=== PATIENT | female | born 1940 | race Caucasian/White ===

== ENCOUNTER 2018-02-14 09:38 | Inpatient (IN) | payer MEDICAID ==
[~2018-02-14] VITALS: Ht 160 cm; Wt 70.3 kg
[2018-02-14] VITALS (14 sets, daily range): BP systolic 71–128
[2018-02-14] MEDS ORDERED: NACL 0.9% 1,000 ML IV ONE (09:49)
[2018-02-14] MEDS ORDERED: ONDANSETRON HCL 4 MG/2 ML VIAL IVP ONE (10:00)
[2018-02-14] MEDS ORDERED: CLINDAMYCIN 900 mg/50mL D5W 50 ML IV ONE (10:00)
[2018-02-14] MEDS ORDERED: NOREPINEPHRINE BITARTRATE 4 MG in NS 246 ML IV ONE (10:00)
[2018-02-14] MEDS ORDERED: NS 1000 ML BAG IV ONE (10:00)
[2018-02-14] MEDS ORDERED: MORPHINE 4 MG/ML INJ. SYRINGE IVP ONE (10:00)
[2018-02-14] MEDS ORDERED: MORPHINE 4 MG/ML INJ. SYRINGE ONE (10:24)
[2018-02-14 10:34] LABS: BASOPHILS # (AUTO) 0.2 K/uL (0.0-0.2); BASOPHILS % (AUTO) 1.1 % (0.0-2.0); EOSINOPHILS # (AUTO) 0.2 K/uL (0.0-0.4); EOSINOPHILS % (AUTO) 1.5 % (0.0-4.0); HEMATOCRIT 32.9 % (36-48); HEMOGLOBIN 11.2 g/dL (12.0-16.0); LYMPHOCYTES # (AUTO) 0.4 K/uL (1.0-5.5); LYMPHOCYTES % (AUTO) 3.1 % (20.5-51.5); MEAN CORPUSCULAR HEMOGLOBIN 32 pg (27-31); MEAN CORPUSCULAR HGB CONC 34 % (32-36); MEAN CORPUSCULAR VOLUME 94 fL (79.0-98.0); MONOCYTES % (AUTO) 0.3 % (1.7-9.3); NEUTROPHILS # (AUTO) 12.9 K/uL (1.8-7.7); PLATELET COUNT (AUTO) 180 K/uL (130-430); RED CELL DISTRIBUTION WIDTH 16.8 % (9.0-15.0); WHITE BLOOD COUNT (AUTO) 13.8 K/uL (4.8-10.8)
[2018-02-14 10:38] LABS: INR 1.1 (0.8-1.2); PROTHROMBIN TIME 10.8 SECS (9.5-12.5)
[2018-02-14 10:40] LABS: ALANINE AMINOTRANSFERASE 47 U/L (12-78); ALBUMIN 1.6 g/dL (3.4-4.8); AMYLASE 77 U/L (0-100); ANION GAP 13 (5-15); ASPARTATE AMINOTRANSFERASE 48 U/L (10-37); CALCIUM 7.4 mg/dL (8.4-11.0); CREATININE 2.82 mg/dL (0.55-1.30); GLUCOSE 144 mg/dL (70-99); LIPASE 49 U/L (73-393); POTASSIUM 5.1 mmol/L (3.5-5.1); TOTAL BILIRUBIN 0.5 mg/dL (0.0-1.0)
[2018-02-14 10:43] LABS: CHLORIDE 81 mmol/L (98-107); SODIUM SERUM 112 mmol/L (136-145)
[2018-02-14 10:45] LABS: UREA NITROGEN, BLOOD 129 mg/dL (8-21)
[2018-02-14] MEDS ORDERED: ASPIRIN 81 MG TAB.CHEW PO ONE (11:00)
[2018-02-14] MEDS ORDERED: CLOPIDOGREL BISULFATE 75 MG TABLET PO ONE (11:00)
[2018-02-14] MEDS ORDERED: SODIUM CHLORIDE 3% *HI-ALERT* 500 ML IV ONE (12:15)
[2018-02-14 12:40] LABS: BILIRUBIN,URINE NEGATIVE (NEGATIVE); BLOOD, URINE NEGATIVE (NEGATIVE); CLARITY/URINE CLEAR (CLEAR); COLOR,URINE YELLOW (YELLOW); GLUCOSE,URINE NEGATIVE (NEGATIVE); KETONES,URINE NEGATIVE (NEGATIVE); LEUKOCYTE ESTERASE ,URINE 1+ (NEGATIVE); NITRITE, URINE NEGATIVE (NEGATIVE); PROTEIN URINE NEGATIVE (NEGATIVE); UROBILINOGEN,URINE 0.2 (0.2-1.0)
[2018-02-14 13:25] LABS: BACTERIA,URINE MODERATE /HPF (None Seen); RBC,URINE 0-3 /HPF (0-3); YEAST,URINE Many /HPF (None Seen)
[2018-02-14 13:26] LABS: MUCUS,URINE None Seen /LPF (None Seen)
[2018-02-14] MEDS ORDERED: VIS25 GT (13:33)
[2018-02-14] MEDS ORDERED: TRAM50TA2 GT (13:33)
[2018-02-14] MEDS ORDERED: FURO-149 GT (13:33)
[2018-02-14] MEDS ORDERED: POTA20TA83 GT (13:33)
[2018-02-14] MEDS ORDERED: MYL80 GT (13:33)
[2018-02-14] MEDS ORDERED: AMIO400T3 GT (13:33)
[2018-02-14] MEDS ORDERED: PARO-41 GT (13:33)
[2018-02-14] MEDS ORDERED: TYLL650 GT (13:33)
[2018-02-14] MEDS ORDERED: LEVE100S GT (13:33)
[2018-02-14] MEDS ORDERED: LORA-258 GT (13:33)
[2018-02-14] MEDS ORDERED: ATOR10TA68 GT (13:33)
[2018-02-14] MEDS ORDERED: SENN-153 GT (13:33)
[2018-02-14] MEDS ORDERED: PENT400T2 GT (13:33)
[2018-02-14] MEDS ORDERED: LOSA25TA3 GT (13:33)
[2018-02-14] MEDS ORDERED: LACT1CAP14 GT (13:33)
[2018-02-14] MEDS ORDERED: METH4TAB3 GT (13:33)
[2018-02-14] MEDS ORDERED: GUAI100S14 GT (13:33)
[2018-02-14] MEDS ORDERED: ROB1 GT (13:33)
[2018-02-14] MEDS ORDERED: ARTT OP (13:33)
[2018-02-14] MEDS ORDERED: CHLO473M5 MM (13:33)
[2018-02-14] MEDS ORDERED: METO-442 GT (13:33)
[2018-02-14] MEDS ORDERED: METO-290 GT (13:33)
[2018-02-14] MEDS ORDERED: HYDR-1189 GT (13:33)
[2018-02-14] MEDS ORDERED: HYDROCORTISONE SOD SUCC 100 MG/2 ML VIAL IVP ONE (14:15)
[2018-02-14] MEDS ORDERED: LevALBUTEROL HCL 1.25 MG/0.5 ML *CONC.* VIAL.NEB (XOPENEX CONC.) INH PRN (14:15)
[2018-02-14] MEDS ORDERED: IPRATROPIUM BROM 0.5 MG/2.5 ML VIAL.NEB (ATROVENT) INH PRN (14:15)
[2018-02-14] MEDS ORDERED: PANTOPRAZOLE SODIUM 40 MG/VIAL (PROTONIX) IVP ONE (14:45)
[2018-02-14] MEDS ORDERED: NOREPINEPHRINE 4 MG/4 ML VIAL IV ONE (15:06)
[2018-02-14] MEDS ORDERED: SODIUM CHLORIDE 3% *HI-ALERT* 500 ML IV SCH (15:15)
[2018-02-14] MEDS ORDERED: ACETAMINOPHEN 650 MG/20.3 ML UDC PO PRN (15:15)
[2018-02-14] MEDS ORDERED: FLUCONAZOLE 100 mg/ NS 50 ML IV ONE (16:00)
[2018-02-14 16:01] LABS: ANION GAP 15 (5-15); CREATININE 2.35 mg/dL (0.55-1.30); GLUCOSE 123 mg/dL (70-99); POTASSIUM 4.5 mmol/L (3.5-5.1)
[2018-02-14 16:13] LABS: INR 1.1 (0.8-1.2)
[2018-02-14 16:16] LABS: CHLORIDE 85 mmol/L (98-107); SODIUM SERUM 117 mmol/L (136-145)
[2018-02-14 16:19] LABS: UREA NITROGEN, BLOOD 116 mg/dL (8-21)
[2018-02-14] MEDS: NOREPINEPHRINE BITARTRATE 8 MG in D5W 242 ML IV PRN ×2 (18:00→23:28)
[2018-02-14] MEDS: LevALBUTEROL HCL 1.25 MG/0.5 ML *CONC.* VIAL.NEB (XOPENEX CONC.) INH SCH (19:52)
[2018-02-14] MEDS: CEFEPIME 1 GM in D5W 50 ML IV SCH (21:28)
[2018-02-14] MEDS: HYDROCORTISONE SOD SUCC 100 MG/2 ML VIAL IVP SCH (21:30)
[2018-02-14] MEDS: metroNIDAZOLE 250 mg/NS 50 ML IV SCH (22:17)
[2018-02-14 23:31] LABS: ANION GAP 15 (5-15); CALCIUM 7.1 mg/dL (8.4-11.0); CHLORIDE 89 mmol/L (98-107); CREATININE 2.18 mg/dL (0.55-1.30); GLUCOSE 186 mg/dL (70-99); POTASSIUM 4.6 mmol/L (3.5-5.1); SODIUM SERUM 120 mmol/L (136-145)
[2018-02-14 23:33] LABS: UREA NITROGEN, BLOOD 109 mg/dL (8-21)
[2018-02-15] VITALS (28 sets, daily range): BP systolic 99–163
[2018-02-15] MEDS: NACL 0.9% 1,000 ML IV SCH ×3 (00:38→21:22)
[2018-02-15] MEDS: LevALBUTEROL HCL 1.25 MG/0.5 ML *CONC.* VIAL.NEB (XOPENEX CONC.) INH SCH ×4 (01:04→20:01)
[2018-02-15] MEDS: HYDROCORTISONE SOD SUCC 100 MG/2 ML VIAL IVP SCH ×3 (05:42→21:20)
[2018-02-15] MEDS: metroNIDAZOLE 250 mg/NS 50 ML IV SCH ×3 (05:43→21:31)
[2018-02-15 06:44] LABS: ALANINE AMINOTRANSFERASE 51 U/L (12-78); ALBUMIN 1.7 g/dL (3.4-4.8); ANION GAP 15 (5-15); ASPARTATE AMINOTRANSFERASE 49 U/L (10-37); CALCIUM 7.4 mg/dL (8.4-11.0); CHLORIDE 90 mmol/L (98-107); CREATININE 1.97 mg/dL (0.55-1.30); GLUCOSE 178 mg/dL (70-99); POTASSIUM 4.1 mmol/L (3.5-5.1); SODIUM SERUM 121 mmol/L (136-145); TOTAL BILIRUBIN 0.6 mg/dL (0.0-1.0)
[2018-02-15 07:10] LABS: UREA NITROGEN, BLOOD 102 mg/dL (8-21)
[2018-02-15 07:44] LABS: BASOPHILS % (AUTO) 0.2 % (0.0-2.0); EOSINOPHILS % (AUTO) 0.2 % (0.0-4.0); HEMATOCRIT 35.2 % (36-48); HEMOGLOBIN 11.8 g/dL (12.0-16.0); LYMPHOCYTES # (AUTO) 0.8 K/uL (1.0-5.5); LYMPHOCYTES % (AUTO) 6.4 % (20.5-51.5); MEAN CORPUSCULAR HEMOGLOBIN 32 pg (27-31); MEAN CORPUSCULAR HGB CONC 34 % (32-36); MEAN CORPUSCULAR VOLUME 95 fL (79.0-98.0); MONOCYTES # (AUTO) 0.2 K/uL (0.0-1.0); MONOCYTES % (AUTO) 1.9 % (1.7-9.3); NEUTROPHILS # (AUTO) 11.5 K/uL (1.8-7.7); NEUTROPHILS % (AUTO) 91.3 % (40.0-70.0); PLATELET COUNT (AUTO) 237 K/uL (130-430); RED BLOOD CELL COUNT(AUTO) 3.71 MIL/uL (4.2-6.2); RED CELL DISTRIBUTION WIDTH 16.7 % (9.0-15.0); WHITE BLOOD COUNT (AUTO) 12.5 K/uL (4.8-10.8)
[2018-02-15] MEDS ORDERED: NACL 0.9% 1,000 ML IV ONE (07:45)
[2018-02-15] MEDS: METOPROLOL TARTRATE 25 MG TABLET GT SCH ×2 (09:00→21:21)
[2018-02-15] MEDS: PANTOPRAZOLE SODIUM 40 MG/VIAL (PROTONIX) IVP SCH (09:15)
[2018-02-15] MEDS: CEFEPIME 1 GM in D5W 50 ML IV SCH ×2 (09:18→21:21)
[2018-02-15] MEDS: NOREPINEPHRINE BITARTRATE 8 MG in D5W 242 ML IV PRN (09:35)
[2018-02-15] MEDS: FLUCONAZOLE 100 mg/ NS 50 ML IV SCH (10:59)
[2018-02-15] MEDS: LORazepam 2 MG/ML VIAL IVP PRN (16:52)
[2018-02-15] MEDS ORDERED: MENTHOL/ZINC OXIDE 113 GM OINT. TP PRN (19:00)
[2018-02-15] MEDS: MENTHOL/ZINC OXIDE 113 GM OINT. TP SCH (21:23)
[2018-02-16] VITALS (29 sets, daily range): BP systolic 100–149
[2018-02-16] MEDS: NOREPINEPHRINE BITARTRATE 8 MG in D5W 242 ML IV PRN (00:07)
[2018-02-16] MEDS: LevALBUTEROL HCL 1.25 MG/0.5 ML *CONC.* VIAL.NEB (XOPENEX CONC.) INH SCH ×4 (00:52→19:56)
[2018-02-16] MEDS: metroNIDAZOLE 250 mg/NS 50 ML IV SCH ×2 (05:29→14:01)
[2018-02-16] MEDS: NACL 0.9% 1,000 ML IV SCH ×2 (05:29→17:10)
[2018-02-16] MEDS: HYDROCORTISONE SOD SUCC 100 MG/2 ML VIAL IVP SCH ×2 (05:30→21:41)
[2018-02-16 06:20] LABS: HEMATOCRIT 29.5 % (36-48); HEMOGLOBIN 10.1 g/dL (12.0-16.0); MEAN CORPUSCULAR HEMOGLOBIN 32 pg (27-31); MEAN CORPUSCULAR HGB CONC 34 % (32-36); MEAN CORPUSCULAR VOLUME 94 fL (79.0-98.0); PLATELET COUNT (AUTO) 206 K/uL (130-430); RED BLOOD CELL COUNT(AUTO) 3.14 MIL/uL (4.2-6.2); RED CELL DISTRIBUTION WIDTH 16.8 % (9.0-15.0); WHITE BLOOD COUNT (AUTO) 9.7 K/uL (4.8-10.8)
[2018-02-16 06:35] LABS: ALANINE AMINOTRANSFERASE 45 U/L (12-78); ALBUMIN 1.5 g/dL (3.4-4.8); ANION GAP 11 (5-15); ASPARTATE AMINOTRANSFERASE 43 U/L (10-37); CALCIUM 7.2 mg/dL (8.4-11.0); CHLORIDE 99 mmol/L (98-107); CHOLESTEROL 88 mg/dL (<200); CREATININE 1.34 mg/dL (0.55-1.30); GLUCOSE 187 mg/dL (70-99); HDL CHOLESTEROL 63 mg/dL (>55); LDL CHOLESTEROL 18 mg/dL (<100); POTASSIUM 3.2 mmol/L (3.5-5.1); SODIUM SERUM 126 mmol/L (136-145); THYROID STIMULATING HORMONE 0.18 uIu/mL (0.34-4.82); TOTAL BILIRUBIN 0.5 mg/dL (0.0-1.0); TRIGLYCERIDES 28 mg/dL (30-150); UREA NITROGEN, BLOOD 80 mg/dL (8-21)
[2018-02-16] MEDS: CEFEPIME 1 GM in D5W 50 ML IV SCH (08:30)
[2018-02-16] MEDS: PANTOPRAZOLE SODIUM 40 MG/VIAL (PROTONIX) IVP SCH (08:31)
[2018-02-16] MEDS: MENTHOL/ZINC OXIDE 113 GM OINT. TP SCH ×4 (08:31→21:42)
[2018-02-16] MEDS: METOPROLOL TARTRATE 25 MG TABLET GT SCH ×2 (08:33→21:00)
[2018-02-16] MEDS: FLUCONAZOLE 100 mg/ NS 50 ML IV SCH (09:49)
[2018-02-16] MEDS ORDERED: KCL 20 mEq in 100 mL (PREMIX) 100 ML IV ONE (10:30)
[2018-02-16 11:38] LABS: BAND % (MANUAL) 9 % (0-6); BASOPHILS % (MANUAL) 0 % (0-2); EOSINOPHILS % (MANUAL) 0 % (0-7); LYMPHOCYTES % (MANUAL) 3 % (20-46); MONOCYTES % (MANUAL) 4 % (0-11)
[2018-02-16] MEDS: LORazepam 2 MG/ML VIAL IVP PRN ×2 (17:10→22:30)
[2018-02-16] MEDS ORDERED: BENZOCAINE 20% 0.5mL UD SPRAY MM PRN (21:00)
[2018-02-16] MEDS: AMPICILLIN SODIUM/SULBACTAM NA 1.5 GM in NS 50 ML IV SCH (21:42)
[2018-02-17] VITALS (18 sets, daily range): BP systolic 100–135
[2018-02-17] MEDS: LevALBUTEROL HCL 1.25 MG/0.5 ML *CONC.* VIAL.NEB (XOPENEX CONC.) INH SCH ×4 (00:57→19:37)
[2018-02-17] MEDS: AMPICILLIN SODIUM/SULBACTAM NA 1.5 GM in NS 50 ML IV SCH ×3 (05:09→21:22)
[2018-02-17] MEDS: LORazepam 2 MG/ML VIAL IVP PRN (05:13)
[2018-02-17 06:51] LABS: ALANINE AMINOTRANSFERASE 48 U/L (12-78); ALBUMIN 1.7 g/dL (3.4-4.8); ANION GAP 15 (5-15); ASPARTATE AMINOTRANSFERASE 47 U/L (10-37); CALCIUM 7.8 mg/dL (8.4-11.0); CHLORIDE 102 mmol/L (98-107); CREATININE 1.11 mg/dL (0.55-1.30); GLUCOSE 156 mg/dL (70-99); POTASSIUM 3.3 mmol/L (3.5-5.1); SODIUM SERUM 132 mmol/L (136-145); TOTAL BILIRUBIN 0.5 mg/dL (0.0-1.0); UREA NITROGEN, BLOOD 69 mg/dL (8-21)
[2018-02-17 06:58] LABS: HEMATOCRIT 31.4 % (36-48); HEMOGLOBIN 10.6 g/dL (12.0-16.0); MEAN CORPUSCULAR HEMOGLOBIN 31 pg (27-31); MEAN CORPUSCULAR HGB CONC 34 % (32-36); MEAN CORPUSCULAR VOLUME 93 fL (79.0-98.0); PLATELET COUNT (AUTO) 219 K/uL (130-430); RED BLOOD CELL COUNT(AUTO) 3.37 MIL/uL (4.2-6.2); RED CELL DISTRIBUTION WIDTH 16.6 % (9.0-15.0); WHITE BLOOD COUNT (AUTO) 11.3 K/uL (4.8-10.8)
[2018-02-17] MEDS ORDERED: POTASSIUM CHLORIDE 40 MEQ, LIDOCAINE JECT 2% PF 100 MG 75 MG in NS 250 ML IV ONE (07:30)
[2018-02-17] MEDS: PANTOPRAZOLE SODIUM 40 MG/VIAL (PROTONIX) IVP SCH (08:30)
[2018-02-17] MEDS: HYDROCORTISONE SOD SUCC 100 MG/2 ML VIAL IVP SCH ×2 (08:31→21:20)
[2018-02-17] MEDS: METOPROLOL TARTRATE 25 MG TABLET GT SCH ×2 (08:32→21:20)
[2018-02-17] MEDS: MENTHOL/ZINC OXIDE 113 GM OINT. TP SCH ×4 (08:33→21:22)
[2018-02-17] MEDS: FLUCONAZOLE 100 mg/ NS 50 ML IV SCH (08:33)
[2018-02-17 09:39] LABS: BAND % (MANUAL) 5 % (0-6); BASOPHILS % (MANUAL) 0 % (0-2); EOSINOPHILS % (MANUAL) 0 % (0-7); LYMPHOCYTES % (MANUAL) 5 % (20-46); MONOCYTES % (MANUAL) 7 % (0-11)
[2018-02-17] MEDS: NACL 0.9% 1,000 ML IV SCH ×3 (17:12→17:17)
[2018-02-18 00:52] VITALS: BP_SYST 130
[2018-02-18] MEDS: LevALBUTEROL HCL 1.25 MG/0.5 ML *CONC.* VIAL.NEB (XOPENEX CONC.) INH SCH ×3 (01:17→13:21)
[2018-02-18] MEDS: NACL 0.9% 1,000 ML IV SCH ×2 (02:41→05:36)
[2018-02-18] MEDS: AMPICILLIN SODIUM/SULBACTAM NA 1.5 GM in NS 50 ML IV SCH ×2 (05:00→14:31)
[2018-02-18 07:35] LABS: ANION GAP 11 (5-15); CALCIUM 7.7 mg/dL (8.4-11.0); CHLORIDE 107 mmol/L (98-107); CREATININE 0.88 mg/dL (0.55-1.30); GLUCOSE 150 mg/dL (70-99); POTASSIUM 3.5 mmol/L (3.5-5.1); SODIUM SERUM 134 mmol/L (136-145); UREA NITROGEN, BLOOD 55 mg/dL (8-21)
[2018-02-18 08:30] VITALS: BP_SYST 133
[2018-02-18] MEDS: HYDROCORTISONE SOD SUCC 100 MG/2 ML VIAL IVP SCH (09:09)
[2018-02-18] MEDS: PANTOPRAZOLE SODIUM 40 MG/VIAL (PROTONIX) IVP SCH (09:09)
[2018-02-18] MEDS: METOPROLOL TARTRATE 25 MG TABLET GT SCH (09:10)
[2018-02-18] MEDS: FLUCONAZOLE 100 mg/ NS 50 ML IV SCH (09:10)
[2018-02-18] MEDS: MENTHOL/ZINC OXIDE 113 GM OINT. TP SCH ×3 (09:11→17:45)
[2018-02-18 11:49] VITALS: BP_SYST 165
[2018-02-18 16:19] VITALS: BP_SYST 149
[2018-02-18 16:54] VITALS: BP_SYST 144
[2018-02-18 17:00] VITALS: BP_SYST 149
[2018-02-19] MEDS ORDERED: PREDNISONE 20 MG TABLET PO SCH (09:00)
== END 2018-02-18 18:33 | DRG 720 ==
LOC: SED 09:38 → SIC 12:26 → STU 02-17 16:27
PROVIDERS: ADMIT Internal Medicine Hospice and Palliative Medicine; ATTEND Internal Medicine Hospice and Palliative Medicine
PROC: 5A1955Z Respiratory Ventilation, Greater than 96 Consecutive Hours (ICD-10-PCS; principal; 2018-02-14)
PROC: 02HV33Z Insertion of Infusion Device into Superior Vena Cava, Percutaneous Approach (ICD-10-PCS; 2018-02-15)
PROC: B548ZZA Ultrasonography of Superior Vena Cava, Guidance (ICD-10-PCS; 2018-02-15)
DX: A41.9 Sepsis, unspecified organism (principal); N17.0 Acute kidney failure with tubular necrosis; J96.20 Acute and chronic respiratory failure, unspecified whether with hypoxia or hypercapnia; J69.0 Pneumonitis due to inhalation of food and vomit; R65.21 Severe sepsis with septic shock; G93.41 Metabolic encephalopathy; Z99.11 Dependence on respirator [ventilator] status; E43 Unspecified severe protein-calorie malnutrition; Z93.0 Tracheostomy status; E87.2 Acidosis; I11.0 Hypertensive heart disease with heart failure; I95.9 Hypotension, unspecified; I50.9 Heart failure, unspecified; I24.9 Acute ischemic heart disease, unspecified; N39.0 Urinary tract infection, site not specified; E87.1 Hypo-osmolality and hyponatremia; E11.9 Type 2 diabetes mellitus without complications; Y95 Nosocomial condition; B96.89 Other specified bacterial agents as the cause of diseases classified elsewhere; E11.51 Type 2 diabetes mellitus with diabetic peripheral angiopathy without gangrene; F32.9 Major depressive disorder, single episode, unspecified; D64.9 Anemia, unspecified; I25.10 Atherosclerotic heart disease of native coronary artery without angina pectoris; E88.09 Other disorders of plasma-protein metabolism, not elsewhere classified; G40.909 Epilepsy, unspecified, not intractable, without status epilepticus; I48.2 Chronic atrial fibrillation; B96.20 Unspecified Escherichia coli [E. coli] as the cause of diseases classified elsewhere; Z16.12 Extended spectrum beta lactamase (ESBL) resistance; I27.20 Pulmonary hypertension, unspecified; Z93.1 Gastrostomy status; Z87.01 Personal history of pneumonia (recurrent); Z79.899 Other long term (current) drug therapy; Z88.8 Allergy status to other drugs, medicaments and biological substances; Z22.322 Carrier or suspected carrier of Methicillin resistant Staphylococcus aureus; Z74.01 Bed confinement status; I69.354 Hemiplegia and hemiparesis following cerebral infarction affecting left non-dominant side; Z68.27 Body mass index [BMI] 27.0-27.9, adult
CPT/HCPCS: 36415; 36600; 71045; 80048; 80053; 80061; 81000-TC; 82150-TC; 82550-TC; 82803-TC; 83605; 83690-TC; 83880; 84443-TC; 84484; 85007; 85025; 85027; 85610-TC; 85730-TC; 87040-TC; 87070-TC; 87081; 87086; 87186-TC; 87205-TC; 93005; 93306; 94002; 94003; 94640; 96361; 96365; 96368; 96375; 99291; 99292; C1751; C9113; J0295; J0692; J0696; J1450; J1720; J2060; J2270; J3480; J3490; J7030; J7050; J7060; J7612

== ENCOUNTER 2018-06-19 10:34 | Inpatient (IN) | payer MEDICAID ==
[~2018-06-19] VITALS: Ht 160 cm; Wt 70.8 kg
[~2018-06-19 10:34] MED LIST: AMIO400T3 GT; ARTT OP; ATOR10TA68 GT; CHLO473M5 MM; FURO-149 GT; GUAI100S14 GT; HYDR-1189 GT; LACT1CAP14 GT; LEVE100S GT; LORA-258 GT; LOSA25TA3 GT; METH4TAB3 GT; METO-290 GT; METO-442 GT; MYL80 GT; PARO-41 GT; PENT400T12 GT; POTA20TA83 GT; ROB1 GT; SENN-153 GT; TRAM50TA2 GT; TYLL650 GT; VIS25 GT
--- NOTE | 2018-06-19 10:34 | NUR ---
Pt placed in bed 1 by KASHMIR Mittal
--- NOTE | 2018-06-19 10:35 | NUR ---
ER at bedside examining patient.
--- NOTE | 2018-06-19 12:00 | NUR ---
CHEST XRAY DONE AT BEDSIDE.
--- NOTE | 2018-06-19 12:10 | NUR ---
BLOOD DRAWN BY ASSEMBLER ERECTOR.
[2018-06-19 12:28] LABS: BASOPHILS # (AUTO) 0.1 K/uL (0.0-0.2); BASOPHILS % (AUTO) 1.7 % (0.0-2.0); EOSINOPHILS # (AUTO) 0.1 K/uL (0.0-0.4); EOSINOPHILS % (AUTO) 1.1 % (0.0-4.0); HEMATOCRIT 31.9 % (36-48); HEMOGLOBIN 10.2 g/dL (12.0-16.0); LYMPHOCYTES % (AUTO) 19.9 % (20.5-51.5); MEAN CORPUSCULAR HEMOGLOBIN 31 pg (27-31); MEAN CORPUSCULAR HGB CONC 32 % (32-36); MEAN CORPUSCULAR VOLUME 97 fL (79.0-98.0); MONOCYTES # (AUTO) 0.7 K/uL (0.0-1.0); MONOCYTES % (AUTO) 13.5 % (1.7-9.3); NEUTROPHILS # (AUTO) 3.2 K/uL (1.8-7.7); NEUTROPHILS % (AUTO) 63.8 % (40.0-70.0); PLATELET COUNT (AUTO) 185 K/uL (130-430); RED BLOOD CELL COUNT(AUTO) 3.29 MIL/uL (4.2-6.2); RED CELL DISTRIBUTION WIDTH 17.5 % (9.0-15.0); WHITE BLOOD COUNT (AUTO) 5.1 K/uL (4.8-10.8)
[2018-06-19 12:45] LABS: ANION GAP 11 (5-15); CALCIUM 8.5 mg/dL (8.4-11.0); CHLORIDE 100 mmol/L (98-107); CREATININE 0.69 mg/dL (0.55-1.30); GLUCOSE 104 mg/dL (70-99); POTASSIUM 3.6 mmol/L (3.5-5.1); SODIUM SERUM 135 mmol/L (136-145); UREA NITROGEN, BLOOD 34 mg/dL (8-21)
[2018-06-19 12:49] LABS: ALANINE AMINOTRANSFERASE 47 U/L (12-78); ALBUMIN 2.4 g/dL (3.4-4.8); ASPARTATE AMINOTRANSFERASE 55 U/L (10-37); TOTAL BILIRUBIN 0.6 mg/dL (0.0-1.0)
[2018-06-19] MEDS ORDERED: MIDAZOLAM HCL 5 MG/5 ML VIAL IVP ONE (14:42)
[2018-06-19] MEDS ORDERED: D5/0.45 NS 1,000 ML IV.SOLN IV ONE (14:42)
[2018-06-19] MEDS ORDERED: PROPOFOL 200MG/ 20ML VIAL (DIPRIVAN) IV ONE (14:42)
[2018-06-19] MEDS ORDERED: ONDANSETRON HCL 4 MG/2 ML VIAL IM PRN (15:00)
[2018-06-19] MEDS ORDERED: ACETAMINOPHEN 650 MG SUPP.RECT RC PRN (15:00)
--- NOTE | 2018-06-19 15:08 | NUR ---
Medication reconciliation completed with information provided by facility. Any prior medication reconciliation on file was reviewed and corrected.
--- NOTE | 2018-06-19 15:16 | NUR ---
ADMISSION NOTE Received patient from ER via gurney. Patient admitted with diagnosis of . Patient is awake, alert, oriented X 0. Patient oriented to hospital room, call light, toileting, pain management and safety-teach back done. Patient informed that I will be her nurse and that their room number is 103A. Personal belongings checked and Belongings List documented. Call light within reach.
--- NOTE | 2018-06-19 15:20 | NUR ---
TRANSFERRED CARE TO [facility]. TRANSPORTED PT TO TELEMETRY DEPT ROOM 103-A, VIA PORTABLE CARDIAC MONITORING, R.T BAGGING PT VIA TRACH, ACCOMPANIED BY FAMILY.
--- NOTE | 2018-06-19 15:40 | NUR ---
CONSULTATION PAGED/CALLED Reason for Consultation: [] VENT MGMT Person Who was Notified: [] VALERIE Consulting Physician: [] DR Elva GONSALEZ Costume Maker Specialty: [] PULMO Ordering Physician: [] DR Holden TOMPKINS
--- NOTE | 2018-06-19 15:43 | NUR ---
CONSULTATION PAGED/CALLED Reason for Consultation: [] GT DISPLACEMENT Person Who was Notified: [] VALERIE Consulting Physician: [] DR Kane MORENO Visitor Services Information Assistant Specialty: [] GI Ordering Physician: [] DR Holden TOMPKINS
[2018-06-19 15:57] VITALS: BP_SYST 125
[2018-06-19 15:59] VITALS: BP_SYST 125
[2018-06-19 16:30] VITALS: BP_SYST 125
--- NOTE | 2018-06-19 17:21 | NUR ---
Spoke with Dr. Nava asked about vent orders, stated to continue settings patient is currently on, also asked for IV fluids for patient because she is NPO, will implement orders
--- NOTE | 2018-06-19 17:30 | NUR ---
Spoke with Dr. Bourgeois over the phone, informed him that patient still has apparent g-tube in place but site has not been flushed, MD stated he will make rounds tomorrow. Family remains at bedside. patient resting in bed, no signs of distress, will continue to monitor
[2018-06-19] MEDS: NACL 0.9% 1,000 ML IV SCH (18:35)
--- NOTE | 2018-06-19 18:49 | NUR ---
Closing Note patient was repositioned in bed, oral and trach suctioning performed, HOB remains elevated, IV fluids infusing, site patent, pillow support provided, safety precautions remain in place, will endorse to shift leader nurse
--- NOTE | 2018-06-19 19:30 | NUR ---
INITIAL NOTES Received handoff report from offgoing nurse at the bedside. Patient is resting comfortably in bed with eyes closed. Family is at the bedside. Tolerating trach to vent settings as ordered. No SOB, no acute distress, no signs of pain or discomfort at this time. Bed is locked, in the lowest position, 2x side rails up, bed alarm is on. Call light is within reach. Explained plan of care to the family. Family verbalized understanding. Will continue with plan of care.
[2018-06-19 20:00] VITALS: BP_SYST 108
--- NOTE | 2018-06-19 21:30 | NUR ---
Provided patient full bed bath. Patient is incontinent of urine. Also provided skin care. Patient is now clean and dry, resting comfortably in bed.
[2018-06-20 00:10] VITALS: BP_SYST 102
--- NOTE | 2018-06-20 00:10 | NUR ---
Patient is resting comfortably in bed with eyes closed. No SOB, no acute distress, no signs of pain or facial grimacing. Tolerating trach to vent settings, breathing is even and unlabored. Bed is locked, in the lowest position, 2x side rails up, bed alarm is on. Call light is within reach.
--- NOTE | 2018-06-20 02:00 | NUR ---
Provided patient with bed bath, patient is incontinent of urine. Patient is now clean and dry, resting comfortably in bed.
--- NOTE | 2018-06-20 03:56 | NUR ---
Patient turned and repositioned as needed. Provided patient with oral care. No SOB, no acute distress, no signs of pain or discomfort at this time. IV site is intact, dressing clean and dry, currently infused IVF at ordered rate, see eMAR. Bed is locked, in the lowest position, 2x side rails up, bed alarm is on. Call light is within reach, encouraged patient to call.
[2018-06-20] MEDS: NACL 0.9% 1,000 ML IV SCH (05:29)
--- NOTE | 2018-06-20 05:32 | NUR ---
Changed IVF as needed per MD order, see eMAR for details.
[2018-06-20 06:25] LABS: HEMOGLOBIN 9.5 g/dL (12.0-16.0); MEAN CORPUSCULAR HEMOGLOBIN 33 pg (27-31); MEAN CORPUSCULAR HGB CONC 34 % (32-36); MEAN CORPUSCULAR VOLUME 97 fL (79.0-98.0); PLATELET COUNT (AUTO) 188 K/uL (130-430); RED BLOOD CELL COUNT(AUTO) 2.91 MIL/uL (4.2-6.2); RED CELL DISTRIBUTION WIDTH 17.5 % (9.0-15.0)
--- NOTE | 2018-06-20 06:54 | NUR ---
Patient is restless and agitated right now, throwing linen on the floor and moving her arm around. Patient noted to be incontinent of urine. Provided perineal care and applied zgaurd. Patient is now clean and dry. Repositioned patient into a more comfortable position. No SOB, no acute distress. Bed is locked, in the lowest position, 2x side rails up, bed alarm is on. Call light within reach.
[2018-06-20 06:57] LABS: ALANINE AMINOTRANSFERASE 45 U/L (12-78); ALBUMIN 2.1 g/dL (3.4-4.8); ANION GAP 10 (5-15); ASPARTATE AMINOTRANSFERASE 55 U/L (10-37); CALCIUM 8.3 mg/dL (8.4-11.0); CHLORIDE 101 mmol/L (98-107); CREATININE 0.71 mg/dL (0.55-1.30); GLUCOSE 80 mg/dL (70-99); POTASSIUM 3.5 mmol/L (3.5-5.1); SODIUM SERUM 135 mmol/L (136-145); TOTAL BILIRUBIN 0.7 mg/dL (0.0-1.0); UREA NITROGEN, BLOOD 27 mg/dL (8-21)
[2018-06-20 06:58] LABS: INR 1.1 (0.8-1.2); PROTHROMBIN TIME 11.6 SECS (9.5-12.5)
--- NOTE | 2018-06-20 07:32 | NUR ---
CLOSING NOTES Handoff report given to oncoming dayshift nurse at the bedside. Patient is awake and alert, resting comfortably in bed. No SOB, no acute distress, no signs of pain or facial grimacing. Breathing is even and unlabored with visible chest rise and fall noted. Tolerating trach to vent settings. IV fluids is running at the ordered rate, see eMAR for details. Bed is locked, in the lowest position, 2x side rails up, bed alarm is on. Call light is within reach. Fall and safety precautions maintained. All needs have been met during this shift.
--- NOTE | 2018-06-20 07:35 | NUR ---
OPENING NOTE RECEIVED REPORT FORM POWER TOOL REPAIRER NURSE. PT IS IN BED. PT IS NONVERBAL. PT HAS VENT, SETTINGS AC 10, TV 40, FI02 30%, PEEP 5. IV FLUIDS ARE INFUSING, NO INFILTRATION NOTED. PT IS ON LOW AIR LOSS MATTRESS. NO DISTRESS NOTED AT THIS TIME. SAFETY MEASURES IN PLACE, BED TO LOWEST POSITION, SIDE RAILS UPX3 AND PADDED. WILL CONTINUE TO MONITOR.
[2018-06-20 07:50] VITALS: BP_SYST 121
--- NOTE | 2018-06-20 09:15 | NUR ---
PAGED DR. FRENCH
--- NOTE | 2018-06-20 09:27 | NUR ---
Nutrition Update Ceasar Scale 13 noted. Pt admitted for displaced GT. Diet: NPO BMI: 27.6 kg/m2 RD to follow per nutrition care standards.
[2018-06-20] MEDS: PANTOPRAZOLE SODIUM 40 MG/VIAL (PROTONIX) IVP SCH (09:34)
[2018-06-20 09:37] LABS: BAND % (MANUAL) 7 % (0-6); EOSINOPHILS % (MANUAL) 1 % (0-7); LYMPHOCYTES % (MANUAL) 21 % (20-46); MONOCYTES % (MANUAL) 13 % (0-11)
[2018-06-20 09:38] LABS: BASOPHILS % (MANUAL) 0 % (0-2)
[2018-06-20] MEDS ORDERED: HYDROcodone/ACETAMIN 5-325 MG TAB (NORCO/ VICODIN) GT PRN (09:45)
[2018-06-20] MEDS ORDERED: ACETAMINOPHEN 650 MG/20.3 ML UDC GT PRN (09:45)
--- NOTE | 2018-06-20 09:50 | NUR ---
ROUNDS MORNING MEDICATION GIVEN. PT IS SCRATCHING TO UPPER INNER LEGS. WILL NOTIFY MD. VENT SETTINGS REMAIN THE SAME. IV IS INFUSING. SAFETY MEASURES IN PLACE, WILL CONTINUE TO MONITOR.
--- NOTE | 2018-06-20 09:55 | NUR ---
MD ROUNDS NOTIFIED DR. TOMPKINS OF REDNESS TO GROIN AREA, NEW ORDERS RECEIVED. RECEIVED NEW ORDERS FOR N-G TUBE AND WILL CARRY OUT.
[2018-06-20] MEDS: LORazepam 2 MG/ML VIAL IVP PRN ×2 (10:36→18:28)
[2018-06-20] MEDS: D5NS 1,000 ML IV SCH ×2 (10:44→21:58)
--- NOTE | 2018-06-20 11:45 | NUR ---
ATTENDING MD SLIP COVER SEWER DR Holden TOMPKINS WAS PAGED, RE: ORDER FOR RESTRAINTS. SPOKE TO GARY
--- NOTE | 2018-06-20 11:55 | NUR ---
NG TUBE PLACEMENT NG TUBE INSERTED TO LEFT NOSTRIL. PT IS RESTLESS. PT ATTEMPTING TO PULL AT NG TUBE. WILL NOTIFY MD. PT HAS MEDICAL CENTER DIRECTOR AT BEDSIDE FOR REASSURANCE AND SAFETY. SAFETY MEASURES IN PLACE, WILL CONTINUE TO MONITOR.
[2018-06-20 12:08] VITALS: BP_SYST 131
--- NOTE | 2018-06-20 12:10 | NUR ---
DR TOMPKINS CALLED RECEIVED ORDERS FOR SOFT RESTRAINTS AND ON TIME DOES OF ATIVAN IVP. PT PULLING ON LINES. REDIRECTION ATTEMPTED, CALM ENVIRONMENT, NOT EFFECTIVE. WILL CARRY OUT ORDERS.
[2018-06-20] MEDS ORDERED: LORazepam 2 MG/ML VIAL IVP ONE ×2 (12:15)
--- NOTE | 2018-06-20 12:29 | NUR ---
DR. FRENCH CALLED SECOND CALL PLACED TO DR. FRENCH REGARDING PT'S G-TUBE AND CLARIFICATION OF ORDERS. Addendum: 06/20/18 at 1235 by Marisol Osorio RN CALLED BACK. NEW ORDERS GIVEN, WILL CARRY OUT.
[2018-06-20] MEDS: NYSTATIN 15 GM TOPICAL POWDER TP SCH ×2 (12:49→22:04)
[2018-06-20] MEDS ORDERED: LORazepam 2 MG/ML VIAL ONE (12:52)
[2018-06-20] MEDS: PEG 400/HYPROMELLOSE/GLYCERIN 15 ML DROPS OP SCH ×2 (12:53→18:00)
--- NOTE | 2018-06-20 12:55 | NUR ---
ROUNDS SOFT RESTRAINT PUT TO RIGHT WRIST. PT WAS PULLING AT NG-TUBE. ATIVAN GIVEN 0.5MG IVP X1 ORDER. NYSTANTIN SCANNED LATE D/T WAITING FOR PHARMACY TO DELIVER. VENT SETTINGS REMAIN SAME. SAFETY MEASURES IN PLACE, WILL CONTINUE TO MONITOR.
--- NOTE | 2018-06-20 13:45 | NUR ---
ROUNDS PT APPEARS TO BE MORE CALM. SOFT RESTRAINT TO RIGHT WRIST. FAMILY IS AT BEDSIDE. SAFETY MEASURES IN PLACE, BED TO LOWEST POSITION, BED ALARM IS ON, SIDE RAILS UPX3 AND PADDED. WILL CONTINUE TO MONITOR.
[2018-06-20] MEDS: METOPROLOL TARTRATE 25 MG TABLET GT SCH ×2 (14:23→21:59)
[2018-06-20 16:02] VITALS: BP_SYST 154
--- NOTE | 2018-06-20 16:11 | NUR ---
ROUNDS PT WAS TURNED AND CLEANED OF URINE. WOUND CARE DONE TO LEFT THIGH SKIN TEAR. PT IS ON VENT, SETTINGS REMAIN SAME. PT IS ON LOW AIR LOSS MATTRESS. IV FLUIDS INFUSING. NG TUBE INTACT. SOFT RESTRAINT TO RIGHT WRIST. RESTRAINT WAS TAKEN OFF TO GIVE PT RANGE OF MOTION, PT ATTEMPTED TO GET NG-TUBE. SAFETY MEASURES IN PLACE, BED TO LOWEST POSITION, SIDE RAILS UPX3 AND PADDED, BED ALARM IS ON. WILL CONTINUE TO MONITOR.
--- NOTE | 2018-06-20 19:15 | NUR ---
INITIAL NOTES Received handoff report from offgoing dayshift nurse at the bedside. Patient is resting comfortably in bed with eyes closed. No SOB, no acute distress, no signs of pain or facial grimacing at this time. Family is at the bedside. Tolerating trach to vent settings. IVF running at ordered rate, see eMAR for details. Bed is locked, in the lowest position, 2x side rails up, bed alarm is on. Call light is within reach. Encouraged family to call for assistance.
--- NOTE | 2018-06-20 19:15 | NUR ---
CLOSING NOTE GAVE REPORT TO CUSTOMER SERVICE SECURITY OFFICER NURSE. PT RECEIVED ATIVAN PRN IVP GIVEN APPROXIMATELY AT 1835 FOR AGITATION. SUCTIONED PT ORALLY. PT IS ON A VENT, SETTINGS ARE AC 10, TV 40, FI02 30%, PEEP 5. IV FLUIDS ARE INFUSING, NO INFILTRATION NOTED. PT IS ON LOW AIR LOSS MATTRESS AND SCD'S ARE PLACED TO BLE. NO DISTRESS NOTED AT THIS TIME. SAFETY MEASURES IN PLACE, BED TO LOWEST POSITION, SIDE RAILS UPX3 AND PADDED. ENDORSED CARE TO CUSTOMER SERVICE SECURITY OFFICER NURSE.
--- NOTE | 2018-06-20 19:45 | NUR ---
Inquired with dayshift nurse on the whereabouts of the abdominal xray preliminary results. Dayshift nurse stated that she did not receive any results. Called the radiology department to see if we can obtain the preliminary results. Radiologist stated that the radiologist is off for tonight, and will not be able to read any results until tomorrow morning. Charge nurse made aware.
[2018-06-20 20:00] VITALS: BP_SYST 133
--- NOTE | 2018-06-20 20:09 | NUR ---
PAGED I PAGED DR. FRENCH @ 2008 I SPOKE WITH VALERIE JETER I CALLED SECOND TIME @ 2026 I SPOKE WITH JACQUES CORONA FRENCH CALLED BACK @ 2027
--- NOTE | 2018-06-20 20:28 | NUR ---
Notified Dr Bustamante that the Abdominal Xray has no results yet, and that the radiology department stated that the radiologist is off for today, and will not be able to provide preliminary results until tomorrow morning. Dr Bourgeois ordered for STAT Abdominal XRAY for verification of NGTUBE placement.
--- NOTE | 2018-06-20 20:32 | NUR ---
PAGED PAGED DOCTOR LEDA CARR RN.
--- NOTE | 2018-06-20 20:36 | NUR ---
Dr Nava notified of Critical lab results, positive for MRSA Nares. Family at the bedside also made aware, and educated on isolation precautions. Dr Nava ordered for Bactroban and for contact isolation.
[2018-06-20] MEDS ORDERED: MUPIROCIN NASAL 2% OINT. NS SCH (21:00)
--- NOTE | 2018-06-20 21:20 | NUR ---
NG Tube has been advanced 10cm based on previous abdominal xray results. Xray measurement technician at the bedside to take abdominal XRAY.
[2018-06-20] MEDS: ATORVASTATIN 10 MG TABLET GT SCH (21:58)
[2018-06-20] MEDS: FUROSEMIDE 40 MG TABLET GT SCH (21:58)
[2018-06-20] MEDS: traMADol HCL HCL 50 MG TABLET (ULTRAM) GT PRN (21:59)
--- NOTE | 2018-06-20 21:59 | NUR ---
Patient appears to be agitated with facial grimacing. Provided patient with Ultram for pain PRN per MD order, see eMAR for details.
[2018-06-20] MEDS: AMIODARONE HCL 200 MG TABLET GT SCH (22:00)
[2018-06-20] MEDS: LevETIRAcetam 500 MG/5 ML UDC ORAL LIQUID GT SCH (22:02)
[2018-06-20] MEDS: CHLORHEXIDINE GLUCONATE 15 ML/DOSE, 480 ML MM SCH (22:03)
[2018-06-21 00:30] VITALS: BP_SYST 99
--- NOTE | 2018-06-21 00:32 | NUR ---
Patient is resting comfortably in bed with eyes closed. No SOB, no acute distress, no signs of pain or facial grimacing at this time. Tolerating trach to vent settings as ordered. IV site is intact, currently infusing IVF per MD order, see EMAR for details. Bed is locked, in the lowest position, 2x side rails up, bed alarm is on. Call light is within reach.
[2018-06-21] MEDS: PEG 400/HYPROMELLOSE/GLYCERIN 15 ML DROPS OP SCH ×4 (01:07→18:09)
--- NOTE | 2018-06-21 02:10 | NUR ---
Patient is resting comfortably in bed with eyes closed. Breathing even and unlabored, tolerating trach to vent settings as ordered. No SOB, no acute distress, no signs of pain or facial grimacing. Breathing is even and unlabored with visible chest rise and fall noted. IVF running at ordered rate, see eMAR. Call light within reach.
--- NOTE | 2018-06-21 03:23 | NUR ---
Patient is sleeping, resting comfortably in bed. Tolerating trach to vent settings. No SOB, no acute distress, no signs of pain or facial grimacing. Breathing even and unlabored with visible chest rise and fall noted. IVF running at the ordered rate, see eMAR. Bed is locked, in the lowest position, 2x side rails up, bed alarm is on. Call light is within reach.
[2018-06-21] MEDS: LORazepam 2 MG/ML VIAL IVP PRN ×2 (05:07→15:33)
[2018-06-21] MEDS: D5NS 1,000 ML IV SCH (05:08)
[2018-06-21] MEDS: METOPROLOL TARTRATE 25 MG TABLET GT SCH ×3 (05:10→22:00)
--- NOTE | 2018-06-21 05:20 | NUR ---
Patient is biting down on her lips and gums, causing her to bleed. Patient has a lot of anxiety at this time. Provided Ativan PRN per MD order, see eMAR for details. Patient fell asleep afterwards and relaxed.
--- NOTE | 2018-06-21 05:43 | NUR ---
Provided incontinence care for the patient. Patient was sleeping, but easily aroused by touch. Patient is still hitting and pulling on IV lines while nursing staff was providing incontinence care for the patient. Patient is now clean and dry. Also provided tracheal suction care. Patient is resting comfortably in bed. No SOB, no acute distress, no signs of pain or facial grimacing at this time. Bed is locked, in the lowest position, 2x side rails up, bed alarm is on. Call light is within reach. Encouraged patient to call.
--- NOTE | 2018-06-21 06:47 | NUR ---
Patient is sleeping, resting comfortably in bed. No SOB, no acute distress, no signs of pain or facial grimacing. Breathing is even and unlabored with visible chest rise and fall noted. Tolerating trach to vent settings. IV site is intact, dressing clean and dry, running IVF at the ordered rate, see eMAR. Bed is locked, in the lowest position, 2x side rails up, bed alarm is on. Call light is within reach. Fall and safety precautions maintained. All needs have been met during this shift. Will endorse care to oncoming dayshift nurse.
[2018-06-21 08:00] VITALS: BP_SYST 123
[2018-06-21 08:09] LABS: BASOPHILS % (AUTO) 0.6 % (0.0-2.0); EOSINOPHILS % (AUTO) 0.9 % (0.0-4.0); HEMATOCRIT 30.3 % (36-48); HEMOGLOBIN 9.5 g/dL (12.0-16.0); LYMPHOCYTES # (AUTO) 0.8 K/uL (1.0-5.5); LYMPHOCYTES % (AUTO) 14.6 % (20.5-51.5); MEAN CORPUSCULAR HEMOGLOBIN 31 pg (27-31); MEAN CORPUSCULAR HGB CONC 31 % (32-36); MEAN CORPUSCULAR VOLUME 99 fL (79.0-98.0); MONOCYTES # (AUTO) 0.5 K/uL (0.0-1.0); MONOCYTES % (AUTO) 10.1 % (1.7-9.3); NEUTROPHILS % (AUTO) 73.8 % (40.0-70.0); PLATELET COUNT (AUTO) 169 K/uL (130-430); RED BLOOD CELL COUNT(AUTO) 3.06 MIL/uL (4.2-6.2); RED CELL DISTRIBUTION WIDTH 17.7 % (9.0-15.0); WHITE BLOOD COUNT (AUTO) 5.3 K/uL (4.8-10.8)
[2018-06-21 08:19] LABS: ALANINE AMINOTRANSFERASE 42 U/L (12-78); ALBUMIN 2.3 g/dL (3.4-4.8); ANION GAP 11 (5-15); ASPARTATE AMINOTRANSFERASE 55 U/L (10-37); CALCIUM 8.2 mg/dL (8.4-11.0); CHLORIDE 107 mmol/L (98-107); CREATININE 0.81 mg/dL (0.55-1.30); GLUCOSE 114 mg/dL (70-99); POTASSIUM 3.6 mmol/L (3.5-5.1); SODIUM SERUM 141 mmol/L (136-145); TOTAL BILIRUBIN 0.8 mg/dL (0.0-1.0); UREA NITROGEN, BLOOD 20 mg/dL (8-21)
--- NOTE | 2018-06-21 08:32 | NUR ---
AM NOTES Patient laying in bed resting. No s/s of distress, pain or SOB. Left NGT intact, Trach portex #7 intact and cuffed, vent settings running as ordered, NPO status maintained, Contact precautions maintained for MRSA of the nares. Bed in lowest position, call light within reach.
[2018-06-21] MEDS: LACTOBACILLUS RHAMNOSUS GG 1 CAP CAPSULE PO SCH (09:00)
[2018-06-21] MEDS: AMIODARONE HCL 200 MG TABLET GT SCH ×2 (09:00→21:14)
[2018-06-21] MEDS: FUROSEMIDE 40 MG TABLET GT SCH ×2 (09:00→21:15)
[2018-06-21] MEDS: POTASSIUM CHLORIDE 20 MEQ/PKT PACKET GT SCH (09:00)
[2018-06-21] MEDS: LevETIRAcetam 500 MG/5 ML UDC ORAL LIQUID GT SCH ×2 (09:00→21:17)
[2018-06-21] MEDS: PANTOPRAZOLE SODIUM 40 MG/VIAL (PROTONIX) IVP SCH (09:36)
[2018-06-21] MEDS: CHLORHEXIDINE GLUCONATE 15 ML/DOSE, 480 ML MM SCH ×2 (09:43→21:19)
[2018-06-21] MEDS ORDERED: CEFAZOLIN 1 GM IVPB PREMIX 50 ML IV ONE (09:45)
[2018-06-21] MEDS: MUPIROCIN 2% TOPICAL OINTMENT 22 GM NS SCH ×2 (09:46→21:20)
--- NOTE | 2018-06-21 09:54 | NUR ---
MORNING MEDS Morning meds administered via Gtube not given due to Gtube being pulled out last night. Family at bedside.
--- NOTE | 2018-06-21 10:00 | NUR ---
Skin care: Severe redness noted on the buttocks/sacral/cocyx and paul area. Z-guard applied on the buttocks and sacrococcygeal area, nystatin powder on the paul area after washed with soap and water. On low air loss mattress. Off loaded bilateral heels with a pillow.
--- NOTE | 2018-06-21 10:35 | NUR ---
AM MEDS: Family at bedside inquiring about AM meds. Informed family that meds were not given because of possible PEG placement today.
[2018-06-21] MEDS: D5/0.45 NS 1,000 ML IV SCH ×2 (10:45→15:47)
[2018-06-21] MEDS: NYSTATIN 15 GM TOPICAL POWDER TP SCH ×2 (11:18→21:21)
[2018-06-21 11:25] VITALS: BP_SYST 124
--- NOTE | 2018-06-21 12:01 | NUR ---
Wound Evaluation: Wound Consult ordered for Low Ceasar Score. Patient evaluated for a low Ceasar score of 12. Patient was awake, alert, oriented and received in a Remy Bed with a mattress. Patient needs to be turned in bed. Skin is poor. Recommend reposition patient side to side only every 2 hours with pillow support. Elevate, off-load and float bilateral heels with pillows. Offload pressure areas with pillows for pressure re-distribution. Perform skin care and monitor skin integrity Q shift. Use Calmoseptine cream on moisture susceptible areas QID and PRN for soiling. Place patient on a low air-loss mattress. Skin assessment: 1. Perineal area: Severe IAD, present on admission. Recommend: Cleanse involved areas with mild soap and water. Pat dry. Apply Nystatin cream to involved area. Perform site care bid, and as needed for soiling. 2. Sacral-Coccygeal/Buttockls areas: Severe IAD, present on admission. Recommend: Cleanse involved areas with mild soap and water. Pat dry. Apply Calmoseptine cream to involved areas. Perform site care qid, and as needed for soiling. Will continue to follow as a Ceasar.
--- NOTE | 2018-06-21 14:29 | NUR ---
AFTERNOON ROUNDS Patient laying in bed resting, no s/s of SOB or distress. No pain reported. Bed in lowest position, call light within reach. IV site patent, intact and dressing is dry. Family at bedside.
[2018-06-21 15:29] VITALS: BP_SYST 140
--- NOTE | 2018-06-21 16:13 | NUR ---
NGT: Spoke with Dr. Gerber, letyayed to use NGT for meds or feeding.
--- NOTE | 2018-06-21 16:47 | NUR ---
Sputum Culture: MD is aware of culture's result. Awaiting for order.
--- NOTE | 2018-06-21 17:59 | NUR ---
CONSULT ID MDRO SPUTUM CULTURE DR RENAE [phone] S/W KEISHA JETER
--- NOTE | 2018-06-21 18:46 | NUR ---
CLOSING NOTES Patient is lying in bed resting, family at bedside. All needs met throughout shift. No s/s of distress or SOB. Plastic portex #7 trach intact and cuffed, vent settings running as ordered, IV site patent, intact and dressing is dry. Restraint to right wrist attached to bed frame with quick-tie knot. Safety and fall precautions maintained throughout shift. Contact precautions maintained for MRSA of the sputum and MDRO of the sputum. Bed in lowest position, call light within reach.
--- NOTE | 2018-06-21 19:45 | NUR ---
OPENING NOTE Received patient lying supine, HOB elevated 35 degrees. AOx1, non-verbal. Pt is on trach to vent. Vent settings are A/C cuffed, TV 400, FIO2 30%, Peep 5, Trach size Portex 7. Patient has an NGT to Lt nares. Pt has 24G to LFA, which is patent intact and has D51/2 Ns infusing at 70 ml/hr. Restraint to Rt wrist has quick tie release. Family is at bedside. Updated board and reviewed plan of care w/ family.
[2018-06-21] MEDS: ATORVASTATIN 10 MG TABLET GT SCH (21:15)
--- NOTE | 2018-06-21 21:30 | NUR ---
ROUNDS Patient is resting in bed, eyes closed, no sign of agitation. Will administer due medications via NGT. Verified placement prior to administration. Patient tolerated medication administration. Oral care was provided.
--- NOTE | 2018-06-21 22:30 | NUR ---
ROUNDS Patient is awake, nurse assistants at bedside providing bed bath and linen change.
[2018-06-22 00:03] VITALS: BP_SYST 124
--- NOTE | 2018-06-22 03:05 | NUR ---
Rounds/Oral care Pt awake, agitated, medicated with Ativan IVP 0.5mg as needed. Oral care/Trache suctioned per protocol. HOB maintained elevated. Pt tolerated well and back to sleep. [facility]. To monitor.
[2018-06-22] MEDS: LORazepam 2 MG/ML VIAL IVP PRN (03:13)
[2018-06-22] MEDS: D5/0.45 NS 1,000 ML IV SCH (05:38)
[2018-06-22] MEDS: PEG 400/HYPROMELLOSE/GLYCERIN 15 ML DROPS OP SCH ×3 (05:43→11:41)
[2018-06-22] MEDS: METOPROLOL TARTRATE 25 MG TABLET GT SCH ×2 (05:43→14:16)
[2018-06-22] MEDS ORDERED: CEFAZOLIN 1 GM IVPB PREMIX 50 ML IV ONE (06:00)
--- NOTE | 2018-06-22 06:40 | NUR ---
CLOSING NOTE Patient is resting with eyes closed, vent settings in place, HOB remains elevated,no sign of agitation. Will endorse care to morning nurse.
[2018-06-22] MEDS ORDERED: MIDAZOLAM HCL 5 MG/5 ML VIAL ONE (07:13)
[2018-06-22] MEDS ORDERED: MEPERIDINE HCL/PF 100 MG/ML AMP ONE (07:14)
--- NOTE | 2018-06-22 07:30 | NUR ---
Opening note patient is awake and alert, nonverbal, has trach connected to vent, tolerating well, has right wrist restraint, circulation intact and pulse palpable, NG tube is clamped, assessment completed, no signs of distress or pain at this time, maintained contact isolation, incontinent of bowel and bladder, will continue to monitor, bed in lowest position, three side rails up, call light within reach, fall and aspiration precautions in place.
[2018-06-22 08:27] VITALS: BP_SYST 120
[2018-06-22] MEDS ORDERED: SIMETHICONE 40 MG/0.6 ML ML ONE (08:50)
[2018-06-22 09:00] VITALS: BP_SYST 120
--- NOTE | 2018-06-22 09:30 | NUR ---
Unable to perform procedures at this time, per MD will perform in OR.
[2018-06-22] MEDS: LACTOBACILLUS RHAMNOSUS GG 1 CAP CAPSULE PO SCH (09:47)
[2018-06-22] MEDS: FUROSEMIDE 40 MG TABLET GT SCH ×2 (09:48→22:24)
[2018-06-22] MEDS: PANTOPRAZOLE SODIUM 40 MG/VIAL (PROTONIX) IVP SCH (09:48)
[2018-06-22] MEDS: AMIODARONE HCL 200 MG TABLET GT SCH ×2 (09:49→22:23)
[2018-06-22] MEDS: POTASSIUM CHLORIDE 20 MEQ/PKT PACKET GT SCH (09:49)
[2018-06-22] MEDS: LevETIRAcetam 500 MG/5 ML UDC ORAL LIQUID GT SCH ×2 (09:50→22:24)
[2018-06-22] MEDS: MUPIROCIN 2% TOPICAL OINTMENT 22 GM NS SCH ×2 (09:50→22:27)
[2018-06-22] MEDS: CHLORHEXIDINE GLUCONATE 15 ML/DOSE, 480 ML MM SCH ×2 (09:52→22:27)
[2018-06-22] MEDS: NYSTATIN 15 GM TOPICAL POWDER TP SCH ×2 (09:52→21:00)
--- NOTE | 2018-06-22 10:35 | NUR ---
Notes patient cleaned and repositioned, had incontinence of urine, excoriation noted on anterior and posterior perineal antelmo, no signs of distress or pain, tolerating vent settings, will continue to monitor, right wrist restraint in place circulation intact, bed in lowest position, call light within reach, three side rails up, fall and aspiration precautions in place.
--- NOTE | 2018-06-22 11:29 | NUR ---
DC Planning: Per GI note:1. EGD today UNSUCCESSFUL DUE TO UNABLE TO OPEN UP JAW WIDE ENOUGH TO ALLOW FOR BITE BLOCK AND SCOPE INSERTION. 2. WILL PLAN FOR EGD WITH GENERAL ANESTHESIA TO ALLOW FOR JAW TO OPEN WIDE ENOUGH FOR SCOPE INSERTION - EITHER 06/23 OR 06/24. 3. NGT FEEDS FOR NOW.
[2018-06-22 11:30] VITALS: BP_SYST 112
[2018-06-22] MEDS ORDERED: AMIKACIN SULFATE 450 MG in D5W 100 ML IV SCH (12:00)
--- NOTE | 2018-06-22 12:30 | NUR ---
Notes- feeding of jevity 0f 1.2 at 40cc started. IVF decreased at 40cc/hr. Pt is drowsy, no distress noted. Family at bedside.
--- NOTE | 2018-06-22 14:29 | NUR ---
NOTES Patient in bed awake, family at bedside, no signs of pain or distress at the moment, repositioned for comfort, tolerating feeding, will continue to monitor, bed alarm on, three side rails up, bed in lowest position, call light within reach, fall and aspiration precautions in place.
--- NOTE | 2018-06-22 14:40 | NUR ---
MD Rounds Dr. Post seen patient at bedside, MD ordered to discontinue amikacin and start ceftazidime.
[2018-06-22 15:23] VITALS: BP_SYST 98
--- NOTE | 2018-06-22 15:35 | NUR ---
Dietitian Recommendations * Recommend Jevity 1.2 at 50 ml/hr, Free Water Flush: 150 ml Q6h via GT Provides: 1440 kcal/day, 67 gm protein/day, and 1768 ml free water/day Meets: 111% of lower end of estimated caloric needs and 108% of estimated protein needs LP, RD Please refer to Nutrition Assessment for details.
--- NOTE | 2018-06-22 16:39 | NUR ---
Notes patient resting in bed, family at bedside, oral hygiene and perineal care performed, repositioned for comfort, patient tolerating feeding well, no signs of pain or distress noted at this time, will continue to monitor, bed in lowest position, three side rails up, bed alarm on, call light within reach, fall and aspiration precautions in place.
--- NOTE | 2018-06-22 18:41 | NUR ---
Closing note patient resting in bed, no signs of pain or distress noted, tolerating feeding at 40ml/hr well, right wrist restraint circulation intact pulse palpable, granddaughter at bedside per granddaughter consent needs to be signed by , will come in AM, all needs met, will endorse report to oncoming nurse, bed in lowest position, three side rails up, call light within reach, bed close to nursing station, fall and aspiration precautions in place.
--- NOTE | 2018-06-22 19:45 | NUR ---
Opening note Pt awake. Vent-dependent. VSS. No s/s distress noted. NG tube feeding Jevity running at 40ml/hr, 5ml residual noted. HOB maintained elevated. Safety measure in place. Will continue to monitor.
[2018-06-22 20:10] VITALS: BP_SYST 124
[2018-06-22] MEDS: CEFTAZIDIME 1 GM in D5W 50 ML IV SCH (22:28)
--- NOTE | 2018-06-22 22:30 | NUR ---
ROUNDS Patient is resting w/ HOB elevated. Family at bedside and reported concern regarding a bruise noted to left side of chin, which was not there on last visit. I took picture of noted bruising to left jaw which measured 2cm x 2.2 cm. I also took a picture of a scratch olegario under the chin / anterior throat. Auscultation for NGT placement was done and proceded to administer medications via NGT. All needs met. Safety measures in place. Call light w/in reach. Will continue to monitor.
[2018-06-23] MEDS: METOPROLOL TARTRATE 25 MG TABLET GT SCH ×4 (00:07→22:03)
[2018-06-23 00:09] VITALS: BP_SYST 131
[2018-06-23] MEDS: ATORVASTATIN 10 MG TABLET GT SCH ×2 (00:10→22:04)
--- NOTE | 2018-06-23 02:00 | NUR ---
ROUNDS Patient is resting, no sign of distress or agitation noted. Oral care provided and repositioned for comfort. Ventilator settings remain in place. Will continue to monitor.
--- NOTE | 2018-06-23 05:40 | NUR ---
IV Restart L. hand IV occluded. DC'd IV, catheter tip intact. Restarted new IV on left forearm 22G x 1 attempt. Good blood return and flushes well with NS. To monitor.
[2018-06-23] MEDS: PEG 400/HYPROMELLOSE/GLYCERIN 15 ML DROPS OP SCH ×5 (06:06→23:25)
[2018-06-23] MEDS: D5/0.45 NS 1,000 ML IV SCH ×2 (06:07→19:30)
[2018-06-23] MEDS: CEFTAZIDIME 1 GM in D5W 50 ML IV SCH ×3 (06:08→22:24)
--- NOTE | 2018-06-23 06:30 | NUR ---
CLOSING NOTE Patient resting, no sign of distress noted. Replaced IVF fluid and administered morning medications. Auscultated for placement of NGT. Patient tolerated feeding, there was 5 ml of residual. Vent settings remain in place as ordered, seizure and safety precautions remain in place. Will endorse care to morning nurse.
[2018-06-23 06:55] LABS: BASOPHILS # (AUTO) 0.1 K/uL (0.0-0.2); EOSINOPHILS # (AUTO) 0.1 K/uL (0.0-0.4); LYMPHOCYTES # (AUTO) 0.9 K/uL (1.0-5.5); MEAN CORPUSCULAR VOLUME 97 fL (79.0-98.0); MONOCYTES # (AUTO) 0.7 K/uL (0.0-1.0)
[2018-06-23 07:14] LABS: ANION GAP 10 (5-15); CALCIUM 7.8 mg/dL (8.4-11.0); CHLORIDE 105 mmol/L (98-107); CREATININE 0.87 mg/dL (0.55-1.30); GLUCOSE 108 mg/dL (70-99); POTASSIUM 3.3 mmol/L (3.5-5.1); SODIUM SERUM 141 mmol/L (136-145); UREA NITROGEN, BLOOD 17 mg/dL (8-21)
[2018-06-23 07:15] LABS: INR 1.3 (0.8-1.2); PROTHROMBIN TIME 12.7 SECS (9.5-12.5)
[2018-06-23 07:29] LABS: BASOPHILS % (AUTO) 1.2 % (0.0-2.0); EOSINOPHILS % (AUTO) 1.7 % (0.0-4.0); HEMATOCRIT 29.1 % (36-48); HEMOGLOBIN 9.3 g/dL (12.0-16.0); LYMPHOCYTES % (AUTO) 15.8 % (20.5-51.5); MEAN CORPUSCULAR HEMOGLOBIN 31 pg (27-31); MEAN CORPUSCULAR HGB CONC 32 % (32-36); MONOCYTES % (AUTO) 11.9 % (1.7-9.3); NEUTROPHILS % (AUTO) 69.4 % (40.0-70.0); PLATELET COUNT (AUTO) 225 K/uL (130-430); RED BLOOD CELL COUNT(AUTO) 2.99 MIL/uL (4.2-6.2); RED CELL DISTRIBUTION WIDTH 18.2 % (9.0-15.0); WHITE BLOOD COUNT (AUTO) 5.8 K/uL (4.8-10.8)
--- NOTE | 2018-06-23 07:30 | NUR ---
Am Rounds: On contact isolation precaution.Bedside report given by night nurse Kanchan/Sarika.Patient on a ventilator,fio2=30%,ac=10,pg=545,peep=5.Not in any distress. With ngt at left nares,jevity at 40cc/h .Right wrist with soft restraint on as ordered. With ivf on going at left forearm intact. On air loss mattress bed.Scd,s off for now lower extremity with discoloration,if improved will put back scd,s, aware.Continue to monitor.
[2018-06-23 09:07] VITALS: BP_SYST 139
[2018-06-23] MEDS: POTASSIUM CHLORIDE 20 MEQ/PKT PACKET GT SCH (09:09)
[2018-06-23] MEDS: MUPIROCIN 2% TOPICAL OINTMENT 22 GM NS SCH ×2 (09:10→22:05)
[2018-06-23] MEDS: LevETIRAcetam 500 MG/5 ML UDC ORAL LIQUID GT SCH ×2 (09:11→22:05)
[2018-06-23] MEDS: LACTOBACILLUS RHAMNOSUS GG 1 CAP CAPSULE PO SCH (09:11)
[2018-06-23] MEDS: FUROSEMIDE 40 MG TABLET GT SCH ×2 (09:11→22:05)
[2018-06-23] MEDS: AMIODARONE HCL 200 MG TABLET GT SCH ×2 (09:11→22:04)
--- NOTE | 2018-06-23 09:11 | NUR ---
Ng tube: Ng tube placement checked by auscultation,with positive bowel sound.No residuals noted prior to giving crushed medications,well tolerated. Flushed with water after giving medications.
[2018-06-23] MEDS: NYSTATIN 15 GM TOPICAL POWDER TP SCH ×2 (09:12→22:06)
[2018-06-23] MEDS: CHLORHEXIDINE GLUCONATE 15 ML/DOSE, 480 ML MM SCH ×2 (09:13→22:04)
[2018-06-23] MEDS: PANTOPRAZOLE SODIUM 40 MG/VIAL (PROTONIX) IVP SCH (09:23)
--- NOTE | 2018-06-23 10:00 | NUR ---
Suction: Suctioned secretions via trach and orally,obtained large amount of vigil color secretions.
--- NOTE | 2018-06-23 12:01 | NUR ---
rn rounds: at the bedside holding patient's right hand. tolerated the vent settings. no distress.
[2018-06-23 12:13] VITALS: BP_SYST 146
--- NOTE | 2018-06-23 14:23 | NUR ---
gi rounds: patient seen by dr chaudhari and spoke with patient's and explained procedure needs to be done in operating room tomorrow,patient will be put to sleep and hold tube feeds after midnight tonight. Addendum: 06/23/18 at 2005 by Aster Keene RN PATIENT'S UNDERSTANDS THE INSTRUCTIONS.
[2018-06-23 15:34] VITALS: BP_SYST 130
--- NOTE | 2018-06-23 16:10 | NUR ---
TURNING: PATIENT VOIDED.CARE RENDERED.APPLIED Z-GUARD TO DENUDED AREAS.NYSTATIN POWDER TO GROIN AREA.TURNED TO SIDES WITH LOTS OF ASSISTANCE.
--- NOTE | 2018-06-23 19:00 | NUR ---
END OF SHIFT: PATIENT RESTING.FAMILY AT THE BEDSIDE. WITH SAME VENT SETTINGS,TOLERATED BY THE PATIENT.GOOD SATURATION. REPORT GIVEN TO NIGHT NURSE RADHA IN STABLE CONDITION.
--- NOTE | 2018-06-23 19:50 | NUR ---
INITIAL NOTES: Patient is awake and alert, nonverbal, has trach connected to vent,AC 10 , TV 400 , FIO2 30% , PEEP 5 ,pt tolerating well; has right wrist restraint, circulation intact and pulse palpable; NG tube in the left nostril , checked for positioning ,proper positioning noted , residual 5 ml ; assessment completed, no signs and symptoms of distress or pain at this time, maintained contact isolation, incontinent of bowel and bladder, will continue to monitor, bed in lowest position, three side rails up, call light within reach, fall and aspiration precautions in place.
[2018-06-23 20:00] VITALS: BP_SYST 124
--- NOTE | 2018-06-23 20:10 | NUR ---
SPONGE BATH / ORAL CARE : PT IS INCONTINENT WITH URINE , SPONGE BATH GIVEN ;LINEN AND GOWN CHANGED , Z GUARD APPLIED TO THE SACRAL AD BUTTOCKS ; ORAL CARE GIVEN , PT SUCTIONED WELL . WILL CONTINUE TO MONITOR .
--- NOTE | 2018-06-23 22:10 | NUR ---
MEDICATION: DUE MEDS GIVEN THROUGH NG TUBE , NGT FLUSHED WELL . JEVITY IS INFUSING AT 40 CC/HR .
--- NOTE | 2018-06-24 | NUR ---
NPO: PER ORDER PTS NGT FEEDING STOPPED AND FLUSHED LINE WELL .
--- NOTE | 2018-06-24 00:10 | NUR ---
INDIA NOTES: PT IS SLEEPING , NOT IN ANY ACUTE DISTRESS; RESPIRATION IS EVEN AND NON LABORED ; WILL CONTINUE TO MONITOR . Addendum: 06/24/18 at 0528 by Rinku Porras RN ORAL CARE GIVEN , ORAL AND TRACHEAL SUCTION PROVIDED
[2018-06-24 00:28] VITALS: BP_SYST 122
--- NOTE | 2018-06-24 02:10 | NUR ---
RN NOTES: PT IS SLEEPING , RESPIRATION IS EVEN AND NON LABORED ; TOLERATING WENT SETTING WELL ; WILL CONTINUE TO MONITOR .
--- NOTE | 2018-06-24 04:15 | NUR ---
RN NOTES: PT IS SLEEPING , NOT IN ANY ACUTE DISTRESS , VENT SETTING IS TOLERATING WELL ; WILL CONTINUE TO MONITOR .
--- NOTE | 2018-06-24 05:00 | NUR ---
ORAL CARE GIVEN : ORAL CARE PROVIDED , ORAL AND TRACHEAL SUCTION PROVIDED .PT IS COMFORTABLE .
--- NOTE | 2018-06-24 05:45 | NUR ---
SPONGE BATH AND JAMIL CARE : SPONGE BATH AND JAMIL CARE GIVEN ;PT CLEANED WITH CHG WIPES TOO ; APPLIED Z GUARD TO THE JAMIL AREA , AND BUTTOCKS AND SACRAL AREA ; PT IS NPO ; PT TOLERATING VENT
[2018-06-24 06:00] VITALS: BP_SYST 120
[2018-06-24] MEDS: D5/0.45 NS 1,000 ML IV SCH ×2 (06:05→18:22)
[2018-06-24] MEDS: METOPROLOL TARTRATE 25 MG TABLET GT SCH ×3 (06:07→20:59)
[2018-06-24] MEDS: CEFTAZIDIME 1 GM in D5W 50 ML IV SCH ×3 (06:07→21:02)
[2018-06-24] MEDS: PEG 400/HYPROMELLOSE/GLYCERIN 15 ML DROPS OP SCH ×4 (06:09→23:18)
--- NOTE | 2018-06-24 06:15 | NUR ---
RN NOTES: PT IS COMFORTABLE ; PER C.N THE PROCEDURE WILL BE AT 2 PM ONLY , PT IS NPO NOW , MEDICATED WITH LOPRESSOR WITH SMALL AMOUNT OF WATER AND NGT FLUSHED WELL ; ALL OTHER DUE MEDS GIVEN ; PT IS COMFORTABLE ; WILL CONTINUE TO MONITOR PT
[2018-06-24 06:46] LABS: BASOPHILS # (AUTO) 0.1 K/uL (0.0-0.2); BASOPHILS % (AUTO) 0.8 % (0.0-2.0); EOSINOPHILS # (AUTO) 0.1 K/uL (0.0-0.4); EOSINOPHILS % (AUTO) 0.9 % (0.0-4.0); HEMATOCRIT 29.7 % (36-48); HEMOGLOBIN 9.5 g/dL (12.0-16.0); LYMPHOCYTES # (AUTO) 1.3 K/uL (1.0-5.5); LYMPHOCYTES % (AUTO) 18.9 % (20.5-51.5); MEAN CORPUSCULAR HEMOGLOBIN 31 pg (27-31); MEAN CORPUSCULAR HGB CONC 32 % (32-36); MEAN CORPUSCULAR VOLUME 98 fL (79.0-98.0); MONOCYTES # (AUTO) 0.7 K/uL (0.0-1.0); NEUTROPHILS # (AUTO) 4.7 K/uL (1.8-7.7); NEUTROPHILS % (AUTO) 69.4 % (40.0-70.0); PLATELET COUNT (AUTO) 169 K/uL (130-430); RED BLOOD CELL COUNT(AUTO) 3.04 MIL/uL (4.2-6.2); WHITE BLOOD COUNT (AUTO) 6.9 K/uL (4.8-10.8)
[2018-06-24 07:00] LABS: INR 1.3 (0.8-1.2); PROTHROMBIN TIME 13.3 SECS (9.5-12.5)
[2018-06-24 07:10] LABS: ANION GAP 11 (5-15); CALCIUM 7.8 mg/dL (8.4-11.0); CHLORIDE 103 mmol/L (98-107); CREATININE 0.93 mg/dL (0.55-1.30); GLUCOSE 112 mg/dL (70-99); SODIUM SERUM 139 mmol/L (136-145); UREA NITROGEN, BLOOD 19 mg/dL (8-21)
[2018-06-24 07:26] LABS: POTASSIUM 2.9 mmol/L (3.5-5.1)
--- NOTE | 2018-06-24 07:30 | NUR ---
CLOSING NOTES: PT IS SLEEPING , NOT IN ANY ACUTE DISTRESS; REPORT GIVEN TO RN AT BEDSIDE . ALL NEEDS MET , PT IS NPO ; TOLERATING VENT SETTING .
--- NOTE | 2018-06-24 07:33 | NUR ---
ATTENDING MD DR BULLOCK WAS PAGED, RE: CRITICAL K LEVEL (2.2). SPOKE TO FREDRICK.
[2018-06-24] MEDS ORDERED: POTASSIUM CHLORIDE 20 MEQ in NS 250 ML IV ONE (07:45)
[2018-06-24 08:30] VITALS: BP_SYST 121
--- NOTE | 2018-06-24 08:30 | NUR ---
OPENING NOTE LATE ENTRY DUE TO PT CARE: REPORT IS RECEIVED FROM BIOTECH PRODUCTION SPECIALIST NURSE AND CARE IS ENDORSED TO MYSELF. PT IS RECEIVED SLEEPING AND ON VENTILATOR WITH THE FOLLOWING SETTINGS; AC 10, TV 400, PEEP 5, FIO2 30%. PT HAS GENERALIZED PITTING EDEMA PLUS 3 ON ARMS AND LEGS BILATERALLY. PT HAS NG TUBE IN LEFT NARE AND IS NPO DUE TO PEG PLACEMENT THIS AFTERNOON. ORAL CARE PERFORMED. GAVE KEPPRA VIA NG WITH 5 ML OF WATER FLUSH AFTER. PT REPOSITIONED TO LEFT SIDE. WHITE BOARD IS UPDATED AND PLAN OF CARE IS DISCUSSED WITH FAMILY. CURRENT NEEDS ARE MET. BED IS AT LOWEST POSITION, CALL LIGHT WITHIN REACH, THREE SIDE RAILS UP, BED ALARM IS ON. WILL CONTINUE TO MONITOR.
[2018-06-24] MEDS: POTASSIUM CHLORIDE 20 MEQ/PKT PACKET GT SCH (09:00)
[2018-06-24] MEDS: AMIODARONE HCL 200 MG TABLET GT SCH ×2 (09:00→21:00)
[2018-06-24] MEDS: LACTOBACILLUS RHAMNOSUS GG 1 CAP CAPSULE PO SCH (09:00)
[2018-06-24] MEDS: FUROSEMIDE 40 MG TABLET GT SCH ×2 (09:00→20:57)
[2018-06-24] MEDS: MUPIROCIN 2% TOPICAL OINTMENT 22 GM NS SCH ×2 (10:05→21:01)
[2018-06-24] MEDS: CHLORHEXIDINE GLUCONATE 15 ML/DOSE, 480 ML MM SCH ×2 (10:05→20:51)
[2018-06-24] MEDS: LevETIRAcetam 500 MG/5 ML UDC ORAL LIQUID GT SCH ×2 (10:06→21:00)
[2018-06-24] MEDS: PANTOPRAZOLE SODIUM 40 MG/VIAL (PROTONIX) IVP SCH (10:06)
[2018-06-24] MEDS: NYSTATIN 15 GM TOPICAL POWDER TP SCH ×2 (10:07→21:02)
--- NOTE | 2018-06-24 10:30 | NUR ---
ROUNDS LATE ENTRY DUE TO PT CARE: PT IS AWAKE AND ALERT. FAMILY IS AT BEDSIDE. NO SIGNS OR SYMPTOMS OF DISTRESS OR SOB NOTED. PT WAS REPOSITIONED TO RIGHT SIDE. CURRENT NEEDS ARE MET. BED IS AT LOWEST POSITION, CALL LIGHT WITHIN REACH, THREE SIDE RAILS UP, BED ALARM IS ON. WILL CONTINUE TO MONITOR.
--- NOTE | 2018-06-24 12:18 | NUR ---
Discharge Planning: DCP faxed pt referral to [facility] (f [phone] p [phone]); [facility] is accepting pt back when discharged, no room given.
--- NOTE | 2018-06-24 12:30 | NUR ---
ROUNDS LATE ENTRY DUE TO PT CARE: PT IS SLEEPING. FAMILY IS AT BEDSIDE. NO SIGNS OR SYMPTOMS OF DISTRESS OR SOB NOTED. PT WAS REPOSITIONED TO LEFT SIDE. ORAL CARE WAS PERFORMED. PT CONTINUES TO BE NPO TO PEG PLACEMENT AT 1400. CURRENT NEEDS ARE MET. BED IS AT LOWEST POSITION, CALL LIGHT WITHIN REACH, THREE SIDE RAILS UP, BED ALARM IS ON. WILL CONTINUE TO MONITOR.
[2018-06-24 12:50] VITALS: BP_SYST 126
--- NOTE | 2018-06-24 14:02 | NUR ---
ROUNDS PT IS SLEEPING. FAMILY IS AT BEDSIDE. NO SIGNS OR SYMPTOMS OF DISTRESS OR SOB NOTED. PT WAS REPOSITIONED TO LEFT SIDE. AWAITING FOR RT TO TRANSPORT PT TO OPERATING ROOM. CURRENT NEEDS ARE MET. BED IS AT LOWEST POSITION, CALL LIGHT WITHIN REACH, THREE SIDE RAILS UP, BED ALARM IS ON. WILL CONTINUE TO MONITOR.
--- NOTE | 2018-06-24 14:07 | NUR ---
DC Planning:Returned call and LVM updated pt. 's status to Esther/Eugenia IPA # [phone]: PEG placement in OR is pending. The pt has scheduled this PM per nurse Barbosa.
--- NOTE | 2018-06-24 14:30 | NUR ---
PT TAKEN TO OR WILL MONITOR UPON RETURN.
[2018-06-24] MEDS ORDERED: fentaNYL CITRATE/PF 100 MCG/2 ML AMP IVP PRN ×2 (15:15)
[2018-06-24] MEDS ORDERED: ONDANSETRON HCL 4 MG/2 ML VIAL IVP PRN (15:15)
--- NOTE | 2018-06-24 15:51 | NUR ---
RETURN FROM OR REPORT IS RECEIVED FROM OR NURSE. PT PLACED BACK ON VENTILATOR BY RT. FAMILY IS AT BEDSIDE. PT HAS BLOOD TINGED SPUTUM DROOLING FROM MOUTH, ORAL SUCTION WAS PERFORMED. CURRENT NEED ARE MET. BED IS AT LOWEST POSITION, CALL LIGHT WITHIN REACH, THREE SIDE RAILS UP, BED ALARM ON. WILL CONTINUE TO MONITOR.
--- NOTE | 2018-06-24 16:12 | NUR ---
ROUNDS PT IS SLEEPING BUT EASILY AROUSEABLE. NO SIGNS OR SYMPTOMS OF DISTRESS OR SOB NOTED. PT WAS REPOSITIONED OT LEFT SIDE. PT HAS ORAL SECRETIONS THAT WERE SUCTIONED. IV ANTIBIOTIC WAS GIVEN LATE DUE TO PT BEING IN THE OR. CURRENT NEED ARE MET. BED IS AT LOWEST POSITION, CALL LIGHT WITHIN REACH, THREE SIDE RAILS UP, BED ALARM ON. WILL CONTINUE TO MONITOR.
--- NOTE | 2018-06-24 18:45 | NUR ---
CLOSING NOTE PT IS SLEEPING. GRAND DAUGHTER IS AT BEDSIDE. PT WAS REPOSITIONED TO RIGHT SIDE. CURRENT NEEDS ARE MET. BED IS AT LOWEST POSITION, CALL LIGHT WITHIN REACH, THREE SIDE RAILS UP, BED ALARM IS ON. WILL CONTINUE TO MONITOR UNTIL CARE AND REPORT IS GIVEN TO RAW FINISH MILL OPERATOR NURSE.
[2018-06-24 20:00] VITALS: BP_SYST 107
--- NOTE | 2018-06-24 20:00 | NUR ---
Initial Note Received patient eyes closed but moves her mouth, right arm and right leg. Aphasic. Family at the bedside. No SOB or grimacing noted. GT feeding and IVF infusing. Trach connected to vent. Vent settings checked, Right wrist restraints off for few minutes. A-fib with BBB on monitor. SCDs. LALM. Generalized edema. Elevated BUE and BLE on pillows. Isolation, aspiration and seizure precautions observed. Care and monitoring will be provided per protocol. Needs attended. Call light within reach. Bed alarm on and at lowest position at all times. Repositioned. Kept warm and comfortable.
[2018-06-24] MEDS: ATORVASTATIN 10 MG TABLET GT SCH (20:52)
--- NOTE | 2018-06-24 21:00 | NUR ---
RN Note Due meds crushed and given via GT. No residual noted. Increased GT feeding to 40 ml/hr. Flushed free water. Repositioned. No BM but heavily soiled pads with urine. Incontinence and skin care done. Z guard applied and pillowcase on bilateral groin area. Elevated arms and legs on pillows. Suctioned mouth. Family refused to have the abdominal binder placed. Kept clean, dry and comfortable.
--- NOTE | 2018-06-24 22:00 | NUR ---
RN Note Family left. Repositioned patient. Suctioned trach. Vent settings checked. Released right wrist restraints for few minutes. Skin integrity, circulation and movement are all WNL. Elevated arms and legs. IVF and GT feeding infusing. Kept warm and comfortable.
[2018-06-25] VITALS (8 sets, daily range): BP systolic 97–148
--- NOTE | 2018-06-25 00:30 | NUR ---
RN Note Eyes closed but moves her right feet and right arm. Patient bites her lips. No SOB or grimacing noted. Repositioned. GT feeding tolerated well without any residual. Increased GT feeding rate to 50 ml/hr. Will continue to monitor. Right wrist restraints with skin integrity, movement and circulation are all WNL. Kept warm and comfortable.
--- NOTE | 2018-06-25 02:30 | NUR ---
RN Note Asleep but arousable. Repositioned. Suctioned trach. Incontinence and skin care done. Elevated arms and legs. Trach vent settings checked. Skin integrity, circulation and movement WNL. Kept clean, dry and comfortable.
--- NOTE | 2018-06-25 04:10 | NUR ---
RN Note Patient awake, eyes open. Moving her right arm from its restraint. Released restraints for few minutes. Skin integrity, circulation and movement WNL. Suctioned patient via trach. Oral care done. Repositioned. No residual noted. Flushed free water. Kept warm and comfortable.
[2018-06-25] MEDS: D5/0.45 NS 1,000 ML IV SCH ×2 (04:25→18:36)
[2018-06-25] MEDS: PEG 400/HYPROMELLOSE/GLYCERIN 15 ML DROPS OP SCH ×4 (05:13→23:36)
[2018-06-25] MEDS: CEFTAZIDIME 1 GM in D5W 50 ML IV SCH ×3 (05:14→21:05)
[2018-06-25] MEDS: METOPROLOL TARTRATE 25 MG TABLET GT SCH ×3 (05:18→21:15)
--- NOTE | 2018-06-25 06:21 | NUR ---
End Note Afebrile. VS stable. No SOB or grimacing noted throughout the night. A-fib with BBB on monitor. Repositioned Q2. Elevated BUE and BLE on pillows. Heels off bed. IVF infusing. GT feeding tolerated well with minimal residual. GT feeding rate is 50 ml/hr at this time. Goal is 60 ml/hr. Incontinence and skin care provided. Vent settings checked. Suctioned orally and via trach. Oral care done. GT dressing changed. No BM. SCDs. AM labs today. Needs attended. Care and monitoring provided per protocol. Call light within reach. Bed alarm on and at lowest position at all times. Kept clean, dry and comfortable. Fall, Aspiration, seizure precaution observed. Right wrist restraints. Skin integrity, circulation and movement WNL. Restraint order to be renewed at 1600 today-will endorse.
[2018-06-25 07:20] LABS: ANION GAP 9 (5-15); CALCIUM 7.5 mg/dL (8.4-11.0); CHLORIDE 103 mmol/L (98-107); CREATININE 0.93 mg/dL (0.55-1.30); GLUCOSE 133 mg/dL (70-99); SODIUM SERUM 136 mmol/L (136-145); UREA NITROGEN, BLOOD 21 mg/dL (8-21)
[2018-06-25 07:43] LABS: BASOPHILS % (AUTO) 0.4 % (0.0-2.0); EOSINOPHILS # (AUTO) 0.1 K/uL (0.0-0.4); EOSINOPHILS % (AUTO) 1.7 % (0.0-4.0); HEMATOCRIT 28.5 % (36-48); HEMOGLOBIN 9.2 g/dL (12.0-16.0); LYMPHOCYTES # (AUTO) 0.9 K/uL (1.0-5.5); LYMPHOCYTES % (AUTO) 17.9 % (20.5-51.5); MEAN CORPUSCULAR HEMOGLOBIN 31 pg (27-31); MEAN CORPUSCULAR HGB CONC 32 % (32-36); MEAN CORPUSCULAR VOLUME 96 fL (79.0-98.0); MONOCYTES # (AUTO) 0.5 K/uL (0.0-1.0); MONOCYTES % (AUTO) 10.4 % (1.7-9.3); NEUTROPHILS # (AUTO) 3.3 K/uL (1.8-7.7); NEUTROPHILS % (AUTO) 69.6 % (40.0-70.0); PLATELET COUNT (AUTO) 160 K/uL (130-430); RED BLOOD CELL COUNT(AUTO) 2.98 MIL/uL (4.2-6.2); RED CELL DISTRIBUTION WIDTH 17.5 % (9.0-15.0); WHITE BLOOD COUNT (AUTO) 4.8 K/uL (4.8-10.8)
--- NOTE | 2018-06-25 08:00 | NUR ---
initial notes rec patient awake opens eyes but non verbally responsive. pt with a trache connected to a mechanical ventilator.hob elevated and no sob noted.gt feeding in place and no residual noted. padded rails for seizure prevention.pt on contact isolation for mrsa nares. pt incontinent of both stool and urine, and kept patient dry and clean will continue to monitor patient
[2018-06-25] MEDS: POTASSIUM CHLORIDE 20 MEQ/PKT PACKET GT SCH (09:34)
[2018-06-25] MEDS: LevETIRAcetam 500 MG/5 ML UDC ORAL LIQUID GT SCH ×2 (09:34→21:05)
[2018-06-25] MEDS: AMIODARONE HCL 200 MG TABLET GT SCH ×2 (09:34→21:15)
[2018-06-25] MEDS: PANTOPRAZOLE SODIUM 40 MG/VIAL (PROTONIX) IVP SCH (09:35)
[2018-06-25] MEDS: CHLORHEXIDINE GLUCONATE 15 ML/DOSE, 480 ML MM SCH ×2 (09:35→21:05)
[2018-06-25] MEDS: FUROSEMIDE 40 MG TABLET GT SCH ×2 (09:35→21:15)
[2018-06-25] MEDS: MUPIROCIN 2% TOPICAL OINTMENT 22 GM NS SCH ×2 (09:36→21:08)
[2018-06-25] MEDS: LACTOBACILLUS RHAMNOSUS GG 1 CAP CAPSULE PO SCH (09:36)
[2018-06-25] MEDS: NYSTATIN 15 GM TOPICAL POWDER TP SCH ×2 (09:37→21:14)
--- NOTE | 2018-06-25 10:00 | NUR ---
rounds sleeping soundly and no acute distress noted. at bedside with the patient. no sob noted. turned and repositioned for comfort
[2018-06-25] MEDS ORDERED: POTASSIUM CHLORIDE 20 MEQ/PKT PACKET GT ONE (13:45)
--- NOTE | 2018-06-25 14:00 | NUR ---
rounds see fermín diaz and with orders. pt was cleaned, incontinent of both bowel and urine. turned repositioned for comfort. no sob noted.
--- NOTE | 2018-06-25 16:30 | NUR ---
Discharge Planning: DCP spoke to Jomar at [facility] ) no room yet available for pt. Pt has roommate when pt is in house.
--- NOTE | 2018-06-25 16:54 | NUR ---
Nutrition F/U Admitting Diagnosis Displaced GT Reviewed Pertinent Medical/Surgical Hx Medical Record Patient Medical History Comment: CVA x2, CAD, chronic atr fibr, vent-dependency, trach placement per MD notes Subjective Information Pt seen resting in bed, TF infusing as per MD orders. Pt seems to be tolerating TF well as per nursing trends for residuals and no documentation of s/s of intolerance. Current TF regimen remains appropriate. Current Diet Order/Nutrition Support Jevity 1.2 at 60 ml/hr, Free Water Flush: 100 ml Q6h via GT x1 day Patient/Significant Other Able To Verbalize Education Provided Not Indicated Pertinent Medications D5%/NaCl IV, culturelle, lasix, protonix Pertinent Labs BG 133 H, ALB 2.3 L, AST 55 H, ALP 134 H, H/H 9.2 L/28.5 L Height (Feet) 5 feet Height (Inches) 3.00 inches Weight (Pounds) 156 pounds (06/22/18) Weight (Calculated Kilograms) 70.957751 kilograms Patient Weight 70.76 kg Body Mass Index 27.63 kg/m2 %IBW 137 [place]/Adjusted Body Weight IBW: 115 lb, 52 kg. Adj IBW (obesity): 125 lb, 57 kg Recent Weight Change unable to verify Weight Status Appropriate Gastrointestinal Symptoms None Last BM 06/23/18 Difficulty With: Chewing Swallowing Food Allergies unable to verify Skin Integrity Comment: Ceasar scale: 10; per Clinical Case Manager note 06/21/18: 1. Perineal area: Severe IAD, present on admission. 2. Sacral-Coccygeal/Buttockls areas: Severe IAD, present on admission. Estimated Energy Expenditure (kcals/day) 8385-2238 kcal/day (25-30 kcal/kg CBW for maintenance) Estimated Protein Required (g/day) 62 gm/day (1.2 gm/kg CBW for geriatric maintenance) Estimated Fluid Required (l/day) 1.8 L/day (25 ml/kg CBW for geriatric maintenance) Problem/Etiology/Signs/Symptoms Inadequate EN support related to maintenance as evidenced by current TF regimen meets 89% of lower end of estimated caloric needs and 85% of lower end of estimated protein needs. *no longer applicable, current TF regimen is adequate/appropriate Expected Outcomes/Goals - Monitor tolerance to EN support w/ goal of pt meeting at least 90% of estimated nutritional needs, labs trending WNL, normal GI function, and skin integrity/wt maintenance Dietitian Recommendations * Recommend Jevity 1.2 at 60 ml/hr, Free Water Flush: 100 ml Q6h via GT Provides: 1728 kcal/day, 80 gm protein/day, and 1562 ml free water/day Meets: 111% of upper end of estimated caloric needs and 129% of estimated protein needs Follow Up High Risk: F/U in 2-3 days
--- NOTE | 2018-06-25 17:01 | NUR ---
Dietitian Recommendations * Recommend Jevity 1.2 at 60 ml/hr, Free Water Flush: 100 ml Q6h via GT Provides: 1728 kcal/day, 80 gm protein/day, and 1562 ml free water/day Meets: 111% of upper end of estimated caloric needs and 129% of estimated protein needs LP, RD Please refer to Nutrition Assessment for details.
--- NOTE | 2018-06-25 18:30 | NUR ---
closing notes pt with hob elevated. pt continue to be on mechanical ventilator. no acute distress noted. gt feeding janeen well. no residual noted. was turned and repositioned for comfort. restraint on the r wrist intact and was checked for circulation. needs attended and pt stable. seen by dr booth.
--- NOTE | 2018-06-25 18:55 | NUR ---
PAGED PAGED DOCTOR NAGA
--- NOTE | 2018-06-25 19:39 | NUR ---
PAGED 2ND TIME PAGED DOCTOR NAGA
--- NOTE | 2018-06-25 19:55 | NUR ---
Initial Note Received patient eyes open but nonverbal. Family at the bedside. No SOB noted. Grimacing noted. Will medicate for pain. GT feeding and IVF infusing. Trach connected to vent. Vent settings checked, Right wrist restraints off for few minutes. A-fib with BBB on monitor. SCDs. LALM. Generalized edema. Elevated BUE and BLE on pillows. Isolation, aspiration and seizure precautions observed. Care and monitoring will be provided per protocol. Needs attended. Call light within reach. Bed alarm on and at lowest position at all times. Repositioned. Kept warm and comfortable. Family asked re Dc order. We are about to page Dr. Siu and will wait if there's available bed at [facility].
--- NOTE | 2018-06-25 20:15 | NUR ---
Dr. Salbador Siu called back and got an order for discharge at [facility]. Notified charge nurse and family. Will await if there's bed availability.
[2018-06-25] MEDS: ATORVASTATIN 10 MG TABLET GT SCH (21:04)
--- NOTE | 2018-06-25 21:15 | NUR ---
RN Note Due meds given via GT. No residual noted. Flushed free water. Incontinence and skin care done by REPLACER. Repositioned. Elevated BUE and BLE on pillows. Kept clean, dry and comfortable. Addendum: 06/26/18 at 0213 by Raymond Blandon RN No bed available at [facility], charge nurse aware.
[2018-06-25] MEDS: traMADol HCL HCL 50 MG TABLET (ULTRAM) GT PRN (21:29)
--- NOTE | 2018-06-25 23:00 | NUR ---
RN Note Arousable. Suctioned trach and mouth. Thin white sputum noted in small amount. Repositioned. Elevated arms and legs on pillows. Kept warm and comfortable.
--- NOTE | 2018-06-26 02:00 | NUR ---
RN Note Asleep but arousable. No SOB or grimacing noted. On vent. Right wrist restraints. Skin integrity, circulation and movement WNL. Repositioned. Kept comfortable.
--- NOTE | 2018-06-26 02:40 | NUR ---
Trop 0.750 Kaci from the lab called for Trop level of 0.750. Charge nurse aware. Dr. Garcia aware of previous trop level of 0.811,0.840,0.821. Addendum: 06/26/18 at 0327 by Raymond Blandon RN Wrong patient
[2018-06-26] MEDS: D5/0.45 NS 1,000 ML IV SCH ×2 (02:58→17:31)
--- NOTE | 2018-06-26 04:00 | NUR ---
RN Note Sleeping but arousable. Incontinence and skin care done. Repositioned. Suctioned trach. Oral care done. Interdry paper placed on groin area. No residual noted. Flushed GT with free water. Right wrist restraint. Skin integrity, circulation and movement WNL. Passive and active ROM performed. Kept clean, dry and comfortable.
[2018-06-26 05:00] VITALS: BP_SYST 132
[2018-06-26] MEDS: CEFTAZIDIME 1 GM in D5W 50 ML IV SCH ×2 (05:04→13:47)
[2018-06-26] MEDS: PEG 400/HYPROMELLOSE/GLYCERIN 15 ML DROPS OP SCH ×3 (05:05→17:32)
[2018-06-26] MEDS: METOPROLOL TARTRATE 25 MG TABLET GT SCH ×2 (05:15→13:52)
--- NOTE | 2018-06-26 06:15 | NUR ---
End Note Afebrile. VS stable. No SOB or grimacing noted throughout the night. Medicated for pain one time last night. A-fib with BBB on monitor. Repositioned Q2. Elevated BUE and BLE on pillows. Heels off bed. IVF infusing. GT feeding tolerated well with minimal residual. Incontinence and skin care provided. Vent settings checked. Suctioned orally and via trach. Oral care done. Had BM. SCDs. Needs attended. Care and monitoring provided per protocol. Call light within reach. Bed alarm on and at lowest position at all times. Kept clean, dry and comfortable. Fall, Aspiration, seizure precaution observed. No seizure noted all night. Right wrist restraints. Skin integrity, circulation and movement WNL. Restraint order to be renewed at 1600 today-will endorse. DC order and was cleared by Dr. Siu. Awaiting bed availability at [facility].
[2018-06-26] MEDS ORDERED: LACTOBACILLUS RHAMNOSUS GG 1 CAP CAPSULE GT SCH (07:36)
[2018-06-26] MEDS ORDERED: COMMUNICATION ORDER XX ONE (07:45)
[2018-06-26 08:00] VITALS: BP_SYST 141
--- NOTE | 2018-06-26 08:00 | NUR ---
Opening note received report from shift production supervisor RN, pt resting in bed, A&Ox1, respirations even and unlabored on mechanical ventilator, pt tolerating ventilator settings well, no pain noted using FLACC scale, no acute distress noted, soft wrist restraint to right wrist, circulation intact, tube feeding infusing, pt tolerating well, g-tube in place, SCDs in place, side rails padded, pt educated on use of call light and asked to call for assistance, call light in reach, bed in low position, bed alarm on, room close to nurses station, fall, aspiration, isolation, and seizure precautions in place.
--- NOTE | 2018-06-26 08:20 | NUR ---
Oral care/Pt cleaned pt incontinent of bowel and bladder, pt cleaned and repositioned, oral care provided, pt tolerated well, no acute distress noted, fall, aspiration, isolation, and seizure precautions in place.
[2018-06-26] MEDS: POTASSIUM CHLORIDE 20 MEQ/PKT PACKET GT SCH (09:19)
[2018-06-26] MEDS: AMIODARONE HCL 200 MG TABLET GT SCH (09:20)
[2018-06-26] MEDS: FUROSEMIDE 40 MG TABLET GT SCH (09:20)
[2018-06-26] MEDS: CHLORHEXIDINE GLUCONATE 15 ML/DOSE, 480 ML MM SCH (09:21)
[2018-06-26] MEDS: LevETIRAcetam 500 MG/5 ML UDC ORAL LIQUID GT SCH (09:21)
[2018-06-26] MEDS: NYSTATIN 15 GM TOPICAL POWDER TP SCH (09:22)
--- NOTE | 2018-06-26 09:30 | NUR ---
IV catheter IV catheter found removed, catheter intact, no bleeding, new IV catheter placed to left hand 22G, pt tolerated well, no acute distress noted, fall, aspiration, isolation, and seizure precautions in place.
[2018-06-26] MEDS: PANTOPRAZOLE SODIUM 40 MG/VIAL (PROTONIX) IVP SCH (09:31)
--- NOTE | 2018-06-26 09:33 | NUR ---
Medication pt and pts family educated on medication use and side effects, pts family verbalized understanding, tube feeding residual 5ml, pt tolerated medication administration well, no acute distress noted, fall, aspiration, seizure, and isolation precautions in place.
--- NOTE | 2018-06-26 10:52 | NUR ---
CM DC PLANNING: SPOKE WITH KAITLYN; NO ISOLATION BED FOR PATIENT TO RETURN TO. KAITLYN RECOMMENDED F/UP WITH EBONY/NICOLETTE AT SNF ON 06/28/18, TO ASCERTAIN IF AN ISO BED CAN BE RELEASED FOR PATIENT TO RETURN BACK TO SNF.
--- NOTE | 2018-06-26 11:00 | NUR ---
Tube Feeding new tube feeding and tubing hung at this time, pt tolerating tube feeding well, zero residual, no acute distress noted, fall, aspiration, isolation, and seizure precautions in place.
[2018-06-26 12:16] VITALS: BP_SYST 126
--- NOTE | 2018-06-26 12:26 | NUR ---
Medication pt and pts family educated on use and side effects of medication, pts family verbalized understanding, pt tolerated medication administration well, no acute distress noted, fall, aspiration, isolation, and seizure precautions in place.
--- NOTE | 2018-06-26 13:15 | NUR ---
EBONY DC PLANNING: REC'd CALL BACK FROM KAITLYN AT [facility] WHO STATED THEY WILL ACCEPT Pt BACK TODAY TO ISOLATION ROOM 47 AFTER MAKING SOME BED CHANGES. REQ'D ADM AFTER 5 PM SO THEY CAN TERMINALLY CLEAN THE ROOM. 1600: SPOKE WITH [facility] WHO PROVIDED AUTH #: [id number] FOR AMB TRANSPORT [facility]IA [facility]. 1640: CALL BACK FROM [facility] WHO STATED RT FOR [facility] TRANSPORT WILL BE AVAILABLE TO PICK-UP Pt AT 9 P.M. INDIA DIANE, AND KEIKO BALLARD UPDATED. TRANSPORT PACKET TO [facility] WITH [facility].
--- NOTE | 2018-06-26 13:53 | NUR ---
Medication pt and pts family educated on medication use and side effects, pts family verbalized understanding, pt tolerating medication administration well, no redness or swelling noted at IV site, no acute distress noted, fall, aspiration, isolation, and seizure precautions in place.
--- NOTE | 2018-06-26 14:46 | NUR ---
pt cleaned/repositioned pt incontinent of urine, pt cleaned and repositioned, pt tolerated well, no acute distress noted, fall, aspiration, isolation, and seizure precautions in place.
--- NOTE | 2018-06-26 15:00 | NUR ---
Spoke with Family Spoke with family and updated them on plan of care, pts spouse aware of pts discharge to [facility] this evening.
[2018-06-26 15:42] VITALS: BP_SYST 112
[2018-06-26 16:52] VITALS: BP_SYST 112
--- NOTE | 2018-06-26 17:35 | NUR ---
Medication pt and pts family educated on medication use and side effects, pt and pts family verbalized understanding, pt tolerated medication administration well, no acute distress noted, fall, aspiration, isolation, and seizure precautions in place.
--- NOTE | 2018-06-26 17:57 | NUR ---
Called Report called report to Osmin at [facility] , informed him that pickup is scheduled with [facility] for 2100.
--- NOTE | 2018-06-26 18:50 | NUR ---
Closing Note pt resting in bed, A&Ox1, respirations even and unlabored on mechanical ventilator, pt tolerating ventilator settings well, no pain noted using FLACC scale, no acute distress noted, IV site clean, dry, intact, and infusing well, tube feeding infusing well, G-tube in place, side rails padded, SCDs in place, soft wrist restraint to right wrist in place, circulation intact, pt and pts family educated on use of call light and asked to call for assistance, pts family verbalized understanding, call light in reach, bed in low position, bed alarm on, room close to nurses station, fall, aspiration, isolation, and seizure precautions in place, will endorse care to night shift manager RN.
--- NOTE | 2018-06-26 19:05 | NUR ---
Initial Notes Received patient in bed awake, oriented to name only, non verbal. No s/s of any distress noted on vent with settings as ordered. Iv noted to L f/a g22 no infiltrate and with good blood return. All extremities are weak with L sided paralysis d/t CVA. Moisture related excoriation to paul area noted and ST 1 to sacral area. Gtube is patent with 5cc residual. Patient is prep for transfer to [facility]. Will cont to monitor. Family around.
--- NOTE | 2018-06-26 20:40 | NUR ---
Discharge to [facility] Patient was sweet pickled fruit maker by 3 transport personnel. Patient is in no distress during transfer. Transfer paper was handed to [facility] personnel checked and sealed. All belongings was with family.
== END 2018-06-26 20:40 | DRG 222 ==
LOC: SED 10:34 → STU 14:56 → UNDOADMIN 14:56 → STU 15:20 → UNDODISIN 06-26 20:40
PROVIDERS: ADMIT Internal Medicine; ATTEND Internal Medicine
PROC: 5A1955Z Respiratory Ventilation, Greater than 96 Consecutive Hours (ICD-10-PCS; principal; 2018-06-19)
PROC: 0DH60UZ Insertion of Feeding Device into Stomach, Open Approach (ICD-10-PCS; 2018-06-24)
DX: K94.23 Gastrostomy malfunction (principal); E43 Unspecified severe protein-calorie malnutrition; Z99.11 Dependence on respirator [ventilator] status; J96.10 Chronic respiratory failure, unspecified whether with hypoxia or hypercapnia; J44.0 Chronic obstructive pulmonary disease with (acute) lower respiratory infection; K31.6 Fistula of stomach and duodenum; I11.0 Hypertensive heart disease with heart failure; I50.9 Heart failure, unspecified; I07.1 Rheumatic tricuspid insufficiency; I48.2 Chronic atrial fibrillation; G40.909 Epilepsy, unspecified, not intractable, without status epilepticus; R13.10 Dysphagia, unspecified; F32.9 Major depressive disorder, single episode, unspecified; Z53.8 Procedure and treatment not carried out for other reasons; B96.4 Proteus (mirabilis) (morganii) as the cause of diseases classified elsewhere; D64.9 Anemia, unspecified; B96.5 Pseudomonas (aeruginosa) (mallei) (pseudomallei) as the cause of diseases classified elsewhere; E78.00 Pure hypercholesterolemia, unspecified; I25.10 Atherosclerotic heart disease of native coronary artery without angina pectoris; Z86.73 Personal history of transient ischemic attack (TIA), and cerebral infarction without residual deficits; Z79.899 Other long term (current) drug therapy; Z88.8 Allergy status to other drugs, medicaments and biological substances; J40 Bronchitis, not specified as acute or chronic
CPT/HCPCS: 36415; 71045; 74018; 80048; 80053; 85007; 85025; 85027; 85610-TC; 85730-TC; 87070-TC; 87081; 87186-TC; 87205-TC; 93005; 94002; 94003; 94640; 94760; 99285; C9113; G0378; J0278; J0690; J0713; J2060; J2175; J2250; J2704; J3480; J7030; J7042; J7050; J7060

== ENCOUNTER 2018-07-01 12:28 | Inpatient (IN) | payer MEDICAID ==
[2018-07-01] VITALS (16 sets, daily range): BP systolic 98–153
[~2018-07-01] VITALS: Ht 152.4 cm; Wt 83.9 kg
[~2018-07-01 12:28] MED LIST changes: -GUAI100S14 GT; -LORA-258 GT; -LOSA25TA3 GT; -METH4TAB3 GT; -METO-290 GT; -MYL80 GT; -PARO-41 GT; -PENT400T12 GT; -ROB1 GT; -SENN-153 GT; -VIS25 GT
[2018-07-01] MEDS ORDERED: ASPIRIN 81 MG TAB.CHEW PO ONE (12:45)
[2018-07-01] MEDS ORDERED: ETOMIDATE 20 MG/ 10 ML VIAL (AMIDATE) IVP ONE (12:45)
[2018-07-01 12:56] LABS: BASOPHILS # (AUTO) 0.1 K/uL (0.0-0.2); EOSINOPHILS # (AUTO) 0.1 K/uL (0.0-0.4); MONOCYTES # (AUTO) 0.8 K/uL (0.0-1.0); NEUTROPHILS # (AUTO) 5.1 K/uL (1.8-7.7)
[2018-07-01 13:06] LABS: HEMOGLOBIN 10.3 g/dL (12.0-16.0); MEAN CORPUSCULAR HEMOGLOBIN 31 pg (27-31); MEAN CORPUSCULAR HGB CONC 32 % (32-36); MEAN CORPUSCULAR VOLUME 96 fL (79.0-98.0); PLATELET COUNT (AUTO) 178 K/uL (130-430); RED BLOOD CELL COUNT(AUTO) 3.33 MIL/uL (4.2-6.2); RED CELL DISTRIBUTION WIDTH 17.4 % (9.0-15.0); WHITE BLOOD COUNT (AUTO) 7.2 K/uL (4.8-10.8)
[2018-07-01 13:07] LABS: BASOPHILS % (AUTO) 0.9 % (0.0-2.0); EOSINOPHILS % (AUTO) 0.9 % (0.0-4.0); LYMPHOCYTES # (AUTO) 1.1 K/uL (1.0-5.5); MONOCYTES % (AUTO) 11.6 % (1.7-9.3)
[2018-07-01 13:08] LABS: ANION GAP 3 (5-15); CALCIUM 8.4 mg/dL (8.4-11.0); CHLORIDE 99 mmol/L (98-107); CREATININE 0.87 mg/dL (0.55-1.30); GLUCOSE 115 mg/dL (70-99); SODIUM SERUM 133 mmol/L (136-145); UREA NITROGEN, BLOOD 29 mg/dL (8-21)
[2018-07-01 13:12] LABS: POTASSIUM 4.9 mmol/L (3.5-5.1)
[2018-07-01 13:13] LABS: ALANINE AMINOTRANSFERASE 49 U/L (12-78); ALBUMIN 2.1 g/dL (3.4-4.8); ASPARTATE AMINOTRANSFERASE 99 U/L (10-37); INR 1.2 (0.8-1.2); PROTHROMBIN TIME 12.6 SECS (9.5-12.5); TOTAL BILIRUBIN 0.7 mg/dL (0.0-1.0)
[2018-07-01 14:19] LABS: NEUTROPHILS % (AUTO) 71.6 % (40.0-70.0)
[2018-07-01] MEDS ORDERED: LEVOFLOXACIN 500 MG/D5W 100 ML IV ONE (15:15)
[2018-07-01] MEDS ORDERED: traMADol HCL HCL 50 MG TABLET (ULTRAM) GT PRN (16:30)
[2018-07-01] MEDS ORDERED: ACETAMINOPHEN 650 MG/20.3 ML UDC GT PRN (16:30)
[2018-07-01] MEDS ORDERED: IPRATROPIUM BROM 0.5 MG/2.5 ML VIAL.NEB (ATROVENT) INH PRN (17:15)
[2018-07-01] MEDS ORDERED: LORazepam 2 MG/ML VIAL IVP PRN (17:15)
[2018-07-01] MEDS ORDERED: ALBUTEROL SULFATE 0.083% 2.5 MG/3 ML VIAL.NEB INH PRN ×2 (17:15)
[2018-07-01] MEDS: PEG 400/HYPROMELLOSE/GLYCERIN 15 ML DROPS OP SCH (18:46)
[2018-07-01] MEDS ORDERED: IPRATROPIUM BROM 0.5 MG/2.5 ML VIAL.NEB (ATROVENT) INH SCH (19:00)
[2018-07-01] MEDS ORDERED: ALBUTEROL SULFATE 0.083% 2.5 MG/3 ML VIAL.NEB INH SCH (19:00)
[2018-07-01] MEDS ORDERED: FUROSEMIDE 40 MG TABLET GT SCH (21:00)
[2018-07-01] MEDS: ATORVASTATIN 10 MG TABLET GT SCH (21:13)
[2018-07-01] MEDS: FUROSEMIDE 20 MG/2 ML VIAL IVP SCH (21:14)
[2018-07-01] MEDS: AMIODARONE HCL 200 MG TABLET GT SCH (21:15)
[2018-07-01] MEDS: LevETIRAcetam 100 MG/ML UDC ORAL LIQUID GT SCH (21:16)
[2018-07-01] MEDS: CHLORHEXIDINE GLUCONATE 15 ML/DOSE, 480 ML MM SCH (21:19)
[2018-07-01] MEDS: ALBUTEROL SULFATE 0.083% 2.5 MG/3 ML VIAL.NEB INH SCH (21:36)
[2018-07-01] MEDS: IPRATROPIUM BROM 0.5 MG/2.5 ML VIAL.NEB (ATROVENT) INH SCH (21:37)
[2018-07-01] MEDS: METOPROLOL TARTRATE 25 MG TABLET GT SCH (22:00)
[2018-07-02] VITALS (21 sets, daily range): BP systolic 101–154
[2018-07-02] MEDS: PEG 400/HYPROMELLOSE/GLYCERIN 15 ML DROPS OP SCH ×5 (00:03→23:39)
[2018-07-02] MEDS: METOPROLOL TARTRATE 25 MG TABLET GT SCH ×3 (05:34→21:51)
[2018-07-02 06:35] LABS: ANION GAP 6 (5-15); CALCIUM 8.4 mg/dL (8.4-11.0); CHLORIDE 99 mmol/L (98-107); CREATININE 0.97 mg/dL (0.55-1.30); GLUCOSE 98 mg/dL (70-99); POTASSIUM 4.4 mmol/L (3.5-5.1); SODIUM SERUM 136 mmol/L (136-145); UREA NITROGEN, BLOOD 28 mg/dL (8-21)
[2018-07-02 06:44] LABS: ALANINE AMINOTRANSFERASE 44 U/L (12-78); ASPARTATE AMINOTRANSFERASE 97 U/L (10-37); TOTAL BILIRUBIN 0.9 mg/dL (0.0-1.0)
[2018-07-02 06:45] LABS: BASOPHILS % (AUTO) 0.3 % (0.0-2.0); EOSINOPHILS # (AUTO) 0.1 K/uL (0.0-0.4); EOSINOPHILS % (AUTO) 1.2 % (0.0-4.0); HEMATOCRIT 30.7 % (36-48); HEMOGLOBIN 9.9 g/dL (12.0-16.0); LYMPHOCYTES # (AUTO) 1.2 K/uL (1.0-5.5); LYMPHOCYTES % (AUTO) 18.6 % (20.5-51.5); MEAN CORPUSCULAR HEMOGLOBIN 32 pg (27-31); MEAN CORPUSCULAR HGB CONC 32 % (32-36); MEAN CORPUSCULAR VOLUME 98 fL (79.0-98.0); MONOCYTES # (AUTO) 0.8 K/uL (0.0-1.0); MONOCYTES % (AUTO) 12.8 % (1.7-9.3); NEUTROPHILS # (AUTO) 4.4 K/uL (1.8-7.7); NEUTROPHILS % (AUTO) 67.1 % (40.0-70.0); PLATELET COUNT (AUTO) 164 K/uL (130-430); RED BLOOD CELL COUNT(AUTO) 3.14 MIL/uL (4.2-6.2); RED CELL DISTRIBUTION WIDTH 16.9 % (9.0-15.0); WHITE BLOOD COUNT (AUTO) 6.5 K/uL (4.8-10.8)
[2018-07-02] MEDS: ALBUTEROL SULFATE 0.083% 2.5 MG/3 ML VIAL.NEB INH SCH ×3 (07:54→21:50)
[2018-07-02] MEDS: IPRATROPIUM BROM 0.5 MG/2.5 ML VIAL.NEB (ATROVENT) INH SCH ×3 (07:54→21:50)
[2018-07-02] MEDS: FUROSEMIDE 20 MG/2 ML VIAL IVP SCH ×2 (08:51→21:52)
[2018-07-02] MEDS: POTASSIUM CHLORIDE 20 MEQ/PKT PACKET GT SCH (08:51)
[2018-07-02] MEDS: CHLORHEXIDINE GLUCONATE 15 ML/DOSE, 480 ML MM SCH ×2 (08:52→21:54)
[2018-07-02] MEDS: LevETIRAcetam 100 MG/ML UDC ORAL LIQUID GT SCH ×2 (08:53→21:49)
[2018-07-02] MEDS: AMIODARONE HCL 200 MG TABLET GT SCH ×2 (08:53→21:53)
[2018-07-02] MEDS ORDERED: VANCOMYCIN HCL 1 GM/NS PREMIX 250 ML IV SCH (17:00)
[2018-07-02] MEDS ORDERED: LINEZOLID 300 ML IV ONE ×2 (20:00→22:13)
[2018-07-02] MEDS: CEFTAZIDIME 1 GM in D5W 50 ML IV SCH (21:50)
[2018-07-02] MEDS: ATORVASTATIN 10 MG TABLET GT SCH (21:52)
[2018-07-03 00:08] VITALS: BP_SYST 117
[2018-07-03] MEDS: HYDROcodone/ACETAMIN 5-325 MG TAB (NORCO/ VICODIN) GT PRN ×2 (02:40→21:44)
[2018-07-03] MEDS: PEG 400/HYPROMELLOSE/GLYCERIN 15 ML DROPS OP SCH ×4 (05:23→23:12)
[2018-07-03] MEDS: METOPROLOL TARTRATE 25 MG TABLET GT SCH ×3 (05:23→21:38)
[2018-07-03 06:37] LABS: BASOPHILS % (AUTO) 0.3 % (0.0-2.0); EOSINOPHILS % (AUTO) 0.5 % (0.0-4.0); HEMATOCRIT 29.1 % (36-48); HEMOGLOBIN 9.3 g/dL (12.0-16.0); LYMPHOCYTES # (AUTO) 0.7 K/uL (1.0-5.5); LYMPHOCYTES % (AUTO) 12.2 % (20.5-51.5); MEAN CORPUSCULAR HEMOGLOBIN 32 pg (27-31); MEAN CORPUSCULAR HGB CONC 32 % (32-36); MEAN CORPUSCULAR VOLUME 98 fL (79.0-98.0); MONOCYTES # (AUTO) 0.5 K/uL (0.0-1.0); MONOCYTES % (AUTO) 8.8 % (1.7-9.3); NEUTROPHILS # (AUTO) 4.8 K/uL (1.8-7.7); NEUTROPHILS % (AUTO) 78.2 % (40.0-70.0); PLATELET COUNT (AUTO) 167 K/uL (130-430); RED BLOOD CELL COUNT(AUTO) 2.97 MIL/uL (4.2-6.2)
[2018-07-03 06:47] LABS: ALANINE AMINOTRANSFERASE 45 U/L (12-78); ALBUMIN 1.7 g/dL (3.4-4.8); ANION GAP 4 (5-15); ASPARTATE AMINOTRANSFERASE 91 U/L (10-37); CALCIUM 8.1 mg/dL (8.4-11.0); CHLORIDE 98 mmol/L (98-107); CREATININE 1.04 mg/dL (0.55-1.30); GLUCOSE 128 mg/dL (70-99); POTASSIUM 3.8 mmol/L (3.5-5.1); SODIUM SERUM 133 mmol/L (136-145); UREA NITROGEN, BLOOD 29 mg/dL (8-21)
[2018-07-03] MEDS: IPRATROPIUM BROM 0.5 MG/2.5 ML VIAL.NEB (ATROVENT) INH SCH ×3 (07:37→20:02)
[2018-07-03] MEDS: ALBUTEROL SULFATE 0.083% 2.5 MG/3 ML VIAL.NEB INH SCH ×3 (07:37→20:02)
[2018-07-03] MEDS: POTASSIUM CHLORIDE 20 MEQ/PKT PACKET GT SCH (09:26)
[2018-07-03] MEDS: AMIODARONE HCL 200 MG TABLET GT SCH ×2 (09:26→20:41)
[2018-07-03] MEDS: CEFTAZIDIME 1 GM in D5W 50 ML IV SCH ×2 (09:26→20:44)
[2018-07-03] MEDS: LevETIRAcetam 100 MG/ML UDC ORAL LIQUID GT SCH ×2 (09:27→20:43)
[2018-07-03] MEDS: FUROSEMIDE 20 MG/2 ML VIAL IVP SCH ×2 (09:27→20:44)
[2018-07-03] MEDS: CHLORHEXIDINE GLUCONATE 15 ML/DOSE, 480 ML MM SCH ×2 (09:28→20:45)
[2018-07-03 09:55] VITALS: BP_SYST 102
[2018-07-03] MEDS: LINEZOLID 300 ML IV SCH ×2 (10:59→21:38)
[2018-07-03 11:26] VITALS: BP_SYST 127
[2018-07-03 15:22] VITALS: BP_SYST 124
[2018-07-03 20:00] VITALS: BP_SYST 99
[2018-07-03] MEDS: ATORVASTATIN 10 MG TABLET GT SCH (20:41)
[2018-07-04] VITALS (8 sets, daily range): BP systolic 92–124
[2018-07-04] MEDS: HYDROcodone/ACETAMIN 5-325 MG TAB (NORCO/ VICODIN) GT PRN (02:23)
[2018-07-04] MEDS: METOPROLOL TARTRATE 25 MG TABLET GT SCH ×3 (05:03→21:00)
[2018-07-04] MEDS: PEG 400/HYPROMELLOSE/GLYCERIN 15 ML DROPS OP SCH ×4 (05:03→23:44)
[2018-07-04 07:09] LABS: BASOPHILS % (AUTO) 0.7 % (0.0-2.0); EOSINOPHILS # (AUTO) 0.1 K/uL (0.0-0.4); EOSINOPHILS % (AUTO) 2.3 % (0.0-4.0); HEMATOCRIT 29.5 % (36-48); HEMOGLOBIN 9.5 g/dL (12.0-16.0); LYMPHOCYTES # (AUTO) 1.3 K/uL (1.0-5.5); LYMPHOCYTES % (AUTO) 20.7 % (20.5-51.5); MEAN CORPUSCULAR HEMOGLOBIN 31 pg (27-31); MEAN CORPUSCULAR HGB CONC 32 % (32-36); MEAN CORPUSCULAR VOLUME 97 fL (79.0-98.0); MONOCYTES # (AUTO) 0.8 K/uL (0.0-1.0); MONOCYTES % (AUTO) 12.9 % (1.7-9.3); NEUTROPHILS % (AUTO) 63.4 % (40.0-70.0); PLATELET COUNT (AUTO) 174 K/uL (130-430); RED BLOOD CELL COUNT(AUTO) 3.04 MIL/uL (4.2-6.2); WHITE BLOOD COUNT (AUTO) 6.2 K/uL (4.8-10.8)
[2018-07-04] MEDS: ALBUTEROL SULFATE 0.083% 2.5 MG/3 ML VIAL.NEB INH SCH ×3 (07:18→21:47)
[2018-07-04] MEDS: IPRATROPIUM BROM 0.5 MG/2.5 ML VIAL.NEB (ATROVENT) INH SCH ×3 (07:18→21:48)
[2018-07-04 07:53] LABS: ALANINE AMINOTRANSFERASE 45 U/L (12-78); ALBUMIN 1.7 g/dL (3.4-4.8); ANION GAP 4 (5-15); ASPARTATE AMINOTRANSFERASE 85 U/L (10-37); CALCIUM 7.7 mg/dL (8.4-11.0); CHLORIDE 98 mmol/L (98-107); CREATININE 1.03 mg/dL (0.55-1.30); GLUCOSE 121 mg/dL (70-99); POTASSIUM 3.7 mmol/L (3.5-5.1); SODIUM SERUM 132 mmol/L (136-145); TOTAL BILIRUBIN 0.9 mg/dL (0.0-1.0); UREA NITROGEN, BLOOD 33 mg/dL (8-21)
[2018-07-04] MEDS: POTASSIUM CHLORIDE 20 MEQ/PKT PACKET GT SCH (08:43)
[2018-07-04] MEDS: LevETIRAcetam 100 MG/ML UDC ORAL LIQUID GT SCH ×2 (08:44→23:35)
[2018-07-04] MEDS: AMIODARONE HCL 200 MG TABLET GT SCH ×2 (08:45→23:35)
[2018-07-04] MEDS: CEFTAZIDIME 1 GM in D5W 50 ML IV SCH ×2 (08:45→23:36)
[2018-07-04] MEDS: FUROSEMIDE 20 MG/2 ML VIAL IVP SCH ×2 (08:46→21:00)
[2018-07-04] MEDS: CHLORHEXIDINE GLUCONATE 15 ML/DOSE, 480 ML MM SCH ×2 (08:47→23:43)
[2018-07-04] MEDS: LINEZOLID 300 ML IV SCH ×2 (10:02→23:41)
[2018-07-04] MEDS: ATORVASTATIN 10 MG TABLET GT SCH (23:35)
[2018-07-05 00:52] VITALS: BP_SYST 98
[2018-07-05] MEDS: METOPROLOL TARTRATE 25 MG TABLET GT SCH ×3 (05:33→21:53)
[2018-07-05] MEDS: PEG 400/HYPROMELLOSE/GLYCERIN 15 ML DROPS OP SCH ×3 (05:34→18:58)
[2018-07-05 07:01] LABS: ANION GAP 4 (5-15); CALCIUM 7.7 mg/dL (8.4-11.0); CHLORIDE 98 mmol/L (98-107); CREATININE 0.92 mg/dL (0.55-1.30); GLUCOSE 142 mg/dL (70-99); POTASSIUM 3.7 mmol/L (3.5-5.1); SODIUM SERUM 133 mmol/L (136-145); UREA NITROGEN, BLOOD 31 mg/dL (8-21)
[2018-07-05 07:11] LABS: ALANINE AMINOTRANSFERASE 43 U/L (12-78); ALBUMIN 1.7 g/dL (3.4-4.8); ASPARTATE AMINOTRANSFERASE 84 U/L (10-37); TOTAL BILIRUBIN 0.8 mg/dL (0.0-1.0)
[2018-07-05] MEDS: IPRATROPIUM BROM 0.5 MG/2.5 ML VIAL.NEB (ATROVENT) INH SCH ×3 (07:48→20:15)
[2018-07-05] MEDS: ALBUTEROL SULFATE 0.083% 2.5 MG/3 ML VIAL.NEB INH SCH ×3 (07:48→20:15)
[2018-07-05 08:05] VITALS: BP_SYST 141
[2018-07-05] MEDS: POTASSIUM CHLORIDE 20 MEQ/PKT PACKET GT SCH (09:20)
[2018-07-05] MEDS: CEFTAZIDIME 1 GM in D5W 50 ML IV SCH (09:22)
[2018-07-05] MEDS: LINEZOLID 300 ML IV SCH (09:22)
[2018-07-05] MEDS: AMIODARONE HCL 200 MG TABLET GT SCH ×2 (09:22→20:48)
[2018-07-05] MEDS: CHLORHEXIDINE GLUCONATE 15 ML/DOSE, 480 ML MM SCH ×2 (09:23→20:48)
[2018-07-05] MEDS: LevETIRAcetam 100 MG/ML UDC ORAL LIQUID GT SCH ×2 (09:41→20:48)
[2018-07-05 11:50] VITALS: BP_SYST 99
[2018-07-05] MEDS: HYDROcodone/ACETAMIN 5-325 MG TAB (NORCO/ VICODIN) GT PRN (14:09)
[2018-07-05 15:44] VITALS: BP_SYST 114
[2018-07-05 20:00] VITALS: BP_SYST 106
[2018-07-05] MEDS: ATORVASTATIN 10 MG TABLET GT SCH (20:47)
[2018-07-05] MEDS ORDERED: ceFAZolin SODIUM 1 GM in D5W 50 ML IV SCH (21:00)
[2018-07-05] MEDS ORDERED: CEFAZOLIN 1 GM IVPB PREMIX 50 ML IV ONE (21:18)
== END 2018-07-05 23:40 | DRG 720 ==
LOC: SED 12:28 → SIC 15:16 → STU 07-02 15:13
PROVIDERS: ADMIT Internal Medicine Hospice and Palliative Medicine; ATTEND Internal Medicine Hospice and Palliative Medicine
PROC: 5A1955Z Respiratory Ventilation, Greater than 96 Consecutive Hours (ICD-10-PCS; principal; 2018-07-01)
PROC: 0BW1XFZ Revision of Tracheostomy Device in Trachea, External Approach (ICD-10-PCS; 2018-07-01)
DX: A41.01 Sepsis due to Methicillin susceptible Staphylococcus aureus (principal); J96.20 Acute and chronic respiratory failure, unspecified whether with hypoxia or hypercapnia; J69.0 Pneumonitis due to inhalation of food and vomit; J15.6 Pneumonia due to other Gram-negative bacteria; Z99.11 Dependence on respirator [ventilator] status; I13.0 Hypertensive heart and chronic kidney disease with heart failure and stage 1 through stage 4 chronic kidney disease, or unspecified chronic kidney disease; I48.0 Paroxysmal atrial fibrillation; I07.1 Rheumatic tricuspid insufficiency; I48.2 Chronic atrial fibrillation; I50.9 Heart failure, unspecified; R13.10 Dysphagia, unspecified; J95.01 Hemorrhage from tracheostomy stoma; J45.909 Unspecified asthma, uncomplicated; I25.10 Atherosclerotic heart disease of native coronary artery without angina pectoris; F32.9 Major depressive disorder, single episode, unspecified; Y83.8 Other surgical procedures as the cause of abnormal reaction of the patient, or of later complication, without mention of misadventure at the time of the procedure; Y82.8 Other medical devices associated with adverse incidents; F03.90 Unspecified dementia, unspecified severity, without behavioral disturbance, psychotic disturbance, mood disturbance, and anxiety; D63.8 Anemia in other chronic diseases classified elsewhere; N18.9 Chronic kidney disease, unspecified; Z79.899 Other long term (current) drug therapy; I69.354 Hemiplegia and hemiparesis following cerebral infarction affecting left non-dominant side; Z74.01 Bed confinement status; Y92.89 Other specified places as the place of occurrence of the external cause; Z88.1 Allergy status to other antibiotic agents
CPT/HCPCS: 36415; 36600; 71045; 80053; 82550-TC; 82803-TC; 83605; 83880; 84484; 85025; 85610-TC; 85730-TC; 87040-TC; 87070-TC; 87081; 87186-TC; 87205-TC; 93005; 94002; 94003; 94640; 94760; 96365; 96375; 99291; J0690; J0713; J1940; J1956; J2020; J2060; J3490; J7060; J7613

== ENCOUNTER 2018-07-27 02:15 | Inpatient (IN) | payer MEDICAID ==
[2018-07-27] VITALS (23 sets, daily range): BP systolic 85–158
[~2018-07-27] VITALS: Ht 152.4 cm; Wt 94.7 kg
--- NOTE | 2018-07-27 02:15 | NUR ---
Patient to ER bed 6 to gown for evaluation. Side rails up. Report given to INDIA Brantley.
--- NOTE | 2018-07-27 02:20 | NUR ---
Pt was brought in by ALS from [facility] complaining of active bleeding from trach stoma x 1 week. Per elementary vocal music teacher, bleeding worsened today. Pt is vent-dependent and came in with G-tube in place. No other injuries/complaints noted.
--- NOTE | 2018-07-27 02:30 | NUR ---
NASIR Dalton at bedside examining patient.
--- NOTE | 2018-07-27 02:45 | NUR ---
# 22 gauge angiocath placed to left hand. Use of asceptic technique. Opsite placed over site. Blood return noted. Blood for lab drawn from site. Flushed with 10 cc of normal saline. No evidence of infiltration noted. Patient tolerated well.
--- NOTE | 2018-07-27 03:00 | NUR ---
Verbal order received from Dr. Dalton to place # 16 FR Dumont catheter with use of sterile technique. Immediate return of 100 cc cloudy yellow urine noted. Bedside drainage bag placed below level of bladder. Urine sample collected and sent to lab. Pt tolerated procedure well.
[2018-07-27] MEDS ORDERED: NS 1000 ML IV.SOLN IV ONE (03:15)
[2018-07-27 03:33] LABS: BILIRUBIN,URINE NEGATIVE (NEGATIVE); BLOOD, URINE 1+ (NEGATIVE); CLARITY/URINE SL HAZY (CLEAR); COLOR,URINE YELLOW (YELLOW); GLUCOSE,URINE NEGATIVE (NEGATIVE); KETONES,URINE NEGATIVE (NEGATIVE); LEUKOCYTE ESTERASE ,URINE 3+ (NEGATIVE); NITRITE, URINE POSITIVE (NEGATIVE); PH,URINE 6.5 (5.0-8.0); PROTEIN URINE 1+ (NEGATIVE); UROBILINOGEN,URINE 0.2 (0.2-1.0)
[2018-07-27 03:41] LABS: BACTERIA,URINE MANY /HPF (None Seen); MUCUS,URINE 1+ /LPF (None Seen); WBC,URINE >100 /HPF (0-3)
[2018-07-27 03:43] LABS: BASOPHILS # (AUTO) 0.1 K/uL (0.0-0.2); BASOPHILS % (AUTO) 1.1 % (0.0-2.0); EOSINOPHILS # (AUTO) 0.1 K/uL (0.0-0.4); EOSINOPHILS % (AUTO) 1.2 % (0.0-4.0); HEMATOCRIT 30.6 % (36-48); HEMOGLOBIN 9.9 g/dL (12.0-16.0); LYMPHOCYTES # (AUTO) 0.7 K/uL (1.0-5.5); LYMPHOCYTES % (AUTO) 9.9 % (20.5-51.5); MEAN CORPUSCULAR HEMOGLOBIN 32 pg (27-31); MEAN CORPUSCULAR HGB CONC 32 % (32-36); MEAN CORPUSCULAR VOLUME 100 fL (79.0-98.0); MONOCYTES # (AUTO) 0.5 K/uL (0.0-1.0); MONOCYTES % (AUTO) 6.5 % (1.7-9.3); NEUTROPHILS # (AUTO) 5.6 K/uL (1.8-7.7); NEUTROPHILS % (AUTO) 81.3 % (40.0-70.0); PLATELET COUNT (AUTO) 193 K/uL (130-430); RED BLOOD CELL COUNT(AUTO) 3.06 MIL/uL (4.2-6.2); RED CELL DISTRIBUTION WIDTH 19.2 % (9.0-15.0)
[2018-07-27 03:52] LABS: ANION GAP 6 (5-15); CALCIUM 7.8 mg/dL (8.4-11.0); CHLORIDE 103 mmol/L (98-107); CREATININE 0.96 mg/dL (0.55-1.30); GLUCOSE 132 mg/dL (70-99); POTASSIUM 3.9 mmol/L (3.5-5.1); SODIUM SERUM 139 mmol/L (136-145); UREA NITROGEN, BLOOD 36 mg/dL (8-21)
[2018-07-27 04:00] LABS: ALANINE AMINOTRANSFERASE 20 U/L (12-78); ALBUMIN 1.8 g/dL (3.4-4.8); ASPARTATE AMINOTRANSFERASE 63 U/L (10-37); INR 1.3 (0.8-1.2); TOTAL BILIRUBIN 0.9 mg/dL (0.0-1.0)
[2018-07-27 04:11] LABS: PROTHROMBIN TIME 12.7 SECS (9.5-12.5)
[2018-07-27] MEDS ORDERED: MOM GT (04:36)
[2018-07-27] MEDS ORDERED: COLL100 GT (04:36)
[2018-07-27] MEDS ORDERED: TYLL650 GT (04:36)
[2018-07-27] MEDS ORDERED: ATRMDI INH ×2 (04:36)
[2018-07-27] MEDS ORDERED: ALBU2.5V7 INH ×2 (04:36)
[2018-07-27] MEDS ORDERED: CRAN1POW3 GT (04:36)
--- NOTE | 2018-07-27 04:36 | NUR ---
Medication reconciliation completed with information provided by facility. Any prior medication reconciliation on file was reviewed and corrected.
[2018-07-27] MEDS ORDERED: LEVOFLOXACIN 500 MG/D5W 100 ML IV ONE (05:00)
--- NOTE | 2018-07-27 05:01 | NUR ---
Patient arrived with POLST for Full code.
--- NOTE | 2018-07-27 05:14 | NUR ---
Patient will be admitted to care of Dr. Tolbert. Admitted to ICU unit. Will go to room ICU 3. Belongings list completed. Summary report printed. Report will be given at bedside.
--- NOTE | 2018-07-27 05:42 | NUR ---
Transfer to ICU via ACLS protocol. Licensed nurse present. IV present no signs or symptoms of infiltration.
--- NOTE | 2018-07-27 06:00 | NUR ---
Admission Note: Received patient in ICU 3 from ER via gurney. Pt trach to vent. Vent settings: AC 18, TV 500, FIO2 35%, PEEP 5. Pt BBB on transitions rn care coordinator. G-tube clamped. Pt afebrile. IV site: #22G L hand, infusing Levaquin @ 100mls/hr, NS @ 100mls/hr. Pt on nagel, cloudy urine draining to gravity. HOB elevated, call light placed within reach. Bed locked, in lowest position. Safety precautions in place. No distress noted. Will continue monitor.
--- NOTE | 2018-07-27 06:11 | NUR ---
Lab at bedside for blood draw.
--- NOTE | 2018-07-27 06:23 | NUR ---
Pt had 1 x loose bowel movement, pt cleaned, perineal and nagel care done. Pt tolerated care well. Will continue to monitor.
--- NOTE | 2018-07-27 06:40 | NUR ---
Dr. Tolbert at bedside to see patient.
[2018-07-27] MEDS ORDERED: IPRATROPIUM BROM 0.5 MG/2.5 ML VIAL.NEB (ATROVENT) INH PRN (06:45)
[2018-07-27] MEDS ORDERED: MILK OF MAGNESIA 30 ML UDC GT SCH (06:45)
[2018-07-27] MEDS ORDERED: ALBUTEROL SULFATE 0.083% 2.5 MG/3 ML VIAL.NEB INH PRN (06:45)
[2018-07-27] MEDS ORDERED: IPRATROPIUM BROMIDE 17 mCg/ACTUATION, 12.9 GM AER.W.ADAP INH PRN (06:45)
--- NOTE | 2018-07-27 07:10 | NUR ---
Closing Note: Pt VSS, no distress noted. Report and POC endorsed to Rani OSBORNE.
--- NOTE | 2018-07-27 07:15 | NUR ---
AM Assessment Received plan of care from RN at bedside. Pt trach with mechanical vent. Vent set to AC 18, TV 400, FIO2 35%, PEEP 5. Blood seen with tracheal suction and site, blood also noted from mouth. Assessment is limited due to patient clenching teeth. G-tube is clamped. IV site to LT hand, 22GA, patent with NS running at 100ml/hr. Dumont cath in place and secured, flowing to gravity, cloudy pinkish urine . HOB elevated, call light placed within reach. Bed locked, in lowest position. No distress noted. Will continue monitor.
--- NOTE | 2018-07-27 07:46 | NUR ---
consults called: [id number] Garcia( aquacultural worker supervisor) s/w Kanchan. [id number] Patiño ( stable hand) s/w Joanna. [id number] Cummings ( ID) s/w Macrina.
[2018-07-27 08:15] LABS: ANION GAP 7 (5-15); CALCIUM 7.6 mg/dL (8.4-11.0); CHLORIDE 105 mmol/L (98-107); GLUCOSE 135 mg/dL (70-99); SODIUM SERUM 139 mmol/L (136-145); UREA NITROGEN, BLOOD 32 mg/dL (8-21)
[2018-07-27] MEDS ORDERED: AMIODARONE HCL 200 MG TABLET GT SCH (09:00)
[2018-07-27] MEDS: CHLORHEXIDINE GLUCONATE 15 ML/DOSE, 480 ML MM SCH ×2 (09:00→20:46)
--- NOTE | 2018-07-27 09:00 | NUR ---
Called x3 for consent from pt's family members for PICC line. Geraldine Sheehan and Kb Sheehan not available for consent. Left voicemail x2. Waiting for call back.
[2018-07-27 09:07] LABS: INR 1.2 (0.8-1.2); PROTHROMBIN TIME 12.3 SECS (9.5-12.5)
--- NOTE | 2018-07-27 09:38 | NUR ---
Nutrition Update Ceasar Scale 11 noted. Pt admitted for tracheostomy bleed, UTI. Diet: N/A BMI: 35.2 kg/m2 RD to follow per nutrition care standards.
[2018-07-27] MEDS: POTASSIUM CHLORIDE 20 MEQ TAB.PRT.SR GT SCH (09:51)
[2018-07-27] MEDS: DOCUSATE SODIUM 100 MG/10 ML UDC GT SCH (09:51)
[2018-07-27] MEDS: FUROSEMIDE 20 MG TABLET GT SCH ×2 (09:51→20:45)
[2018-07-27] MEDS: AMIODARONE HCL 200 MG TABLET GT SCH ×2 (09:52→20:45)
[2018-07-27] MEDS: LevETIRAcetam 500 MG/5 ML UDC ORAL LIQUID GT SCH ×2 (09:52→20:45)
--- NOTE | 2018-07-27 10:03 | NUR ---
Flu Vaccine Status Called Jefferson Flores at and spoke with RN fiberglass pipe covering supervisor regarding flu vaccine status. RN states she will return call to unit once she can find out.
--- NOTE | 2018-07-27 11:00 | NUR ---
Jefferson Flores returned call regarding vaccine status, patient received Flu vaccine 06/2018, PNA vaccine 02/2018.
[2018-07-27] MEDS ORDERED: IPRATROPIUM BROMIDE 17 mCg/ACTUATION, 12.9 GM AER.W.ADAP INH SCH (12:00)
--- NOTE | 2018-07-27 12:00 | NUR ---
Family at bedside, consents signed by Kb Sheehan, Spouse.
[2018-07-27] MEDS: IPRATROPIUM BROM 0.5 MG/2.5 ML VIAL.NEB (ATROVENT) INH SCH ×5 (12:19→23:00)
[2018-07-27] MEDS: ALBUTEROL SULFATE 0.083% 2.5 MG/3 ML VIAL.NEB INH SCH ×5 (12:19→23:00)
--- NOTE | 2018-07-27 13:45 | NUR ---
CM DCP ASSESSMENT Pt RECOGNIZES FAMILY; UNABLE TO COMMUNICATE EXCEPT W/YES OR NO QUESTIONS. DC PLAN BACK TO [facility] WHEN MEDICALLY STABLE. PER FAMILY, Pt HAS LOOSE TOOTH ON BOTTOM RIGHT SIDE OF MOUTH; EDUCATED TO HAVE FACILITY F/UP WITH DENTIST TO TREAT AT FACILITY. PER FAMILY, Pt HAS BEEN AT [facility] SINCE 01/29/18 S/P STROKE; MAKES MEDICAL DECISIONS FOR Pt. CM TO REMAIN AVAILABLE NEEDED.
[2018-07-27] MEDS: METOPROLOL TARTRATE 25 MG TABLET GT SCH ×2 (13:49→21:13)
--- NOTE | 2018-07-27 14:15 | NUR ---
Paged Dr. Tolbert to report firm and distended abdomen, orders for stat CT scan received, order noted and carried out.
--- NOTE | 2018-07-27 14:15 | NUR ---
Paged Dr. Garcia to report low BP, order to continue NS at 100ml/hr received, order for PRN Levophed 2 mcg/kg to keep SBP>88 received, orders noted and carried out.
--- NOTE | 2018-07-27 14:30 | NUR ---
WOUND EVALUATION: Wound Consult received from Dr. Tolbert. Thank you, Dr. Tolbert, for the consult. Patient received in a Hill-Rom Bed with a Letts XPRT mattress, awake, nonverbal, nonresponsive to verbal commands. Patient is unable to turn in bed independently. Ceasar Score is an 11. Past Medical History: CVA, Tracheostomy, PEG placement. Recent Labs: WBC 13.0, RBC 2.76, hemoglobin 8.8, hematocrit 27.5, BUN 32, creatinine 0.90, glucose 135, calcium 7.6, albumin 1.8, alkaline phosphatase 243. Intrinsic factors that delay wound healing:CVA. Extrinsic factors that delay wound healing: Immobility. Microbiology: Blood culture results 2 in progress. Urine culture results in progress. MRSA screen results in progress. Tracheal aspirate culture results in progress. Bilateral upper extremities have multiple areas of ecchymosis. Wound Assessment: 1. Left sacral area: Reopened scar tissue from a wound of unknown etiology, present on admission. Wound bed has 90% pink tissue, 10% red tissue. No odor, scant sanguineous drainage. Periwound and surrounding tissue has scar tissue. Wound measures 7.2 cm x 4.0 cm. Large area of moisture associated skin damage with dull red erythema and dry, flaky skin surrounding wound and extending up into lower back area, measuring 25.0 cm x 23.0 cm. 2. Right sacral area: Reopened scar tissue from a wound of unknown etiology, present on admission. Wound bed has 90% pink tissue, 10% red tissue. No odor, scant sanguineous drainage. Periwound and surrounding tissue has scar tissue. Wound measures 5.0 cm x 5.0 cm. Large area of moisture associated skin damage with dull red erythema and dry, flaky skin surrounding wound and extending up into lower back area, measuring 25.0 cm x 23.0 cm. Recommend: Cleanse wounds with normal saline. Pat dry. Apply moisture barrier cream to wounds and periwounds. Apply hydrogel to any portions of wound beds not covered by moisture barrier cream. Cover wounds with nonadhesive foam dressings, and secure with transparent dressings. Perform site care daily, and as needed for dressing soiling or dislodgment. 3. Right lateral hip: Area of pink scar tissue, present on admission. No odor, no drainage. Site measures 1.5 cm x 1.5 cm. Recommend: Cleanse involved area with mild soap and water. Pat dry. Apply moisture barrier cream to involved area. Perform site care 4 times a day, and as needed for soiling. 4. Right medial thigh fold: Moisture associated wound, present on admission. Wound bed has 100% yellow tissue. Mild odor, scant purulent drainage. Periwound is macerated. Wound measures 0.8 cm x 2.5 cm. Area of dark discolored tissue present inferior to wound. Recommend: Cleanse wound with normal saline. Apply moisture barrier cream to wound and periwound. Apply hydrogel to any portions of wound bed not covered by moisture barrier cream. Cover wound with foam dressing. Perform site care daily, and as needed for dressing soiling or dislodgment. 5. Left posterior medial calf: [place] area of purple discoloration/ecchymosis, present on admission. Measures 6.0 cm x 4.0 cm. Recommend: No dressing needed. Continue to monitor site for worsening condition. Float involved areas with pillows and towel rolls at all times. 6. Right dorsal hand: Full thickness skin tear, present on admission. Wound has 95% pink tissue, 5% yellow tissue. No odor, scant sanguineous drainage. Periwound intact. Wound measures 3.5 cm x 4.0 cm. Recommend: Cleanse wound with normal saline. Apply moisture barrier cream to wound and periwound. Apply hydrogel to any portions of wound bed not covered by moisture barrier cream. Cover wound with foam dressing. Perform site care daily, and as needed for dressing soiling or dislodgment. 7. 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 Recommend: Cleanse involved areas with mild soap and water. Pat dry. Apply Remedy antifungal ointment to involved areas, let air dry. Apply Calmoseptine cream to involved areas. Perform site care 4 times a day, and as needed for soiling. 8. Right buttock near issue tuberosity: Linear excoriated areas with red tissue over scar tissue, present on admission. Brown discolored area present inferior to wound. Recommend: Cleanse involved area with mild soap and water. Pat dry. Apply Remedy antifungal ointment to involved area, let air dry. Apply Calmoseptine cream to involved area. Perform site care 4 times a day, and as needed for soiling. Also recommend: Recommend reposition patient side to side only every 2 hours with pillow support. Offload, elevate and float bilateral heels with one pillow lengthwise under each extremity at all times. Perform skin care and monitor skin integrity Q shift. Use Calmoseptine cream on moisture susceptible areas QID and PRN for soiling. Maintain patient on a low air-loss mattress.
--- NOTE | 2018-07-27 14:30 | NUR ---
Wound care done at bedside with INDIA Doyle
[2018-07-27] MEDS ORDERED: NOREPINEPHRINE BITARTRATE 4 MG in D5W 246 ML IV PRN (14:45)
[2018-07-27 15:03] LABS: BASOPHILS # (AUTO) 0.2 K/uL (0.0-0.2); BASOPHILS % (AUTO) 1.3 % (0.0-2.0); HEMATOCRIT 27.5 % (36-48); HEMOGLOBIN 8.8 g/dL (12.0-16.0); LYMPHOCYTES # (AUTO) 0.8 K/uL (1.0-5.5); MEAN CORPUSCULAR HEMOGLOBIN 32 pg (27-31); MEAN CORPUSCULAR HGB CONC 32 % (32-36); MEAN CORPUSCULAR VOLUME 100 fL (79.0-98.0); MONOCYTES % (AUTO) 7.4 % (1.7-9.3); PLATELET COUNT (AUTO) 164 K/uL (130-430); RED BLOOD CELL COUNT(AUTO) 2.76 MIL/uL (4.2-6.2); RED CELL DISTRIBUTION WIDTH 18.6 % (9.0-15.0)
--- NOTE | 2018-07-27 15:10 | NUR ---
Patient transported to CT via bed with continuous monitoring and O2, accompanied by RT, RN and Xray Techs.
--- NOTE | 2018-07-27 15:36 | NUR ---
Patient returned to unit, tolerated well, patient situated to room
[2018-07-27 15:42] LABS: NEUTROPHILS % (AUTO) 85.3 % (40.0-70.0)
[2018-07-27] MEDS: NACL 0.9% 1,000 ML IV SCH (15:46)
--- NOTE | 2018-07-27 16:03 | NUR ---
NOTES: MD UMANZOR INFORMED ABOUT THE RESULT OF BLOOD CULTURE, NEW ORDER RECEIVED CUBICIN PER PHARMACY TO DOSE.
[2018-07-27] MEDS ORDERED: COMMUNICATION ORDER XX ONE (16:15)
--- NOTE | 2018-07-27 17:00 | NUR ---
EBONY DC PLANNING: SPOKE WITH CARROLL BECK/NATIVIDAD REGARDING Pt HAVING LOOSE TOOTH THAT IS LIKELY CAUSING BLEEDING LEADING TO HOSPITAL ADMITS. Pt IS HAVING BRONCHOSCOPY ON 07/28/[address] JADE. PER CARROLL BECK/KEIKO HENSON SUBACUTE MAY HAVE TO LOOK INTO Pt's DENTAL COVERAGE FOR TREATMENT OF LOOSE TOOTH, BUT, SHE WILL ALSO LOOK INTO IT TOMORROW AND F/UP WITH [facility] EBONY.
--- NOTE | 2018-07-27 17:30 | NUR ---
Notes: Soto Tolbert related to CT scan result.s/w jackie awaited to callback.
--- NOTE | 2018-07-27 17:50 | NUR ---
PICC line RN at bedside for insertion of new PICC line
[2018-07-27] MEDS ORDERED: DAPTOmycin 500 MG in NS 50 ML IV SCH (18:00)
--- NOTE | 2018-07-27 18:18 | NUR ---
RT upper arm double lumen PICC line inserted to RT Brachial Vein, Stat Xray ordered, placement verified, OK to use per FIGUEROA Parada RN
[2018-07-27] MEDS ORDERED: BALSAM PERU/CASTOR OIL 60 GM OINT...G. TP PRN (18:30)
[2018-07-27] MEDS: DAPTOmycin 360 MG in NS 50 ML IV SCH (18:37)
--- NOTE | 2018-07-27 19:09 | NUR ---
Closing/Endorsement Patient sleeping in bed, arousable. No signs of pain or distress noted. PICC in RT upper arm intact, no active bleeding noted. No bleeding currently noted from mouth. IV LT hand intact, patent, no infiltration noted. Endorsed plan of care to INDIA Jalloh.
--- NOTE | 2018-07-27 19:30 | NUR ---
TRANSFER OF CARE Received report from AM shift RN. Pt in bed, opens her eyes with pain and able to grab son's hand. VSS with O2 saturation 100% tolerating vent settings on trach. Wound on the buttocks and right hand noted with dressing CDI. PICC line in placed on the right upper arm patent with good blood return and no infiltration noted. Gtube in placed and patent working well. Afib on the monitor. Dumont catheter in placed draining clear yellow urine to gravity. No signs on infection noted. Safety precaution observed, call light within reach. Padded side rails in placed. Will continue to monitor Pt.
[2018-07-27] MEDS: ATORVASTATIN 10 MG TABLET GT SCH (20:44)
[2018-07-27] MEDS: CEFEPIME 1 GM in D5W 50 ML IV SCH (20:46)
[2018-07-27] MEDS: BALSAM PERU/CASTOR OIL 60 GM OINT...G. TP SCH (20:46)
[2018-07-28] VITALS (32 sets, daily range): BP systolic 90–127
--- NOTE | 2018-07-28 | NUR ---
SHIFT ASSESSMENT Pt in bed, turned and repositioned Pt. Oral care done, no acute distress at this time. Will continue to monitor Pt.
[2018-07-28] MEDS: IPRATROPIUM BROM 0.5 MG/2.5 ML VIAL.NEB (ATROVENT) INH SCH ×6 (03:00→23:46)
[2018-07-28] MEDS: ALBUTEROL SULFATE 0.083% 2.5 MG/3 ML VIAL.NEB INH SCH ×6 (03:00→23:46)
[2018-07-28] MEDS: NACL 0.9% 1,000 ML IV SCH ×2 (03:25→11:40)
--- NOTE | 2018-07-28 04:00 | NUR ---
SHIFT ASSESSMENT Pt in bed, turned and repositioned Pt. Oral care done, no acute distress at this time. Will continue to monitor Pt.
[2018-07-28] MEDS: METOPROLOL TARTRATE 25 MG TABLET GT SCH ×4 (06:00→23:23)
[2018-07-28 06:17] LABS: HEMATOCRIT 27.6 % (36-48); HEMOGLOBIN 9.1 g/dL (12.0-16.0); MEAN CORPUSCULAR HEMOGLOBIN 33 pg (27-31); MEAN CORPUSCULAR HGB CONC 33 % (32-36); MEAN CORPUSCULAR VOLUME 100 fL (79.0-98.0); PLATELET COUNT (AUTO) 166 K/uL (130-430); RED BLOOD CELL COUNT(AUTO) 2.77 MIL/uL (4.2-6.2); RED CELL DISTRIBUTION WIDTH 19.4 % (9.0-15.0); WHITE BLOOD COUNT (AUTO) 7.9 K/uL (4.8-10.8)
[2018-07-28 06:18] LABS: ANION GAP 7 (5-15); CALCIUM 7.9 mg/dL (8.4-11.0); CHLORIDE 108 mmol/L (98-107); CREATININE 1.01 mg/dL (0.55-1.30); GLUCOSE 96 mg/dL (70-99); POTASSIUM 3.5 mmol/L (3.5-5.1); SODIUM SERUM 140 mmol/L (136-145); UREA NITROGEN, BLOOD 33 mg/dL (8-21)
--- NOTE | 2018-07-28 06:38 | NUR ---
CLOSING NOTES Pt in bed, no acute distress at this time. IV lines and skin checked, will give report to oncoming RN via SBAR.
--- NOTE | 2018-07-28 07:02 | NUR ---
Closing/Endorsement Patient sleeping in bed, arouseable, family is at bedside. PICC in RT upper arm intact and patent. No bleeding currently noted from mouth. IV LT hand intact, patent, no infiltration noted. New order for Pivot 1.5 running to Gtube @ 40 ml/hr, patient is tolerating well. Bed is locked and in lowest position, seizure precautions in place, call light is withing reach. No signs of pain or distress noted. Addendum: 07/28/18 at 1910 by Eric Polo RN Incorrect time should be 19:02
--- NOTE | 2018-07-28 07:15 | NUR ---
AM Assessment Received plan of care from RN at bedside. Pt trach with mechanical vent. Vent set to AC 18, TV 400, FIO2 35%, PEEP 5. G-tube is clamped. IV site to LT hand, 22GA, patent. RT Upper arm PICC line patent with NS running at 100ml/hr. Dumont cath in place and secured, flowing to gravity, pinkish urine. HOB elevated, call light placed within reach, Family is at bedside. Bed locked, in lowest position. No distress noted. Will continue monitor.
[2018-07-28] MEDS ORDERED: LIDOCAINE 2% JELLY UROJECT 10 ML MM ONE ×2 (07:52)
[2018-07-28] MEDS ORDERED: LIDOCAINE 1%, 20 ML MDV 80 ML ONE (07:53)
[2018-07-28] MEDS ORDERED: fentaNYL CITRATE/PF 100 MCG/2 ML AMP ONE (07:56)
[2018-07-28] MEDS ORDERED: MIDAZOLAM HCL 5 MG/5 ML VIAL ONE (07:56)
[2018-07-28 08:05] LABS: ATYPICAL LYMPHOCYTES % 1 % (0-0); BAND % (MANUAL) 18 % (0-6); BASOPHILS % (MANUAL) 0 % (0-2); EOSINOPHILS % (MANUAL) 0 % (0-7); LYMPHOCYTES % (MANUAL) 1 % (20-46); METAMYELOCYTES % 1 % (0-0); MONOCYTES % (MANUAL) 1 % (0-11); MYELOCYTES % 4 % (0-0)
--- NOTE | 2018-07-28 08:37 | NUR ---
RT NOTES After time out for bronchoscopy procedure, FIO2 to 100% per Dr Patiño. Pt. tolerated procedure well. FIO2 back to 35% after procedure. T.T remains secure and patent.
--- NOTE | 2018-07-28 08:39 | NUR ---
Dr. Patiño and GI team at bedside for bronchoscopy. Consents signed and placed in chart.
[2018-07-28] MEDS: CHLORHEXIDINE GLUCONATE 15 ML/DOSE, 480 ML MM SCH ×2 (09:00→20:58)
--- NOTE | 2018-07-28 09:05 | NUR ---
Bronchoscopy done. Pt tolerated well. Pt moderately sedated. Will continue to monitor.
[2018-07-28] MEDS: AMIODARONE HCL 200 MG TABLET GT SCH ×2 (09:21→20:57)
[2018-07-28] MEDS: POTASSIUM CHLORIDE 20 MEQ TAB.PRT.SR GT SCH (09:21)
[2018-07-28] MEDS: DOCUSATE SODIUM 100 MG/10 ML UDC GT SCH (09:21)
[2018-07-28] MEDS: LevETIRAcetam 500 MG/5 ML UDC ORAL LIQUID GT SCH ×2 (09:21→20:57)
[2018-07-28] MEDS: CEFEPIME 1 GM in D5W 50 ML IV SCH ×2 (09:22→20:57)
[2018-07-28] MEDS: FUROSEMIDE 20 MG TABLET GT SCH ×2 (09:22→20:57)
[2018-07-28] MEDS: BALSAM PERU/CASTOR OIL 60 GM OINT...G. TP SCH ×2 (09:23→21:01)
--- NOTE | 2018-07-28 12:00 | NUR ---
Rounds Pt drowsy, arousable, in no signs of pain or distress. Pt unable to follow commands. Will continue to monitor.
[2018-07-28] MEDS: HYDROcodone/ACETAMIN 5-325 MG TAB (NORCO/ VICODIN) GT PRN ×2 (13:24→14:57)
--- NOTE | 2018-07-28 14:06 | NUR ---
Dietitian Recommendations * Recommend Pivot 1.5 at 45 ml/hr, Free Water Flush: 50 Q6hr via GT Provides: 1620 kcal/day, 101 gm protein/day, and 1020 ml free water/day Meets: 98% of lower end of estimated caloric needs and 92% of upper end of estimated protein needs LP, RD Please refer to Nutrition Assessment for details.
--- NOTE | 2018-07-28 17:09 | NUR ---
CALLED PAGED DR GALVAN SPOKE TO HALI
--- NOTE | 2018-07-28 19:02 | NUR ---
Closing/Endorsement Patient sleeping in bed, arouseable, family is at bedside. PICC in RT upper arm intact and patent. No bleeding currently noted from mouth. IV LT hand intact, patent, no infiltration noted. New order for Pivot 1.5 running to Gtube @ 40 ml/hr, patient is tolerating well. Bed is locked and in lowest position, seizure precautions in place, call light is withing reach. No signs of pain or distress noted.
--- NOTE | 2018-07-28 19:11 | NUR ---
Endorsed plan of care to Shubham OSBORNE
[2018-07-28] MEDS: DAPTOmycin 360 MG in NS 50 ML IV SCH (19:25)
--- NOTE | 2018-07-28 19:30 | NUR ---
TRANSFER OF CARE Received report from AM shift RN. Pt in bed, opens her eyes with pain and able to grab son's hand. VSS with O2 saturation 100% tolerating vent settings on trach. Wound on the buttocks and right hand noted with dressing CDI. PICC line in placed on the right upper arm patent with good blood return and no infiltration noted. Gtube in placed and patent working well. Afib on the monitor. Dumont catheter in placed draining dark yellow urine to gravity. No signs on infection noted. Safety precaution observed, call light within reach. Padded side rails in placed. Will continue to monitor Pt.
--- NOTE | 2018-07-28 20:00 | NUR ---
FAMILY Family at bedside, opportunity to ask questions given and answered.
[2018-07-28] MEDS: ATORVASTATIN 10 MG TABLET GT SCH (20:57)
[2018-07-28] MEDS: MUPIROCIN 2% TOPICAL OINTMENT 22 GM NS SCH (20:58)
[2018-07-28] MEDS: traMADol HCL HCL 50 MG TABLET (ULTRAM) GT SCH (23:25)
[2018-07-29] VITALS (36 sets, daily range): BP systolic 82–116
--- NOTE | 2018-07-29 | NUR ---
REASSESSMENT Pt in bed, no acute distress at this time. Will continue to monitor Pt.
--- NOTE | 2018-07-29 04:00 | NUR ---
REASSESSMENT Pt in bed, no acute distress at this time. Will continue to monitor Pt.
[2018-07-29 05:26] LABS: BASOPHILS # (AUTO) 0.1 K/uL (0.0-0.2); BASOPHILS % (AUTO) 0.9 % (0.0-2.0); EOSINOPHILS # (AUTO) 0.1 K/uL (0.0-0.4); EOSINOPHILS % (AUTO) 0.9 % (0.0-4.0); HEMATOCRIT 27.2 % (36-48); LYMPHOCYTES # (AUTO) 0.7 K/uL (1.0-5.5); LYMPHOCYTES % (AUTO) 9.4 % (20.5-51.5); MEAN CORPUSCULAR HEMOGLOBIN 30 pg (27-31); MEAN CORPUSCULAR HGB CONC 30 % (32-36); MEAN CORPUSCULAR VOLUME 100 fL (79.0-98.0); MONOCYTES # (AUTO) 0.5 K/uL (0.0-1.0); NEUTROPHILS % (AUTO) 81.8 % (40.0-70.0); PLATELET COUNT (AUTO) 147 K/uL (130-430); RED BLOOD CELL COUNT(AUTO) 2.73 MIL/uL (4.2-6.2); WHITE BLOOD COUNT (AUTO) 7.4 K/uL (4.8-10.8)
[2018-07-29 05:38] LABS: HEMOGLOBIN 8.6 g/dL (12.0-16.0)
[2018-07-29] MEDS: METOPROLOL TARTRATE 25 MG TABLET GT SCH (05:38)
[2018-07-29] MEDS: NACL 0.9% 1,000 ML IV SCH (05:38)
[2018-07-29 05:39] LABS: ALANINE AMINOTRANSFERASE 34 U/L (12-78); ALBUMIN 1.4 g/dL (3.4-4.8); ANION GAP 9 (5-15); ASPARTATE AMINOTRANSFERASE 109 U/L (10-37); CALCIUM 7.2 mg/dL (8.4-11.0); CHLORIDE 111 mmol/L (98-107); CREATININE 1.06 mg/dL (0.55-1.30); GLUCOSE 125 mg/dL (70-99); POTASSIUM 3.4 mmol/L (3.5-5.1); SODIUM SERUM 144 mmol/L (136-145); TOTAL BILIRUBIN 1.1 mg/dL (0.0-1.0); UREA NITROGEN, BLOOD 38 mg/dL (8-21)
--- NOTE | 2018-07-29 06:45 | NUR ---
CLOSING NOTES Pt in bed, no acute distress at this time. IV lines and skin checked. Will give report to oncoming RN via SBAR.
--- NOTE | 2018-07-29 07:45 | NUR ---
AM ASSESSMENT. PT AWAKE, ON VENTILATOR THRU HER TRACH, SKIN AFEBRILE, IV INFUSING NS AT 70 ML PER HR, ON CONTACT ISOLATION PRECAUTION, MRSA NARES, GTUBE FEEDING AT 40 ML PER HR, PT TOLERATING HER FEEDING, ORAL HYGIENE RENDERED, TURNED AND REPOSITIONED IN BED, GENERALIZED EDEMA, FLEMING CATHETER DRAINING.
[2018-07-29] MEDS: IPRATROPIUM BROM 0.5 MG/2.5 ML VIAL.NEB (ATROVENT) INH SCH ×5 (07:54→23:13)
[2018-07-29] MEDS: ALBUTEROL SULFATE 0.083% 2.5 MG/3 ML VIAL.NEB INH SCH ×5 (07:54→23:12)
[2018-07-29] MEDS: MUPIROCIN 2% TOPICAL OINTMENT 22 GM NS SCH ×2 (09:12→21:14)
[2018-07-29] MEDS: LevETIRAcetam 500 MG/5 ML UDC ORAL LIQUID GT SCH ×2 (09:13→21:12)
[2018-07-29] MEDS: POTASSIUM CHLORIDE 20 MEQ TAB.PRT.SR GT SCH (09:13)
[2018-07-29] MEDS: FUROSEMIDE 20 MG TABLET GT SCH ×2 (09:13→21:13)
[2018-07-29] MEDS: DOCUSATE SODIUM 100 MG/10 ML UDC GT SCH (09:13)
[2018-07-29] MEDS: CEFEPIME 1 GM in D5W 50 ML IV SCH ×2 (09:13→21:15)
[2018-07-29] MEDS: BALSAM PERU/CASTOR OIL 60 GM OINT...G. TP SCH ×2 (09:16→21:16)
[2018-07-29] MEDS: AMIODARONE HCL 200 MG TABLET GT SCH ×2 (09:31→21:13)
[2018-07-29] MEDS: CHLORHEXIDINE GLUCONATE 15 ML/DOSE, 480 ML MM SCH ×2 (09:31→21:14)
[2018-07-29] MEDS: 0.45% NACL 1,000 ML IV SCH (11:09)
--- NOTE | 2018-07-29 11:09 | NUR ---
IVF. CHANGED IV TO 1/2 NS AT 40 ML PER HR ORDERED.
--- NOTE | 2018-07-29 11:30 | NUR ---
DR. ALYSON SHIELDS NOTIFIED OF BP 86/39. NEW ORDERS GIVEN TO GIVE NS 250ML BOLUS AND TO DC LOPRESSOR.
--- NOTE | 2018-07-29 11:50 | NUR ---
HYGIENE. PT INCONTINENT OF BOWEL, FOAM DRESSINGS REMOVED FROM BUTTOCKS, SKIN TREATMENT DONE, WASHED WOUND WITH SALINE, ZGUARD LOTION TO WOUND EDGES AND HYDROGEL ONTO WOUND BED, COVERED WOUNDS WITH FOAM DRESSINGS, BATHED PT, USED CHG WIPES TO BODY BUT FACE AND GENITAL AREAS.
[2018-07-29] MEDS: MENTHOL/ZINC OXIDE 113 GM OINT. TP PRN (12:04)
[2018-07-29] MEDS ORDERED: NS 250 ML IV ONE (12:15)
--- NOTE | 2018-07-29 13:50 | NUR ---
REPORT. TRANSFERRED CARE TO INDIA SON.
--- NOTE | 2018-07-29 13:51 | NUR ---
OPENING NOTE RECEIVED SBAR REPORT FROM INDIA AMOS AT BEDSIDE. CONTINUING CARE SHE WAS FLEXED HOME DUE TO CENSUS RATIO.
[2018-07-29] MEDS: MENTHOL/ZINC OXIDE 113 GM OINT. TP SCH ×3 (15:28→21:17)
--- NOTE | 2018-07-29 15:30 | NUR ---
EDUCATION PT'S SON UPDATED ON PLAN OF CARE AND CURRENT CONDITION AT BEDSIDE.
[2018-07-29] MEDS: DAPTOmycin 360 MG in NS 50 ML IV SCH (18:15)
--- NOTE | 2018-07-29 19:21 | NUR ---
ENDORSEMENT SBAR REPORT ENDORSED TO PM RN AT BEDSIDE
--- NOTE | 2018-07-29 19:30 | NUR ---
PM ASSESSMENT REPORT RECEIVED FROM HUY OSBORNE. 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 PT RECEIVED IN BED W/ EYES CLOSED, RESPONDING TO VERBAL AND TACTILE STIMULI. VSS W/ AFIB SEEN ON THE MONITOR. NO SIGNS OF ACUTE DISTRESS OR DISCOMFORT NOTED. PT IS TRACH TO VENT W/ SETTINGS AT AC 18, TV 400, FIO2 35%, PEEP OF 5 W/ O2 SATS 98%. PT HAS PARKER PICC INFUSING 1/2 NS @ 40 CC/HR. PICC DRESSING C/D/I. PT HAS LEFT HAND 22 GAUGE IV SALINE LOCKED. PT HAS A GTUBE W/ TUBEFEEDING PIVOT 1.5 AT 40 CC/HR. FLEMING CATH DRAINING URINE TO GRAVITY. BED IS LOCKED AND IN LOWEST POSITION, CALL LIGHT W/IN REACH, WILL CONTINUE TO MONITOR.
[2018-07-29] MEDS: ATORVASTATIN 10 MG TABLET GT SCH (21:13)
[2018-07-30] VITALS (37 sets, daily range): BP systolic 84–148
[2018-07-30] MEDS: traMADol HCL HCL 50 MG TABLET (ULTRAM) GT SCH ×3 (03:14→22:58)
--- NOTE | 2018-07-30 03:16 | NUR ---
RN ROUNDS PT IN BED W/ EYES CLOSED. PT IS RESTLESS AND GRIMACING. PAIN MEDICATION GIVEN AT THIS TIME, WILL REASSESS PT. PARKER PICC INFUSING 1/2 NS @ 40 CC/HR. FLEMING CATHETER DRAINING URINE TO GRAVITY. BED IS LOCKED AND IN LOWEST POSITION, CALL LIGHT W/IN REACH, WILL CONTINUE TO MONITOR.
[2018-07-30 06:29] LABS: BASOPHILS # (AUTO) 0.1 K/uL (0.0-0.2); BASOPHILS % (AUTO) 1.1 % (0.0-2.0); EOSINOPHILS % (AUTO) 0.2 % (0.0-4.0); HEMATOCRIT 27.4 % (36-48); HEMOGLOBIN 8.7 g/dL (12.0-16.0); MEAN CORPUSCULAR HEMOGLOBIN 31 pg (27-31); MEAN CORPUSCULAR HGB CONC 32 % (32-36); MEAN CORPUSCULAR VOLUME 98 fL (79.0-98.0); MONOCYTES # (AUTO) 0.7 K/uL (0.0-1.0); MONOCYTES % (AUTO) 10.5 % (1.7-9.3); NEUTROPHILS # (AUTO) 5.1 K/uL (1.8-7.7); PLATELET COUNT (AUTO) 133 K/uL (130-430); RED BLOOD CELL COUNT(AUTO) 2.79 MIL/uL (4.2-6.2); RED CELL DISTRIBUTION WIDTH 18.4 % (9.0-15.0); WHITE BLOOD COUNT (AUTO) 6.9 K/uL (4.8-10.8)
[2018-07-30 06:47] LABS: ALANINE AMINOTRANSFERASE 34 U/L (12-78); ALBUMIN 1.6 g/dL (3.4-4.8); ANION GAP 6 (5-15); ASPARTATE AMINOTRANSFERASE 102 U/L (10-37); CALCIUM 7.5 mg/dL (8.4-11.0); CHLORIDE 112 mmol/L (98-107); CREATININE 1.02 mg/dL (0.55-1.30); GLUCOSE 131 mg/dL (70-99); POTASSIUM 3.6 mmol/L (3.5-5.1); SODIUM SERUM 142 mmol/L (136-145); TOTAL BILIRUBIN 1.1 mg/dL (0.0-1.0); UREA NITROGEN, BLOOD 46 mg/dL (8-21)
[2018-07-30 07:15] LABS: NEUTROPHILS % (AUTO) 73.2 % (40.0-70.0)
--- NOTE | 2018-07-30 07:28 | NUR ---
ENDORSEMENT REPORT GIVEN TO EDITH OSBORNE USING SBAR FORMAT. PT IN BED W/ EYES CLOSED, VSS W/ AFIB ON THE MONITOR. NO SIGNS OF ACUTE DISTRESS OR DISCOMFORT NOTED. BED LOCKED AND IN LOWEST POSITION, CALL LIGHT W/IN REACH.
--- NOTE | 2018-07-30 07:32 | NUR ---
AM Assessment Received pt asleep, arousable, unable to follow commands. Respirations even and unlabored on trach to vent. No signs of pain or distress noted. Noted multiple skin issues and edema on BLE. SCDs in place. Dumont in place draining kristi urine. PICC line PARKER intact, patent, no infiltration noted. Bed locked in lowest position. Call light in reach. Will continue to monitor.
[2018-07-30] MEDS: CHLORHEXIDINE GLUCONATE 15 ML/DOSE, 480 ML MM SCH ×2 (09:00→21:07)
[2018-07-30] MEDS: DOCUSATE SODIUM 100 MG/10 ML UDC GT SCH (09:05)
[2018-07-30] MEDS: LevETIRAcetam 500 MG/5 ML UDC ORAL LIQUID GT SCH ×2 (09:06→21:08)
[2018-07-30] MEDS: AMIODARONE HCL 200 MG TABLET GT SCH ×2 (09:06→21:09)
[2018-07-30] MEDS: POTASSIUM CHLORIDE 20 MEQ TAB.PRT.SR GT SCH (09:06)
[2018-07-30] MEDS: FUROSEMIDE 20 MG TABLET GT SCH ×2 (09:06→21:09)
[2018-07-30] MEDS: CEFEPIME 1 GM in D5W 50 ML IV SCH ×2 (09:07→21:07)
[2018-07-30] MEDS: MUPIROCIN 2% TOPICAL OINTMENT 22 GM NS SCH ×2 (09:09→21:08)
[2018-07-30] MEDS: BALSAM PERU/CASTOR OIL 60 GM OINT...G. TP SCH ×2 (09:09→21:08)
[2018-07-30] MEDS: MENTHOL/ZINC OXIDE 113 GM OINT. TP SCH ×4 (09:10→21:08)
[2018-07-30] MEDS: 0.45% NACL 1,000 ML IV SCH (09:11)
--- NOTE | 2018-07-30 10:00 | NUR ---
Telemetry status Pt changed to telemetry status per Dr. Nava's orders.
--- NOTE | 2018-07-30 10:37 | NUR ---
Case mgt: Rec'd order for discharge back to snf-subacute--f/u for dental -loose tooth--orders faxed to Jefferson Flores at fax#[phone] per Jomar at [facility]. Pt is in isolation for MRSA and I noted that urine culture shows +MDRO proteus mirabilas but sensitive to many IV abx--pt on IV Cefipime and Cubacin--Jomar at [facility] aware pt has nagel and MDRO urine-He will have their nurse review information and call me back. I s/w Lesa (person to notify on facesheet) and she is saudi arabian speaking and put me on phone with her cousin Yanira who speaks fluent Croatian-I explained we have discharge orders back to SNF and pt will transfer once assigned her bed by Jefferson Flores. Yanira will explain to Geraldine. Yanira#[phone]
[2018-07-30] MEDS: IPRATROPIUM BROM 0.5 MG/2.5 ML VIAL.NEB (ATROVENT) INH SCH ×4 (11:14→23:24)
[2018-07-30] MEDS: ALBUTEROL SULFATE 0.083% 2.5 MG/3 ML VIAL.NEB INH SCH ×4 (11:14→23:24)
--- NOTE | 2018-07-30 12:32 | NUR ---
Case mgt: I rec'd updated from ICU nurse Tatyana Stanford that she got call from lab indicating sputum is positive for MDRO and CNSO?(no culture report in EMR yet) I called Jomar at [facility] and he said that isolation need is ok and he gave me room #45 and that pt can come after 4pm--Call report to [phone]--I called [facility] (no CCT available today) and [facility] (no RT available-call back after 5pm)for CCT transport--Per Jet at [place] [phone], she will find [facility] and I let her know to call ICU and arrange for 6:00pm or later as per ICU nurse Tatyana, pt needs 1 unit PRBCs prior to transfer. SNF packet being delivered to ICU nursing station-I will update family member Yanira [phone] that pt is returning to [facility] this evening. RADHA OSBORNE
[2018-07-30] MEDS: HYDROcodone/ACETAMIN 5-325 MG TAB (NORCO/ VICODIN) GT PRN (13:57)
--- NOTE | 2018-07-30 14:00 | NUR ---
Update: Blood transfusion on hold, back on ICU status Pt noted with temp 101.0. Returned blood to blood bank, administered prn meds and applied ice packs for cooling measures. Dr. Nava notified and states to keep pt in ICU for another day and still administer 1 unit of blood after temp has gone down.
[2018-07-30] MEDS: DAPTOmycin 360 MG in NS 50 ML IV SCH (18:03)
--- NOTE | 2018-07-30 18:36 | NUR ---
Update: Pt noted with temp WNL 98.4. Will follow up with transfusing [address] Nava's orders. Consent signed by pt's , Roly Montoya, and Dr. Nava, and placed in chart.
--- NOTE | 2018-07-30 18:45 | NUR ---
BT INITIATION: Consent signed per pt's , Roly Montoya, agreeing to administration of blood. Blood has been type and crossmatched. Blood sent from blood bank. Information on unit of blood checked against patient wristband at bedside by two nurses. All information matches. Patient or responsible alliance party informed of potential complications associated with blood transfusion. Informed of possible transfusion reaction symptoms. Aware of need to notify nurse at once of itching, shortness of breath, flushing, feeling of impending doom, or other symptoms not previously present. Vital signs taken within 5 minutes prior to initiation of transfusion: T 98, P 109, R 18, BP 92/51. RN will remain with patient for first 15 minutes of transfusion at which time vital signs will be re-assessed.
--- NOTE | 2018-07-30 19:00 | NUR ---
15 mins of Blood Transfusion No adverse reactions noted. VS stable, afebrile. Pt in no signs of distress or pain. Will continue to monitor.
--- NOTE | 2018-07-30 19:25 | NUR ---
Closing/Endorsement Pt asleep, arousable. Still receiving 1 unit PRBC, VS stable, afebrile. No adverse reactions noted. Bed locked in lowest position. Call light in reach. Endorsed plan of care to Chandrakant OSBORNE.
--- NOTE | 2018-07-30 19:30 | NUR ---
PM ASSESSMENT REPORT RECEIVED FROM EDITH OSBORNE. 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 PT RECEIVED IN BED W/ EYES CLOSED, RESPONDING TO VERBAL AND TACTILE STIMULI. VSS W/ AFIB SEEN ON THE MONITOR. NO SIGNS OF ACUTE DISTRESS OR DISCOMFORT NOTED. PT IS TRACH TO VENT W/ SETTINGS AT AC 18, TV 400, FIO2 35%, PEEP OF 5 W/ O2 SATS 98%. PT HAS PARKER PICC INFUSING 1/2 NS @ 40 CC/HR AND FIRST UNIT OF PACKED RBC'S. PT TOLERATING WELL. PICC DRESSING C/D/I. PT HAS LEFT HAND 22 GAUGE IV SALINE LOCKED. PT HAS A GTUBE W/ TUBEFEEDING PIVOT 1.5 AT 40 CC/HR. FLEMING CATH DRAINING URINE TO GRAVITY. BED IS LOCKED AND IN LOWEST POSITION, CALL LIGHT W/IN REACH, WILL CONTINUE TO MONITOR.
--- NOTE | 2018-07-30 21:05 | NUR ---
BLOOD TRANSFUSION PACKED RBC'S FINISHED TRANSFUSING. PT TOLERATED WELL W/ NO SIGNS OF TRANSFUSION REACTION. V/S TEMP: 98.9 F, HR: 97, RR: 14, BP: 92/57. WILL CONTINUE TO MONITOR.
[2018-07-30] MEDS: ATORVASTATIN 10 MG TABLET GT SCH (21:09)
--- NOTE | 2018-07-30 23:34 | NUR ---
VENT SETTINGS RT CHANGED FIO2% FROM 35% TO 40%. PT TOLERATING WELL W/ NO SIGNS OF ACUTE DISTRESS OR DISCOMFORT NOTED. WILL CONTINUE TO MONITOR.
[2018-07-31] VITALS (36 sets, daily range): BP systolic 80–137
--- NOTE | 2018-07-31 00:30 | NUR ---
CHG CHG PATH GIVEN TO PT. PT TOLERATED WELL. WILL CONTINUE TO MONITOR.
[2018-07-31] MEDS: HYDROcodone/ACETAMIN 5-325 MG TAB (NORCO/ VICODIN) GT PRN ×3 (02:20→22:11)
[2018-07-31] MEDS: IPRATROPIUM BROM 0.5 MG/2.5 ML VIAL.NEB (ATROVENT) INH SCH ×6 (04:14→23:06)
[2018-07-31] MEDS: ALBUTEROL SULFATE 0.083% 2.5 MG/3 ML VIAL.NEB INH SCH ×6 (04:14→23:06)
[2018-07-31 06:37] LABS: ALANINE AMINOTRANSFERASE 33 U/L (12-78); ALBUMIN 1.6 g/dL (3.4-4.8); ANION GAP 7 (5-15); ASPARTATE AMINOTRANSFERASE 87 U/L (10-37); CALCIUM 7.6 mg/dL (8.4-11.0); CHLORIDE 111 mmol/L (98-107); CREATININE 1.13 mg/dL (0.55-1.30); GLUCOSE 137 mg/dL (70-99); POTASSIUM 3.6 mmol/L (3.5-5.1); SODIUM SERUM 143 mmol/L (136-145); TOTAL BILIRUBIN 1.8 mg/dL (0.0-1.0); UREA NITROGEN, BLOOD 51 mg/dL (8-21)
--- NOTE | 2018-07-31 07:20 | NUR ---
ENDORSEMENT REPORT GIVEN TO DANDRE OSBORNE USING SBAR FORMAT. PT IN BED W/ EYES CLOSED, VSS W/ AFIB ON THE MONITOR. NO SIGNS OF ACUTE DISTRESS OR DISCOMFORT NOTED. BED LOCKED AND IN LOWEST POSITION, CALL LIGHT W/IN REACH.
--- NOTE | 2018-07-31 07:50 | NUR ---
AM ASSESSMENT. PT AWAKE, AFEBRILE, DRY BLOOD STAIN IN THE SIDE OF HER MOUTH NOTED, IVF INFUSING 1/2 NS AT 40 ML PER HR, GENERALIZED EDEMA, TRACH TO VENT, ON GTUBE FEEDING, GASTRIC RESIDUAL CHECKED, ABDOMEN SLIGHTLY DISTENDED, POSITIVE BOWEL SOUNDS, GTUBE SITE WITH MILD REDNESS, SMALL AMOUNT OF LEAK, CLEANSED AREA WITH SALINE AND PAT DRY, SLIT GAUZE APPLIED TO AREA, ORAL CARE RENDERED, PT CLOSES HER LIPS TIGHTLY, TURNED PT, LEFT PILLOW UNDER HER LEGS, HEELS OFF THE MATTRESS.
[2018-07-31] MEDS: CEFEPIME 1 GM in D5W 50 ML IV SCH ×2 (08:09→22:10)
[2018-07-31] MEDS: LevETIRAcetam 500 MG/5 ML UDC ORAL LIQUID GT SCH ×2 (08:10→22:19)
[2018-07-31] MEDS: DOCUSATE SODIUM 100 MG/10 ML UDC GT SCH (08:10)
[2018-07-31] MEDS: POTASSIUM CHLORIDE 20 MEQ TAB.PRT.SR GT SCH (08:10)
[2018-07-31] MEDS: CHLORHEXIDINE GLUCONATE 15 ML/DOSE, 480 ML MM SCH ×2 (08:10→22:11)
[2018-07-31] MEDS: AMIODARONE HCL 200 MG TABLET GT SCH ×2 (08:11→22:11)
[2018-07-31] MEDS: MUPIROCIN 2% TOPICAL OINTMENT 22 GM NS SCH ×2 (08:11→22:19)
[2018-07-31] MEDS: MENTHOL/ZINC OXIDE 113 GM OINT. TP PRN (08:12)
[2018-07-31] MEDS: MENTHOL/ZINC OXIDE 113 GM OINT. TP SCH ×4 (08:13→22:14)
[2018-07-31] MEDS: BALSAM PERU/CASTOR OIL 60 GM OINT...G. TP SCH ×2 (08:14→22:13)
[2018-07-31] MEDS: FUROSEMIDE 20 MG TABLET GT SCH ×2 (08:26→22:10)
[2018-07-31] MEDS: 0.45% NACL 1,000 ML IV SCH (10:01)
[2018-07-31 10:17] LABS: BASOPHILS # (AUTO) 0.1 K/uL (0.0-0.2); BASOPHILS % (AUTO) 1.4 % (0.0-2.0); EOSINOPHILS % (AUTO) 0.2 % (0.0-4.0); HEMATOCRIT 30.4 % (36-48); HEMOGLOBIN 9.6 g/dL (12.0-16.0); LYMPHOCYTES # (AUTO) 0.9 K/uL (1.0-5.5); LYMPHOCYTES % (AUTO) 8.5 % (20.5-51.5); MEAN CORPUSCULAR HEMOGLOBIN 31 pg (27-31); MEAN CORPUSCULAR HGB CONC 32 % (32-36); MEAN CORPUSCULAR VOLUME 98 fL (79.0-98.0); MONOCYTES # (AUTO) 0.5 K/uL (0.0-1.0); NEUTROPHILS # (AUTO) 8.7 K/uL (1.8-7.7); NEUTROPHILS % (AUTO) 84.9 % (40.0-70.0); PLATELET COUNT (AUTO) 121 K/uL (130-430); RED BLOOD CELL COUNT(AUTO) 3.11 MIL/uL (4.2-6.2); WHITE BLOOD COUNT (AUTO) 10.2 K/uL (4.8-10.8)
--- NOTE | 2018-07-31 11:10 | NUR ---
PT WAS FOUND ON 40%, WAS RETURNED TO 35% Addendum: 07/31/18 at 1208 by Aracely Zabala RT Amended: Links added.
--- NOTE | 2018-07-31 11:45 | NUR ---
EBONY DC planning - [facility] Pt remains in ICU, but was downgraded to Tele LOC on 07/30/18. Spoke with Eugenia BECK/Dina who stated Pt was accepted back to [facility] on 07/30/18, but transfer was held due to fever and Pt needing blood transfusion. EBONY spoke with Jomar who stated that there was no available isolation room today and, Pt not able to be with her roommate due to MDRO Pseudomonas in sputum and MDRO Proteus in urine; therefore, they cannot accept her back today. VASCULAR TECHNOLOGIST/Esme and [place] EBONY/Dina updated. 1250: EBONY spoke with ID/Dr. Alexis to request he document when Pt's isolation status can be colonized or released for Pt to admit back to room with roommate following recommended duration of treatment. Dr. Alexis in hurry today to leave; and, stated he was not able to address the isolation needs today.
--- NOTE | 2018-07-31 11:50 | NUR ---
SED SPECIAL EDUCATION TEACHER. [facility] [employer]ATER MACHINE OPERATOR CALLED, PT CAN BE TRANSFERRED TO [facility].
--- NOTE | 2018-07-31 12:00 | NUR ---
REPORT. CALLED [facility], REPORT GIVEN TO [place] DANGELO.
--- NOTE | 2018-07-31 12:15 | NUR ---
[facility]. NURSING STAFF OF [facility], ANTOLIN, [place], CALLED AND STATED THAT THEIR DOCUMENT EXAMINER AND HOSPITAL CHIEF DEPUTY SHERIFF SPOKE OVER THE PHONE, PT CAN NOT GO BACK TO [facility] DUE TO ISOLATION REASON. PT HAS A ROOMMATE IN THE FACILITY. THERE ARE NO BEDS FOR ISOLATION.
--- NOTE | 2018-07-31 12:45 | NUR ---
Notes: saturation 84-86% on 35% fio2. sustaining.keep hob elevated. after oral and trach suction saturation goes up to 93-94% then after 10 mins saturation drop again to 86%. respiratory therapies informed. Addendum: 07/31/18 at 1346 by Rickey Corcoran RN 1347 Fio2 increase to 40% via respiratory therapies.
--- NOTE | 2018-07-31 13:15 | NUR ---
PT SATING AT 87-88, BROUGHT O2 BACK UP TO 40%. PT SATING AT 93 Addendum: 07/31/18 at 1412 by Aracely Zabala RT Amended: Links added.
--- NOTE | 2018-07-31 13:30 | NUR ---
Pageodilon HERNANDEZ : pageodilon Levine( shoe salesperson)of Dr. Garcia informed heart rate goes up to 142-152 bpm sustaining. post suctioning. stated watch patient heart rate.
--- NOTE | 2018-07-31 14:10 | NUR ---
Notes: informed MD Nava about current condition of patient.saturation sustained 83-88%. fio2 increase of 40%. and heart rate 142-160's.new order received.
[2018-07-31] MEDS ORDERED: DIGOXIN 0.5 MG/2 ML AMP IVP ONE (14:15)
[2018-07-31] MEDS ORDERED: DILTIAZEM HCL 25 MG/5 ML VIAL IVP PRN (14:15)
[2018-07-31] MEDS ORDERED: LORazepam 2 MG/ML VIAL IM PRN (14:15)
--- NOTE | 2018-07-31 14:30 | NUR ---
XRAY. CHEST XRAY DONE IN THE PATIENT'S ROOM.
--- NOTE | 2018-07-31 14:33 | NUR ---
MEDS. DIGOXIN 0.25 MG IVP SLOWLY GIVEN, HEART RATE IN THE HIGH 140'S.
[2018-07-31] MEDS: LORazepam 2 MG/ML VIAL IV PRN ×2 (14:57→20:06)
--- NOTE | 2018-07-31 14:57 | NUR ---
MEDS. MEDICATED PT WITH ATIVAN 1 MG IVP FOR ANXIETY, FAMILY IN THE ROOM FOR SUPPORT.
--- NOTE | 2018-07-31 15:45 | NUR ---
LOC. PT CALM AT THIS HOUR, HEART RATE IN THE 120'S, IVF INFUSING 1/2 NS AT 40 ML PER HR, FEEDING THRU GTUBE AT 40 ML PER HR.
[2018-07-31] MEDS: DAPTOmycin 360 MG in NS 50 ML IV SCH (17:29)
--- NOTE | 2018-07-31 19:00 | NUR ---
NOTES: MD NOÉ IBARRA INFORMED ABOUT THE RESULT OF SPUTUM CX. STATED WILL PLACED NOTE TOMORROW FOR COLONIZATION.
--- NOTE | 2018-07-31 19:10 | NUR ---
REPORT. GIVEN TO DIRECTOR OF GRADUATE MEDICAL EDUCATION NURSEAIRAM.
--- NOTE | 2018-07-31 20:25 | NUR ---
GASTRIC TUBE SITE SKIN IRRITATION NEW DRAIN SPONGE APPLIED , SITE CLEANED WITH NNS , PATIENT TOLERATED / .
--- NOTE | 2018-07-31 20:26 | NUR ---
LORAZEPAM 1 MG IVP ADMINISTER FOR AGITATION , Reposition & Turning on schedule .
--- NOTE | 2018-07-31 20:27 | NUR ---
TRACH SUCTION UP RIGHT POSITION VENT ALARMING NOTED THICK SPUTUM , CHEST MOVEMENT SHALLOW ALSO SYMMETRICAL PROCEDURE TOLERATED / .
[2018-07-31] MEDS: ATORVASTATIN 10 MG TABLET GT SCH (22:10)
--- NOTE | 2018-07-31 23:22 | NUR ---
NORCO TABLET PER GASTRIC TUBE ADMINISTER FOR GENERAL PAIN 5/10 & HELPFUL OFF LOADING WITH PILLOWS & TOLERATED .
[2018-08-01] VITALS (32 sets, daily range): BP systolic 85–132
--- NOTE | 2018-08-01 02:31 | NUR ---
BIENVEN[facility]O ORAL CARE PROVIDED suction patient intubated kept upright position procedure tolerated .
[2018-08-01] MEDS: IPRATROPIUM BROM 0.5 MG/2.5 ML VIAL.NEB (ATROVENT) INH SCH ×3 (04:15→23:00)
[2018-08-01] MEDS: ALBUTEROL SULFATE 0.083% 2.5 MG/3 ML VIAL.NEB INH SCH ×3 (04:15→23:00)
--- NOTE | 2018-08-01 04:53 | NUR ---
CALMOSEPTINE OINTMENT applied to effected areas paul - buttocks , skin break down kept clean & dry as needed position change on schedule & turning tolerating / .
[2018-08-01] MEDS: LORazepam 2 MG/ML VIAL IV PRN ×2 (06:46→14:54)
[2018-08-01 07:14] LABS: BASOPHILS % (AUTO) 0.4 % (0.0-2.0); EOSINOPHILS # (AUTO) 0.1 K/uL (0.0-0.4); EOSINOPHILS % (AUTO) 1.2 % (0.0-4.0); HEMATOCRIT 28.8 % (36-48); HEMOGLOBIN 9.4 g/dL (12.0-16.0); LYMPHOCYTES % (AUTO) 8.5 % (20.5-51.5); MEAN CORPUSCULAR HEMOGLOBIN 32 pg (27-31); MEAN CORPUSCULAR HGB CONC 33 % (32-36); MEAN CORPUSCULAR VOLUME 98 fL (79.0-98.0); MONOCYTES # (AUTO) 0.5 K/uL (0.0-1.0); MONOCYTES % (AUTO) 4.4 % (1.7-9.3); NEUTROPHILS # (AUTO) 10.2 K/uL (1.8-7.7); NEUTROPHILS % (AUTO) 85.5 % (40.0-70.0); PLATELET COUNT (AUTO) 117 K/uL (130-430); RED BLOOD CELL COUNT(AUTO) 2.95 MIL/uL (4.2-6.2); RED CELL DISTRIBUTION WIDTH 17.6 % (9.0-15.0); WHITE BLOOD COUNT (AUTO) 11.8 K/uL (4.8-10.8)
--- NOTE | 2018-08-01 07:20 | NUR ---
OPENING NOTE RECEIVED SBAR REPORT FROM INDIA ALEGRIA AT BEDSIDE. BED IN LOWEST POSITION, BED ALARM SET, VENT SETTINGS CORRECT PER ORDERS. SEE VS FLOW CHART.
[2018-08-01 07:23] LABS: ALANINE AMINOTRANSFERASE 29 U/L (12-78); ALBUMIN 1.3 g/dL (3.4-4.8); ANION GAP 7 (5-15); ASPARTATE AMINOTRANSFERASE 77 U/L (10-37); CALCIUM 7.7 mg/dL (8.4-11.0); CHLORIDE 111 mmol/L (98-107); CREATININE 1.19 mg/dL (0.55-1.30); GLUCOSE 128 mg/dL (70-99); SODIUM SERUM 141 mmol/L (136-145); TOTAL BILIRUBIN 2.4 mg/dL (0.0-1.0); UREA NITROGEN, BLOOD 61 mg/dL (8-21)
[2018-08-01] MEDS ORDERED: DIGOXIN 0.5 MG/2 ML AMP IVP ONE (07:45)
[2018-08-01] MEDS ORDERED: DILTIAZEM HCL 25 MG/5 ML VIAL IVP PRN (07:45)
[2018-08-01] MEDS: CEFEPIME 1 GM in D5W 50 ML IV SCH (08:41)
[2018-08-01] MEDS: MUPIROCIN 2% TOPICAL OINTMENT 22 GM NS SCH ×2 (08:41→21:52)
[2018-08-01] MEDS: DOCUSATE SODIUM 100 MG/10 ML UDC GT SCH (08:41)
[2018-08-01] MEDS: AMIODARONE HCL 200 MG TABLET GT SCH ×2 (08:42→21:53)
[2018-08-01] MEDS: LevETIRAcetam 500 MG/5 ML UDC ORAL LIQUID GT SCH ×2 (08:42→21:54)
[2018-08-01] MEDS: FUROSEMIDE 20 MG TABLET GT SCH ×2 (08:42→21:53)
[2018-08-01] MEDS: POTASSIUM CHLORIDE 20 MEQ TAB.PRT.SR GT SCH (08:42)
[2018-08-01] MEDS: CHLORHEXIDINE GLUCONATE 15 ML/DOSE, 480 ML MM SCH ×2 (08:44→21:55)
[2018-08-01] MEDS: BALSAM PERU/CASTOR OIL 60 GM OINT...G. TP SCH ×2 (08:45→21:55)
[2018-08-01] MEDS: MENTHOL/ZINC OXIDE 113 GM OINT. TP SCH ×4 (08:45→21:56)
[2018-08-01] MEDS: 0.45% NACL 1,000 ML IV SCH (09:45)
--- NOTE | 2018-08-01 13:23 | NUR ---
Nutrition F/U Admitting Diagnosis Tracheostomy bleed, UTI Reviewed Pertinent Medical/Surgical Hx Medical Record Patient Family Medical History Comment: PMH: CVA, respiratory failure, trach, PEG per MD notes Pt also found w/ sepsis, vent-associated pneumonia, complicated UTI, acute on chronic respiratory, CHF, anasarca per MD notes 08/01/18 MD Progress notes: oral bleeding, chronic atrial fibrillation, gingivitis, carries. Subjective Information Pt seen resting in bed at time of RD F/U visit w/ family at bedside. RD was unable to assess wt at this time. Per RN, TF is tolerated w/ 3ml residual this morning. Per EMR, abd is soft and non-distended w/ active bowel sounds. I/O: 960/465 +495ml, IV total intake 480ml per 12 hrs. TF intake 960ml/24 hrs 07/31/18. Last BM 07/30/18 x1. Pt is meeting optimal nutrition w/ current TF formula and rate. Current Diet Order/Nutrition Support Pivot 1.5 at 40ml/hr, FWF 50ml Q6H via GT x 4 days Patient/Significant Other Unable To Verbalize Education Provided Not Indicated Pertinent Medications lasix, colace, cardizem, NaCl IV, amiodarone, keppra Pertinent Labs H/H 9.4 L/28.8 L, BUN 61 H, BG 128 H, Ca 7.7 L, ALB 1.3 L Height (Feet) 5 feet Height (Inches) 0.00 inches Weight (Pounds) 180 pounds (07/28) Weight (Calculated Kilograms) 81.244833 kilograms Patient Weight 81.647 kg Body Mass Index 35.15 kg/m2 %IBW 182 Sims/Adjusted Body Weight IBW: 100 lb, 45 kg. Adj IBW (obesity): 120 lb, 55 kg Recent Weight Change unable to verify Weight Status Obese Gastrointestinal Symptoms None Last BM Jul 30, 2018 Food Allergies unable to verify Usual Diet At Home TF at [facility] Skin Integrity Comment: Ceasar scale: 10; per Breaker Table Worker note 07/27/18: 1. Left sacral area: Reopened scar tissue from a wound of unknown etiology, present on admission. 2. Right sacral area: Reopened scar tissue from a wound of unknown etiology, present on admission. 3. Right lateral hip: Area of pink scar tissue, present on admission. 4. Right medial thigh fold: Moisture associated wound, present on admission. 5. Left posterior medial calf: [place] area of purple discoloration/ecchymosis, present on admission. 6. Right dorsal hand: Full thickness skin tear, present on admission. 7. 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 8. Right buttock near issue tuberosity: Linear excoriated areas with red tissue over scar tissue, present on admission. Per RN notes, 2+ pitting edema of BLE. (MODIFIED) Estimated Energy Expenditure (kcals/day) 1623 kcal/day (PSU 2009 MSJ CBW for vent support/critical illness) Estimated Protein Required (g/day) 83-110 gm/day (1.5-2 gm/kg Adj IBW for sepsis, wound healing) Estimated Fluid Required (l/day) Per MD (CHF) Problem/Etiology/Signs/Symptoms Inadequate enteral nutrition related to metabolic demands as evidenced by increased nutritional needs for sepsis and wound healing, and current TF meets less than 50% of estimated nutritional needs. *improved Expected Outcomes/Goals - Monitor tolerance to EN support w/ goal of pt meeting at least 85% of estimated nutritional needs, labs trending WNL, normal GI function, and skin integrity/wt maintenance Dietitian Recommendations * Recommend continuing: Pivot 1.5 at 45 ml/hr, Free Water Flush: 50 Q6hr via GT Provides: 1620 kcal/day, 101 gm protein/day, and 1020 ml free water/day Meets: 100% of estimated caloric needs and 92% of upper end of estimated protein needs Follow Up High Risk: F/U in 2-3days
--- NOTE | 2018-08-01 13:31 | NUR ---
Dietitian Recommendations * Recommend continuing: Pivot 1.5 at 45 ml/hr, Free Water Flush: 50 Q6hr via GT Provides: 1620 kcal/day, 101 gm protein/day, and 1020 ml free water/day Meets: 100% of estimated caloric needs and 92% of upper end of estimated protein needs. Please see Nutrition F/U note for details. ASSISTED, RD
[2018-08-01] MEDS: MEROPENEM 500 MG in NS 50 ML IV SCH ×2 (14:54→21:52)
--- NOTE | 2018-08-01 15:42 | NUR ---
DC Planning: Updated Dina/[facility], no bed at [facility] today. Dina stated the same per her conversation with the SNF. She will call back tomorrow with bed info and when to transfer the pt. Per Dina, the pt. is to remain at [facility] with [facility] approval inpatient stay, the fax approval to follow.
[2018-08-01] MEDS: DAPTOmycin 360 MG in NS 50 ML IV SCH (17:22)
--- NOTE | 2018-08-01 19:35 | NUR ---
ENDORSEMENT SBAR REPORT ENDORSED TO PM RN AT BEDSIDE.
[2018-08-01] MEDS: HYDROcodone/ACETAMIN 5-325 MG TAB (NORCO/ VICODIN) GT PRN (19:54)
--- NOTE | 2018-08-01 20:08 | NUR ---
NORCO TABLET 5/325 MG PER GASTRIC TUBE ADMINISTER FOR GENERAL ACUTE PAIN 5/10 comfort measures also helpful .
--- NOTE | 2018-08-01 20:09 | NUR ---
Reposition & Turning patient EDEMA GENERAL is noted PILLOWS USED FOR OFF LOADING patient kept in an upright position continue to monitor .
[2018-08-01] MEDS: COLISTIMETHATE SODIUM 75 MG in NS 50 ML IV SCH (21:51)
[2018-08-01] MEDS: ATORVASTATIN 10 MG TABLET GT SCH (21:52)
--- NOTE | 2018-08-01 23:04 | NUR ---
COLISTIN 75 MG IVPB administer as ordered no s/sx of allergic reaction skin warm dry chest movement symmetrical .
[2018-08-02] VITALS (30 sets, daily range): BP systolic 92–129
[2018-08-02] MEDS: LORazepam 2 MG/ML VIAL IV PRN ×3 (01:46→16:43)
--- NOTE | 2018-08-02 01:58 | NUR ---
LORAZEPAM 1 MG IVP ADMINISTER FOR AGITATION , POSITION CHANGE ALSO HELPFUL .
[2018-08-02] MEDS: IPRATROPIUM BROM 0.5 MG/2.5 ML VIAL.NEB (ATROVENT) INH SCH ×6 (03:00→23:00)
[2018-08-02] MEDS: ALBUTEROL SULFATE 0.083% 2.5 MG/3 ML VIAL.NEB INH SCH ×6 (03:00→23:00)
[2018-08-02] MEDS: MEROPENEM 500 MG in NS 50 ML IV SCH ×3 (05:56→21:04)
[2018-08-02] MEDS: 0.45% NACL 1,000 ML IV SCH (06:12)
[2018-08-02 06:47] LABS: ANION GAP 6 (5-15); CALCIUM 7.3 mg/dL (8.4-11.0); CHLORIDE 115 mmol/L (98-107); CREATININE 1.37 mg/dL (0.55-1.30); GLUCOSE 127 mg/dL (70-99); POTASSIUM 4.4 mmol/L (3.5-5.1); SODIUM SERUM 146 mmol/L (136-145); UREA NITROGEN, BLOOD 68 mg/dL (8-21)
[2018-08-02 07:02] LABS: ALANINE AMINOTRANSFERASE 22 U/L (12-78); ALBUMIN 1.2 g/dL (3.4-4.8); ASPARTATE AMINOTRANSFERASE 70 U/L (10-37); TOTAL BILIRUBIN 2.7 mg/dL (0.0-1.0)
--- NOTE | 2018-08-02 07:11 | NUR ---
CHG BED BATH GIVEN PATIENT TOLERATED / .
--- NOTE | 2018-08-02 07:30 | NUR ---
Received patient on a mechanical vent AC 18 Fio2 80% Peep 5 TV 400 via trach. O2 saturation 90-91% HOB at 30 degrees oral care done. with G tube in place Pivot 1.5 at 40ml/hr no residuals noted at this time tolerating well. With 1/2 NS 40 ml/hr as ordered to the right PICC line with biopatch dressing clean dry intact with good blood return. With nagel catheter to gravity drainage with clear yellow kristi output intact pericare done with securement device. With bilateral SCD as ordered. With generalized edema elevated extremities and bilateral heels with pillow support. With airloss mattress in place. sacral and right hand dressing clean dry intact. Contact precaution done. Educated patients family regarding PPE and good handwashing verbalized understanding. Continue to monitor.
[2018-08-02] MEDS: DOCUSATE SODIUM 100 MG/10 ML UDC GT SCH (08:13)
[2018-08-02] MEDS: MUPIROCIN 2% TOPICAL OINTMENT 22 GM NS SCH (08:14)
[2018-08-02] MEDS: AMIODARONE HCL 200 MG TABLET GT SCH ×2 (08:14→21:05)
[2018-08-02] MEDS: COLISTIMETHATE SODIUM 75 MG in NS 50 ML IV SCH ×2 (08:14→21:05)
[2018-08-02] MEDS: LevETIRAcetam 500 MG/5 ML UDC ORAL LIQUID GT SCH ×2 (08:14→21:07)
[2018-08-02] MEDS: CHLORHEXIDINE GLUCONATE 15 ML/DOSE, 480 ML MM SCH ×2 (08:15→21:07)
[2018-08-02] MEDS: MENTHOL/ZINC OXIDE 113 GM OINT. TP SCH ×4 (08:16→21:08)
[2018-08-02] MEDS: BALSAM PERU/CASTOR OIL 60 GM OINT...G. TP SCH ×2 (08:17→21:08)
[2018-08-02] MEDS: POTASSIUM CHLORIDE 20 MEQ TAB.PRT.SR GT SCH (08:22)
[2018-08-02] MEDS: FUROSEMIDE 20 MG TABLET GT SCH (08:23)
--- NOTE | 2018-08-02 10:30 | NUR ---
Dr Patiño made aware of BNP 1180 and chest xray results. Fio2 at 80% Continue to monitor
[2018-08-02] MEDS ORDERED: FUROSEMIDE 20 MG/2 ML VIAL IVP ONE (10:45)
--- NOTE | 2018-08-02 11:35 | NUR ---
WOUND RE-EVALUATION: Patient received in a [facility] Bed with a Remy XPRT mattress, awake, nonverbal, nonresponsive to verbal commands. Patient is unable to turn in bed independently. Ceasar Score is a 12. Intrinsic factors that delay wound healing: CVA. Extrinsic factors that delay wound healing: Immobility. Microbiology: Blood culture results 2 positive for Staphylococcus aureus. Urine culture results positive for Escherichia coli and Proteus mirabilis (MDRO). MRSA screen results positive. Tracheal aspirate culture results positive for Morganella morganii (CNSO), pseudomonas aeruginosa (CNSO and MDRO), and Klebsiella pneumoniae (ESBL). Stool: C. difficile culture results negative. Bilateral upper extremities have multiple areas of ecchymosis. Wound Assessment: 1. Left sacral area: Reopened scar tissue from a wound of unknown etiology, present on admission. Wound bed has 100% red tissue. No odor, scant sanguineous drainage. Periwound and surrounding tissue has scar tissue. Wound measures 4.7 cm x 2.4 cm. Large area of moisture associated skin damage with dull red erythema and dry, flaky skin surrounding wound and extending up into lower back area. 2. Right sacral area: Reopened scar tissue from a wound of unknown etiology, present on admission. Wound bed has 100%red tissue. No odor, scant sanguineous drainage. Periwound and surrounding tissue has scar tissue. Wound measures 2.6 cm x 3.2 cm. Large area of moisture associated skin damage with dull red erythema and dry, flaky skin surrounding wound and extending up into lower back area. Recommend continue: Cleanse wounds with normal saline. Pat dry. Apply moisture barrier cream to wounds and periwounds. Apply hydrogel to any portions of wound beds not covered by moisture barrier cream. Cover wounds with nonadhesive foam dressings, and secure with transparent dressings. Perform site care daily, and as needed for dressing soiling or dislodgment. 3. Right lateral hip: Area of pink scar tissue, present on admission. No odor, no drainage. Recommend continue: Cleanse involved area with mild soap and water. Pat dry. Apply moisture barrier cream to involved area. Perform site care 4 times a day, and as needed for soiling. 4. Right medial thigh fold: Moisture associated wound, present on admission. Wound site has appeared to have resolved. Recommend: Cleanse wound with normal saline. Apply moisture barrier cream to site. Perform site care daily, and as needed for soiling. 5. Left posterior medial calf: [place] area of red discoloration/ecchymosis, present on admission. Measures 8.0 cm x 3.5 cm. Recommend continue: No dressing needed. Continue to monitor site for worsening condition. Float involved areas with pillows and towel rolls at all times. 6. Right dorsal hand: Full thickness skin tear, present on admission. Wound has 100% dull pink tissue. No odor, no drainage. Periwound has black scab tissue. Wound measures 0.6 cm x 0.8 cm. Recommend: Cleanse wound with normal saline. Apply moisture barrier cream to wound and periwound. Apply hydrogel to any portions of wound bed not covered by moisture barrier cream. Cover wound with foam dressing. Perform site care daily, and as needed for dressing soiling or dislodgment. 7. 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 Recommend continue: Cleanse involved areas with mild soap and water. Pat dry. Apply Remedy antifungal ointment to involved areas, let air dry. Apply Calmoseptine cream to involved areas. Perform site care 4 times a day, and as needed for soiling. 8. Right buttock near ischial tuberosity: Linear, dry, excoriated areas, present on admission. Brown discolored area present inferior to wound. Recommend continue: Cleanse involved area with mild soap and water. Pat dry. Apply Remedy antifungal ointment to involved area, let air dry. Apply Calmoseptine cream to involved area. Perform site care 4 times a day, and as needed for soiling. Also recommend: Recommend reposition patient side to side only every 2 hours with pillow support. Offload, elevate and float bilateral heels with one pillow lengthwise under each extremity at all times. Perform skin care and monitor skin integrity Q shift. Use Calmoseptine cream on moisture susceptible areas QID and PRN for soiling. Maintain patient on a low air-loss mattress.
--- NOTE | 2018-08-02 13:00 | NUR ---
PICC line dressing changed using sterile technique with biopatch in place. With good blood return easily flushes
[2018-08-02] MEDS: FUROSEMIDE 20 MG/2 ML VIAL IVP SCH (17:07)
--- NOTE | 2018-08-02 18:15 | NUR ---
Continued on vent settings as ordered. O2 saturation 93% Tolerating tube feeding as ordered. Sacral/buttock dressing clean dry intact. Accurate I and O done.Started on lasix as ordered. Medicated with Ativan for restlessness and agitation as ordered. Kept comfortable. Educated patients family regarding PPE and good handwashing. Continued on antibiotics as ordered. PICC line clean dry intact.
--- NOTE | 2018-08-02 19:11 | NUR ---
Report given at the bedside with Surinder Huff RN skin IV and tubings checked.
--- NOTE | 2018-08-02 19:52 | NUR ---
VENT SETTING FOLLOWS TV 400 FI02 80 % AC 18 , PEEP 0F 5 .
--- NOTE | 2018-08-02 19:53 | NUR ---
PATIENT AWAKE THIS HOUR FAMILY MEMBERS @ THE BEDSIDE , POSITION CHANGE IMPLEMENTED KEPT CLEAN & DRY NEEDED OFF LOADING WITH PILLOWS TOLERATED , GENERAL EDEMA IS NOTED .
[2018-08-02] MEDS: ATORVASTATIN 10 MG TABLET GT SCH (21:06)
--- NOTE | 2018-08-02 21:50 | NUR ---
SEIZURE PRECAUTIONS KEPPRA 500 MG PER GT ADMINISTER ORDERED SIDE RAILS PADDED CONTINUE TO MONITOR .
[2018-08-03] VITALS (31 sets, daily range): BP systolic 93–119
--- NOTE | 2018-08-03 00:30 | NUR ---
Trach to Vent suction up right position thick mucus tolerating chest movement symmetrical also shallow position change tolerated .
[2018-08-03] MEDS: IPRATROPIUM BROM 0.5 MG/2.5 ML VIAL.NEB (ATROVENT) INH SCH ×6 (03:00→23:25)
[2018-08-03] MEDS: ALBUTEROL SULFATE 0.083% 2.5 MG/3 ML VIAL.NEB INH SCH ×6 (03:00→23:24)
[2018-08-03] MEDS: LORazepam 2 MG/ML VIAL IV PRN (04:26)
--- NOTE | 2018-08-03 05:26 | NUR ---
LORAZEPAM 1 MG IVP administer for general AGITATION & helpful .
[2018-08-03] MEDS: FUROSEMIDE 20 MG/2 ML VIAL IVP SCH ×2 (05:35→17:12)
[2018-08-03] MEDS: MEROPENEM 500 MG in NS 50 ML IV SCH ×3 (05:35→22:21)
[2018-08-03 06:57] LABS: HEMATOCRIT 26.5 % (36-48); HEMOGLOBIN 9.1 g/dL (12.0-16.0); MEAN CORPUSCULAR HEMOGLOBIN 34 pg (27-31); MEAN CORPUSCULAR HGB CONC 34 % (32-36); MEAN CORPUSCULAR VOLUME 99 fL (79.0-98.0); PLATELET COUNT (AUTO) 202 K/uL (130-430); RED BLOOD CELL COUNT(AUTO) 2.69 MIL/uL (4.2-6.2); RED CELL DISTRIBUTION WIDTH 17.9 % (9.0-15.0); WHITE BLOOD COUNT (AUTO) 10.5 K/uL (4.8-10.8)
[2018-08-03 07:28] LABS: ANION GAP 5 (5-15); CALCIUM 7.3 mg/dL (8.4-11.0); CHLORIDE 115 mmol/L (98-107); CREATININE 1.59 mg/dL (0.55-1.30); GLUCOSE 113 mg/dL (70-99); POTASSIUM 4.7 mmol/L (3.5-5.1); SODIUM SERUM 146 mmol/L (136-145); UREA NITROGEN, BLOOD 80 mg/dL (8-21)
[2018-08-03 07:34] LABS: ALANINE AMINOTRANSFERASE 22 U/L (12-78); ALBUMIN 1.1 g/dL (3.4-4.8); ASPARTATE AMINOTRANSFERASE 76 U/L (10-37)
--- NOTE | 2018-08-03 07:56 | NUR ---
Patient asleep, opens eyes occasionally, does not track. On vent, FiO2 80%, AC18, Vt 400ml/hr, PEEP 5. PICC on right arm, changed on 08/02/18. A-fib on monitor. F/C is draining yellow urine. Has SCDs on bilat legs. Call light in place, bed locked at the lowest position, will continue to monitor.
[2018-08-03] MEDS: DOCUSATE SODIUM 100 MG/10 ML UDC GT SCH (08:10)
[2018-08-03] MEDS: AMIODARONE HCL 200 MG TABLET GT SCH ×2 (08:13→20:54)
[2018-08-03] MEDS: LevETIRAcetam 500 MG/5 ML UDC ORAL LIQUID GT SCH ×2 (08:13→20:56)
[2018-08-03] MEDS: BALSAM PERU/CASTOR OIL 60 GM OINT...G. TP SCH ×2 (08:14→20:55)
[2018-08-03] MEDS: MENTHOL/ZINC OXIDE 113 GM OINT. TP SCH ×4 (08:15→20:56)
[2018-08-03] MEDS: COLISTIMETHATE SODIUM 75 MG in NS 50 ML IV SCH ×2 (08:30→20:53)
[2018-08-03] MEDS: CHLORHEXIDINE GLUCONATE 15 ML/DOSE, 480 ML MM SCH ×2 (08:31→20:54)
[2018-08-03 08:36] LABS: BAND % (MANUAL) 5 % (0-6); LYMPHOCYTES % (MANUAL) 9 % (20-46)
[2018-08-03 08:37] LABS: BASOPHILS % (MANUAL) 0 % (0-2); EOSINOPHILS % (MANUAL) 1 % (0-7); MONOCYTES % (MANUAL) 4 % (0-11)
[2018-08-03] MEDS: POTASSIUM CHLORIDE 20 MEQ TAB.PRT.SR GT SCH (09:00)
--- NOTE | 2018-08-03 09:20 | NUR ---
RT NOTES Called to bedside due to low saturation, 89%. FIO2 to 100%. Abnormal breathing pattern continued despite tracheal sxn and FIO2 to 100%. Dr. Patiño made aware. Addendum: 08/03/18 at 0940 by Caroline Garcia RT Amended: Links added.
--- NOTE | 2018-08-03 09:44 | NUR ---
potassium 4.4. 20mEq of KDur is held per Dr. Tolbert. Addendum: 08/03/18 at 1044 by Herber Coats RN potassium 4.7
[2018-08-03] MEDS: 0.45% NACL 1,000 ML IV SCH (09:45)
--- NOTE | 2018-08-03 11:48 | NUR ---
Family members at bedside. POC is explained. They verbalized understanding.
--- NOTE | 2018-08-03 13:35 | NUR ---
Patient is turned and repositioned for comfort.
--- NOTE | 2018-08-03 15:38 | NUR ---
PATIENT IS TURNED AND REPOSITIONED FOR COMFORT.
[2018-08-03] MEDS: HYDROcodone/ACETAMIN 5-325 MG TAB (NORCO/ VICODIN) GT PRN (17:12)
--- NOTE | 2018-08-03 18:05 | NUR ---
PATIENT IS TURNED AND REPOSITIONED FOR COMFORT. FAMILY AT BEDSIDE, STATUS OF THE PATIENT IS UPDATED.
--- NOTE | 2018-08-03 19:30 | NUR ---
Initial RN Note Pt received on mechanical vent and non-verbal. Family visiting at the bedside. Not in any acute distress at this time. Fall and safety precautions are in place.
[2018-08-03] MEDS: ATORVASTATIN 10 MG TABLET GT SCH (20:54)
--- NOTE | 2018-08-03 21:00 | NUR ---
Pt suctioned. Condition stable.
--- NOTE | 2018-08-03 23:00 | NUR ---
Pt tolerating GTF and Vent settings well.
[2018-08-04] VITALS (31 sets, daily range): BP systolic 12–140
--- NOTE | 2018-08-04 01:00 | NUR ---
Pt is sleeping quietly in bed. GTF and IVF are infusing well. No respiratory difficulty noted. Fall and safety precautions are in place.
--- NOTE | 2018-08-04 03:00 | NUR ---
No acute distress noted at this time. Pt is tolerating vent settings and G Tube feeding.
[2018-08-04] MEDS: ALBUTEROL SULFATE 0.083% 2.5 MG/3 ML VIAL.NEB INH SCH ×6 (03:11→23:18)
[2018-08-04] MEDS: IPRATROPIUM BROM 0.5 MG/2.5 ML VIAL.NEB (ATROVENT) INH SCH ×6 (03:11→23:18)
--- NOTE | 2018-08-04 04:30 | NUR ---
Pt continues to sleep with no acute distress noted.
--- NOTE | 2018-08-04 06:00 | NUR ---
Wound Care Wound care performed on both buttocks and right hand per wound care orders. Both buttock wounds noted to be reddish with small amount of pinkish drainage. Right hand noted with dry scab and no drainage or odor noted.
[2018-08-04] MEDS: MEROPENEM 500 MG in NS 50 ML IV SCH ×3 (06:12→22:48)
[2018-08-04] MEDS: FUROSEMIDE 20 MG/2 ML VIAL IVP SCH ×2 (06:13→17:54)
[2018-08-04 06:59] LABS: BASOPHILS # (AUTO) 0.1 K/uL (0.0-0.2); BASOPHILS % (AUTO) 0.8 % (0.0-2.0); EOSINOPHILS # (AUTO) 0.2 K/uL (0.0-0.4); EOSINOPHILS % (AUTO) 1.9 % (0.0-4.0); HEMATOCRIT 26.7 % (36-48); LYMPHOCYTES % (AUTO) 9.1 % (20.5-51.5); MEAN CORPUSCULAR HEMOGLOBIN 33 pg (27-31); MEAN CORPUSCULAR HGB CONC 34 % (32-36); MEAN CORPUSCULAR VOLUME 98 fL (79.0-98.0); MONOCYTES # (AUTO) 0.3 K/uL (0.0-1.0); MONOCYTES % (AUTO) 2.3 % (1.7-9.3); NEUTROPHILS # (AUTO) 9.4 K/uL (1.8-7.7); NEUTROPHILS % (AUTO) 85.9 % (40.0-70.0); PLATELET COUNT (AUTO) 151 K/uL (130-430); RED BLOOD CELL COUNT(AUTO) 2.73 MIL/uL (4.2-6.2); RED CELL DISTRIBUTION WIDTH 17.4 % (9.0-15.0)
--- NOTE | 2018-08-04 07:15 | NUR ---
Pt's condition remains stable. Report given to day shift nurse.
[2018-08-04 07:21] LABS: ANION GAP 7 (5-15); CALCIUM 7.6 mg/dL (8.4-11.0); CHLORIDE 114 mmol/L (98-107); CREATININE 1.99 mg/dL (0.55-1.30); GLUCOSE 123 mg/dL (70-99); POTASSIUM 5.3 mmol/L (3.5-5.1); SODIUM SERUM 145 mmol/L (136-145); UREA NITROGEN, BLOOD 91 mg/dL (8-21)
[2018-08-04 07:29] LABS: ALANINE AMINOTRANSFERASE 22 U/L (12-78); ALBUMIN 1.1 g/dL (3.4-4.8); ASPARTATE AMINOTRANSFERASE 78 U/L (10-37); TOTAL BILIRUBIN 3.2 mg/dL (0.0-1.0)
--- NOTE | 2018-08-04 07:30 | NUR ---
AM ASSESSMENT Pt received laying in bed with eyes closed. Pt has even and symmetrical rise and fall of chest, connected to ventilator with current settings of AC 18, TV 400, FiO2 90%, PEEP 8 with oxygen saturation of 98% on the monitor. Pt is connected to nagel draining to gravity with yellow urine. A- Fib on the monitor. Pt has generalized edema with all extremities floating. Right upper arm PICC line infusing 1/2 NS @ 40 cc/hr. Will continue to monitor.
[2018-08-04] MEDS: POTASSIUM CHLORIDE 20 MEQ TAB.PRT.SR GT SCH (08:49)
[2018-08-04] MEDS: DOCUSATE SODIUM 100 MG/10 ML UDC GT SCH (08:49)
[2018-08-04] MEDS: AMIODARONE HCL 200 MG TABLET GT SCH ×2 (08:49→20:44)
[2018-08-04] MEDS: LevETIRAcetam 500 MG/5 ML UDC ORAL LIQUID GT SCH ×2 (08:50→20:44)
[2018-08-04] MEDS: COLISTIMETHATE SODIUM 75 MG in NS 50 ML IV SCH ×2 (08:50→20:44)
[2018-08-04] MEDS: CHLORHEXIDINE GLUCONATE 15 ML/DOSE, 480 ML MM SCH ×2 (08:52→20:45)
[2018-08-04] MEDS: MENTHOL/ZINC OXIDE 113 GM OINT. TP SCH ×4 (08:53→20:45)
[2018-08-04] MEDS: BALSAM PERU/CASTOR OIL 60 GM OINT...G. TP SCH ×2 (08:53→20:46)
[2018-08-04] MEDS: 0.45% NACL 1,000 ML IV SCH (09:08)
--- NOTE | 2018-08-04 09:20 | NUR ---
RT NOTES FIO2 to 80% per titration order. No adverse reactions noted. Will monitor pt. Addendum: 08/04/18 at 0952 by Caroline Garcia RT Amended: Links added.
[2018-08-04] MEDS ORDERED: SODIUM POLYSTYRENE SULFONATE 15 GM/60 ML UDBTL PO ONE (11:00)
--- NOTE | 2018-08-04 11:15 | NUR ---
RT NOTES FIO2 to 75% per titration order. No adverse reactions noted. @1140 pt. cont. to tolerate new vent settings. Will cont. to monitor pt. Addendum: 08/04/18 at 1140 by Caroline Garcia RT Amended: Links added.
--- NOTE | 2018-08-04 12:12 | NUR ---
Wound Care Wound care provided to pt, pictures taken and documented in chart. Will continue to monitor pt.
--- NOTE | 2018-08-04 15:56 | NUR ---
Nutrition F/U Admitting Diagnosis Tracheostomy bleed, UTI Reviewed Pertinent Medical/Surgical Hx Medical Record Patient Primary RN Medical History Comment: PMH: CVA, respiratory failure, trach, PEG per MD notes Pt also found w/ sepsis, vent-associated pneumonia, complicated UTI, acute on chronic respiratory, CHF, anasarca per MD notes 08/01/18 MD Progress notes: oral bleeding, chronic atrial fibrillation, gingivitis, carries. Subjective Information Pt seen resting in bed, +intubated, +non-verbal, w/ TF infusing as per MD orders. Per RN, pt has been tolerating TF well, no residuals. Pt has also been receiving water flush of 200 ml Q4h as per Dr. Patiño's orders. Pt is not yet meeting optimal nutritional needs. Current Diet Order/Nutrition Support Pivot 1.5 at 40 ml/hr, Free Water Flush: 50 Q6hr via GT x7 days Patient/Significant Other Unable To Verbalize Education Provided Not Indicated Pertinent Medications lasix, colace, NaCl IV, amiodarone, keppra Pertinent Labs H/H 9 L/26.7 L, BUN 91 H, BG 123 H, Ca 7.6 L, ALB 1.1 L, WBC 11 H Height (Feet) 5 feet Height (Inches) 0.00 inches Weight (Pounds) 180 pounds (07/28/18) Weight (Calculated Kilograms) 81.411232 kilograms Patient Weight 81.647 kg Body Mass Index 35.15 kg/m2 %IBW 182 [place]/Adjusted Body Weight IBW: 100 lb, 45 kg. Adj IBW (obesity): 120 lb, 55 kg Recent Weight Change unable to verify Weight Status Obese Gastrointestinal Symptoms None Last BM Jul 30, 2018 Food Allergies unable to verify Usual Diet At Home TF at [facility] Skin Integrity Comment: Ceasar scale: 13; per Business Intelligence Developer note 08/02/18: 1. Left sacral area: Reopened scar tissue from a wound of unknown etiology, present on admission. 2. Right sacral area: Reopened scar tissue from a wound of unknown etiology, present on admission. 3. Right lateral hip: Area of pink scar tissue, present on admission. 4. Right medial thigh fold: Moisture associated wound, present on admission. 5. Left posterior medial calf: Jackson area of purple discoloration/ecchymosis, present on admission. 6. Right dorsal hand: Full thickness skin tear, present on admission. 7. 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 8. Right buttock near issue tuberosity: Linear, dry, excoriated areas, present on admission. Per RN notes, 2+ pitting edema of BLE. (MODIFIED) Estimated Energy Expenditure (kcals/day) 1603 kcal/day (PSU 2010 MSJ for vent support/critical illness) Estimated Protein Required (g/day) 83-110 gm/day (1.5-2 gm/kg Adj IBW for sepsis, wound healing) Estimated Fluid Required (l/day) Per MD (CHF) Problem/Etiology/Signs/Symptoms Inadequate enteral nutrition related to metabolic demands as evidenced by increased nutritional needs for sepsis and wound healing, and current TF meets less than 50% of estimated nutritional needs. *improving Expected Outcomes/Goals - Monitor tolerance to EN support w/ goal of pt meeting at least 85% of estimated nutritional needs, labs trending WNL, normal GI function, and skin integrity/wt maintenance Dietitian Recommendations * Recommend Pivot 1.5 at 45 ml/hr, Free Water Flush: 200 Q4hr via GT Provides: 1620 kcal/day, 101 gm protein/day, and 2020 ml free water/day Meets: 101% of estimated caloric needs and 92% of upper end of estimated protein needs Follow Up High Risk: F/U in 2-3 days
--- NOTE | 2018-08-04 16:04 | NUR ---
Dietitian Recommendations * Recommend Pivot 1.5 at 45 ml/hr, Free Water Flush: 200 Q4hr via GT Provides: 1620 kcal/day, 101 gm protein/day, and 2020 ml free water/day Meets: 101% of estimated caloric needs and 92% of upper end of estimated protein needs LP, RD Please refer to Nutrition F/U for details.
[2018-08-04] MEDS: LORazepam 2 MG/ML VIAL IV PRN ×2 (17:20→23:35)
--- NOTE | 2018-08-04 19:25 | NUR ---
PM SHIFT ASSESSMENT Pt obtunded. SPO2 via vent, tolerating current vent settings. AFIB on monitor. Gtube in place, tubefeeding infusing. PICC to PARKER with IVF infusing. Multiple wounds noted. Dumont cath in place and draining to gravity. Edema to upper and lower extremities. Family at bedside. Safety precautions in place, call light within reach. Will continue to monitor.
--- NOTE | 2018-08-04 19:30 | NUR ---
Closing Notes Pt resting in bed with family at bedside. Pt endorsed to night RN using SBAR.
[2018-08-04] MEDS: ATORVASTATIN 10 MG TABLET GT SCH (20:44)
--- NOTE | 2018-08-04 23:05 | NUR ---
CHG CHG bath provided. Pt tolerated care well.
[2018-08-05] VITALS (31 sets, daily range): BP systolic 89–125
[2018-08-05] MEDS: IPRATROPIUM BROM 0.5 MG/2.5 ML VIAL.NEB (ATROVENT) INH SCH ×3 (03:12→23:44)
[2018-08-05] MEDS: ALBUTEROL SULFATE 0.083% 2.5 MG/3 ML VIAL.NEB INH SCH ×3 (03:13→23:44)
[2018-08-05] MEDS: MEROPENEM 500 MG in NS 50 ML IV SCH ×3 (05:38→21:17)
[2018-08-05 06:13] LABS: BASOPHILS # (AUTO) 0.1 K/uL (0.0-0.2); BASOPHILS % (AUTO) 0.5 % (0.0-2.0); EOSINOPHILS # (AUTO) 0.2 K/uL (0.0-0.4); EOSINOPHILS % (AUTO) 1.8 % (0.0-4.0); HEMATOCRIT 27.2 % (36-48); HEMOGLOBIN 8.8 g/dL (12.0-16.0); LYMPHOCYTES # (AUTO) 0.7 K/uL (1.0-5.5); LYMPHOCYTES % (AUTO) 6.6 % (20.5-51.5); MEAN CORPUSCULAR HEMOGLOBIN 32 pg (27-31); MEAN CORPUSCULAR HGB CONC 32 % (32-36); MEAN CORPUSCULAR VOLUME 99 fL (79.0-98.0); MONOCYTES # (AUTO) 0.7 K/uL (0.0-1.0); NEUTROPHILS # (AUTO) 8.6 K/uL (1.8-7.7); NEUTROPHILS % (AUTO) 84.1 % (40.0-70.0); PLATELET COUNT (AUTO) 103 K/uL (130-430); RED BLOOD CELL COUNT(AUTO) 2.75 MIL/uL (4.2-6.2); RED CELL DISTRIBUTION WIDTH 18.1 % (9.0-15.0); WHITE BLOOD COUNT (AUTO) 10.3 K/uL (4.8-10.8)
[2018-08-05] MEDS: FUROSEMIDE 20 MG/2 ML VIAL IVP SCH (06:19)
[2018-08-05 06:43] LABS: ALANINE AMINOTRANSFERASE 28 U/L (12-78); ALBUMIN 1.1 g/dL (3.4-4.8); ANION GAP 6 (5-15); ASPARTATE AMINOTRANSFERASE 87 U/L (10-37); CALCIUM 8.1 mg/dL (8.4-11.0); CHLORIDE 114 mmol/L (98-107); CREATININE 2.36 mg/dL (0.55-1.30); GLUCOSE 127 mg/dL (70-99); POTASSIUM 5.5 mmol/L (3.5-5.1); SODIUM SERUM 144 mmol/L (136-145); TOTAL BILIRUBIN 2.8 mg/dL (0.0-1.0)
[2018-08-05 06:48] LABS: UREA NITROGEN, BLOOD 109 mg/dL (8-21)
--- NOTE | 2018-08-05 07:15 | NUR ---
ENDORSEMENT Pt care endorsed to INDIA Cabrera at bedside using nursing SBAR.
--- NOTE | 2018-08-05 07:30 | NUR ---
AM ASSESSMENT Pt received laying in bed with eyes closed. Pt is not responsive to verbal stimuli. Pt is trach connected to vent with settings of AC 18, TV 400, FiO2 90%, PEEP 8 with oxygen saturation of 97% on the monitor. Right upper arm PICC line infusing 1/2 NS @ 40 cc/hr. Pt is connected to nagel draining to gravity with yellow urine. A- Fib on the monitor. Pt has generalized edema with all extremities floating. Right upper arm PICC line infusing 1/2 NS @ 40 cc/hr. G-Tube connected to tube feeding with Pivot @ 40 cc/hr with HOB greater than 35 degrees. No signs of distress, will continue to monitor.
--- NOTE | 2018-08-05 08:44 | NUR ---
Called Dr. Hewitt with a consult, spoke with Macrina from the exchange
[2018-08-05] MEDS: POTASSIUM CHLORIDE 20 MEQ TAB.PRT.SR GT SCH (09:00)
[2018-08-05] MEDS: CHLORHEXIDINE GLUCONATE 15 ML/DOSE, 480 ML MM SCH ×2 (09:00→21:18)
[2018-08-05] MEDS: DOCUSATE SODIUM 100 MG/10 ML UDC GT SCH (09:36)
[2018-08-05] MEDS: 0.45% NACL 1,000 ML IV SCH (09:36)
[2018-08-05] MEDS: AMIODARONE HCL 200 MG TABLET GT SCH ×2 (09:37→21:18)
[2018-08-05] MEDS: LevETIRAcetam 500 MG/5 ML UDC ORAL LIQUID GT SCH ×2 (09:37→21:20)
[2018-08-05] MEDS: COLISTIMETHATE SODIUM 75 MG in NS 50 ML IV SCH (09:37)
[2018-08-05] MEDS: LORazepam 2 MG/ML VIAL IV PRN (09:37)
[2018-08-05] MEDS: BALSAM PERU/CASTOR OIL 60 GM OINT...G. TP SCH ×2 (09:39→21:16)
[2018-08-05] MEDS: MENTHOL/ZINC OXIDE 113 GM OINT. TP SCH ×4 (09:39→21:20)
--- NOTE | 2018-08-05 10:00 | NUR ---
Vent setting change AC rate of 18 changed to 22, will continue to monitor pt's saturation.
[2018-08-05] MEDS ORDERED: traMADol HCL HCL 50 MG TABLET (ULTRAM) GT PRN (11:12)
--- NOTE | 2018-08-05 13:05 | NUR ---
Wound Care Pt provided with wound care, pt tolerated well. Will continue to monitor.
--- NOTE | 2018-08-05 13:13 | NUR ---
FiO2 Pt FiO2 now 65%, pt's oxygen saturation is 97% on the monitor, will continue to monitor if tolerating.
--- NOTE | 2018-08-05 15:55 | NUR ---
Bladder Scan Pt's has low urinary output, bladder scan shows 78 mL of urine in bladder. Pt is repositioned and 35 mL of kristi color urine produced into nagel cath urometer.
[2018-08-05] MEDS ORDERED: ALBUMIN HUMAN 5% 250 ML IV ONE (16:30)
[2018-08-05] MEDS ORDERED: ALBUMIN HUMAN 25% 50 ML IV ONE (16:30)
--- NOTE | 2018-08-05 16:30 | NUR ---
MD Consult from Dr. Hewitt, new orders received.
--- NOTE | 2018-08-05 19:21 | NUR ---
Closing Note Pt resting in bed with family at bedside. All isolations precautions observed during shift. Endorsed to night RN.
--- NOTE | 2018-08-05 19:30 | NUR ---
TRANSFER OF CARE Received report from AM shift RN. Pt in bed, opens her eyes with pain. VSS with O2 saturation 95% tolerating vent settings on trach. Wound on the buttocks and right hand noted with dressing CDI. Bilateral upper and lower extremity edema noted. PICC line in placed on the right upper arm patent with good blood return and no infiltration noted. Gtube in placed and patent working well. Afib on the monitor. Dumont catheter in placed draining dark yellow urine to gravity. No signs on infection noted. Safety precaution observed, call light within reach educated family about PPE. Padded side rails in placed. Will continue to monitor Pt.
--- NOTE | 2018-08-05 20:30 | NUR ---
RT Fio2 to 60% tolerating settings, will continue to monitor Pt.
[2018-08-05] MEDS: ATORVASTATIN 10 MG TABLET GT SCH (21:17)
[2018-08-06] VITALS (37 sets, daily range): BP systolic 88–127
--- NOTE | 2018-08-06 | NUR ---
REASSESSMENT Pt in bed, no acute distress at this time. Turned and repositioned Pt. No fever noted. Will continue to monitor Pt.
[2018-08-06] MEDS: ALBUTEROL SULFATE 0.083% 2.5 MG/3 ML VIAL.NEB INH SCH ×5 (03:00→19:41)
[2018-08-06] MEDS: IPRATROPIUM BROM 0.5 MG/2.5 ML VIAL.NEB (ATROVENT) INH SCH ×5 (03:00→19:41)
--- NOTE | 2018-08-06 04:00 | NUR ---
CHG CHG bath given, Pt able to tolerate. Will continue to monitor.
--- NOTE | 2018-08-06 06:29 | NUR ---
CLOSING NOTES Pt in bed, no acute distress at this time. IV lines and skin checked. Will give report to oncoming RN.
[2018-08-06] MEDS: MEROPENEM 500 MG in NS 50 ML IV SCH ×3 (06:39→22:13)
[2018-08-06 06:47] LABS: BASOPHILS % (AUTO) 0.5 % (0.0-2.0); EOSINOPHILS # (AUTO) 0.2 K/uL (0.0-0.4); EOSINOPHILS % (AUTO) 1.9 % (0.0-4.0); HEMATOCRIT 26.1 % (36-48); HEMOGLOBIN 8.2 g/dL (12.0-16.0); LYMPHOCYTES # (AUTO) 0.8 K/uL (1.0-5.5); LYMPHOCYTES % (AUTO) 9.2 % (20.5-51.5); MEAN CORPUSCULAR HEMOGLOBIN 31 pg (27-31); MEAN CORPUSCULAR HGB CONC 31 % (32-36); MEAN CORPUSCULAR VOLUME 99 fL (79.0-98.0); MONOCYTES # (AUTO) 0.6 K/uL (0.0-1.0); MONOCYTES % (AUTO) 6.8 % (1.7-9.3); NEUTROPHILS # (AUTO) 7.3 K/uL (1.8-7.7); NEUTROPHILS % (AUTO) 81.6 % (40.0-70.0); RED BLOOD CELL COUNT(AUTO) 2.65 MIL/uL (4.2-6.2); RED CELL DISTRIBUTION WIDTH 17.4 % (9.0-15.0); WHITE BLOOD COUNT (AUTO) 8.9 K/uL (4.8-10.8)
[2018-08-06 06:52] LABS: ANION GAP 6 (5-15); CALCIUM 7.8 mg/dL (8.4-11.0); CHLORIDE 109 mmol/L (98-107); CREATININE 2.72 mg/dL (0.55-1.30); GLUCOSE 116 mg/dL (70-99); SODIUM SERUM 139 mmol/L (136-145)
--- NOTE | 2018-08-06 07:25 | NUR ---
AM ASSESSMENT Pt received laying in bed with eyes closed. Pt is trach to vent with current settings of AC 22, TV 400, FiO2 65%, PEEP 8 with oxygen saturation on monitor of 96%. Pt has G-tube administering Pivot 1.5 rate of 40 cc/hr. Right upper arm PICC line infusing 1/2 NS @ 40 cc/hr. Dumont cath draining kristi color urine to gravity.
[2018-08-06 08:07] LABS: PLATELET COUNT (AUTO) 104 K/uL (130-430)
[2018-08-06 08:16] LABS: POTASSIUM 5.8 mmol/L (3.5-5.1)
[2018-08-06 08:18] LABS: UREA NITROGEN, BLOOD 123 mg/dL (8-21)
[2018-08-06] MEDS ORDERED: SODIUM POLYSTYRENE SULFONATE 15 GM/60 ML UDBTL PO ONE (08:45)
[2018-08-06] MEDS: DOCUSATE SODIUM 100 MG/10 ML UDC GT SCH (09:09)
[2018-08-06] MEDS: LevETIRAcetam 500 MG/5 ML UDC ORAL LIQUID GT SCH ×2 (09:09→22:13)
[2018-08-06] MEDS: AMIODARONE HCL 200 MG TABLET GT SCH ×2 (09:09→22:21)
[2018-08-06] MEDS: CHLORHEXIDINE GLUCONATE 15 ML/DOSE, 480 ML MM SCH ×2 (09:10→22:13)
[2018-08-06] MEDS: BALSAM PERU/CASTOR OIL 60 GM OINT...G. TP SCH ×2 (09:11→22:13)
[2018-08-06] MEDS: MENTHOL/ZINC OXIDE 113 GM OINT. TP SCH ×4 (09:11→22:22)
[2018-08-06] MEDS: 0.45% NACL 1,000 ML IV SCH (09:13)
--- NOTE | 2018-08-06 10:22 | NUR ---
Dr. Marcelina Hewitt at bedside speaking to with use of a mill beam fitter [facility]. consents to receiving placement of Garrett Catheter and to start Dialysis. Consent for Dialysis in the chart.
--- NOTE | 2018-08-06 11:15 | NUR ---
CM DC PLANNING: SPOKE WITH RN/KARENA WHO STATED THAT Pt's IS AT BEDSIDE AND HE IS GIVING WRITTEN CONSENT FOR DEBBIE CATH PLACEMENT Pt WILL BE STARTED ON HEMODIALYSIS. CM CALLED TO [facility]: [phone]; AND LEFT MESSAGE ABOUT THIS UPDATE IN CARE. EBONY SPOKE WITH [facility] IN AFTERNOON TO VERBALLY UPDATE; UNDERSTOOD THAT HIGH RISK CM TO BE CONTACTED TO REACH OUT TO Pt's FAMILY REGARDING CHANGE IN CARE NEEDS, POSSIBLE PALLIATIVE CARE, ETC. NAVEED/BETH ALSO SPOKE WITH [facility] AND WILL BE FOLLOWING UP WITH PHONE UPDATE TO [facility] HIGH RISK EBONY.
[2018-08-06] MEDS: LORazepam 2 MG/ML VIAL IV PRN (13:24)
--- NOTE | 2018-08-06 13:40 | NUR ---
Called Dr. Barajas with a consult(satnam calderonton)
[2018-08-06] MEDS ORDERED: LIDOCAINE 1% 10 MG/ML, 20 ML MDV INJ ONE (13:45)
[2018-08-06] MEDS ORDERED: HEPARIN SODIUM,PORCINE 5000 UNITS/ML VIAL IVP ONE (13:45)
--- NOTE | 2018-08-06 15:00 | NUR ---
Q.C. Left subclavian Garrett Cath placed by Dr. Barajas. All isolation precautions observed. Pt tolerated well, will continue to monitor. Addendum: 08/06/18 at 2052 by Deborah Rosales RN Correct time is meant to reflect 1700
--- NOTE | 2018-08-06 17:30 | NUR ---
XR X-ray at bedside confirming placement of Quniton Cath. Isolation precautions observed.
[2018-08-06] MEDS ORDERED: NOREPINEPHRINE 4 MG/4 ML VIAL IV ONE ×2 (19:04→19:06)
--- NOTE | 2018-08-06 19:20 | NUR ---
Closing Note Pt endorsed to Shubham OSBORNE using SBAR.
--- NOTE | 2018-08-06 19:30 | NUR ---
TRANSFER OF CARE Received report from AM shift RN. Pt in bed, opens her eyes with pain. Hemodialysis on going with workers compensation attorney at bedside. VSS with O2 saturation 95% tolerating vent settings on trach. Wound on the buttocks and right hand noted with dressing CDI. Bilateral upper and lower extremity edema noted. Levophed drip running at 6mcg/min. PICC line in placed on the right upper arm patent with good blood return and no infiltration noted. Gtube in placed and patent working well. Afib on the monitor. Dumont catheter in placed draining dark yellow urine to gravity. No signs on infection noted. Safety precaution observed, call light within reach educated family about PPE. Padded side rails in placed. Will continue to monitor Pt.
[2018-08-06] MEDS: NOREPINEPHRINE BITARTRATE 16 MG in NS 234 ML IV PRN (19:39)
[2018-08-06] MEDS ORDERED: HEPARIN SODIUM,PORCINE 5000 UNITS/ML VIAL ONE (21:45)
--- NOTE | 2018-08-06 21:45 | NUR ---
DIALYSIS Hemodialysis done with 2L out. Will continue to monitor Pt.
[2018-08-06] MEDS: ATORVASTATIN 10 MG TABLET GT SCH (22:21)
[2018-08-07] VITALS (35 sets, daily range): BP systolic 92–135
--- NOTE | 2018-08-07 | NUR ---
REASSESSMENT Pt in bed, no acute distress at this time. Will continue to monitor Pt.
--- NOTE | 2018-08-07 02:00 | NUR ---
CHG CHG bath given, Pt able to tolerate.
--- NOTE | 2018-08-07 04:00 | NUR ---
REASSESSMENT Pt in bed, no acute distress at this time. Will continue to monitor Pt.
[2018-08-07] MEDS: MEROPENEM 500 MG in NS 50 ML IV SCH ×3 (05:23→21:27)
--- NOTE | 2018-08-07 06:31 | NUR ---
CLOSING NOTES Pt in bed, no acute distress at this time. IV lines and skin checked, will give report to oncoming RN.
[2018-08-07 07:04] LABS: BASOPHILS % (AUTO) 0.4 % (0.0-2.0); EOSINOPHILS # (AUTO) 0.1 K/uL (0.0-0.4); EOSINOPHILS % (AUTO) 1.6 % (0.0-4.0); HEMATOCRIT 26.6 % (36-48); HEMOGLOBIN 8.7 g/dL (12.0-16.0); LYMPHOCYTES # (AUTO) 0.5 K/uL (1.0-5.5); LYMPHOCYTES % (AUTO) 6.3 % (20.5-51.5); MEAN CORPUSCULAR HEMOGLOBIN 32 pg (27-31); MEAN CORPUSCULAR HGB CONC 33 % (32-36); MEAN CORPUSCULAR VOLUME 98 fL (79.0-98.0); MONOCYTES # (AUTO) 0.6 K/uL (0.0-1.0); MONOCYTES % (AUTO) 7.2 % (1.7-9.3); NEUTROPHILS # (AUTO) 7.5 K/uL (1.8-7.7); PLATELET COUNT (AUTO) 116 K/uL (130-430); RED BLOOD CELL COUNT(AUTO) 2.71 MIL/uL (4.2-6.2); RED CELL DISTRIBUTION WIDTH 17.4 % (9.0-15.0); WHITE BLOOD COUNT (AUTO) 8.7 K/uL (4.8-10.8)
[2018-08-07 07:26] LABS: ALANINE AMINOTRANSFERASE 32 U/L (12-78); ALBUMIN 1.1 g/dL (3.4-4.8); ANION GAP 8 (5-15); ASPARTATE AMINOTRANSFERASE 98 U/L (10-37); CALCIUM 7.7 mg/dL (8.4-11.0); CHLORIDE 107 mmol/L (98-107); CREATININE 2.25 mg/dL (0.55-1.30); GLUCOSE 121 mg/dL (70-99); POTASSIUM 4.2 mmol/L (3.5-5.1); SODIUM SERUM 139 mmol/L (136-145); UREA NITROGEN, BLOOD 90 mg/dL (8-21)
[2018-08-07 07:42] LABS: TOTAL BILIRUBIN 3.6 mg/dL (0.0-1.0)
--- NOTE | 2018-08-07 07:52 | NUR ---
Am notes In bed, non verbal. trach connected to vent. tolerated vent settings at this time. on levophed at 6 mcg/min. Ivf 1/2 NS at 40cc/hr connected to Right upper arm picc line. has generalized edema, both arms were weeping. g tube at 40cc/hr. mouth care done. nagel catheter with no output at this time. maintain on contact isolation. sunctioned as needed. repositioned on high fowlers. aspiration precation observed. will monitor.
[2018-08-07] MEDS: IPRATROPIUM BROM 0.5 MG/2.5 ML VIAL.NEB (ATROVENT) INH SCH ×4 (08:24→23:17)
[2018-08-07] MEDS: ALBUTEROL SULFATE 0.083% 2.5 MG/3 ML VIAL.NEB INH SCH ×4 (08:24→23:17)
[2018-08-07] MEDS: LevETIRAcetam 500 MG/5 ML UDC ORAL LIQUID GT SCH ×2 (08:25→21:27)
[2018-08-07] MEDS: DOCUSATE SODIUM 100 MG/10 ML UDC GT SCH (08:25)
[2018-08-07] MEDS: AMIODARONE HCL 200 MG TABLET GT SCH ×2 (08:25→21:24)
[2018-08-07] MEDS: BALSAM PERU/CASTOR OIL 60 GM OINT...G. TP SCH ×2 (08:27→21:25)
[2018-08-07] MEDS: MENTHOL/ZINC OXIDE 113 GM OINT. TP SCH ×4 (08:27→21:25)
[2018-08-07] MEDS: CHLORHEXIDINE GLUCONATE 15 ML/DOSE, 480 ML MM SCH ×2 (09:00→21:26)
--- NOTE | 2018-08-07 10:00 | NUR ---
NOTES TOLERATING FEEDING WELL, NO RESIDUAL NOTED. TURN AND REPOSITIONED. FAMILY AT BEDSIDE. NO DISTRESS NOTED.
[2018-08-07 10:45] LABS: NEUTROPHILS % (AUTO) 84.5 % (40.0-70.0)
--- NOTE | 2018-08-07 10:58 | NUR ---
MD ROUNDS SEEN BY DR. LINARES WITH NEW ORDERS. INFORM RESPIRATORY TO TITRATE FI02 AND KEEP O2 SAT ABOVE 90%.
--- NOTE | 2018-08-07 11:02 | NUR ---
RT NOTES FIO2 to 60% per titration order. No adverse reactions noted. Will monitor pt.
[2018-08-07] MEDS: 0.45% NACL 1,000 ML IV SCH (11:13)
--- NOTE | 2018-08-07 11:50 | NUR ---
NOTES PT HAD LOOSE BM, CLEANED PATIENT AND WOUND CARE DRESSING DONE ON THE BUTTOCKS. REPOSITIONED FOR COMFORT. TOLERATING FEEDING. MOUTH CARE DONE.
--- NOTE | 2018-08-07 12:30 | NUR ---
notes noted small amount of blood on the trach tube, oral sunctioning done, no active bleeding noted. will continue to monitor.
--- NOTE | 2018-08-07 14:00 | NUR ---
NOTES TURNED AND REPOSITIONED, FAMILY AT BEDSIDE. TOLERATING CURRENT VENT SETTINGS. SEEN BY DR. PAULINO.
--- NOTE | 2018-08-07 15:37 | NUR ---
Nutrition F/U Admitting Diagnosis Tracheostomy bleed, UTI Reviewed Pertinent Medical/Surgical Hx Medical Record Patient Primary RN Medical History Comment: PMH: CVA, respiratory failure, trach, PEG per MD notes Pt also found w/ sepsis, vent-associated pneumonia, complicated UTI, acute on chronic respiratory, CHF, anasarca per MD notes 08/07/18 MD Progress notes: respiratory distress, oral bleeding, pneumonia and chronic respiratory failure, chronic atr fibr, gingivitis, carries, ESRD on HD. Subjective Information Pt seen resting in bed, +intubated, +obtunded +non-verbal, w/ TF infusing as per MD orders. Family at bedside. Per nursing notes, pt seems to be tolerating TF well. Per EMR, TF Intakes: 560 ml 08/07/18. Residuals: 20 ml 08/07/18. Abd is firm w/ active bowel sounds. Last BM x2 08/07/18. I/O: 480/0 (+480 ml) per 12 hours. Pt is not yet meeting optimal nutritional needs. Current Diet Order/Nutrition Support Pivot 1.5 at 45 ml/hr, Free Water Flush: 200 Q4h via GT x3 days Patient/Significant Other Unable To Verbalize Education Provided Not Indicated Pertinent Medications colace Pertinent Labs H/H 8.7 L/26.6 L, BUN 90 H, BG 121 H, Ca 7.7 L, ALB 1.1 L, WBC 8.7 WNL (improved) Height (Feet) 5 feet Height (Inches) 0.00 inches Weight (Pounds) 180 pounds (07/28/18) Weight (Calculated Kilograms) 81.198938 kilograms Patient Weight 81.647 kg Body Mass Index 35.15 kg/m2 %IBW 182 [place]/Adjusted Body Weight IBW: 100 lb, 45 kg. Adj IBW (obesity): 120 lb, 55 kg Recent Weight Change unable to verify Weight Status Obese Gastrointestinal Symptoms None Last BM 08/07/18 Food Allergies unable to verify Usual Diet At Home TF at [place] [facility] Skin Integrity Comment: Ceasar scale: 12; per Aircraft Worker note 08/02/18: 1. Left sacral area: Reopened scar tissue from a wound of unknown etiology, present on admission. 2. Right sacral area: Reopened scar tissue from a wound of unknown etiology, present on admission. 3. Right lateral hip: Area of pink scar tissue, present on admission. 4. Right medial thigh fold: Moisture associated wound, present on admission. 5. Left posterior medial calf: Victor area of purple discoloration/ecchymosis, present on admission. 6. Right dorsal hand: Full thickness skin tear, present on admission. 7. 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 8. Right buttock near issue tuberosity: Linear, dry, excoriated areas, present on admission. Per RN notes, 2+ pitting edema of BLE. Estimated Energy Expenditure (kcals/day) 1603 kcal/day (PSU 2010 MSJ for vent support/critical illness) Estimated Protein Required (g/day) 83-110 gm/day (1.5-2 gm/kg Adj IBW for sepsis, wound healing) Estimated Fluid Required (l/day) Per MD (CHF) Problem/Etiology/Signs/Symptoms Inadequate enteral nutrition related to metabolic demands as evidenced by increased nutritional needs for sepsis and wound healing, and current TF meets less than 50% of estimated nutritional needs. *improving Expected Outcomes/Goals - Monitor tolerance to EN support w/ goal of pt meeting at least 85% of estimated nutritional needs, labs trending WNL, normal GI function, and skin integrity/wt maintenance Dietitian Recommendations * Recommend Pivot 1.5 at 45 ml/hr, Free Water Flush: 200 Q4hr via GT Provides: 1620 kcal/day, 101 gm protein/day, and 2020 ml free water/day Meets: 101% of estimated caloric needs and 92% of upper end of estimated protein needs Follow Up High Risk: F/U in 2-3 days
--- NOTE | 2018-08-07 16:18 | NUR ---
notes In bed family at bedside, no distress noted. report given to INDIA Craven.
--- NOTE | 2018-08-07 16:30 | NUR ---
CARE ASSUMED. PATIENT IS ASSESSED. WILL CONTINUE TO MONITOR CLOSELY.
--- NOTE | 2018-08-07 18:20 | NUR ---
PATIENT IS TURNED AND REPOSITIONED FOR COMFORT. NO SIGNS OF DISTRESS NOTED.
--- NOTE | 2018-08-07 19:40 | NUR ---
PM Assessment Pt in bed. Pt is obtunded, but responds to tactile stimuli. Pt has trach tube in place. Saturations maintained above 94%. A-fib shown on the monitor. Pt has G-tube in place, on tubefeeding. No residual noted. Pt has nagel catheter in place draining kristi urine to gravity. Pt has a Garrett catheter in left subclavian. PT has a PARKER PICC line. Site is C/D/I. Skin not intact. Q2H turn interventions in place. Bed locked in lowest position, safety precautions in place, and call light in reach. Will continue to monitor.
[2018-08-07] MEDS: ATORVASTATIN 10 MG TABLET GT SCH (21:24)
--- NOTE | 2018-08-07 22:00 | NUR ---
ASSUMPTION OF CARE REPORT RECEIVED FROM SAMPSON OSBORNE TO ASSUME CARE AT THIS TIME. PT RECEIVED IN BED WITH EYES OPEN, OBTUNDED. VSS, NO S/S OF ACUTE DISTRESS NOTED. PT TRACH TO VENT, VENT SETTINGS: AC 16, TV 400, FIO2 55%, PEEP 8. A-FIB ON MONITOR. PARKER PICC IN PLACE INFUSING 1/2 NS @ 40 CC/HR AND LEVOPHED DRIP @ 6 MCG/MIN. G-TUBE IN PLACE RUNNING PIVOT TUBEFEEDING @ 40 CC/HR. LT SUBCLAVIAN DEBBIE CATH NOTED FOR DIALYSIS ACCESS. FLEMING CATH IN PLACE DRAINING RONALD URINE TO GRAVITY. SCDs IN PLACE. HOB ELEVATED, BED IN LOWEST POSITION, CALL LIGHT IN REACH. WILL CONTINUE TO MONITOR PT.
--- NOTE | 2018-08-07 23:30 | NUR ---
CHG CHG BATH PROVIDED AT THIS TIME. JAMIL CARE DONE AND LINENS CHANGED. PT TOLERATED WELL. VSS, NO S/S OF ACUTE DISTRESS NOTED. WILL CONTINUE TO MONITOR PT.
[2018-08-08] VITALS (35 sets, daily range): BP systolic 93–136
--- NOTE | 2018-08-08 01:10 | NUR ---
VENT CHANGES FIO2 DECREASED TO 50% BY RT. PT SAT 99% ON MONITOR. NO S/S OF ACUTE DISTRESS NOTED. PT TOLERATING WELL. WILL CONTINUE TO MONITOR PT.
--- NOTE | 2018-08-08 03:30 | NUR ---
BM PT HAD SMALL AMOUNT OF PASTE-LIKE BROWN STOOL. JAMIL CARE PROVIDED AND LINENS CHANGED. PT REPOSITIONED AT THIS TIME AND ORAL CARE PROVIDED. PT TOLERATED WELL. WILL CONTINUE TO MONITOR PT.
--- NOTE | 2018-08-08 03:45 | NUR ---
VENT CHANGES FIO2 DECREASED TO 45% BY RT. PT SAT 97% ON MONITOR AND TOLERATING VENT CHANGES WELL. WILL CONTINUE TO MONITOR PT.
[2018-08-08 05:55] LABS: BASOPHILS % (AUTO) 0.4 % (0.0-2.0); EOSINOPHILS # (AUTO) 0.2 K/uL (0.0-0.4); EOSINOPHILS % (AUTO) 2.2 % (0.0-4.0); HEMATOCRIT 26.4 % (36-48); LYMPHOCYTES % (AUTO) 12.4 % (20.5-51.5); MEAN CORPUSCULAR HEMOGLOBIN 32 pg (27-31); MEAN CORPUSCULAR HGB CONC 33 % (32-36); MEAN CORPUSCULAR VOLUME 97 fL (79.0-98.0); MONOCYTES # (AUTO) 0.7 K/uL (0.0-1.0); MONOCYTES % (AUTO) 9.6 % (1.7-9.3); NEUTROPHILS # (AUTO) 5.9 K/uL (1.8-7.7); NEUTROPHILS % (AUTO) 75.4 % (40.0-70.0); PLATELET COUNT (AUTO) 132 K/uL (130-430); RED BLOOD CELL COUNT(AUTO) 2.73 MIL/uL (4.2-6.2); WHITE BLOOD COUNT (AUTO) 7.8 K/uL (4.8-10.8)
[2018-08-08 05:58] LABS: ALANINE AMINOTRANSFERASE 27 U/L (12-78); ALBUMIN 1.1 g/dL (3.4-4.8); ANION GAP 8 (5-15); ASPARTATE AMINOTRANSFERASE 91 U/L (10-37); CALCIUM 7.8 mg/dL (8.4-11.0); CHLORIDE 107 mmol/L (98-107); CREATININE 2.65 mg/dL (0.55-1.30); GLUCOSE 117 mg/dL (70-99); POTASSIUM 4.2 mmol/L (3.5-5.1); SODIUM SERUM 140 mmol/L (136-145); TOTAL BILIRUBIN 2.8 mg/dL (0.0-1.0); UREA NITROGEN, BLOOD 100 mg/dL (8-21)
--- NOTE | 2018-08-08 06:10 | NUR ---
VENT CHANGES PT NOT TOLERATING VENT CHANGES. FIO2 INCREASED TO 60% BY RT. WILL CONTINUE TO MONITOR PT.
[2018-08-08 06:14] LABS: HEMOGLOBIN 8.6 g/dL (12.0-16.0)
--- NOTE | 2018-08-08 07:20 | NUR ---
ENDORSEMENT BEDSIDE REPORT GIVEN TO MAYUR OSBORNE USING SBAR APPROACH.
[2018-08-08] MEDS: IPRATROPIUM BROM 0.5 MG/2.5 ML VIAL.NEB (ATROVENT) INH SCH ×4 (08:00→19:39)
[2018-08-08] MEDS: ALBUTEROL SULFATE 0.083% 2.5 MG/3 ML VIAL.NEB INH SCH ×4 (08:00→19:38)
--- NOTE | 2018-08-08 08:00 | NUR ---
RN OPENING NOTE PATIENT'S RESTING ON BED, REPORT RECEIVED FROM EAR MUFF ASSEMBLER, PATIENT WAS ASSESSED, VITAL SIGNS ARE STABLE. PATIENT HAS A LOOSE BM, PATIENT WAS CLEANED. AND A NEW DRESSING WAS DONE ON THE SACRAL AREA AND WOUND CARE WAS DONE. BED AT LOW POSITION CALL LIGHT WITHIN REACH, BED AT LOW POSITION. WILL CONTINUE TO MONITOR.
[2018-08-08] MEDS: AMIODARONE HCL 200 MG TABLET GT SCH ×2 (09:06→20:32)
[2018-08-08] MEDS: LevETIRAcetam 500 MG/5 ML UDC ORAL LIQUID GT SCH ×2 (09:07→20:32)
[2018-08-08] MEDS: DOCUSATE SODIUM 100 MG/10 ML UDC GT SCH (09:07)
[2018-08-08] MEDS: MENTHOL/ZINC OXIDE 113 GM OINT. TP SCH ×4 (09:09→20:33)
[2018-08-08] MEDS: BALSAM PERU/CASTOR OIL 60 GM OINT...G. TP SCH ×2 (09:09→20:34)
[2018-08-08] MEDS: CHLORHEXIDINE GLUCONATE 15 ML/DOSE, 480 ML MM SCH ×2 (09:13→20:34)
[2018-08-08] MEDS: 0.45% NACL 1,000 ML IV SCH (09:14)
--- NOTE | 2018-08-08 10:00 | NUR ---
RN NOTE PATIENT'S RESTING ON BED, FLACC SCALE SHOWS SHE HAS NO PAIN OR DISCOMFORT. PATIENT WAS GIVEN HER MORNING MEDICATIONS. PATIENT WAS SEEN BY DR. SHIELDS THE SOCIAL GROUP WORKER. NO SPECIAL RECOMMENDATIONS. PATIENT WAS REPOSITIONED IN BED. ORAL CARE WAS DONE FOR HER. GRAND DAUGHTER BY THE BEDSIDE, WILL CONTINUE TO MONITOR.
--- NOTE | 2018-08-08 12:00 | NUR ---
RN NOTE PATIENT'S RESTING ON BED, FLACC SCALE SHOWS SHE HAS NO PAIN OR DISCOMFORT. PATIENT'S ORAL CARE WAS DONE FOR HER, PATIENT WAS REPOSITIONED. FAMILY MEMBERS( SON AND GRANDDAUGHTER WERE EDUCATED ABOUT FALL PREVENTION AND INFECTION CONTROL. THEY VERBALIZED UNDERSTANDING, WILL CONTINUE TO MONITOR.
[2018-08-08 12:06] LABS: HEPATITIS A AB, IgM Negative (Negative); HEPATITIS B CORE AB, IgM Negative (Negative); HEPATITIS B SURFACE AG Negative (Negative)
[2018-08-08] MEDS: MEROPENEM 500 MG in NS 50 ML IV SCH ×3 (12:11→21:51)
[2018-08-08] MEDS: NOREPINEPHRINE BITARTRATE 16 MG in NS 234 ML IV PRN (13:15)
--- NOTE | 2018-08-08 14:00 | NUR ---
RN NOTE PATIENT'S RESTING ON BED, FLACC SCALE SHOWS SHE HAS NO PAIN OR DISCOMFORT. PATIENT WAS REPOSITIONED IN BED, GIVEN 200 FREE WATER IN THE G TUBE, PATIENT HAS NO RESIDUE IN THE G TUBE, STILL RUNNING HER FEEDING AT 40 ML, HR, STILL RUNNING HER LEVOFED AT 4 Mcg PLANNED, BLOOD PRESSURE IS HOLDING ONE. DR. PAULINO CAME OVER AND ORDERED HD FOR TOMORROW. PATIENT'S FAMILY WAS TOLD ABOUT THAT, WILL CONTINUE TO MONITOR.
--- NOTE | 2018-08-08 16:00 | NUR ---
RN NOTE PATIENT'S RESTING ON BED, FLACC SCALE SHOWS SHE HAS NO PAIN OR DISCOMFORT. PATIENT 'S HAS A BOWEL MOVEMENT, PATIENT WAS CLEANED UP, IT'S A LOOSE STOOL. NO BLOOD. PATIENT'S SACRAL WOUNDS HAS BEEN CLEANSED UP AND THE DRESSING WAS CHANGED. A NEW BED SHEETS WERE DONE FOR THE PATIENT, STILL RUNNING LEVOFED. BLOOD PRESSURE IS HOLDING WELL, WILL CONTINUE TO MONITOR.
--- NOTE | 2018-08-08 18:00 | NUR ---
RN NOTE PATIENT'S RESTING ON BED, FLACC SCALE SHOWS SHE HAS NO PAIN OR DISCOMFORT. PATIENT'S WAS REPOSITIONED. CHECKED OUT FOR ANY BM, BUT PATIENT HAS NO BM AND F/C WAS EMPTIED STILL ON LEVO FED. PATIENT G TUBE WAS FLUSHED WITH 200 OF FREE WATER, THERE WAS NO RESIDUE. BLOOD PRESSURE IS STILL HOLDING ON, WILL ENDORSE TO NEXT SHIFT.
--- NOTE | 2018-08-08 19:30 | NUR ---
Initial Notes Received patient resting in bed, obtunded, nonverbal, family at bedside. Patient appears in no acute distress or pain at this time. Vital signs stable. Breathing is even and unlabored on mech vent. PICC site patent/clean/dry, no S/S infection/infiltration noted. Levophed infusing per MD orders. GT site patent, HOB elevated, patient tolerating tube feeding at this time. Repositioned patient for comfort. Needs addressed. Fall and seizure precautions in place. Will continue to monitor.
--- NOTE | 2018-08-08 20:00 | NUR ---
Nursing Notes Oral care and trach suctioning provided. Patient repositioned for comfort. PICC site patent/clean/dry. Levophed titrated to 3 mcg/min, will continue to monitor.
[2018-08-08] MEDS: ATORVASTATIN 10 MG TABLET GT SCH (20:32)
[2018-08-09] VITALS (31 sets, daily range): BP systolic 98–146
--- NOTE | 2018-08-09 | NUR ---
Nursing Notes Patient resting in bed with eyes closed, no change to mentation. Breathing is even and unlabored on mech vent. Oral care and trach suctioning provided. Dumont draining to gravity. Repositioned patient for comfort. HOB elevated. Will continue to monitor.
[2018-08-09] MEDS: ALBUTEROL SULFATE 0.083% 2.5 MG/3 ML VIAL.NEB INH SCH ×7 (00:28→23:00)
[2018-08-09] MEDS: IPRATROPIUM BROM 0.5 MG/2.5 ML VIAL.NEB (ATROVENT) INH SCH ×7 (00:28→23:00)
--- NOTE | 2018-08-09 02:30 | NUR ---
PICC Dressing Changed energy technician used and sterility maintained. Patient tolerated well.
--- NOTE | 2018-08-09 03:30 | NUR ---
CHG Bath CHG bath, pericare, and linen change provided. Patient repositioned for comfort.
[2018-08-09] MEDS: MEROPENEM 500 MG in NS 50 ML IV SCH ×3 (05:53→21:39)
--- NOTE | 2018-08-09 06:52 | NUR ---
Closing Notes Patient resting in bed with eyes closed, no change in mentation. Patient appears in no acute distress or pain at this time. Breathing is even and unlabored on mech vent. IV site patent/clean/dry, no S/S infection/infiltration noted. Levophed infusing at 2 mcg/min. Dumont draining kristi urine to gravity. G-tube patent, patient tolerating tube feeding, HOB elevated. Needs addressed throughout shift. Fall and seizure precautions in place. Will continue to monitor for changes and safety and endorse all patient care/needs to oncoming nurse.
[2018-08-09 06:53] LABS: BASOPHILS % (AUTO) 0.4 % (0.0-2.0); EOSINOPHILS # (AUTO) 0.2 K/uL (0.0-0.4); EOSINOPHILS % (AUTO) 3.3 % (0.0-4.0); HEMATOCRIT 26.7 % (36-48); HEMOGLOBIN 8.7 g/dL (12.0-16.0); LYMPHOCYTES % (AUTO) 13.4 % (20.5-51.5); MEAN CORPUSCULAR HEMOGLOBIN 32 pg (27-31); MEAN CORPUSCULAR HGB CONC 32 % (32-36); MEAN CORPUSCULAR VOLUME 97 fL (79.0-98.0); MONOCYTES # (AUTO) 0.8 K/uL (0.0-1.0); MONOCYTES % (AUTO) 10.7 % (1.7-9.3); NEUTROPHILS # (AUTO) 5.5 K/uL (1.8-7.7); PLATELET COUNT (AUTO) 142 K/uL (130-430); RED BLOOD CELL COUNT(AUTO) 2.75 MIL/uL (4.2-6.2); RED CELL DISTRIBUTION WIDTH 18.5 % (9.0-15.0); WHITE BLOOD COUNT (AUTO) 7.5 K/uL (4.8-10.8)
--- NOTE | 2018-08-09 07:15 | NUR ---
OPENING NOTE RECEIVED SBAR REPORT FROM PM RN AT BEDSIDE. BED IN LOWEST POSITION, BED ALARM SET, VENT SETTINGS CORRECT PER ORDERS. SEE VS FLOW CHART.
[2018-08-09 07:45] LABS: ALANINE AMINOTRANSFERASE 27 U/L (12-78); ANION GAP 8 (5-15); ASPARTATE AMINOTRANSFERASE 93 U/L (10-37); CALCIUM 8.1 mg/dL (8.4-11.0); CHLORIDE 102 mmol/L (98-107); CREATININE 2.82 mg/dL (0.55-1.30); GLUCOSE 119 mg/dL (70-99); POTASSIUM 4.2 mmol/L (3.5-5.1); SODIUM SERUM 135 mmol/L (136-145); TOTAL BILIRUBIN 2.6 mg/dL (0.0-1.0)
[2018-08-09 07:50] LABS: UREA NITROGEN, BLOOD 103 mg/dL (8-21)
--- NOTE | 2018-08-09 07:58 | NUR ---
DR. TOMPKINS AT BEDSIDE NO NEW ORDERS
--- NOTE | 2018-08-09 08:55 | NUR ---
DIALYSIS NURSE AT BEDSIDE
[2018-08-09] MEDS: NYSTATIN 15 GM TOPICAL POWDER TP SCH ×2 (09:00→20:26)
[2018-08-09] MEDS: DOCUSATE SODIUM 100 MG/10 ML UDC GT SCH (09:51)
[2018-08-09] MEDS: AMIODARONE HCL 200 MG TABLET GT SCH ×2 (09:52→20:22)
[2018-08-09] MEDS: LevETIRAcetam 500 MG/5 ML UDC ORAL LIQUID GT SCH ×2 (09:52→20:23)
[2018-08-09] MEDS: CHLORHEXIDINE GLUCONATE 15 ML/DOSE, 480 ML MM SCH ×2 (09:54→20:23)
[2018-08-09] MEDS: MENTHOL/ZINC OXIDE 113 GM OINT. TP SCH ×4 (09:55→20:29)
[2018-08-09] MEDS: BALSAM PERU/CASTOR OIL 60 GM OINT...G. TP SCH ×2 (09:56→20:26)
--- NOTE | 2018-08-09 10:20 | NUR ---
WOUND CARE PROVIDED PER WOUNDCARE ORDERS
[2018-08-09] MEDS ORDERED: HEPARIN SODIUM,PORCINE 5000 UNITS/ML VIAL ONE (11:48)
--- NOTE | 2018-08-09 12:45 | NUR ---
DIALYSIS COMPLETE 3 LITERS REMOVED
[2018-08-09 13:22] LABS: NEUTROPHILS % (AUTO) 72.2 % (40.0-70.0)
--- NOTE | 2018-08-09 14:10 | NUR ---
DR. PAULINO AT BEDSIDE NO NEW ORDERS
--- NOTE | 2018-08-09 19:10 | NUR ---
ENDORSEMENT SBAR REPORT ENDORSED TO RECEIVING NURSE AT BEDSIDE.
--- NOTE | 2018-08-09 19:15 | NUR ---
Opening Note: Pt VSS. Pt intubated, trach to vent. Vent Settings: AC 16, TV 400, FIO2 60%, PEEP 8, saturating at 97%. L Subclavian Garrett cath for dialysis access noted. PARKER PICC infusing Levophed @ 2mcg/min. Pt on tube feeding via GTube, Pivot 1.5 @ 40 cc/hr, no residual noted. Pt on nagel, patent, urine draining to gravity. Bilateral SCDs in place. HOB elevated, call light within reach. Bed locked, in lowest position. Pt's family at bedside. No distress noted. Will continue to monitor.
--- NOTE | 2018-08-09 20:15 | NUR ---
RN Notes Pt's family at bedside. Updated about POC, pt's granddaughter insist on their way of care for the pt. Pt's granddaughter insisted on placing tape on pt's lower lip, and got upset when I carefully explained to family that pt's skin is fragile and we need to be careful with skin care. Charge nurse made aware.
[2018-08-09] MEDS: ATORVASTATIN 10 MG TABLET GT SCH (20:22)
--- NOTE | 2018-08-09 21:45 | NUR ---
CHG Bath CHG bath rendered. Maira care, nagel and wound care done. No distress noted. Pt tolerated care well.
[2018-08-10] VITALS (29 sets, daily range): BP systolic 97–153
--- NOTE | 2018-08-10 02:03 | NUR ---
RN Rounds Patient VSS, saturating @ 98%. Tubefeeding @ 40mls/hr, tolerated well. Dumont in place, draining to gravity. No distress noted. Will continue to monitor.
[2018-08-10] MEDS: IPRATROPIUM BROM 0.5 MG/2.5 ML VIAL.NEB (ATROVENT) INH SCH ×6 (03:00→23:00)
[2018-08-10] MEDS: ALBUTEROL SULFATE 0.083% 2.5 MG/3 ML VIAL.NEB INH SCH ×6 (03:00→23:00)
--- NOTE | 2018-08-10 04:30 | NUR ---
RN Notes Pt VSS. Pt has 1 x bowel movement, pt cleaned, paul care and nagel care done. Pt tolerated care well. Will continue to monitor.
[2018-08-10] MEDS: MEROPENEM 500 MG in NS 50 ML IV SCH ×3 (05:41→21:24)
[2018-08-10 07:11] LABS: HEMATOCRIT 26.4 % (36-48)
--- NOTE | 2018-08-10 07:15 | NUR ---
Opening Note: Received plan of care at bedside from INDIA [place]. Patient remains obtunded, sleeping, showing no signs of acute distress, vitals WNL see flow sheet. Bed locked in lowest position, call light within reach.
[2018-08-10 07:16] LABS: ALANINE AMINOTRANSFERASE 28 U/L (12-78); ANION GAP 7 (5-15); ASPARTATE AMINOTRANSFERASE 101 U/L (10-37); CALCIUM 7.9 mg/dL (8.4-11.0); CHLORIDE 103 mmol/L (98-107); CREATININE 2.31 mg/dL (0.55-1.30); GLUCOSE 102 mg/dL (70-99); POTASSIUM 3.7 mmol/L (3.5-5.1); SODIUM SERUM 136 mmol/L (136-145); TOTAL BILIRUBIN 2.2 mg/dL (0.0-1.0); UREA NITROGEN, BLOOD 76 mg/dL (8-21)
--- NOTE | 2018-08-10 07:33 | NUR ---
Closing Note Pt VSS, no distress noted. POC endorsed to Rani OSBORNE.
[2018-08-10 07:42] LABS: HEMOGLOBIN 8.4 g/dL (12.0-16.0); MEAN CORPUSCULAR HEMOGLOBIN 31 pg (27-31); MEAN CORPUSCULAR HGB CONC 32 % (32-36); MEAN CORPUSCULAR VOLUME 97 fL (79.0-98.0); PLATELET COUNT (AUTO) 176 K/uL (130-430); RED BLOOD CELL COUNT(AUTO) 2.73 MIL/uL (4.2-6.2); RED CELL DISTRIBUTION WIDTH 18.7 % (9.0-15.0); WHITE BLOOD COUNT (AUTO) 8.4 K/uL (4.8-10.8)
--- NOTE | 2018-08-10 07:45 | NUR ---
Dr. Nava at bedside, no new orders at this time.
[2018-08-10] MEDS: NYSTATIN 15 GM TOPICAL POWDER TP SCH ×2 (08:13→20:56)
[2018-08-10] MEDS: DOCUSATE SODIUM 100 MG/10 ML UDC GT SCH (08:13)
[2018-08-10] MEDS: BALSAM PERU/CASTOR OIL 60 GM OINT...G. TP SCH ×2 (08:14→20:56)
[2018-08-10] MEDS: MENTHOL/ZINC OXIDE 113 GM OINT. TP SCH ×4 (08:15→20:58)
[2018-08-10] MEDS: AMIODARONE HCL 200 MG TABLET GT SCH ×2 (08:16→20:55)
[2018-08-10] MEDS: LevETIRAcetam 500 MG/5 ML UDC ORAL LIQUID GT SCH ×2 (08:17→20:55)
[2018-08-10] MEDS: CHLORHEXIDINE GLUCONATE 15 ML/DOSE, 480 ML MM SCH ×2 (08:18→20:55)
[2018-08-10 09:00] LABS: BAND % (MANUAL) 1 % (0-6); BASOPHILS % (MANUAL) 0 % (0-2); EOSINOPHILS % (MANUAL) 1 % (0-7); LYMPHOCYTES % (MANUAL) 13 % (20-46); MONOCYTES % (MANUAL) 12 % (0-11)
--- NOTE | 2018-08-10 10:10 | NUR ---
Dr. Patiño at bedside, new RT orders received, see flowsheet
--- NOTE | 2018-08-10 10:39 | NUR ---
1018 TITRATED FIO2 TO .50. SAT 100% RN AWARE. Addendum: 08/10/18 at 1040 by Jeaneth Chauhan RT Amended: Links added.
--- NOTE | 2018-08-10 14:33 | NUR ---
Nutrition F/U Admitting Diagnosis Tracheostomy bleed, UTI Reviewed Pertinent Medical/Surgical Hx Medical Record Patient Primary RN Medical History Comment: PMH: CVA, respiratory failure, trach, PEG per MD notes Pt also found w/ sepsis, vent-associated pneumonia, complicated UTI, acute on chronic respiratory, CHF, anasarca per MD notes 08/10/18 Cardiology notes: septic shock2/2 extensive bilateral pneumonia; bleeding from her tracheostomy appears to have stopped; the respiratory failure on chronic ventilatory therapy; bilateral pneumonia ventilatory associated, appears to have gotten worse over last 72 hours; major cerebrovascular accident L hemiplegia now appears to have weakness of her right side as well; New stroke is likely as well; bedbound status; tracheostomy and GT placement; recurrent pneumonia possibly ventilator related; anasarca multifactorial with severe protein malnutrition albumin of 1.1; multi-organ failure with acute kidney injury 2/2 shock; worsening kidney functions dysfunction of sepsis possibly drug-induced and low perfusion. Subjective Information Pt seen resting in bed, +intubated, +obtunded +non-verbal, w/ TF infusing as per MD orders. Per RN, pt has been tolerating TF well, no residual, and no pending plans/procedures. Per EMR, TF Intakes: 400 ml 08/10/18. Residuals: 10 ml 08/10/18. Abd is soft w/ hypoactive bowel sounds. I/O: 405/85 (+320) per 12 hours. Pt is not yet meeting optimal nutritional needs. Current Diet Order/Nutrition Support Pivot 1.5 at 45 ml/hr, Free Water Flush: 200 Q4h via GT x6 days Patient/Significant Other Unable To Verbalize Education Provided Not Indicated Pertinent Medications colace Pertinent Labs H/H 8.4 L/26.4 L, BUN 76 H, BG 102 H, Ca 7.9 L, ALB 1 L Height (Feet) 5 feet Height (Inches) 0.00 inches Weight (Pounds) 180 pounds (07/28/18) -- RD attempted to weigh pt on bedscale, likely inaccurate -- 213 lb (08/10/18) Weight (Calculated Kilograms) 81.602068 kilograms Patient Weight 81.647 kg Body Mass Index 35.15 kg/m2 %IBW 182 [place]/Adjusted Body Weight IBW: 100 lb, 45 kg. Adj IBW (obesity): 120 lb, 55 kg Recent Weight Change unable to verify Weight Status Obese Gastrointestinal Symptoms None Last BM 08/10/18 Food Allergies unable to verify Usual Diet At Home TF at [facility] Skin Integrity Comment: Ceasar scale: 12; per Shipping Lead Person note 08/02/18: 1. Left sacral area: Reopened scar tissue from a wound of unknown etiology, present on admission. 2. Right sacral area: Reopened scar tissue from a wound of unknown etiology, present on admission. 3. Right lateral hip: Area of pink scar tissue, present on admission. 4. Right medial thigh fold: Moisture associated wound, present on admission. 5. Left posterior medial calf: [place] area of purple discoloration/ecchymosis, present on admission. 6. Right dorsal hand: Full thickness skin tear, present on admission. 7. 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 8. Right buttock near issue tuberosity: Linear, dry, excoriated areas, present on admission. Per RN notes, 2+ pitting edema of BLE. Estimated Energy Expenditure (kcals/day) 1603 kcal/day (PSU 2010 MSJ for vent support/critical illness) Estimated Protein Required (g/day) 83-110 gm/day (1.5-2 gm/kg Adj IBW for sepsis, wound healing) Estimated Fluid Required (l/day) Per MD (CHF) Problem/Etiology/Signs/Symptoms Inadequate enteral nutrition related to metabolic demands as evidenced by increased nutritional needs for sepsis and wound healing, and current TF meets less than 50% of estimated nutritional needs. *improving Expected Outcomes/Goals - Monitor tolerance to EN support w/ goal of pt meeting at least 85% of estimated nutritional needs, labs trending WNL, normal GI function, and skin integrity/wt maintenance Dietitian Recommendations * Recommend Pivot 1.5 at 45 ml/hr, Free Water Flush: 200 Q4hr via GT Provides: 1620 kcal/day, 101 gm protein/day, and 2020 ml free water/day Meets: 101% of estimated caloric needs and 92% of upper end of estimated protein needs Follow Up High Risk: F/U in 2-3 days
--- NOTE | 2018-08-10 19:24 | NUR ---
Closing Note: Patient remains obtunded, no signs of distress noted. Family at beside, bed locked in lowest position. Endorsed plan of care to INDIA tSallings.
--- NOTE | 2018-08-10 19:30 | NUR ---
PM ASSESSMENT PT RECEIVED IN BED W/ EYES CLOSED, OBTUNDED. NO SIGNS OF ACUTE DISTRESS OR DISCOMFORT NOTED. PT IS INTUBATED TRACH TO VENT. VENT SETTINGS: AC 16, TV 400, FIO2 50% AND PEEP OF 8 SATURATING AT 95%. VSS. PT HAS A PARKER PICC INFUSING NS TKO. PARKER PICC C/D/I. LEFT SUBCLAVIAN DEBBIE CATH NOTED FOR DIALYSIS, C/D/I. PT ON TUBEFEEDING VIA GTUBE, PIVOT 1.5 @ 45 CC/HR. FLEMING CATH NOTED DRAINING URINE TO GRAVITY. BILATERAL SCD'S TO LOWER EXTREMITIES NOTED. FAMILY AT BEDSIDE, PT'S BED LOCKED AND IN LOWEST POSITION, CALL LIGHT W/IN REACH, WILL CONTINUE TO MONITOR.
[2018-08-10] MEDS: ATORVASTATIN 10 MG TABLET GT SCH (20:55)
--- NOTE | 2018-08-10 22:10 | NUR ---
CHG BATH PT GIVEN CHG BATH AT THIS TIME. PT TOLERATED WELL, WILL CONTINUE TO MONITOR.
[2018-08-11] VITALS (30 sets, daily range): BP systolic 106–144
[2018-08-11] MEDS: ALBUTEROL SULFATE 0.083% 2.5 MG/3 ML VIAL.NEB INH SCH ×6 (03:00→23:46)
[2018-08-11] MEDS: IPRATROPIUM BROM 0.5 MG/2.5 ML VIAL.NEB (ATROVENT) INH SCH ×6 (03:00→23:46)
--- NOTE | 2018-08-11 04:10 | NUR ---
RN ROUNDS PT IN BED W/ EYES CLOSED, NO SIGNS OF ACUTE DISTRESS OR DISCOMFORT NOTED. VSS W/ AFIB SEEN ON THE MONITOR. PT IS SATURATING WELL @ 98% ON VENT. PARKER PICC C/D/I. FLEMING CATH NOTED DRAINING YELLOW URINE TO GRAVITY. BED IS LOCKED AND IN LOWEST POSITION, CALL LIGHT W/IN REACH, WILL CONTINUE TO MONITOR.
[2018-08-11] MEDS: MEROPENEM 500 MG in NS 50 ML IV SCH (05:28)
[2018-08-11 06:58] LABS: ALANINE AMINOTRANSFERASE 31 U/L (12-78); ALBUMIN 1.1 g/dL (3.4-4.8); ANION GAP 8 (5-15); ASPARTATE AMINOTRANSFERASE 95 U/L (10-37); CALCIUM 7.9 mg/dL (8.4-11.0); CHLORIDE 103 mmol/L (98-107); CREATININE 2.58 mg/dL (0.55-1.30); GLUCOSE 125 mg/dL (70-99); POTASSIUM 3.9 mmol/L (3.5-5.1); SODIUM SERUM 136 mmol/L (136-145); UREA NITROGEN, BLOOD 92 mg/dL (8-21)
--- NOTE | 2018-08-11 07:29 | NUR ---
ENDORSEMENT REPORT GIVEN TO DAY SHIFT RN USING SBAR FORMAT. PT IN BED W/ EYES CLOSED, NO SIGNS OF ACUTE DISTRESS OR DISCOMFORT NOTED. VSS W/ AFIB SEEN ON THE MONITOR. BED IS LOCKED AND IN LOWEST POSITION, CALL LIGHT W/IN REACH.
[2018-08-11] MEDS: CHLORHEXIDINE GLUCONATE 15 ML/DOSE, 480 ML MM SCH ×2 (09:00→20:28)
[2018-08-11] MEDS: MENTHOL/ZINC OXIDE 113 GM OINT. TP SCH ×4 (09:00→20:27)
[2018-08-11] MEDS: NYSTATIN 15 GM TOPICAL POWDER TP SCH ×2 (09:00→20:26)
[2018-08-11] MEDS: AMIODARONE HCL 200 MG TABLET GT SCH ×2 (09:00→20:25)
[2018-08-11] MEDS: LevETIRAcetam 500 MG/5 ML UDC ORAL LIQUID GT SCH ×2 (09:00→20:25)
[2018-08-11] MEDS: BALSAM PERU/CASTOR OIL 60 GM OINT...G. TP SCH ×2 (09:00→20:28)
[2018-08-11] MEDS: DOCUSATE SODIUM 100 MG/10 ML UDC GT SCH (09:00)
--- NOTE | 2018-08-11 11:25 | NUR ---
Discharge Planning: DCP faxed pt order to Joanna at [facility] (f [phone] p [phone]). Addendum: 08/11/18 at 1321 by Josette RANDOLPH Disregard faxed order message wrong pt entry
--- NOTE | 2018-08-11 13:33 | NUR ---
Discharge Planning: [facility] has faxed DC planning orders to Tavares at [place] ([phone] [phone]); Tavares states that she will begin to work on new sub-acute placement with dialysis. Tavares states that she has spoken to Dr. Nava because pt's ventilator settings are too high; pt cannot be discharged to sub-acute today.
--- NOTE | 2018-08-11 17:02 | NUR ---
PATIENT HAVING HEMODIALYSIS TODAY. HAD SMALL AMT URINE OUTPUT DARK RONALD. INCONTINENT OF LOOSE BROWN STOOLS ONCE. DRESSING CHNGED ON SACRUM WITH OPTIFOAM DRESSING. CALMOSEPTINE APPLIED TO PERINEUM AND ALL AFFECTED AREAS. PT IS VERY EDEMATOUS WITH SMALL BLISTERS ON LEFT ARM AND WEEPING ON THE RIGHT ARM.SPENCER TF WITH MINIMAL RESIDUAL AND 1 BM.WITH DC PLANS TO LTAC TODAY. NOT ABLE TO PLACE TILL VENT SETTINGS IMPROVED.
[2018-08-11] MEDS ORDERED: HEPARIN SODIUM, PORCINE 10,000 UNITS/ 10 ML VIAL MC ONE (17:15)
[2018-08-11] MEDS ORDERED: HEPARIN SODIUM,PORCINE 5000 UNITS/ML VIAL ONE (17:31)
--- NOTE | 2018-08-11 19:30 | NUR ---
PM ASSESSMENT PT RECEIVED IN BED W/ EYES CLOSED, OBTUNDED. NO SIGNS OF ACUTE DISTRESS OR DISCOMFORT NOTED. PT IS INTUBATED TRACH TO VENT. VENT SETTINGS: AC 16, TV 400, FIO2 50% AND PEEP OF 5 SATURATING AT 95%. VSS. PT HAS A PARKER PICC INFUSING NS TKO. PARKER PICC C/D/I. LEFT SUBCLAVIAN DEBBIE CATH NOTED FOR DIALYSIS, C/D/I. PT ON TUBEFEEDING VIA GTUBE, PIVOT 1.5 @ 45 CC/HR. FLEMING CATH NOTED DRAINING URINE TO GRAVITY. BILATERAL SCD'S TO LOWER EXTREMITIES NOTED. FAMILY AT BEDSIDE, PT'S BED LOCKED AND IN LOWEST POSITION, CALL LIGHT W/IN REACH, WILL CONTINUE TO MONITOR.
[2018-08-11] MEDS: ATORVASTATIN 10 MG TABLET GT SCH (20:25)
[2018-08-11] MEDS: COLISTIMETHATE SODIUM 75 MG in NS 50 ML IV SCH (20:26)
--- NOTE | 2018-08-11 21:15 | NUR ---
VENT SETTINGS FIO2% CHANGED FROM 50% TO 40% BY RT, PT TOLERATING WELL, WILL CONTINUE TO MONITOR.
--- NOTE | 2018-08-11 22:05 | NUR ---
CHG BATH PT GIVEN CHG BATH AT THIS TIME. PT TOLERATED WELL, WILL CONTINUE TO MONITOR.
[2018-08-12] VITALS (35 sets, daily range): BP systolic 94–137
[2018-08-12] MEDS ORDERED: LORazepam 2 MG/ML VIAL IVP PRN (00:30)
[2018-08-12] MEDS ORDERED: LORazepam 2 MG/ML VIAL ONE (00:38)
[2018-08-12] MEDS: ALBUTEROL SULFATE 0.083% 2.5 MG/3 ML VIAL.NEB INH SCH ×6 (04:05→23:57)
[2018-08-12] MEDS: IPRATROPIUM BROM 0.5 MG/2.5 ML VIAL.NEB (ATROVENT) INH SCH ×6 (04:05→23:57)
--- NOTE | 2018-08-12 04:05 | NUR ---
RN ROUNDS PT IN BED W/ EYES CLOSED, RESPONDING TO TACTILE STIMULI. NO SIGNS OF ACUTE DISTRESS OR DISCOMFORT NOTED. PT STILL ON VENT. VENT SETTINGS: AC 16, TV 400, FIO2 40% AND PEEP OF 5 SATURATING AT 98%. MINIMAL WHITE SECRETIONS (LESS THAN 1ML) NOTED WHEN SUCTIONED. VSS W/ AFIB SEEN ON THE MONITOR. PARKER PICC INFUSING NS TKO. PARKER PICC C/D/I. LEFT SUBCLAVIAN DEBBIE CATH NOTED FOR DIALYSIS, C/D/I. PT ON TUBEFEEDING VIA GTUBE, PIVOT 1.5 @ 45 CC/HR, TOLERATING WELL W/ NO RESIDUAL NOTED. FLEMING CATH NOTED DRAINING URINE TO GRAVITY. BILATERAL SCD'S TO LOWER EXTREMITIES NOTED. PT'S BED LOCKED AND IN LOWEST POSITION, CALL LIGHT W/IN REACH, WILL CONTINUE TO MONITOR.
[2018-08-12 05:42] LABS: BASOPHILS # (AUTO) 0.1 K/uL (0.0-0.2); BASOPHILS % (AUTO) 0.9 % (0.0-2.0); EOSINOPHILS # (AUTO) 0.4 K/uL (0.0-0.4); HEMATOCRIT 26.2 % (36-48); HEMOGLOBIN 8.6 g/dL (12.0-16.0); LYMPHOCYTES # (AUTO) 1.3 K/uL (1.0-5.5); LYMPHOCYTES % (AUTO) 14.8 % (20.5-51.5); MEAN CORPUSCULAR HEMOGLOBIN 32 pg (27-31); MEAN CORPUSCULAR HGB CONC 33 % (32-36); MONOCYTES # (AUTO) 1.2 K/uL (0.0-1.0); MONOCYTES % (AUTO) 12.7 % (1.7-9.3); NEUTROPHILS # (AUTO) 6.1 K/uL (1.8-7.7); PLATELET COUNT (AUTO) 204 K/uL (130-430); RED BLOOD CELL COUNT(AUTO) 2.66 MIL/uL (4.2-6.2); RED CELL DISTRIBUTION WIDTH 19.2 % (9.0-15.0); WHITE BLOOD COUNT (AUTO) 9.1 K/uL (4.8-10.8)
[2018-08-12 05:46] LABS: MEAN CORPUSCULAR VOLUME 97 fL (79.0-98.0)
[2018-08-12 05:51] LABS: ALANINE AMINOTRANSFERASE 34 U/L (12-78); ANION GAP 5 (5-15); ASPARTATE AMINOTRANSFERASE 102 U/L (10-37); CALCIUM 7.8 mg/dL (8.4-11.0); CHLORIDE 101 mmol/L (98-107); CREATININE 1.98 mg/dL (0.55-1.30); GLUCOSE 117 mg/dL (70-99); POTASSIUM 3.4 mmol/L (3.5-5.1); SODIUM SERUM 135 mmol/L (136-145); TOTAL BILIRUBIN 1.8 mg/dL (0.0-1.0); UREA NITROGEN, BLOOD 65 mg/dL (8-21)
[2018-08-12 06:13] LABS: NEUTROPHILS % (AUTO) 67.6 % (40.0-70.0)
--- NOTE | 2018-08-12 07:14 | NUR ---
ENDORSEMENT REPORT GIVEN TO DANDRE OSBORNE USING SBAR FORMAT. PT IN BED W/ EYES CLOSED, NO SIGNS OF ACUTE DISTRESS OR DISCOMFORT NOTED. VSS W/ AFIB SEEN ON THE MONITOR. BED IS LOCKED AND IN LOWEST POSITION, CALL LIGHT W/IN REACH.
--- NOTE | 2018-08-12 07:45 | NUR ---
AM ASSESSMENT. PT CALM AT THIS HOUR, TEMP IN NORMAL RANGE, GASTRIC RESIDUAL CHECKED, NONE ASPIRATED, CONTINUE FEEDING VIA G TUBE AT 45 ML PER HR, HEAD OF BED UP, ABDOMEN SOFT ON PALPATION, GOOD BOWEL SOUNDS, GENERALIZED EDEMA PRESENT, FLEMING CATHETER DRAINING SCANTY AMOUNT.
[2018-08-12] MEDS ORDERED: POTASSIUM CHLORIDE 20 MEQ/PKT PACKET PO ONE (08:00)
[2018-08-12] MEDS: CHLORHEXIDINE GLUCONATE 15 ML/DOSE, 480 ML MM SCH ×2 (08:21→21:18)
[2018-08-12] MEDS: NYSTATIN 15 GM TOPICAL POWDER TP SCH ×2 (08:21→21:17)
[2018-08-12] MEDS: BALSAM PERU/CASTOR OIL 60 GM OINT...G. TP SCH ×2 (08:22→21:18)
[2018-08-12] MEDS: MENTHOL/ZINC OXIDE 113 GM OINT. TP SCH ×4 (08:22→21:18)
[2018-08-12] MEDS: AMIODARONE HCL 200 MG TABLET GT SCH ×2 (08:23→21:15)
[2018-08-12] MEDS: DOCUSATE SODIUM 100 MG/10 ML UDC GT SCH (08:23)
[2018-08-12] MEDS: COLISTIMETHATE SODIUM 75 MG in NS 50 ML IV SCH ×2 (08:24→21:14)
[2018-08-12] MEDS: LevETIRAcetam 500 MG/5 ML UDC ORAL LIQUID GT SCH ×2 (08:27→21:16)
--- NOTE | 2018-08-12 08:54 | NUR ---
End of life Discussion Dr. Garcia in to see pt. Spoke with pts son Kb at bedside regarding his opinion that the family should consider withdrawal of life support and implement comfort care. Dr. Garcia told Kb that the antibiotics are not working, that she has a very resistant infection. He told Kb that she was not going to recover and get off the ventilator. He requested that Kb speak to the other family members about this. Kb said he would.
--- NOTE | 2018-08-12 10:10 | NUR ---
EBONY DC PLANNING: NEW SUBACUTE CM SPOKE WITH [facility] TODAY TO UPDATE ABOUT NEW SUBACUTE FACILITY ARRANGEMENT. EBONY UNDERSTOOD THAT [facility] ARE LOOKING AT [facility] SUBACUTE FOR POSSIBLE PLACEMENT. THIS CM UPDATED [facility] THAT [facility] W/SUBACUTE UNIT IS IN [place] AND DOES TAKE Pt's ON HEMODIALYSIS. CM SENT UPDATE MED RECORDS WITH INFO ON [facility] SUBACUTE, ALL MICROBIOLOGY REPORTS, UPDATE ON VENT SETTINGS WITH FIO2 AT 40% THIS A.M. PER [facility], MOST SUBACUTE UNITS WANT Pt TO BE ON 40% FIO2 X 48 HOURS.
--- NOTE | 2018-08-12 11:50 | NUR ---
HYGIENE. REPOSITIONED PT GENTLY Q2H, WOUND CARE DONE TO BUTTOCKS/SACRAL AREA, ABDOMINAL FOLDS, THIGHS FOLDS. CLEANSED SKIN WITH SOAP AND WARM WATER, WOUND WASHED WITH SALINE, LEFT BUTTOCKS WITH 30% PINK 70% RED COLOR, MOISTURE BARRIER CREAM TO WOUND EDGES APPLIED, HYDROGEL ONTO WOUND, THEN COVERED WITH FOAM DRESSING. REMEDY ANTIFUNGAL CREAM APPLIED TO SKIN FOLDS, AIR DRY, THEN CALMOSEPTINE CREAM WITH DERMATITIS.
[2018-08-12] MEDS: ACETAMINOPHEN 325 MG TABLET GT PRN (12:40)
--- NOTE | 2018-08-12 12:40 | NUR ---
TEMP. 100.4, COLD COMPRESS TO EXTREMITIES APPLIED, TYLENOL 650 MG VIA G TUBE ADMINISTERED. WATER FLUSHES VIA G TUBE GIVEN.
--- NOTE | 2018-08-12 15:44 | NUR ---
WOUND RE-EVALUATION: Late note for 1543 secondary to patient care. Patient received in a [facility] Bed with a Remy XPRT mattress, awake, nonverbal, nonresponsive to verbal commands. Patient is unable to turn in bed independently. Ceasar Score is a 7. Intrinsic factors that delay wound healing: CVA. Extrinsic factors that delay wound healing: Immobility. Bilateral upper extremities have multiple areas of ecchymosis. Wound Assessment: Wound care performed by dayshift nurse this morning. Since not removed for assessment secondary to doing so would decrease wound temperature and retard wound healing rate. 1. Left sacral area: Reopened scar tissue from a wound of unknown etiology, present on admission. 2. Right sacral area: Reopened scar tissue from a wound of unknown etiology, present on admission. Recommend continue: Cleanse wounds with normal saline. Pat dry. Apply moisture barrier cream to wounds and periwounds. Apply hydrogel to any portions of wound beds not covered by moisture barrier cream. Cover wounds with nonadhesive foam dressings, and secure with transparent dressings. Perform site care daily, and as needed for dressing soiling or dislodgment. 3. Right lateral hip: Area of pink scar tissue, present on admission. No odor, no drainage. Recommend continue: Cleanse involved area with mild soap and water. Pat dry. Apply moisture barrier cream to involved area. Perform site care 4 times a day, and as needed for soiling. 4. Right medial thigh fold: Moisture associated wound, present on admission. Wound site has appeared to have resolved. Recommend continue: Cleanse wound with normal saline. Apply moisture barrier cream to site. Perform site care daily, and as needed for soiling. 5. Left posterior medial calf: [place] area of red discoloration/ecchymosis, present on admission. Recommend continue: No dressing needed. Continue to monitor site for worsening condition. Float involved areas with pillows and towel rolls at all times. 6. Right dorsal hand: Full thickness skin tear, present on admission. Wound has 100% pink tissue. No odor, no drainage. Skin tear has resolved per [facility] [place]. Recommend: Cleanse wound with normal saline. Apply moisture barrier cream to wound and periwound. Perform site care daily, and as needed for soiling. 7. 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 Recommend continue: Cleanse involved areas with mild soap and water. Pat dry. Apply Remedy antifungal ointment to involved areas, let air dry. Apply Calmoseptine cream to involved areas. Perform site care 4 times a day, and as needed for soiling. 8. Right buttock near ischial tuberosity: Linear, dry, excoriated areas, present on admission. Brown discolored area present inferior to wound. Recommend continue: Cleanse involved area with mild soap and water. Pat dry. Apply Remedy antifungal ointment to involved area, let air dry. Apply Calmoseptine cream to involved area. Perform site care 4 times a day, and as needed for soiling. Also recommend continue: Recommend reposition patient side to side only every 2 hours with pillow support. Offload, elevate and float bilateral heels with one pillow lengthwise under each extremity at all times. Perform skin care and monitor skin integrity Q shift. Use Calmoseptine cream on moisture susceptible areas QID and PRN for soiling. Maintain patient on a low air-loss mattress.
--- NOTE | 2018-08-12 16:00 | NUR ---
NURSING. TEMP RE-CHECKED, 97.6, FEEDING TOLERATED, REMAINS AT 45 ML PER HR, TURNED PT Q2H.
--- NOTE | 2018-08-12 19:10 | NUR ---
REPORT. GIVEN TO METAL BONDING PRESS OPERATOR NURSE. FAMILY IN THE ROOM, PT COMFORTABLE.
--- NOTE | 2018-08-12 19:30 | NUR ---
PM ASSESSMENT PT RECEIVED IN BED W/ EYES CLOSED, RESPONDING TO TACTILE STIMULI. NO SIGNS OF ACUTE DISTRESS OR DISCOMFORT NOTED. PT IS INTUBATED TRACH TO VENT. VENT SETTINGS: AC 16, TV 400, FIO2 40% AND PEEP OF 5 SATURATING AT 100%. VSS W/ AFIB SEEN ON THE MONITOR. PT HAS A PARKER PICC INFUSING NS TKO @ 5 CC/HR. PARKER PICC C/D/I. LEFT SUBCLAVIAN DEBBIE CATH NOTED FOR DIALYSIS, C/D/I. PT ON TUBEFEEDING VIA GTUBE, PIVOT 1.5 @ 45 CC/HR. FLEMING CATH NOTED DRAINING URINE TO GRAVITY. BILATERAL SCD'S TO LOWER EXTREMITIES NOTED. FAMILY AT BEDSIDE, PT'S BED LOCKED AND IN LOWEST POSITION, CALL LIGHT W/IN REACH, WILL CONTINUE TO MONITOR.
[2018-08-12] MEDS: ATORVASTATIN 10 MG TABLET GT SCH (21:15)
[2018-08-13] VITALS (24 sets, daily range): BP systolic 98–145
--- NOTE | 2018-08-13 01:25 | NUR ---
RN ROUNDS PT IN BED W/ EYES CLOSED, RESPONDING TO TACTILE STIMULI. NO SIGNS OF ACUTE DISTRESS OR DISCOMFORT NOTED. PT STILL ON VENT. VENT SETTINGS: AC 16, TV 400, FIO2 40% AND PEEP OF 5 SATURATING AT 100%. VSS W/ AFIB SEEN ON THE MONITOR. PARKER PICC INFUSING NS TKO. PARKER PICC C/D/I. LEFT SUBCLAVIAN DEBBIE CATH NOTED FOR DIALYSIS, C/D/I. PT ON TUBEFEEDING VIA GTUBE, PIVOT 1.5 @ 45 CC/HR, TOLERATING WELL W/ NO RESIDUAL NOTED. FLEMING CATH NOTED DRAINING URINE TO GRAVITY. BILATERAL SCD'S TO LOWER EXTREMITIES NOTED. PT'S BED LOCKED AND IN LOWEST POSITION, CALL LIGHT W/IN REACH, WILL CONTINUE TO MONITOR.
[2018-08-13] MEDS: IPRATROPIUM BROM 0.5 MG/2.5 ML VIAL.NEB (ATROVENT) INH SCH ×5 (03:00→19:32)
[2018-08-13] MEDS: ALBUTEROL SULFATE 0.083% 2.5 MG/3 ML VIAL.NEB INH SCH ×5 (03:00→19:32)
[2018-08-13 06:46] LABS: ANION GAP 7 (5-15); CALCIUM 7.7 mg/dL (8.4-11.0); CHLORIDE 100 mmol/L (98-107); CREATININE 2.24 mg/dL (0.55-1.30); GLUCOSE 96 mg/dL (70-99); POTASSIUM 4.3 mmol/L (3.5-5.1); SODIUM SERUM 134 mmol/L (136-145); UREA NITROGEN, BLOOD 80 mg/dL (8-21)
[2018-08-13 06:55] LABS: ALANINE AMINOTRANSFERASE 34 U/L (12-78); ALBUMIN 1.1 g/dL (3.4-4.8); ASPARTATE AMINOTRANSFERASE 107 U/L (10-37); TOTAL BILIRUBIN 1.6 mg/dL (0.0-1.0)
[2018-08-13 06:57] LABS: HEMATOCRIT 25.6 % (36-48); HEMOGLOBIN 8.2 g/dL (12.0-16.0); MEAN CORPUSCULAR HEMOGLOBIN 31 pg (27-31); MEAN CORPUSCULAR HGB CONC 32 % (32-36); MEAN CORPUSCULAR VOLUME 97 fL (79.0-98.0); RED BLOOD CELL COUNT(AUTO) 2.64 MIL/uL (4.2-6.2); RED CELL DISTRIBUTION WIDTH 19.7 % (9.0-15.0); WHITE BLOOD COUNT (AUTO) 10.1 K/uL (4.8-10.8)
[2018-08-13 07:15] LABS: PLATELET COUNT (AUTO) 244 K/uL (130-430)
--- NOTE | 2018-08-13 07:26 | NUR ---
Blisters Noted fluid filled blisters on BUE. Right arm blister noted with tegaderm covering. Left in place d/t pt's risk of skin tears.
--- NOTE | 2018-08-13 07:30 | NUR ---
ENDORSEMENT PT CARE ENDORSED TO HEBER OSBORNE. REPORT GIVEN USING SBAR FORMAT. PT IN BED W/ EYES CLOSED, NO SIGNS OF ACUTE DISTRESS OR DISCOMFORT NOTED.
--- NOTE | 2018-08-13 07:35 | NUR ---
AM Assessment Received pt lethargic, arousable to touch, unable to follow commands or verbalize needs. Respirations even and unlabored on trach to vent. Pt in no signs of pain or distress. Noted multiple skin issues present. PICC in PARKER intact, patent. GT feeding in place with TF. Dumont in place draining yellow urine. SCDs in place. All extremities elevated with pillows, heels off load with pillows. Bed locked in lowest position. Call light in reach. Will continue to monitor.
--- NOTE | 2018-08-13 07:36 | NUR ---
Noted soiled paper tape and gauze taped to chin and mouth, and carefully removed from skin. Photographs taken of lip and chin and placed in chart. Addendum: 08/13/18 at 1155 by Rani Oh RN Noted open wound on bottom lip
[2018-08-13] MEDS: DOCUSATE SODIUM 100 MG/10 ML UDC GT SCH (08:46)
[2018-08-13] MEDS: AMIODARONE HCL 200 MG TABLET GT SCH (08:47)
[2018-08-13] MEDS: LevETIRAcetam 500 MG/5 ML UDC ORAL LIQUID GT SCH (08:48)
[2018-08-13] MEDS: CHLORHEXIDINE GLUCONATE 15 ML/DOSE, 480 ML MM SCH (08:50)
[2018-08-13] MEDS: MENTHOL/ZINC OXIDE 113 GM OINT. TP SCH ×3 (08:52→17:51)
[2018-08-13] MEDS: NYSTATIN 15 GM TOPICAL POWDER TP SCH (08:52)
[2018-08-13] MEDS: BALSAM PERU/CASTOR OIL 60 GM OINT...G. TP SCH (08:53)
[2018-08-13] MEDS: COLISTIMETHATE SODIUM 75 MG in NS 50 ML IV SCH (09:51)
[2018-08-13 10:20] LABS: ATYPICAL LYMPHOCYTES % 4 % (0-0); BAND % (MANUAL) 4 % (0-6); BASOPHILS % (MANUAL) 0 % (0-2); EOSINOPHILS % (MANUAL) 7 % (0-7); LYMPHOCYTES % (MANUAL) 14 % (20-46); MONOCYTES % (MANUAL) 17 % (0-11)
--- NOTE | 2018-08-13 11:11 | NUR ---
Telephone order: Received telephone order from Dr. Hewitt about the Hemodialysis.
--- NOTE | 2018-08-13 11:45 | NUR ---
RT NOTES DECREASED FIO2 TO 30% PER DUCT LAYER SUPERVISOR TITRATION ORDER. KEEPING SPO2 ABOVE 92%. CURRENT SPO2 IS 97%. NO S/S RESPIRATORY DISTRESS NOTED. RN EDITH MADE AWARE. WILL CONTINUE MONITORING.
--- NOTE | 2018-08-13 13:15 | NUR ---
Administered CHG bath and wound care dressing changes. Pt tolerated well.
--- NOTE | 2018-08-13 13:46 | NUR ---
Discharge Planning: [facility] spoke with Tavares Bello Services Coordinator ([phone]); Tavares states that [facility]. Tavares will keep hospital updated on DC planning. [facility] and [facility] are the only 2 sub acute units in the area that have dialysis on site.
--- NOTE | 2018-08-13 15:45 | NUR ---
Transfer to Tele Pt transfer via bed to 102A with continuous monitoring and O2 accompanied by 2 RNs and RT. All belongings sent with pt. Pt tolerated well. Endorsed plan of care to Isela OSBORNE via SBAR and bedside round.
--- NOTE | 2018-08-13 15:53 | NUR ---
OPENING NOTE PATIENT RECEIVED FROM ICU, PATIENT IS RESTING IN BED WITH EYES OPEN, PATIENT IS IN STABLE CONDITION AT THIS TIME, RIGHT PICC LINE IS PATENT, ASSESSMENT COMPLETED, FAMILY IS AT BEDSIDE, WILL CONTINUE TO MONITOR, SEIZURE PRECAUTIONS IN PLACE, CONTACT PRECAUTIONS IN PLACE, SAFETY PRECAUTIONS IN PLACE, CALL LIGHT WITHIN REACH.
--- NOTE | 2018-08-13 16:25 | NUR ---
Nutrition F/U Admitting Diagnosis Tracheostomy bleed, UTI Reviewed Pertinent Medical/Surgical Hx Medical Record Patient Primary RN Medical History Comment: PMH: CVA, respiratory failure, trach, PEG per MD notes Pt also found w/ sepsis, vent-associated pneumonia, complicated UTI, acute on chronic respiratory, CHF, anasarca per MD notes 08/10/18 Cardiology notes: septic shock2/2 extensive bilateral pneumonia; bleeding from her tracheostomy appears to have stopped; the respiratory failure on chronic ventilatory therapy; bilateral pneumonia ventilatory associated, appears to have gotten worse over last 72 hours; major cerebrovascular accident L hemiplegia now appears to have weakness of her right side as well; New stroke is likely as well; bedbound status; tracheostomy and GT placement; recurrent pneumonia possibly ventilator related; anasarca multifactorial with severe protein malnutrition albumin of 1.1; multi-organ failure with acute kidney injury 2/2 shock; worsening kidney functions dysfunction of sepsis possibly drug-induced and low perfusion. Subjective Information Pt seen in ICU this afternoon while resting in bed, +intubated, +obtunded +non-verbal, and TF infusing as per MD orders. RNs at bedside providing care. RN reported that pt has been tolerating TF well, no residuals. Plans for dialysis today. Per EMR, TF Intakes: 360 ml 08/13/18. Residuals: 0 ml 08/13/18. Abd is soft w/active bowel sounds. I/O: 650/150 (+500) per 12 hours. Pt is meeting optimal nutritional needs. Current Diet Order/Nutrition Support Pivot 1.5 at 45 ml/hr, Free Water Flush: 200 Q4h via GT x9 days Patient/Significant Other Unable To Verbalize Education Provided Not Indicated Pertinent Medications colace Pertinent Labs H/H 8.2 L/25.6 L, BUN 80 H, BG 96 WNL (improved), Ca 7.7 L, ALB 1.1 L Height (Feet) 5 feet Height (Inches) 0.00 inches Weight (Pounds) 180 pounds (07/28/18) -- RD attempted to weigh pt on bedscale, likely inaccurate -- 213 lb (08/10/18) Weight (Calculated Kilograms) 81.093897 kilograms Patient Weight 81.647 kg Body Mass Index 35.15 kg/m2 %IBW 182 [place]/Adjusted Body Weight IBW: 100 lb, 45 kg. Adj IBW (obesity): 120 lb, 55 kg Recent Weight Change unable to verify Weight Status Obese Gastrointestinal Symptoms None Last BM 08/10/18 Food Allergies unable to verify Usual Diet At Home TF at [facility] Skin Integrity Comment: Ceasar scale: 11; per Returning Officer note 08/12/18: 1. Left sacral area: Reopened scar tissue from a wound of unknown etiology, present on admission. 2. Right sacral area: Reopened scar tissue from a wound of unknown etiology, present on admission. 3. Right lateral hip: Area of pink scar tissue, present on admission. 4. Right medial thigh fold: Moisture associated wound, present on admission. 5. Left posterior medial calf: Center area of red discoloration/ecchymosis, present on admission. 6. Right dorsal hand: Full thickness skin tear, present on admission. 7. 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 8. Right buttock near issue tuberosity: Linear, dry, excoriated areas, present on admission. Per RN notes, 2+ pitting edema of BLE. NEW Estimated Energy Expenditure (kcals/day) 8630-2817 kcal/day (30-35 kcal/kg CBW for wound healing) NEW Estimated Protein Required (g/day) 83-110 gm/day (1.5-2 gm/kg Adj IBW for sepsis, wound healing, ESRD/HD) Estimated Fluid Required (l/day) Per MD (CHF, ESRD) Problem/Etiology/Signs/Symptoms Inadequate enteral nutrition related to metabolic demands as evidenced by increased nutritional needs for sepsis and wound healing, and current TF meets less than 50% of estimated nutritional needs. *improved Expected Outcomes/Goals - Monitor tolerance to EN support w/ goal of pt meeting at least 85% of estimated nutritional needs, labs trending WNL, normal GI function, and skin integrity/wt maintenance Dietitian Recommendations * Recommend Pivot 1.5 at 45 ml/hr, Free Water Flush: 200 Q4hr via GT Provides: 1620 kcal/day, 101 gm protein/day, and 2020 ml free water/day Meets: 98% of estimated caloric needs and 92% of upper end of estimated protein needs Follow Up High Risk: F/U in 2-3 days
--- NOTE | 2018-08-13 16:29 | NUR ---
Dietitian Recommendations * Recommend Pivot 1.5 at 45 ml/hr, Free Water Flush: 200 Q4hr via GT Provides: 1620 kcal/day, 101 gm protein/day, and 2020 ml free water/day Meets: 98% of estimated caloric needs and 92% of upper end of estimated protein needs LP, RD Please refer to Nutrition F/U for details.
--- NOTE | 2018-08-13 17:30 | NUR ---
NOTES PATIENT RESTING IN BED, AROUSABLE TO LIGHT STIMULI, PATIENT TOLERATING TUBE FEEDING WELL, FAMILY IS AT BEDSIDE, NO ACUTE DISTRESS OR PAIN NOTED, WILL CONTINUE TO MONITOR, SAFETY PRECAUTIONS IN PLACE, CALL LIGHT WITHIN REACH.
--- NOTE | 2018-08-13 18:58 | NUR ---
CLOSING NOTE PATIENT RESTING IN BED WITH EYES OPEN, NO SIGNS OF ACUTE DISTRESS OR PAIN AT THIS TIME, PATIENT TOLERATING TUBE FEEDING WELL, FAMILY IS AT BEDSIDE, WILL ENDORSE REPORT TO ONCOMING NURSE, ALL NEEDS WERE MET THROUGHOUT SHIFT, SAFETY PRECAUTIONS IN PLACE, CALL LIGHT WITHIN REACH.
--- NOTE | 2018-08-13 19:15 | NUR ---
change of shift.pt.is a transfer from the unit:icu:bed#3.pt.presents blunted affect.pt.presents trach:/ventilator; tv;400,fio-2:30%,a/c;16,peep:5.pt.presents;picc linex2 lumens:rt.bicept;locked:dsg:due to be changed;08/16/18. iv locked.pt.presents g-tube;feed;pivot;45ml/hr.pt.presents.perma-cath;lt.svc.pt.presents hemo-dialysis schedule; mwf.i have been apprised :the pt.is scheduled for hemo-dialysis this pm.pt.presents nagel catheter.pt.presents 4/x4 dsg;lower lip;pt.presents propensity to bite lower lip:provoking active bleed.pt.presents generalized edema; 2-3+pitting status.pt.presents wounds;wound care attended to w/in the day shift;icu nsg.family present:son and grand/dtr;primary language son;turkish.grand/dtr;nepali;fluent.pt.presents isolation status;sputum,urine,stool.
--- NOTE | 2018-08-13 20:00 | NUR ---
pt.assessed.v/s assessed:values w/in normal limits;family presents;i inquired the location for the placement of the b/p cuff;grand/dtr apprised me that the nsg has utilized the lt.forearm.pt.presents:rt.bicept picc line:extremities presents edema;profound 2-3+ pitting.i assessed the vent setting:pt.tolerating the vent settings.i have assessed the picc line;intact;iv locked.i have assessed the g-tube:patent;g-tube feed infusing.i have assessed the nagel catheter:patent;urine content presents:pt.hemo-dialysis pt.produces urine.pt.presents wounds;skin;wound care attended to in theicu0-unit;per the day-shift nsg.i have attended to the oral/trach care. i have attended to the oral/trach suction.grand/dtr requesting up-date;i have provided pt's info per nsg policy/scope.i have provide the pt's up-date to the pt's son;rwandan.i have administered the h2-o water flush;200ml;g-tube.i have placed the nsg alert signs;picc line/b/p;lt. forearm placement @the hob.pt.assessed for cleanliness.call light/telephone placed w/in the pt's reach.
--- NOTE | 2018-08-13 21:00 | NUR ---
hemo-dialysis therapy has been initiated.family has left the hospital.pt.presents perma-cath; lt.svc;h/d access. Addendum: 08/14/18 at 0456 by Inderjit Onofre RN all 2100p medication to held for hemo-dialysis:to be administered post hemo-dialysis therapy.
--- NOTE | 2018-08-13 22:00 | NUR ---
pt.assessed.i have assessed the vent settings;pt.tolerating the vent settings.i have attended to the oral/trach care. i have attended to the oral/trach suction.i have assessed the picc line;intact.i have assessed the g-tube;patent; g-tube feed infusing.i have assessed the nagel catheter:patent;urine content present.pt.assessed for cleanliness. pt.repositioned.pt.ordered to receive 1-unit;pbc's:w/hemo-dialysis:blood transfusion initiated @this hour. h/d nsg performed the 2nd nsg verification of the order;per nsg per protocol.call light/telephone placed w/in the pt's reach.
--- NOTE | 2018-08-14 | NUR ---
pt.assessed hemo-dialysis therapy completed:1.5 litres removed.i have weighed the pt.p/dialysis.pt.presents quiescent affect;eyes open;pt.non-verbal;i have posited q's;palestinian.pt.opened eyes.i have attended to the oral/trach care.i have care/i have attended to the oral/trach suction.i have assessed the g-tube;patent;g-tube feed infusing.i have assessed the picc line;intact.i have assessed the nagel catheter;patent;urine content present.i have administered the h2-o water flush; 1200ml;g-tube.pt.assessed for cleanliness.pt.repositioned.call light/telephone placed w/in the pt's reach.
[2018-08-14] MEDS: AMIODARONE HCL 200 MG TABLET GT SCH ×3 (00:44→20:32)
[2018-08-14] MEDS: LevETIRAcetam 500 MG/5 ML UDC ORAL LIQUID GT SCH ×3 (00:45→20:32)
--- NOTE | 2018-08-14 00:45 | NUR ---
i have administered the 2100p medications@this hour;post the completion of the hemo-dialysis therapy. i have administered the new g-tube feed bottle;i have changed the g-tube tubing.i have change the g-tube dsg:i have changed the g-tube;valve;lesly-valve.i have changed the syringe flush/[id number]; flush.
[2018-08-14] MEDS: ATORVASTATIN 10 MG TABLET GT SCH ×2 (00:46→20:31)
[2018-08-14] MEDS: COLISTIMETHATE SODIUM 75 MG in NS 50 ML IV SCH ×3 (00:47→20:31)
[2018-08-14] MEDS: CHLORHEXIDINE GLUCONATE 15 ML/DOSE, 480 ML MM SCH ×3 (00:48→20:33)
[2018-08-14] MEDS: MENTHOL/ZINC OXIDE 113 GM OINT. TP SCH ×5 (00:49→21:02)
[2018-08-14 00:50] VITALS: BP_SYST 110
[2018-08-14] MEDS: NYSTATIN 15 GM TOPICAL POWDER TP SCH ×3 (00:50→20:34)
[2018-08-14] MEDS: BALSAM PERU/CASTOR OIL 60 GM OINT...G. TP SCH ×3 (00:50→20:34)
--- NOTE | 2018-08-14 02:00 | NUR ---
pt.assessed.vent settings assessed;pt.tolerating the vent settings.i have attended to the oral/trach care.i have attended to the oral/trach suction.i have assessed the g-tube;patent;g-tube feed infusing.i have assessed the picc line;intact.i have assessed the nagel catheter;patent;urine content present.pt.assessed for cleanliness.pt.repositioned.call light/telephone placed w/in the pt's reach.
[2018-08-14] MEDS: IPRATROPIUM BROM 0.5 MG/2.5 ML VIAL.NEB (ATROVENT) INH SCH ×6 (03:00→23:25)
[2018-08-14] MEDS: ALBUTEROL SULFATE 0.083% 2.5 MG/3 ML VIAL.NEB INH SCH ×6 (03:00→23:24)
--- NOTE | 2018-08-14 04:00 | NUR ---
pt.assessed.vent settings assessed:pt.tolerating the settings.i have attended to the oral/trach care.i have attended to the oral/trach suction.i have assessed the picc line:intact.i have assessed the g-tube;patent;g-tube infusing.i have assessed the nagel catheter;patent;urine content present.pt.assessed for cleanliness.pt.repositioned.call light/telephone placed w/in the pt's reach. Addendum: 08/14/18 at 0439 by Inderjit Onofre RN i have administered the h2-o water flush;200ml g-tube.
--- NOTE | 2018-08-14 06:00 | NUR ---
pt.assessed.i have assessed the vent settings;pt.tolerating the settings.i have attended to the oral/trach care.i have attended to the oral/trach suction.i have assessed the g-tube;patent;g-tube feed infusing.i have assessed the picc line;intact.i have assessed the nagel catheter;patent;urine content presents.pt.assessed for cleanliness.pt.repositioned.call light/telephone placed w/in the pt's reach.
[2018-08-14 06:27] VITALS: BP_SYST 110
--- NOTE | 2018-08-14 07:58 | NUR ---
Initial notes: Patient eyes closed . Non verbal. Stable. [facility] F102 30%. TV 400 PEEP 5. On isolation precaution. PICC line in placed. Gtube running Pivot 1.5 @ 45cc/hr. Dumont cath draining by gravity with yellow urine. Safety and seizure measures in placed. Call light within reach. Report received from shift supervisor.
--- NOTE | 2018-08-14 10:00 | NUR ---
rounds: patient repositioned. oral care provided. family at bedside.
[2018-08-14] MEDS: DOCUSATE SODIUM 100 MG/10 ML UDC GT SCH (10:12)
[2018-08-14 11:49] VITALS: BP_SYST 71; BP_SYST 94
--- NOTE | 2018-08-14 12:28 | NUR ---
BP: 94/[address] Garcia informed with new order.
[2018-08-14] MEDS ORDERED: NS 250 ML IV ONE (12:30)
--- NOTE | 2018-08-14 13:39 | NUR ---
rounds: patient on bed sleeping. family at bedside.
--- NOTE | 2018-08-14 14:33 | NUR ---
Case mgt: Faxing progress notes to Nick, [place] hospice case manager to fax#[phone] per Jet's request. RADHA OSBORNE
--- NOTE | 2018-08-14 15:00 | NUR ---
rounds: cleaned and changed the patient. oral care provided. suction oral/trach provided. repositioned patient.
[2018-08-14 16:09] VITALS: BP_SYST 122
--- NOTE | 2018-08-14 18:00 | NUR ---
rounds: patient sleeping. no distress noted. granddaughter at bedside.
--- NOTE | 2018-08-14 19:20 | NUR ---
Closing notes: Patient on bed sleeping. Stable. Same vent setting. Gtube in placed. Dumont cath draining well. SCD on BLE. Needs attending. Safety and seizure precaution in placed. Report given to Annalise Pickard.
[2018-08-14 19:33] VITALS: BP_SYST 119
--- NOTE | 2018-08-14 19:40 | NUR ---
OPENING NOTE RECEIVED PT AND REPORT FROM DAY SHIFT. PT IS NON VERBAL AND UNABLE TO MAKE NEEDS KNOWN. PT IS ON MECHANICAL VENT AND TOLERATING WELL AT 99 PERCENT O2 SATURATION. TUBE FEEDING IS RUNNING AND PT TOLERATING WELL WITH 5 ML OF RESIDUALS. FLEMING CATHETER IS IN PLACE AND DRAINING TINGED URINE VIA GRAVITY. FALL AND SAFETY PRECAUTIONS IN PLACE. BED LOCKED IN LOWEST POSITION. BED ALARM ON. CALL LIGHT WITH PT. WILL CONTINUE TO MONITOR.
[2018-08-14 20:00] VITALS: BP_SYST 119
--- NOTE | 2018-08-14 21:02 | NUR ---
MEDICATION ADMINISTRATION ADMINISTERED MEDICATION PER ORDERS. FAMILY AT BEDSIDE. CALL LIGHT WITH PT. WILL CONTINUE TO MONITOR.
--- NOTE | 2018-08-14 21:30 | NUR ---
INCONTINENCE CARE COMPLETED INCONTINENCE CARE WITH SALES AND BUSINESS DEVELOPMENT MANAGER. PT TOLERATED WELL. WILL CONTINUE TO MONITOR.
--- NOTE | 2018-08-14 23:45 | NUR ---
ROUNDING NOTE PT IS RESTING IN BED. NO S/S OF DISTRESS OR DISCOMFORT. TUBE FEEDING RUNNING PER ORDERS. FALL AND SAFETY PRECAUTIONS IN PLACE. WILL CONTINUE TO MONITOR.
[2018-08-15 00:21] VITALS: BP_SYST 117
--- NOTE | 2018-08-15 02:15 | NUR ---
ROUNDING NOTE PT SLEEPING IN BED. NO S/S OF DISTRESS OR DISCOMFORT. MECHANICAL VENT IN PLACE. PT TOLERATING WELL. WILL CONTINUE TO MONITOR. CALL LIGHT WITH PT.
--- NOTE | 2018-08-15 03:01 | NUR ---
TUBE FEEDING ADMINISTERED TUBE FEEDING PER ORDERS. PT SLEEPING AT THIS TIME. NO S/S OF DISTRESS OR DISCOMFORT. WILL CONTINUE TO MONITOR.
[2018-08-15] MEDS: IPRATROPIUM BROM 0.5 MG/2.5 ML VIAL.NEB (ATROVENT) INH SCH ×6 (03:40→23:25)
[2018-08-15] MEDS: ALBUTEROL SULFATE 0.083% 2.5 MG/3 ML VIAL.NEB INH SCH ×6 (03:40→23:25)
--- NOTE | 2018-08-15 04:23 | NUR ---
ORAL CARE PERFORMED ORAL CARE. PT RESTING IN BED. NO S/S OF DISTRESS OR DISCOMFORT. WILL CONTINUE TO MONITOR.
--- NOTE | 2018-08-15 05:45 | NUR ---
WOUND CARE. INCONTINENCE CARE COMPLETED INCONTINENCE CARE. DIARRHEA NOTED. COMPLETED WOUND CARE. SACRAL DRESSING CHANGED DUE TO SOILAGE. CLEANSED AREA WITH SOAP AND WATER. APPLIED HYDROGEL TO WOUND BED. APPLIED MOISTURE BARRIER CREAM TO PERIWOUND. APPLIED FOAM DRESSING. PT TOLERATED WELL. WILL CONTINUE TO MONITOR.
--- NOTE | 2018-08-15 06:55 | NUR ---
CLOSING NOTE WILL ENDORSE CARE AND REPORT TO DAY SHIFT NURSE. PT IS SLEEPING IN BED. NO S/S OF DISTRESS OR DISCOMFORT. PT IN STABLE CONDITION. ALL NEEDS MET THROUGHOUT SHIFT. MECHANICAL VENT IN PLACE. FALL AND SAFETY PRECAUTIONS IN PLACE. ISOLATION MAINTAINED. WILL CONTINUE TO MONITOR. CALL LIGHT WITH PT.
[2018-08-15 08:00] VITALS: BP_SYST 128
--- NOTE | 2018-08-15 08:00 | NUR ---
RN OPENING NOTE PATIENT RESTING ON BED, OPEN EYES, ALERT ORIENTED X1, FLACC SCALE SHOWS THE PATIENT IN NO PAIN, VITAL SIGNS WERE STABLE. AND PATIENT WAS ASSESSED, BED AT LOW POSITION AND CALL LIGHT WITHIN REACH , TUBE FEEDING IS RUNNING PRESCRIBED, PATIENT WAS GIVEN 200 ML OF FREE WATER, THERE WAS NO RESIDUE IN THE G TUBE. PATIENT WAS REPOSITIONED , WILL CONTINUE TO MONITOR AND WILL GIVE THE MEDICATION AT 0900.
[2018-08-15 08:59] LABS: BASOPHILS % (AUTO) 0.6 % (0.0-2.0); EOSINOPHILS # (AUTO) 0.5 K/uL (0.0-0.4); EOSINOPHILS % (AUTO) 6.1 % (0.0-4.0); HEMATOCRIT 27.3 % (36-48); HEMOGLOBIN 8.9 g/dL (12.0-16.0); LYMPHOCYTES # (AUTO) 1.8 K/uL (1.0-5.5); LYMPHOCYTES % (AUTO) 21.1 % (20.5-51.5); MEAN CORPUSCULAR HEMOGLOBIN 31 pg (27-31); MEAN CORPUSCULAR HGB CONC 33 % (32-36); MEAN CORPUSCULAR VOLUME 95 fL (79.0-98.0); MONOCYTES # (AUTO) 1.4 K/uL (0.0-1.0); MONOCYTES % (AUTO) 17.3 % (1.7-9.3); NEUTROPHILS # (AUTO) 4.6 K/uL (1.8-7.7); NEUTROPHILS % (AUTO) 54.9 % (40.0-70.0); PLATELET COUNT (AUTO) 181 K/uL (130-430); RED BLOOD CELL COUNT(AUTO) 2.88 MIL/uL (4.2-6.2); WHITE BLOOD COUNT (AUTO) 8.3 K/uL (4.8-10.8)
[2018-08-15] MEDS: DOCUSATE SODIUM 100 MG/10 ML UDC GT SCH (09:00)
[2018-08-15] MEDS: LevETIRAcetam 500 MG/5 ML UDC ORAL LIQUID GT SCH ×2 (09:01→20:45)
[2018-08-15] MEDS: AMIODARONE HCL 200 MG TABLET GT SCH ×2 (09:01→20:45)
[2018-08-15 09:02] LABS: ALANINE AMINOTRANSFERASE 35 U/L (12-78); ALBUMIN 1.1 g/dL (3.4-4.8); ANION GAP 7 (5-15); ASPARTATE AMINOTRANSFERASE 99 U/L (10-37); CALCIUM 8.2 mg/dL (8.4-11.0); CHLORIDE 102 mmol/L (98-107); GLUCOSE 110 mg/dL (70-99); POTASSIUM 4.5 mmol/L (3.5-5.1); SODIUM SERUM 136 mmol/L (136-145); TOTAL BILIRUBIN 1.4 mg/dL (0.0-1.0); UREA NITROGEN, BLOOD 71 mg/dL (8-21)
[2018-08-15] MEDS: BALSAM PERU/CASTOR OIL 60 GM OINT...G. TP SCH ×2 (09:03→20:48)
[2018-08-15] MEDS: CHLORHEXIDINE GLUCONATE 15 ML/DOSE, 480 ML MM SCH ×2 (09:03→20:46)
[2018-08-15] MEDS: NYSTATIN 15 GM TOPICAL POWDER TP SCH ×2 (09:04→20:48)
[2018-08-15] MEDS: MENTHOL/ZINC OXIDE 113 GM OINT. TP SCH ×4 (09:05→20:47)
--- NOTE | 2018-08-15 10:00 | NUR ---
RN NOTE PATIENT RESTING ON BED, PATIENT WAS GIVEN HER MEDICATIONS. PATIENT WAS REPOSITIONED IN BED. FLACC SCALE SHOWS PATIENT IN NO PAIN, PATIENT ORAL CARE WAS DONE, AND NYSTATIN POWDER ON THE PERINIUM AND REDDENED AREAS. PATIENT HAS NO BM YET, WILL CONTINUE TO MONITOR.
[2018-08-15] MEDS: COLISTIMETHATE SODIUM 75 MG in NS 50 ML IV SCH ×2 (11:06→20:46)
--- NOTE | 2018-08-15 11:45 | NUR ---
DC Planning: Updated nuno Johnson at [facility] ipa # [phone], the pt's Fio2 30% today and will need sub acute bed. The pt. is stable for transfer today. Alex will look for the sub acute bed per [facility] contracted facility and call back once has the accepting facility. INDIA Penaloza made aware and he will inform the family who is at the bedside at time.
--- NOTE | 2018-08-15 12:00 | NUR ---
RN NOTE PATIENT WAS REPOSITIONED IN BED, PATIENT FLACC SCALE SHOWS SHE IS NOT IN PAIN, WILL CONTINUE TO MONITOR.
[2018-08-15 12:17] VITALS: BP_SYST 123
--- NOTE | 2018-08-15 14:00 | NUR ---
RN NOTE PATIENT WAS REPOSITIONED, RESIDUAL OF THE G TUBE FEEDING AT ZERO. FEEDING AT 45 ML /HR. PATIENT APPEARED TO BE IN NOT PAIN , FAMILY MEMBERS BY THE BED SIDE, PATIENT BED WAS CHANGED AND THE CHUCKS UNDER THE PATIENT WERE CHANGED WITH A NEW DRY CLEAN ONE, WILL CONTINUE TO MONITOR.
--- NOTE | 2018-08-15 15:20 | NUR ---
DC Planning: [facility] EVAL: Received new order today for [facility] eval. >> s/w grand dtr and pt. spouse re: transfer to [facility], both agreed and requested [facility]. >> s/w nuno Hoffman at [facility], her medical management specialist agreed with [facility] eval, but pending authorization. >> Faxed referral inquiry to Cindy at [facility] fax# [phone], tel# .
--- NOTE | 2018-08-15 16:00 | NUR ---
RN NOTE PATIENT WAS REPOSITIONED, WOUND DRESSING ON THE RIGHT ARM WERE CHANGED AND PICTURES WERE TAKEN, WILL FILE IN THE CHART. PATIENT'S GRAND DAUGHTER BY THE BEDSIDE, PATIENT ORAL CARE WAS DONE AND PATIENT G TUBE RESIDUE AT ZERO. PATIENT WAS GIVEN HER 200 ML OF FREE WATER. WILL CONTINUE TO MONITOR.
[2018-08-15 16:02] VITALS: BP_SYST 117
--- NOTE | 2018-08-15 18:00 | NUR ---
RN CLOSING NOTE PATIENT RESTING ON BED, FAMILY MEMBERS BY THE BED SIDE, PATIENT'S HAS A BM, PATIENT BED WAS CHANGED, A NEW GOWN WAS DONNED ON THE PATIENT. PATIENT SACRAL WOUND DRESSING STILL CLEAN, SO WAS LEFT WITHOUT CHANGING , SINCE IT WAS CHANGED LESS THAN 12 HOURS AGO. PATIENT'S WAS REPOSITIONED, AND HEELS OF BED. ARMS ON PILLOWS. AND ORAL CARE WAS DONE FOR THE PATIENT, WILL CONTINUE TO MONITOR AND WILL ENDORSE TO NEXT SHIFT.
[2018-08-15 19:20] VITALS: BP_SYST 108
--- NOTE | 2018-08-15 19:20 | NUR ---
Opening notes Received patient in bed with family at the bedside. AAOx1 and unable to verbalize needs. Patient is vent dependent with setting; TV400, fio2 30%, AC16, peep +5. Trach sit is clean and dry with no bleeding. Edema noted on all extremities and weeping on upper arms. PARKER picc line, double lumen flushed with blood return. Dumont catheter in place draining by gravity yellow urine. Safety and seizure precautions in place. Will cont to monitor on rounds.
[2018-08-15 20:00] VITALS: BP_SYST 108
[2018-08-15] MEDS: ATORVASTATIN 10 MG TABLET GT SCH (20:45)
--- NOTE | 2018-08-15 22:04 | NUR ---
Patient in bed resting with family at bedside. Tolerated 2100 medications. zero residual from Gtube. Tolerating vent with no distress. No appearance of pain. Will cont to monitor.
--- NOTE | 2018-08-16 00:15 | NUR ---
Patient resting comfortably with no respiratory distress. No pain noted.
[2018-08-16 00:28] VITALS: BP_SYST 109
[2018-08-16] MEDS: ALBUTEROL SULFATE 0.083% 2.5 MG/3 ML VIAL.NEB INH SCH ×5 (02:55→19:37)
[2018-08-16] MEDS: IPRATROPIUM BROM 0.5 MG/2.5 ML VIAL.NEB (ATROVENT) INH SCH ×5 (02:55→19:37)
--- NOTE | 2018-08-16 03:02 | NUR ---
Patient o2 sat at 88%. RT respiratory treatment and stable at >93%. No pain or respiratory distress.
--- NOTE | 2018-08-16 04:39 | NUR ---
Patient in bed resting. Feeding changed and dressing on sacrum replaced. No pain noted or respiratory distress. Safety precautions in place.
--- NOTE | 2018-08-16 06:40 | NUR ---
Closing notes Patient in bed resting comfortably. Linen cleaned and changed. Patient repositioned. GTube feeding changed. zero residual. Oral care provided. No sign of respiratory distress or pain. Safety precautions in place. All needs have been me and will endorse care to oncoming shift.
[2018-08-16 07:23] LABS: BASOPHILS % (AUTO) 0.5 % (0.0-2.0); EOSINOPHILS # (AUTO) 0.5 K/uL (0.0-0.4); EOSINOPHILS % (AUTO) 6.9 % (0.0-4.0); HEMATOCRIT 28.3 % (36-48); HEMOGLOBIN 9.2 g/dL (12.0-16.0); LYMPHOCYTES # (AUTO) 1.6 K/uL (1.0-5.5); MEAN CORPUSCULAR HEMOGLOBIN 31 pg (27-31); MEAN CORPUSCULAR HGB CONC 33 % (32-36); MEAN CORPUSCULAR VOLUME 94 fL (79.0-98.0); MONOCYTES # (AUTO) 1.1 K/uL (0.0-1.0); MONOCYTES % (AUTO) 15.2 % (1.7-9.3); NEUTROPHILS # (AUTO) 4.3 K/uL (1.8-7.7); NEUTROPHILS % (AUTO) 56.4 % (40.0-70.0); PLATELET COUNT (AUTO) 188 K/uL (130-430); RED CELL DISTRIBUTION WIDTH 18.6 % (9.0-15.0); WHITE BLOOD COUNT (AUTO) 7.5 K/uL (4.8-10.8)
[2018-08-16 08:00] VITALS: BP_SYST 96
--- NOTE | 2018-08-16 08:00 | NUR ---
AM NOTES RECEIVED CARE OF PT. PT RESTING IN BED, BREATHING UNLABORED ON TRACH CONNECTED TO VENTILATOR. TOLERATED CURRENT SETTINGS WELL. PT INCONTINENT OF BM, CHANGED AND REPOSITIONED PT FOR COMFORT. ON GT FEEDING WITH 0 RESIDUAL. TOLERATING WELL. SAFETY AND ASPIRATION PRECAUTIONS OBSERVED. MAINTAIN ON CONTACT ISOLATION. R UPPER ARM PICC LINE, WILL CHANGE DRESSING TODAY. R PERMACATH DRESSING DRY AND INTACT. WILL CONTINUE TO MONITOR.
[2018-08-16] MEDS: AMIODARONE HCL 200 MG TABLET GT SCH ×2 (09:00→20:45)
[2018-08-16] MEDS: COLISTIMETHATE SODIUM 75 MG in NS 50 ML IV SCH (09:29)
[2018-08-16] MEDS: DOCUSATE SODIUM 100 MG/10 ML UDC GT SCH (09:29)
[2018-08-16] MEDS: CHLORHEXIDINE GLUCONATE 15 ML/DOSE, 480 ML MM SCH ×2 (09:30→20:46)
[2018-08-16] MEDS: LevETIRAcetam 500 MG/5 ML UDC ORAL LIQUID GT SCH ×2 (09:30→20:46)
--- NOTE | 2018-08-16 09:30 | NUR ---
MD ROUNDS SEEN BY DR. SHIELDS AT BEDSIDE AND MADE AWARE OF LOW BLOOD PRESSURE.
[2018-08-16] MEDS: MENTHOL/ZINC OXIDE 113 GM OINT. TP SCH ×4 (09:31→20:46)
[2018-08-16] MEDS: BALSAM PERU/CASTOR OIL 60 GM OINT...G. TP SCH ×2 (09:32→20:47)
[2018-08-16] MEDS: NYSTATIN 15 GM TOPICAL POWDER TP SCH ×2 (09:32→20:47)
--- NOTE | 2018-08-16 10:07 | NUR ---
[facility] at bedside to start dialysis.
--- NOTE | 2018-08-16 11:00 | NUR ---
NOTES/DRESSING CHANGE PICC LINE DRESSING CHANGED. ASEPTIC TECHNIQUE USED. PT TOLERATED PROCEDURE WELL.
[2018-08-16] MEDS ORDERED: HEPARIN SODIUM,PORCINE 5000 UNITS/ML VIAL IVP ONE ×2 (11:30)
--- NOTE | 2018-08-16 12:00 | NUR ---
notes mouth care and tracheal sunctioning done.
[2018-08-16 12:30] VITALS: BP_SYST 135
--- NOTE | 2018-08-16 13:20 | NUR ---
[facility] done with 2liters out.
--- NOTE | 2018-08-16 13:30 | NUR ---
RN NOTES PT INCONTINENT OF FECES, CLEANED THE PATIENT AND CHANGED THE LINEN. PT REPOSITIONED FOR COMFORT. ORAL CARE PERFORMED. PT SHOWING NO SIGNS OR SYMPTOMS OF DISTRESS AT THIS TIME. SAFETY AND ASPIRATION PRECAUTIONS OBSERVED. BED IN LOWEST POSITION, CALL LIGHT IN REACH, SIDE RAILS UP. PT BREATHING IS UNLABORED WITH TRACHEOSTOMY ON VENTILATOR SUPPORT. WILL CONTINUE TO MONITOR.
--- NOTE | 2018-08-16 14:02 | NUR ---
DC planning: Per [facility] : the pt is accepted but pending insurance approval from [facility]. EBONY call [facility] , s/w ebony Ardon cell # [phone] requesting auth for [facility] transfer. Noris made aware and to contact [facility] for the approval.
--- NOTE | 2018-08-16 15:07 | NUR ---
Discharge Planning: DCP spoke to Noris from [facility] (f [phone] p [phone]); Noris stated she spoke to [place], she will be meeting with Director [employer] who will determine the outcome of the authorization.
--- NOTE | 2018-08-16 16:02 | NUR ---
WOUND RE-EVALUATION: Patient received in a [facility] Bed with a Remy XPRT mattress, awake, nonverbal, nonresponsive to verbal commands. Patient is unable to turn in bed independently. Ceasar Score is a 9. Intrinsic factors that delay wound healing: CVA. Extrinsic factors that delay wound healing: Immobility. Bilateral upper extremities have multiple areas of ecchymosis. Wound Assessment: Wound care performed by nightshift nurse this morning. Dressing not removed for assessment secondary to doing so would decrease wound temperature and retard wound healing rate. 1. Left sacral area: Reopened scar tissue from a wound of unknown etiology, present on admission. 2. Right sacral area: Reopened scar tissue from a wound of unknown etiology, present on admission. Recommend continue: Cleanse wounds with normal saline. Pat dry. Apply moisture barrier cream to wounds and periwounds. Apply hydrogel to any portions of wound beds not covered by moisture barrier cream. Cover wounds with nonadhesive foam dressings, and secure with transparent dressings. Perform site care daily, and as needed for dressing soiling or dislodgment. 3. Right lateral hip: Area of pink scar tissue, present on admission. No odor, no drainage. Recommend continue: Cleanse involved area with mild soap and water. Pat dry. Apply moisture barrier cream to involved area. Perform site care 4 times a day, and as needed for soiling. 4. Right medial thigh fold: Moisture associated wound, present on admission. Wound site has appeared to have resolved. Recommend continue: Cleanse wound with normal saline. Apply moisture barrier cream to site. Perform site care daily, and as needed for soiling. 5. Left posterior medial calf: [place] area of red discoloration/ecchymosis, present on admission. Recommend continue: No dressing needed. Continue to monitor site for worsening condition. Float involved areas with pillows and towel rolls at all times. 6. Right dorsal hand: Full thickness skin tear, present on admission. Wound has 100% pink tissue. No odor, no drainage. Skin tear has resolved per INDIA [place]. Recommend: Cleanse wound with normal saline. Apply moisture barrier cream to wound and periwound. Perform site care daily, and as needed for soiling. 7. 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 Recommend continue: Cleanse involved areas with mild soap and water. Pat dry. Apply Remedy antifungal ointment to involved areas, let air dry. Apply Calmoseptine cream to involved areas. Perform site care 4 times a day, and as needed for soiling. 8. Right buttock near ischial tuberosity: Linear, dry, excoriated areas, present on admission. Brown discolored area present inferior to wound. Recommend continue: Cleanse involved area with mild soap and water. Pat dry. Apply Remedy antifungal ointment to involved area, let air dry. Apply Calmoseptine cream to involved area. Perform site care 4 times a day, and as needed for soiling. Also recommend continue: Recommend reposition patient side to side only every 2 hours with pillow support. Offload, elevate and float bilateral heels with one pillow lengthwise under each extremity at all times. Perform skin care and monitor skin integrity Q shift. Use Calmoseptine cream on moisture susceptible areas QID and PRN for soiling. Maintain patient on a low air-loss mattress.
--- NOTE | 2018-08-16 16:11 | NUR ---
RN NOTES PT HAS REPOSITIONED AND SHOWS NO SIGNS OR SYMPTOMS OF PAIN OR DISTRESS. FAMILY IS AT BEDSIDE. SAFETY AND ASPIRATION PRECAUTIONS ARE BEING OBSERVED. SEIZURE AND CONTACT PRECAUTIONS IN PLACE. BED IN LOWEST POSITION, CALL LIGHT IN REACH, SIDE RAILS UP. WILL CONTINUE TO MONITOR.
[2018-08-16 16:48] VITALS: BP_SYST 137
--- NOTE | 2018-08-16 19:12 | NUR ---
CLOSING NOTE PT RESTING COMFORTABLY IN BED. NO CHANGE IN ASSESSMENT. NO SIGNS OF PAIN OR DISTRESS AT THIS TIME. SAFETY PRECAUTIONS IN PLACE, BED IN LOWEST POSITION, SIDE RAILS UP, CALL LIGHT IN REACH. SEIZURE PRECAUTIONS IN PLACE. ASPIRATION PRECAUTIONS OBSERVED. CONTACT ISOLATION MAINTAINED. DRESSINGS DRY AND INTACT. WILL ENDORSE CARE TO ONCOMING GROUP EXERCISE MANAGER RN.
--- NOTE | 2018-08-16 19:15 | NUR ---
Opening Note: Received report from day shift RN. Pt intubated, trach to vent. Vent settings AC 16, FIO2 30%, TV 400, PEEP 5, saturating at 96%. PARKER Picc on saline lock, flushable, dressing dry and intact. L subclavian michi cath for HD access noted. Pt on tubefeeding, Pivot 1.5 via Gtube, no residual noted. Pt on nagel, patent, urine draining to gravity. Family at bedside. POC discussed. Seizure and aspiration precautions in place. HOB elevated, call light within reach. Bed locked, in lowest position. No distress noted. Will continue to monitor.
[2018-08-16 20:02] VITALS: BP_SYST 131
--- NOTE | 2018-08-16 20:22 | NUR ---
RN Notes Patient resting in bed. Family remains at bedside. Pt repositioned for comfort. Oral and paul care done. No distress noted. Will continue to monitor.
[2018-08-16] MEDS: ATORVASTATIN 10 MG TABLET GT SCH (20:40)
--- NOTE | 2018-08-16 22:15 | NUR ---
RN Notes Pt resting quietly in bed. Maira and nagel care done. Pivot infusing via Gtube, no residual noted. Safety, seizure and aspiration precautions observed. Will continue to monitor.
[2018-08-17] VITALS (7 sets, daily range): BP systolic 94–150
--- NOTE | 2018-08-17 00:05 | NUR ---
RN Notes Pt VSS. Oral and paul care done. Pt repositioned in bed. No distress noted. Will continue to monitor.
--- NOTE | 2018-08-17 02:20 | NUR ---
RN Notes Pt VSS. No signs of pain or discomfort per FLACC. Dumont in place, draining to gravity. Pt suctioned. Maira care done. Will continue to monitor.
--- NOTE | 2018-08-17 03:20 | NUR ---
RN Notes Bath given. Pt had 1 x loose bowel movement, pt cleaned. Repositioned for comfort. Aspiration precautions in place. Will continue to monitor.
--- NOTE | 2018-08-17 04:18 | NUR ---
RN Notes Patient VSS, trach to vent, saturating @ 96%. Dumont in place, draining to gravity. Bed locked, in lowest position. Seizure and aspiration precautions in place. Will continue to monitor.
--- NOTE | 2018-08-17 05:30 | NUR ---
RN Notes Patient had 1 x loose bowel movement, pt cleaned, paul care and nagel care done. Pt tolerated care well.
--- NOTE | 2018-08-17 07:01 | NUR ---
Closing Notes Patient resting quietly in bed. Pt in stable condition. Report given to Tal OSBORNE
--- NOTE | 2018-08-17 07:22 | NUR ---
REPORT: Received from INDIA Irwin for continuation of care.
[2018-08-17] MEDS: ALBUTEROL SULFATE 0.083% 2.5 MG/3 ML VIAL.NEB INH SCH ×5 (07:46→23:00)
[2018-08-17] MEDS: IPRATROPIUM BROM 0.5 MG/2.5 ML VIAL.NEB (ATROVENT) INH SCH ×5 (07:46→23:00)
--- NOTE | 2018-08-17 07:50 | NUR ---
AM ROUNDS: No sign or symptoms of distress noted.
[2018-08-17 08:18] LABS: ANION GAP 9 (5-15); CALCIUM 8.3 mg/dL (8.4-11.0); CHLORIDE 102 mmol/L (98-107); CREATININE 2.11 mg/dL (0.55-1.30); GLUCOSE 92 mg/dL (70-99); SODIUM SERUM 138 mmol/L (136-145); UREA NITROGEN, BLOOD 61 mg/dL (8-21)
[2018-08-17 08:23] LABS: ALANINE AMINOTRANSFERASE 31 U/L (12-78); ASPARTATE AMINOTRANSFERASE 90 U/L (10-37); TOTAL BILIRUBIN 1.4 mg/dL (0.0-1.0)
[2018-08-17] MEDS: DOCUSATE SODIUM 100 MG/10 ML UDC GT SCH (08:49)
[2018-08-17] MEDS: LevETIRAcetam 500 MG/5 ML UDC ORAL LIQUID GT SCH ×2 (08:49→20:53)
[2018-08-17] MEDS: AMIODARONE HCL 200 MG TABLET GT SCH ×2 (08:49→20:58)
[2018-08-17] MEDS: CHLORHEXIDINE GLUCONATE 15 ML/DOSE, 480 ML MM SCH ×2 (08:50→20:57)
[2018-08-17] MEDS: MENTHOL/ZINC OXIDE 113 GM OINT. TP SCH ×4 (08:51→20:57)
[2018-08-17] MEDS: NYSTATIN 15 GM TOPICAL POWDER TP SCH ×2 (08:51→20:57)
[2018-08-17] MEDS: BALSAM PERU/CASTOR OIL 60 GM OINT...G. TP SCH ×2 (08:52→20:58)
--- NOTE | 2018-08-17 11:23 | NUR ---
REPORT: Given to INDIA Alarcon for continuation of care.
--- NOTE | 2018-08-17 11:50 | NUR ---
Continuation of Care: Received on ventilator via trach size 7 portex with settings TV 400, AC 16, Fio2 30%, Peep 5. Patient does not respond to verbal stimuli. Suctioned scant amount of white tracheal secretions. Dried blood/ scab noted on patient's lower lip. Left Chest michi cath with a pigtail. Insertion site has no redness, biopatch is noted. Right upper arm PICC line intact, patent both ports with blood return. GT stoma noted with redness and scant yellowish drainage. Cleansed with normal saline. Moisture barrier cream applied, covered with sterile drain sponge. Dumont catheter with kristi urine output with sediments noted on the tubing. Generalized edema noted. Bilateral upper extremities elevated on a pillow. Head of the bed is elevated. 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
--- NOTE | 2018-08-17 14:41 | NUR ---
TRANSFER OF CARE: Report given to INDAI Garcia.
--- NOTE | 2018-08-17 14:45 | NUR ---
resuming care resuming care of pt at this time, pt in no distress pt trach on vent noted cortex size 7, gtube pivot 1.5 running at 45 ml/hr noted . safety precautions in place.
--- NOTE | 2018-08-17 16:59 | NUR ---
PATIENT RESTING: pt in bed eyes closed. No acute distress noted, family at bedside. Vital signs within normal range.
--- NOTE | 2018-08-17 17:11 | NUR ---
Nutrition F/U Admitting Diagnosis Tracheostomy bleed, UTI Reviewed Pertinent Medical/Surgical Hx Medical Record Patient Medical History Comment: PMH: CVA, respiratory failure, trach, PEG per MD notes Pt also found w/ sepsis, vent-associated pneumonia, complicated UTI, acute on chronic respiratory, CHF, anasarca per MD notes 08/17/18 Attending MD notes: respiratory distress, oral bleeding, pneumonia, chronic atr fibr, gingivitis and carries, ESRD on HD Subjective Information Pt seen resting in bed, +intubated, +obtunded +non-verbal, w TF infusing as per MD orders. Per EMR, TF Intakes: 200 ml 08/17/18. Residuals: 0 ml 08/17/18. Abd is distended w/active bowel sounds. I/O: 200/150 (+200) per 12 hours. Pt seems to be tolerating TF well, and is meeting optimal nutritional needs. Current Diet Order/Nutrition Support Pivot 1.5 at 45 ml/hr, Free Water Flush: 200 Q4h via GT x13 days Patient/Significant Other Unable To Verbalize Education Provided Not Indicated Pertinent Medications colace Pertinent Labs H/H 9.2 L/28.3 L, BUN 61 H, CRE 2.11 L, Ca 8.3 L, ALB 1 L Height (Feet) 5 feet Height (Inches) 0.00 inches Weight (Pounds) 180 pounds (07/28/18) -- RD attempted to weigh pt on bedscale, likely inaccurate -- 213 lb (08/10/18); 209 lb (08/17/18) Weight (Calculated Kilograms) 81.961782 kilograms Patient Weight 81.647 kg Body Mass Index 35.15 kg/m2 %IBW 182 [place]/Adjusted Body Weight IBW: 100 lb, 45 kg. Adj IBW (obesity): 120 lb, 55 kg Recent Weight Change unable to verify Weight Status Obese Gastrointestinal Symptoms None Last BM 08/17/18 Food Allergies unable to verify Usual Diet At Home TF at [facility] Skin Integrity Comment: Ceasar scale: 8; per Fundraising Officer note 08/16/18: 1. Left sacral area: Reopened scar tissue from a wound of unknown etiology, present on admission. 2. Right sacral area: Reopened scar tissue from a wound of unknown etiology, present on admission. 3. Right lateral hip: Area of pink scar tissue, present on admission. 4. Right medial thigh fold: Moisture associated wound, present on admission. 5. Left posterior medial calf: [place] area of red discoloration/ecchymosis, present on admission. 6. Right dorsal hand: Full thickness skin tear, present on admission. 7. 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 8. Right buttock near issue tuberosity: Linear, dry, excoriated areas, present on admission. Per RN notes, 2+ pitting edema of BLE. Estimated Energy Expenditure (kcals/day) 2486-2586 kcal/day (30-35 kcal/kg CBW for wound healing) Estimated Protein Required (g/day) 83-110 gm/day (1.5-2 gm/kg Adj IBW for sepsis, wound healing, ESRD/HD) Estimated Fluid Required (l/day) Per MD (CHF, ESRD) Problem/Etiology/Signs/Symptoms Inadequate enteral nutrition related to metabolic demands as evidenced by increased nutritional needs for sepsis and wound healing, and current TF meets less than 50% of estimated nutritional needs. *improved Expected Outcomes/Goals - Monitor tolerance to EN support w/ goal of pt meeting at least 85% of estimated nutritional needs, labs trending WNL, normal GI function, and skin integrity/wt maintenance Dietitian Recommendations * Recommend Pivot 1.5 at 45 ml/hr, Free Water Flush: 200 Q4hr via GT Provides: 1620 kcal/day, 101 gm protein/day, and 2020 ml free water/day Meets: 98% of estimated caloric needs and 92% of upper end of estimated protein needs Follow Up High Risk: F/U in 2-3 days
--- NOTE | 2018-08-17 18:36 | NUR ---
closing note all needs met through shift, safety maintained, will endorse care to third shift lieutenant.
--- NOTE | 2018-08-17 19:12 | NUR ---
OPENING NOTE Received report from Radha. Patient resting in bed with eyes closed. Breathing unlabored and even. Trach to vent. No signs of distress, no needs at this time. Fall, safety, contact, aspiration, seizure precautions in place. Bed in lowest position, brake on, alarm on, call light within reach. Family at the bedside. Dumont catheter draining via gravity as ordered. PICC access saline locked. Pillow support in place. Heels floating. G-tube feeing infusing as ordered. Will continue to monitor.
[2018-08-17] MEDS: ATORVASTATIN 10 MG TABLET GT SCH (20:53)
--- NOTE | 2018-08-17 21:30 | NUR ---
Trach suctioning provided
--- NOTE | 2018-08-17 23:42 | NUR ---
Patient resting in bed with eyes closed. Breathing unlabored and even. Trach to vent. No signs of distress, no needs at this time. Fall, safety, contact, aspiration, seizure precautions in place. Bed in lowest position, brake on, alarm on, call light within reach. Dumont catheter draining via gravity as ordered. Pillow support in place. Heels floating. G-tube feeing infusing as ordered. Will continue to monitor.
[2018-08-18 00:25] VITALS: BP_SYST 114
--- NOTE | 2018-08-18 03:12 | NUR ---
Trach suctioning provided to patient, as well as oral cares
--- NOTE | 2018-08-18 04:28 | NUR ---
New g-tube feeding hung
[2018-08-18 06:41] LABS: BASOPHILS % (AUTO) 0.3 % (0.0-2.0); EOSINOPHILS # (AUTO) 0.6 K/uL (0.0-0.4); EOSINOPHILS % (AUTO) 6.7 % (0.0-4.0); HEMATOCRIT 25.9 % (36-48); HEMOGLOBIN 8.4 g/dL (12.0-16.0); LYMPHOCYTES # (AUTO) 1.6 K/uL (1.0-5.5); LYMPHOCYTES % (AUTO) 18.4 % (20.5-51.5); MEAN CORPUSCULAR HEMOGLOBIN 31 pg (27-31); MEAN CORPUSCULAR HGB CONC 33 % (32-36); MEAN CORPUSCULAR VOLUME 97 fL (79.0-98.0); MONOCYTES # (AUTO) 1.6 K/uL (0.0-1.0); MONOCYTES % (AUTO) 18.2 % (1.7-9.3); NEUTROPHILS # (AUTO) 4.8 K/uL (1.8-7.7); NEUTROPHILS % (AUTO) 56.4 % (40.0-70.0); PLATELET COUNT (AUTO) 162 K/uL (130-430); RED BLOOD CELL COUNT(AUTO) 2.68 MIL/uL (4.2-6.2); RED CELL DISTRIBUTION WIDTH 18.5 % (9.0-15.0); WHITE BLOOD COUNT (AUTO) 8.6 K/uL (4.8-10.8)
[2018-08-18] MEDS: IPRATROPIUM BROM 0.5 MG/2.5 ML VIAL.NEB (ATROVENT) INH SCH ×5 (07:32→23:51)
[2018-08-18] MEDS: ALBUTEROL SULFATE 0.083% 2.5 MG/3 ML VIAL.NEB INH SCH ×5 (07:32→23:51)
--- NOTE | 2018-08-18 07:35 | NUR ---
opening note pt laying in bed with eyes closed, no distress noted, trach to vent noted. gtube feeding infusing at this time. bed in lowest position.
--- NOTE | 2018-08-18 07:36 | NUR ---
CLOSING NOTE Gave report to Radha. Patient resting in bed with eyes closed. Breathing unlabored and even. Trach to vent. No signs of distress, no needs at this time. Fall, safety, contact, aspiration, seizure precautions in place. Bed in lowest position, brake on, alarm on, call light within reach. Dumont catheter draining via gravity as ordered. Pillow support in place. Heels floating. G-tube feeing infusing as ordered. Endorsed care to day shift nurse.
[2018-08-18 07:41] LABS: ANION GAP 7 (5-15); CALCIUM 8.1 mg/dL (8.4-11.0); CHLORIDE 101 mmol/L (98-107); CREATININE 2.51 mg/dL (0.55-1.30); GLUCOSE 123 mg/dL (70-99); POTASSIUM 4.1 mmol/L (3.5-5.1); SODIUM SERUM 134 mmol/L (136-145); UREA NITROGEN, BLOOD 72 mg/dL (8-21)
[2018-08-18 07:50] VITALS: BP_SYST 123
[2018-08-18 07:59] LABS: ALANINE AMINOTRANSFERASE 31 U/L (12-78); ALBUMIN 1.1 g/dL (3.4-4.8); ASPARTATE AMINOTRANSFERASE 87 U/L (10-37); TOTAL BILIRUBIN 1.2 mg/dL (0.0-1.0)
[2018-08-18] MEDS: MENTHOL/ZINC OXIDE 113 GM OINT. TP SCH ×4 (09:00→20:59)
[2018-08-18] MEDS: NYSTATIN 15 GM TOPICAL POWDER TP SCH ×2 (09:00→21:18)
[2018-08-18] MEDS: AMIODARONE HCL 200 MG TABLET GT SCH ×2 (09:00→20:56)
[2018-08-18] MEDS: BALSAM PERU/CASTOR OIL 60 GM OINT...G. TP SCH ×2 (09:21→20:58)
[2018-08-18] MEDS: DOCUSATE SODIUM 100 MG/10 ML UDC GT SCH (09:21)
[2018-08-18] MEDS: LevETIRAcetam 500 MG/5 ML UDC ORAL LIQUID GT SCH ×2 (09:21→21:18)
[2018-08-18] MEDS: CHLORHEXIDINE GLUCONATE 15 ML/DOSE, 480 ML MM SCH ×2 (09:22→20:57)
--- NOTE | 2018-08-18 09:30 | NUR ---
AM MEDS MORNING MEDS GIVEN. AMIODARONE HELD FOR DIALYSIS AND LOW BP
[2018-08-18] MEDS ORDERED: HEPARIN SODIUM,PORCINE 5000 UNITS/ML VIAL IVP ONE ×2 (10:30)
--- NOTE | 2018-08-18 10:49 | NUR ---
DC Planning: Per dr. Tolbert's verbal instruction to dc pt. to an subacute where can accommodate HD. The pt.'s does not need going to LTAC. DC planning order to subacute received and carried out. [facility] cancelled, Josette dcp made aware and to start the new search for the accepting sub acute. The pt is unable to return back to [facility] due to no inhouse HD service privileges.
--- NOTE | 2018-08-18 12:00 | NUR ---
PT LAYING IN BED WITH EYES OPEN. NO DISTRESS NOTED.
[2018-08-18 12:44] VITALS: BP_SYST 96
--- NOTE | 2018-08-18 15:36 | NUR ---
PT IN BED WITH EYES CLOSED FAMILY AND CORE CARRIER AT [facility]. SAFETY MAINTAINED.
[2018-08-18 17:07] VITALS: BP_SYST 113
--- NOTE | 2018-08-18 18:44 | NUR ---
CLOSING NOTE ALL NEEDS MET THROUGH SHIFT, SAFETY MAINTAINED. WILL ENDORSE CARE TO SPANISH LECTURER.
--- NOTE | 2018-08-18 19:45 | NUR ---
Initial Note Received patient nonverbal but able to open eyes when called by name. Family at the bedside. Bed bound. Trach to vent, settings checked. No SOB or congestion and no grimacing noted. PICC line on PARKER, dressing CDI. Generalized edema, elevatted BUE and BLE on pillows. GT feeding infusing. SCDs. Bilateral feet suuported by pillows to prevent foot drop and heels off bed. LALM. Care and monitoring will be provided per protocol. Call light within reach. Bed alarm on and at lowest position at all times. Kept warm and comfortable. A fib with BBB on monitor.
[2018-08-18 19:53] VITALS: BP_SYST 96
[2018-08-18] MEDS: ATORVASTATIN 10 MG TABLET GT SCH (20:55)
--- NOTE | 2018-08-18 21:00 | NUR ---
RN Note Due meds given via GT. Flushed free water. No residual noted. Patient is not congested at this time. Had diarrhea. Incontinence and skin care provided. Repositioned. Kept clean, dry and comfortable. Family came back and at the bedside.
--- NOTE | 2018-08-18 23:30 | NUR ---
RN Note Arousable. Repositioned. No SOB or grimacing noted. Repositioned. Kept warm and comfortable.
[2018-08-18 23:42] VITALS: BP_SYST 117
--- NOTE | 2018-08-19 02:00 | NUR ---
RN Note Sleeping at this time but arousable. Repositioned. Suction trach, minimal sputum noted. Kept warm and comfortable. No residual noted. Flushed free water.
--- NOTE | 2018-08-19 05:00 | NUR ---
RN Note Arousable. Repositioned. GT feeding infusing. Repositioned. Kept clean, dry and comfortable.
--- NOTE | 2018-08-19 06:56 | NUR ---
End Note Afebrile. VS stable. No SOB or grimacing noted throughout the night. GT feeding infusing, no residual noted and flushed with free water. Had diarrhea. Skin and incontinence care provided. Repositioned. F/C intact and draining well. Garrett cath dressing CDI. Last HD was 08/18 with 1L out. PICC line dressing CDI due dressing change on 08/23. Pending placement with HD services, CM aware. Care and monitoring provided per protocol. Needs attended. Bed alarm on and at lowest position at all times. Call light within reach. Kept warm and comfortable. Afib with BBB on monitor.
--- NOTE | 2018-08-19 07:18 | NUR ---
Opening Note patient resting in bed, awake and alert, unable to communicate, HOB elevated, positioned with pillow support, no signs of distress, safety, aspiration and isolation precautions in place, will continue to monitor patient
[2018-08-19 08:21] VITALS: BP_SYST 128
[2018-08-19] MEDS: IPRATROPIUM BROM 0.5 MG/2.5 ML VIAL.NEB (ATROVENT) INH SCH ×4 (08:27→19:09)
[2018-08-19] MEDS: ALBUTEROL SULFATE 0.083% 2.5 MG/3 ML VIAL.NEB INH SCH ×4 (08:27→19:09)
[2018-08-19] MEDS: DOCUSATE SODIUM 100 MG/10 ML UDC GT SCH (08:39)
[2018-08-19] MEDS: AMIODARONE HCL 200 MG TABLET GT SCH ×2 (08:40→21:00)
[2018-08-19] MEDS: CHLORHEXIDINE GLUCONATE 15 ML/DOSE, 480 ML MM SCH ×2 (08:40→21:08)
[2018-08-19] MEDS: LevETIRAcetam 500 MG/5 ML UDC ORAL LIQUID GT SCH ×2 (08:40→20:58)
[2018-08-19] MEDS: NYSTATIN 15 GM TOPICAL POWDER TP SCH ×2 (08:41→21:09)
[2018-08-19] MEDS: MENTHOL/ZINC OXIDE 113 GM OINT. TP SCH ×4 (08:41→21:09)
[2018-08-19] MEDS: BALSAM PERU/CASTOR OIL 60 GM OINT...G. TP SCH ×2 (08:41→21:09)
--- NOTE | 2018-08-19 08:53 | NUR ---
Medication Administration attempted to educate patient regarding meds, unable to verbalize, g-tube had 0 residual, new bag hung, IV site saline locked, patient was cleansed and repositioned in bed, heels floating, HOB remains elevated, safety, isolation and aspiration precautions remain in place, will continue to monitor patient
--- NOTE | 2018-08-19 09:55 | NUR ---
Jonathan BECK speaking to Grand daughter over the phone at this time for transfer planning
--- NOTE | 2018-08-19 10:15 | NUR ---
Patient Repositioned and Cleansed no signs of respiratory distress, HOB remains elevated, positioned with pillow support, safety isolation and aspiration precautions in place, will continue to monitor patient
[2018-08-19 12:00] VITALS: BP_SYST 126
--- NOTE | 2018-08-19 12:05 | NUR ---
Patient Resting in Bed was repositioned, HOB elevated, pillow support and limbs elevated on pillows, no signs of distress, safety and isolation precautions in place, will continue to monitor
--- NOTE | 2018-08-19 14:23 | NUR ---
Patient Repositioned at this time, had small liquid bowel movement and was cleansed, no signs of distress, HOB remains elevated, family at bedside, safety, isolation and aspiration precautions remain in place, will continue to monitor patient
--- NOTE | 2018-08-19 16:03 | NUR ---
Patient Resting in bed eyes closed, breathing unlabored on mechanical ventilator, positioned with pillow support, HOB remains elevated, g-tube infusing at this time, safety, aspiration and isolation precautions remain in place, will continue to monitor patient
[2018-08-19 16:42] VITALS: BP_SYST 115
--- NOTE | 2018-08-19 16:57 | NUR ---
Free Water Flush Held at this time due to patient's edema bilateral extremities
--- NOTE | 2018-08-19 18:54 | NUR ---
Closing Note patient resting in bed, HOB elevated, no signs of distress, positioned with pillow support, g-tube feeding infusing, granddaughter at bedside, safety, isolation and aspiration precautions remain in place, will endorse to security sales manager nurse
--- NOTE | 2018-08-19 19:42 | NUR ---
Initial note: Received report from wally RN. Patient is resting in bed awake with family present at bedside. Patient is non-verbal. Trach to vent noted, patient tolerating current settings. Saline locked right upper arm PICC line noted, site is patent and benign. Dumont draining yellow urine to gravity noted. Pivot 1.5 running at 45 ML/HR to patient's g-tube site, no gastric residual noted. Safety, fall, and contact iso precautions in place. Call light with patient and patient's family. Will continue with plan of care.
[2018-08-19 20:50] VITALS: BP_SYST 115
--- NOTE | 2018-08-19 20:50 | NUR ---
Med pass: Administered scheduled medications per MD order. G-tube flush with sterile water provided. Performed oral care, oral suctioning, and trach suctioning. Patient tolerated well. Call light with patient. Will continue monitoring.
[2018-08-19] MEDS: ATORVASTATIN 10 MG TABLET GT SCH (20:58)
--- NOTE | 2018-08-19 22:50 | NUR ---
Rounds: Patient is sleeping in bed, does not show any signs or symptoms of acute distress. Patient's breathing is even and unlabored on trach to vent. Call light with patient. Safety, fall, contact iso precautions in place. Will continue monitoring.
--- NOTE | 2018-08-20 00:45 | NUR ---
Rounds: Patient is awake in bed, no acute distress noted. Flushed g-tube with sterile water. Oral care, oral suctioning, and trach suctioning provided. Patient tolerated well. Call light is with patient. Will continue to monitor.
[2018-08-20 02:11] VITALS: BP_SYST 113
--- NOTE | 2018-08-20 02:35 | NUR ---
Rounds: Patient resting in bed, no signs or symptoms of acute distress noted. Call light is with patient. Safety, fall, contact iso precautions in place. Will continue to monitor.
--- NOTE | 2018-08-20 04:40 | NUR ---
Wound care/Dumont bag: Patient is awake in bed, does not show any signs or symptoms of acute distress. G-tube flushed with sterile water. Provided oral care, oral suctioning, and trach suctioning. Patient had a BM, incontinence care provided with assistance from TIARA Wren. Performed wound care per instructions from wound care nurse. Dressings to g-tube and left and right sacrum changed. Dumont bag changed, contained 140 ML of yellow urine. Call light with patient. Safety, fall, contact iso precautions in place. Will continue monitoring.
--- NOTE | 2018-08-20 06:20 | NUR ---
Closing note: Patient is awake, no acute distress noted. Patient remains tolerating trach to vent. Tubefeeding running to g-tube site. All needs met and attended to. Will endorse care to dayshift RN.
--- NOTE | 2018-08-20 07:20 | NUR ---
Opening Note patient resting in bed, eyes closed, breathing unlabored on mechanical ventilator, HOB remains elevated, positioned with pillow support, safety, isolation and aspiration precautions in place, will continue to monitor patient
[2018-08-20] MEDS: ALBUTEROL SULFATE 0.083% 2.5 MG/3 ML VIAL.NEB INH SCH ×4 (07:41→19:54)
[2018-08-20] MEDS: IPRATROPIUM BROM 0.5 MG/2.5 ML VIAL.NEB (ATROVENT) INH SCH ×3 (07:41→19:54)
[2018-08-20 08:01] VITALS: BP_SYST 119
[2018-08-20] MEDS: AMIODARONE HCL 200 MG TABLET GT SCH ×2 (08:54→21:12)
[2018-08-20] MEDS: DOCUSATE SODIUM 100 MG/10 ML UDC GT SCH (08:54)
[2018-08-20] MEDS: LevETIRAcetam 500 MG/5 ML UDC ORAL LIQUID GT SCH ×2 (08:54→20:57)
[2018-08-20] MEDS: MENTHOL/ZINC OXIDE 113 GM OINT. TP SCH ×4 (08:55→21:20)
[2018-08-20] MEDS: CHLORHEXIDINE GLUCONATE 15 ML/DOSE, 480 ML MM SCH ×2 (08:55→21:20)
--- NOTE | 2018-08-20 08:55 | NUR ---
Medication Administration educated patient regarding meds, unable to verbalize understanding, g-tube had 0 residual, flushed before and after med pass, aspiration precautions remain in place, safety and isolation precautions remain in place, will continue to monitor patient
[2018-08-20] MEDS: NYSTATIN 15 GM TOPICAL POWDER TP SCH ×2 (08:56→21:20)
[2018-08-20] MEDS: BALSAM PERU/CASTOR OIL 60 GM OINT...G. TP SCH ×2 (08:56→21:21)
[2018-08-20] MEDS ORDERED: HEPARIN SODIUM, PORCINE 10,000 UNITS/ 10 ML VIAL MC ONE (09:45)
--- NOTE | 2018-08-20 10:15 | NUR ---
Dialysis at Bedside patient tolerating well, no signs of distress, resting in bed, HOB elevated, safety, aspiration and isolation precautions in place, will continue to monitor patient
[2018-08-20 12:18] VITALS: BP_SYST 113
--- NOTE | 2018-08-20 12:50 | NUR ---
Patient Cleansed and repositioned in bed, had BM, nagel draining via gravity, g-tube infusing at this time, HOB remains elevated, suction provided, no signs of distress, safety, isolation and aspiration precautions remain in place, will continue to monitor patient
--- NOTE | 2018-08-20 14:12 | NUR ---
Wound Care Vivek Saw and evaluated patient, patient was cleansed and repositioned in bed, will implement recommendations
--- NOTE | 2018-08-20 14:12 | NUR ---
WOUND RE-EVALUATION: Late note for 1411 secondary to patient care. Patient received in a [facility] Bed with a [place] XPRT mattress, awake, nonverbal, nonresponsive to verbal commands. Patient is unable to turn in bed independently. Ceasar Score is an 11. Past Medical History: CVA, Tracheostomy, PEG placement. Intrinsic factors that delay wound healing: CVA. Extrinsic factors that delay wound healing: Immobility. Bilateral upper extremities have multiple areas of ecchymosis. Wound Assessment: 1. Left sacral area: Reopened scar tissue from a wound of unknown etiology, present on admission. Wound bed has 100% pink tissue. No odor, scant sanguineous drainage. Periwound and surrounding tissue has scar tissue. Wound measures 1.0 cm x 1.0 cm. Area surrounding wound has healed scar tissue, measuring 3.5 cm x 2.0 cm. Recommend: Cleanse wound with normal saline. Pat dry. Apply moisture barrier cream to wound and periwound. Apply Venelex ointment to any portions of wound bed not covered by moisture barrier cream. Cover wound with foam dressing. Perform site care daily, and as needed for dressing soiling or dislodgment. 2. Right sacral area: Reopened scar tissue from a wound of unknown etiology, present on admission. Wound bed has 100% pink tissue. No odor, no drainage. Appears to have resolved. Measures 3.3 cm x 3.2 cm. Recommend: Cleanse site with normal saline. Pat dry. Apply moisture barrier cream to site. Cover site with foam dressing. Perform site care daily, and as needed for dressing soiling or dislodgment. 3. Right lateral hip: Area of pink scar tissue, present on admission. No odor, no drainage. Recommend continue: Cleanse involved area with mild soap and water. Pat dry. Apply moisture barrier cream to involved area. Perform site care 4 times a day, and as needed for soiling. 4. Right medial thigh fold: Moisture associated wound, present on admission. Wound site has appeared to have resolved. Recommend continue: Cleanse wound with normal saline. Apply moisture barrier cream to site. Perform site care daily, and as needed for soiling. 5. Left posterior medial calf: [place] area of purple discoloration/ecchymosis, present on admission. Recommend continue: No dressing needed. Continue to monitor site for worsening condition. Float involved areas with pillows and towel rolls at all times. 6. Right dorsal hand: Full thickness skin tear, present on admission. Resolved. Recommend: No dressing needed. Continue to monitor. 7. 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 Site has moisture associated non-intact skin Recommend: Cleanse involved areas with mild soap and water. Pat dry. Apply Remedy Calmoseptine cream to involved areas. Perform site care 4 times a day, and as needed for soiling. 8. Right buttock near issue tuberosity: Linear excoriated areas with red tissue over scar tissue, present on admission. Brown discolored area present inferior to wound. Recommend: Cleanse involved area with normal saline. Pat dry. Apply Hydraguard cream to involved area. Perform site care 4 times a day, and as needed for soiling. 9. Left mons pubis: Abrasion. Site has 100% pink tissue. No odor, no drainage. Periwound intact. Measures 3.8 cm x 0.8 cm. Recommend: Cleanse abrasion with normal saline. Pat dry. Apply moisture barrier cream to abrasion and periabrasion. Apply Venelex ointment to any portions of abrasion not covered by moisture barrier cream. Cover with foam dressing. Perform site care daily, and as needed for dressing soiling or dislodgment. 10. Left lower lip: Mucosal pressure ulcer, cannot be staged secondary to the histology of mucous membrane tissue is different than that of skin. Site has 95% yellow coagulum, 5% pink tissue. No odor, no drainage. Paul-wound intact. Wound measures 0.9 cm x 3.0 cm. Recommend: Cleanse site with normal saline. Pat dry. Apply SurePrep to paul-site. Apply Venelex ointment to site. Cover with foam dressing (cut dressing so adhesive sticks to chin area and covers site. Perform site care daily, and as needed for dressing soiling or dislodgment. 11. Left lateral abdomen, superior to site 12: Intertriginous dermatitis with 100% pink nonintact skin. Dry. Measures 0.8 cm x 4.5 cm. 12. Lower abdomen, inferior and anterior to site 11: Intertriginous dermatitis with 100% pink nonintact skin. Dry. Measures 0.3 cm x 5.0 cm. Recommend: Cleanse involved areas with normal saline. Pat dry. Apply Hydraguard cream to involved areas. Perform site care 4 times a day, and as needed for soiling. Also recommend continue: Recommend reposition patient side to side only every 2 hours with pillow support. Offload, elevate and float bilateral heels with one pillow lengthwise under each extremity at all times. Perform skin care and monitor skin integrity Q shift. Use Calmoseptine cream on moisture susceptible areas QID and PRN for soiling. Maintain patient on a low air-loss mattress. Addendum: 08/20/18 at 1858 by Vivek Arevalo RN Error. Site 10 left lower lip was incorrectly documented as a mucosal pressure ulcer. Further review with staff and notes, patient's granddaughter insisted on placing tape on pt's lower lip, despite education that this could cause in breakdown. Also, patient was documented as (applying pressure to lips) by biting down hard. Furthermore, patient was admitted with a tracheostomy, and no oral intubation was performed. This wound was most likely cause by patient biting down on her lips with her teeth.
--- NOTE | 2018-08-20 16:01 | NUR ---
Free Water Flush administered at this time, g-tube remains patent, patient positioned in bed with pillow support and cleansed, HOb remains elevated, safety, isolation and aspiration precautions in place, will continue to monitor patient
[2018-08-20 16:04] VITALS: BP_SYST 118
[2018-08-20 17:00] VITALS: BP_SYST 113
--- NOTE | 2018-08-20 18:50 | NUR ---
Closing Note patient resting in bed, eyes closed, positioned with pillow support, no sign of BM, HOB remains elevated, g-tube feeding infusing, safety, isolation and aspiration precautions in place, call light and bedside table left within reach. will endorse to caustic cresylate shift superintendent nurse
--- NOTE | 2018-08-20 19:54 | NUR ---
Initial note: Received report from wally RN. Patient is resting in bed with eyes closed. Family at bedside. Patient is non-verbal. Trach to vent noted, patient tolerating current settings. Saline locked right upper arm PICC line noted, site is patent and benign. Dumont draining yellow urine to gravity. Pivot 1.5 running at 45 ML/HR to patient's g-tube site, 0 ML of gastric residual. Safety, fall, and contact iso precautions in place. Call light with patient and patient's family. Will continue with plan of care.
[2018-08-20 20:50] VITALS: BP_SYST 121
[2018-08-20] MEDS: ATORVASTATIN 10 MG TABLET GT SCH (20:57)
--- NOTE | 2018-08-21 00:14 | NUR ---
G-tube flush: Flushed g-tube with 200 ML sterile water. 0 ML gastric residual prior to flush. Provided oral care, oral suctioning, and trach suctioning. Patient tolerated well. Call light with patient. Will continue monitoring.
[2018-08-21 03:05] VITALS: BP_SYST 112
--- NOTE | 2018-08-21 04:40 | NUR ---
Wound/incontinence care: Performed wound care at this time per instructions from wound care nurse. Patient had a BM, incontinence care provided with assistance from [place]. Call light with patient. Will continue monitoring.
--- NOTE | 2018-08-21 06:10 | NUR ---
Closing note: Patient is resting in bed, does not show any signs or symptoms of acute distress. Mechanical ventilation remains in place. Tubefeeding running well. All needs met and attended to. Will endorse care to dayshift RN.
[2018-08-21 07:24] VITALS: BP_SYST 121
[2018-08-21] MEDS: ALBUTEROL SULFATE 0.083% 2.5 MG/3 ML VIAL.NEB INH SCH ×5 (07:24→23:46)
[2018-08-21] MEDS: IPRATROPIUM BROM 0.5 MG/2.5 ML VIAL.NEB (ATROVENT) INH SCH ×5 (07:24→23:46)
[2018-08-21 07:30] VITALS: BP_SYST 109
--- NOTE | 2018-08-21 08:00 | NUR ---
AM NOTE Patient laying in bed resting. No s/s of distress or SOB. Trach is intact and attached to mechanical ventilator, settings are FIO02 30, TIDAL 400, AC 16, PEEP 5. Dumont catheter intact, urine draining into bag via gravity. PICC lines patent, dressing intact. Gtube patent, feeding running well. Contact, aspiration and seizure precautions in place. Bed in lowest position, call light within reach.
[2018-08-21] MEDS: LevETIRAcetam 500 MG/5 ML UDC ORAL LIQUID GT SCH ×2 (08:44→22:23)
[2018-08-21] MEDS: DOCUSATE SODIUM 100 MG/10 ML UDC GT SCH (08:44)
[2018-08-21] MEDS: AMIODARONE HCL 200 MG TABLET GT SCH ×2 (08:45→22:23)
[2018-08-21] MEDS: CHLORHEXIDINE GLUCONATE 15 ML/DOSE, 480 ML MM SCH ×2 (08:45→22:24)
[2018-08-21] MEDS: MENTHOL/ZINC OXIDE 113 GM OINT. TP SCH ×4 (08:47→22:24)
[2018-08-21] MEDS: NYSTATIN 15 GM TOPICAL POWDER TP SCH ×2 (08:48→22:25)
--- NOTE | 2018-08-21 08:50 | NUR ---
DR. TOMPKINS At bedside to see patient.
[2018-08-21] MEDS: BALSAM PERU/CASTOR OIL 60 GM OINT...G. TP SCH ×2 (08:56→22:26)
--- NOTE | 2018-08-21 09:00 | NUR ---
INCONTINENCE CARE Done. Patient had a bowel movement. Wound care done. Patient turned. Will cont. to monitor.
[2018-08-21 12:00] VITALS: BP_SYST 109
--- NOTE | 2018-08-21 13:15 | NUR ---
INCONTINENCE CARE Patient had a bowel movement. Linen and gown changed. Calmoseptine applied to reddened areas. Patient turned.
--- NOTE | 2018-08-21 14:00 | NUR ---
GTUBE FEEDING CHANGED Pivot 1.5. G-tube patent, intact. No residual noted. Aspiration precautions maintained, HOB elevated.
[2018-08-21 16:00] VITALS: BP_SYST 112
--- NOTE | 2018-08-21 17:48 | NUR ---
Nutrition F/U Short F/U note utilized d/t high pt load. RD reviewed pt's current EMR record -- labs, meds, physician notes, and care trends. Pt seen this afternoon w/ TF infusing as per MD orders. Current TF of Pivot 1.5 at 45 ml/hr, Free Water Flush: 200 Q4h via GT remains appropriate. TF order has been ongoing x17 days. Pt seems to be tolerating TF well based on care trends; no s/s of intolerance. No new RD recommendations for TF.
--- NOTE | 2018-08-21 17:50 | NUR ---
Dietitian Recommendations * Recommend Pivot 1.5 at 45 ml/hr, Free Water Flush: 200 Q4hr via GT Provides: 1620 kcal/day, 101 gm protein/day, and 2020 ml free water/day Meets: 98% of estimated caloric needs and 92% of upper end of estimated protein needs LP, RD
--- NOTE | 2018-08-21 18:45 | NUR ---
CLOSING NOTES Patient laying in bed resting. No s/s of acute distress or SOB. All needs met throughout shift. PICC lines patent, intact, dressing is dry. Dumont catheter patent, secured and draining to gravity. Trach intact, attached to [facility] vent settings at FIO2 30, TIDAL 400, AC 16, PEEP 5. Left subclavian michi catheter dressing dry and intact. Gtube patent, intact, feeding running well. Trach suctioned throughout shift. Contact and seizure precautions maintained. Bed in lowest position, call light within reach. Will endorse to oncoming RN.
--- NOTE | 2018-08-21 19:25 | NUR ---
OPENING NOTE Patient resting in the bed. No acute distress. Respiration even and unlabored. Trach intact to vent: AC=16, Ir=887, FiO2=30%, PEEP=5. HOB elevated. On G-tube feeding of Pivot 1.5 at 45ml/hr, tolerated well. Skin warm and dry to touch. PILL line intact to PARKER, no redness, no swelling, covered with clean and dry transparent dressing. Garrett cath intact to right subclavian, dressing intact, no bleeding noted. D/C intact, drain gravity with yellow urine. SCD in placed. On contact isolation. Family at bed side. Safety measure maintained. Bed locked in low position, padded side rails up, bed alarm on. Call light within reached. Will continue to monitor.
[2018-08-21 19:55] VITALS: BP_SYST 122
--- NOTE | 2018-08-21 20:30 | NUR ---
ORAL CARE AND SUCTIONED PATIENT
--- NOTE | 2018-08-21 22:00 | NUR ---
TURNED AND REPOSITIONED Turned and repositioned done with ORE ROASTER. Patient no acute distress. Trach intact with vent. HOB elevated. G-tube intact, patent, no residual. F/C intact, drain gravity. SCD in placed. Safety measure maintained. Bed locked in low position, padded side rails up, bed alarm on. Call light within reached. Continue to monitor.
[2018-08-21] MEDS: ATORVASTATIN 10 MG TABLET GT SCH (22:23)
--- NOTE | 2018-08-22 00:05 | NUR ---
ROUND Patient resting in the bed. No acute distress. Respiration even and unlabored. Oral care done. Turned and repositioned with CONTINUOUS IMPROVEMENT LEAD and me. Suctioned with small amount white thin secretion. Trach intact to vent. Continue on G-tube feeding. HOB elevated. On contact isolation. F/C intact, drain gravity. Safety measure maintained. Call light within reached. Bed locked in low position, padded side rails up, bed alarm on. Continue to monitor.
[2018-08-22 00:41] VITALS: BP_SYST 94
--- NOTE | 2018-08-22 01:45 | NUR ---
ROUND Patient resting in the bed with eyes closed. No acute distress. Respiration even and unlabored. Trach intact to vent. Continue on G-tube feeding. HOB elevated. On contact isolation. F/C intact, drain gravity. Safety measure maintained. Call light within reached. Bed locked in low position, padded side rails up, bed alarm on. Continue to monitor.
--- NOTE | 2018-08-22 03:25 | NUR ---
ROUND Patient resting in the bed with eyes closed. No acute distress. Respiration even and unlabored. Trach intact to vent. Continue on G-tube feeding. HOB elevated. On contact isolation. F/C intact, drain gravity. SCD in placed. Safety measure maintained. Call light within reached. Bed locked in low position, padded side rails up, bed alarm on. Continue to monitor.
--- NOTE | 2018-08-22 04:52 | NUR ---
ROUND Patient resting in the bed with eyes closed. No acute distress. Respiration even and unlabored. Trach intact to vent. Continue on G-tube feeding. HOB elevated. Skin warm to touch. On contact isolation. F/C intact, drain gravity. SCD in placed. Safety measure maintained. Call light within reached. Bed locked in low position, padded side rails up, bed alarm on. Continue to monitor.
[2018-08-22 06:24] LABS: BASOPHILS % (AUTO) 0.4 % (0.0-2.0); EOSINOPHILS # (AUTO) 0.8 K/uL (0.0-0.4); EOSINOPHILS % (AUTO) 9.2 % (0.0-4.0); HEMATOCRIT 25.9 % (36-48); HEMOGLOBIN 8.4 g/dL (12.0-16.0); LYMPHOCYTES # (AUTO) 1.5 K/uL (1.0-5.5); LYMPHOCYTES % (AUTO) 17.8 % (20.5-51.5); MEAN CORPUSCULAR HEMOGLOBIN 31 pg (27-31); MEAN CORPUSCULAR HGB CONC 33 % (32-36); MEAN CORPUSCULAR VOLUME 95 fL (79.0-98.0); MONOCYTES # (AUTO) 1.2 K/uL (0.0-1.0); MONOCYTES % (AUTO) 14.2 % (1.7-9.3); NEUTROPHILS % (AUTO) 58.4 % (40.0-70.0); PLATELET COUNT (AUTO) 130 K/uL (130-430); RED BLOOD CELL COUNT(AUTO) 2.73 MIL/uL (4.2-6.2); RED CELL DISTRIBUTION WIDTH 17.5 % (9.0-15.0); WHITE BLOOD COUNT (AUTO) 8.5 K/uL (4.8-10.8)
[2018-08-22 06:50] LABS: ALANINE AMINOTRANSFERASE 29 U/L (12-78); ANION GAP 9 (5-15); ASPARTATE AMINOTRANSFERASE 66 U/L (10-37); CALCIUM 8.2 mg/dL (8.4-11.0); CHLORIDE 100 mmol/L (98-107); CREATININE 2.37 mg/dL (0.55-1.30); GLUCOSE 121 mg/dL (70-99); POTASSIUM 4.1 mmol/L (3.5-5.1); SODIUM SERUM 136 mmol/L (136-145); TOTAL BILIRUBIN 0.9 mg/dL (0.0-1.0); UREA NITROGEN, BLOOD 74 mg/dL (8-21)
--- NOTE | 2018-08-22 06:50 | NUR ---
CLOSING NOTE Patient resting in the bed. No acute distress. Respiration even and unlabored. Trach intact to vent: AC=16, Kz=325, FiO2=30%, PEEP=5. HOB elevated. On G-tube feeding of Pivot 1.5 at 45ml/hr, tolerated well. No nausea or vomiting, no s/s of aspiration noted. Skin warm and dry to touch. PICC line intact to PARKER, no redness, no swelling, covered with clean and dry transparent dressing. Garrett cath intact to right subclavian, dressing intact, no bleeding noted. F/C intact, drain gravity with yellow urine. SCD in placed. On contact isolation. All needs met. Hourly rounding during shift. No seizure activity noted during shift. Safety measure maintained. Bed locked in low position, padded side rails up, bed alarm on. Call light within reached. Will endorse to morning shift nurse.
[2018-08-22] MEDS: IPRATROPIUM BROM 0.5 MG/2.5 ML VIAL.NEB (ATROVENT) INH SCH ×5 (07:13→23:08)
[2018-08-22] MEDS: ALBUTEROL SULFATE 0.083% 2.5 MG/3 ML VIAL.NEB INH SCH ×5 (07:13→23:09)
[2018-08-22 07:30] VITALS: BP_SYST 106
--- NOTE | 2018-08-22 07:51 | NUR ---
AM NOTES Patient laying in bed resting, no s/s of distress, SOB or pain. Seizure and contact precautions in place. PICC line patent, dressing intact, Gtube patent, feeding running well. Dumont catheter patent, securely attached. Trach portex #7 secured, attached to vent settings FIO2 30, TIDAL 400, AC 16, PEEP 5. Bed in lowest position, call light within reach.
--- NOTE | 2018-08-22 09:00 | NUR ---
WOUND CARE/INCONTINENCE CARE Provided. Linen changed, dressings intact. oral care done and patient suctioned. Bed in lowest position, call light within reach. Will cont. to monitor.
[2018-08-22] MEDS: AMIODARONE HCL 200 MG TABLET GT SCH ×2 (09:22→22:24)
[2018-08-22] MEDS: LevETIRAcetam 500 MG/5 ML UDC ORAL LIQUID GT SCH ×2 (09:23→22:18)
[2018-08-22] MEDS: DOCUSATE SODIUM 100 MG/10 ML UDC GT SCH (09:23)
[2018-08-22] MEDS: CHLORHEXIDINE GLUCONATE 15 ML/DOSE, 480 ML MM SCH ×2 (09:23→22:24)
[2018-08-22] MEDS: MENTHOL/ZINC OXIDE 113 GM OINT. TP SCH ×4 (09:24→22:26)
[2018-08-22] MEDS: BALSAM PERU/CASTOR OIL 60 GM OINT...G. TP SCH ×2 (09:24→22:27)
[2018-08-22] MEDS: NYSTATIN 15 GM TOPICAL POWDER TP SCH ×2 (09:24→22:27)
[2018-08-22 12:00] VITALS: BP_SYST 114
--- NOTE | 2018-08-22 14:41 | NUR ---
ROUNDS Patient in bed resting. No s/s of distress or SOB. All needs being met. Incontinence care done. Patient had a BM. Oral care done, patient was suctioned. Patient turned, heels offloaded. Gtube patent, feeding running well. Bed in lowest position, call light within reach. Family at bedside.
--- NOTE | 2018-08-22 15:33 | NUR ---
SPOKE WITH [facility] ROOM SUPERVISOR Spoke with Dina lead case manager, regarding patient's discharge. Explained to her that a facility with inhouse hemodialysis is preferred over the patient being transferred out of facility for dialysis due to patient's condition. Awaiting update.
[2018-08-22 16:00] VITALS: BP_SYST 118
--- NOTE | 2018-08-22 18:10 | NUR ---
CLOSING NOTES Patient laying in bed resting. No s/s of acute distress or SOB. All needs met throughout shift. PICC lines patent, intact, dressing is dry. Dumont catheter patent, secured and draining to gravity. Trach intact, attached to [facility] vent settings at FIO2 30, TIDAL 400, AC 16, PEEP 5. Left subclavian michi catheter dressing dry and intact. Gtube patent, intact, feeding running well. Trach suctioned throughout shift. Contact and seizure precautions maintained. Bed in lowest position, call light within reach. Will endorse to oncoming RN.
[2018-08-22 19:50] VITALS: BP_SYST 118
--- NOTE | 2018-08-22 20:30 | NUR ---
DELMAR,INITIAL NOTES: PATIENT FAMILY HAD BEEN WAITING STAFFS TO CLEAN PATIENT DUE TO STOOL INCONTINENT.RN AND SAMPLE TESTER GRINDER DID HYGIENE ,WITH ORAL, SKIN AND BATH CARES, REPOSITIONED AFTER, PATIENT ON VENT AC 16 TV 400 FI02 30,PEEP 5, VIA TRACHE ,PORTEX 7,DRESSING DRY AND INTACT.NON VERBAL, BLINKS EYES WHEN CALLED AND WITH ACTIVITIES. PICC LINE DOUBLE LUMEN SALINE LOCK TO RIGHT UPPER ARM. FLUSHED WITH BLOOD RETURN,DRESSING DRY AND INTACT,.DEBBIE CATH W/ PIGTAIL TO LEFT UPPER CHEST.FLEMING WITH DARK RONALD URINE,GT WITH PIVOT FEEDING 45ML/HR ,RESIDUAL 5 ML,PATENT. WITH CONTROLLED A FIB /BBB. VITAL SIGNS STABLE. BREATHING TX IN PROCESS. CONTACT ISOLATION OBSERVED. WILL MONITOR CLOSELY. CALL LIGHT NEAR BY. LOW BED POSITION.
[2018-08-22 20:45] VITALS: BP_SYST 102
--- NOTE | 2018-08-22 22:10 | NUR ---
MEDS ADMIN/ORAL BLEED; ALL DUE MEDS GIVEN VIA G TUBE WITHOUT DIFFICULTY.STILL WITH SCANT LIP BLEEDING DUE TO LIP BITE PREVIOUSLY.
[2018-08-22] MEDS: ATORVASTATIN 10 MG TABLET GT SCH (22:19)
[2018-08-23] VITALS (8 sets, daily range): BP systolic 99–126
--- NOTE | 2018-08-23 00:20 | NUR ---
REPOSITIONED AND ORAL CARE DONE. SLIGHT BLEED ON LEFT LIP.
[2018-08-23] MEDS: IPRATROPIUM BROM 0.5 MG/2.5 ML VIAL.NEB (ATROVENT) INH SCH ×6 (03:00→23:00)
[2018-08-23] MEDS: ALBUTEROL SULFATE 0.083% 2.5 MG/3 ML VIAL.NEB INH SCH ×6 (03:00→23:00)
--- NOTE | 2018-08-23 06:00 | NUR ---
CLOSING; PATIENT ON SAME VENT SETTINGS. NO CHANGE IN MEDICAL STATUS.CONTACT ISOLATION OBSERVED. NO ACUTE DISTRESS, HAD 2X LOOSE STOOL. FOR HEMODIALYSIS TODAY.
[2018-08-23] MEDS: DOCUSATE SODIUM 100 MG/10 ML UDC GT SCH (09:00)
[2018-08-23] MEDS: NYSTATIN 15 GM TOPICAL POWDER TP SCH ×2 (09:42→21:22)
[2018-08-23] MEDS: AMIODARONE HCL 200 MG TABLET GT SCH ×2 (09:42→21:19)
[2018-08-23] MEDS: MENTHOL/ZINC OXIDE 113 GM OINT. TP SCH ×4 (09:42→21:21)
[2018-08-23] MEDS: CHLORHEXIDINE GLUCONATE 15 ML/DOSE, 480 ML MM SCH ×2 (09:42→21:20)
[2018-08-23] MEDS: LevETIRAcetam 500 MG/5 ML UDC ORAL LIQUID GT SCH ×2 (09:42→21:20)
[2018-08-23] MEDS: BALSAM PERU/CASTOR OIL 60 GM OINT...G. TP SCH ×2 (09:43→21:22)
--- NOTE | 2018-08-23 10:15 | NUR ---
Opening Note Report received from [facility] shift nurse. Patient is bed bound and is only able to open her eyes. Isolation precautions are in place. Trach is to vent with the following settings: TV 400, FiO2 30%, peep 5, AC 16. RUE PICC line is saline locked. G-tube is in place running Pivot 1.2@45. Seizure precautions are in place. Dumont cath is in place. Will continue to monitor.
--- NOTE | 2018-08-23 11:10 | NUR ---
EBONY DC PLANNING: RE: SUBACUTE SPOKE WITH [facility] RE: SUBACUTE PLACEMENT OPTIONS AT PRESENT. [facility] STATED FAMILY/[facility] ([phone]) HAS HER CELL NUMBER SO SHE HAS BEEN IN VERY CLOSE CONTACT WITH THEM REGARDING DC PLANNING. FAMILY APPARENTLY WANT [facility] SN[facility]; AND, ARE NOT HAPPY WITH POSSIBILITY OF SUBACUTE AT [facility]. PER [facility], THERE ARE NO BEDS AVAILABLE AT THE FOLLOWING SUBACUTES: [facility]-NO ONSITE HD; BUT SEND Pts TO [facility] (DISCUSSED THIS HD CENTER DOES VENT/TRACHE HD Pts ON TThSats) [facility]-ACCEPTS HD Pts IN THEIR SUBACUTE UNIT PER [facility]OR[facility] PHYSICIAN HAS DENIED [facility] ADMISSION/TRANSFER.
--- NOTE | 2018-08-23 12:15 | NUR ---
Rounds Patient was cleaned and turned. Tolerated well.
--- NOTE | 2018-08-23 14:05 | NUR ---
Rounds Patient is getting dialysis.
[2018-08-23] MEDS ORDERED: HEPARIN SODIUM,PORCINE 5000 UNITS/ML VIAL IV ONE (14:15)
--- NOTE | 2018-08-23 14:33 | NUR ---
Nutrition F/U Admitting Diagnosis Tracheostomy bleed, UTI Reviewed Pertinent Medical/Surgical Hx Medical Record Patient Medical History Comment: PMH: CVA, respiratory failure, trach, PEG per MD notes Pt also found w/ sepsis, vent-associated pneumonia, complicated UTI, acute on chronic respiratory, CHF, anasarca per MD notes 08/17/18 Attending MD notes: respiratory distress, oral bleeding, pneumonia, chronic atr fibr, gingivitis and carries, ESRD on HD Subjective Information Pt seen resting in bed, +intubated, +non-verbal, w TF infusing as per MD orders. Per EMR, TF Intakes: 1620 ml/24 hrs 08/22/18. Abd is soft w/active bowel sounds. I/O: 540/750 -210ml per 24 hrs. Last BM 08/23 x4. Per RN, TF it tolerated fine, no residual this morning. Per MD notes, pt is for HD today and possible transfer. Pt seems to be tolerating TF well, and is meeting optimal nutritional needs. Current Diet Order/Nutrition Support Pivot 1.5 at 45 ml/hr, Free Water Flush: 200 Q4h via GT [id number] Patient/Significant Other Unable To Verbalize Education Provided Not Indicated Pertinent Medications amiodarone, keppra, milk of magnesia Pertinent Labs H/H 8.4 L/25.9 L,, RBC 2.73 L Height (Feet) 5 feet Height (Inches) 0.00 inches Weight (Pounds) 180 pounds (07/28/18) -- RD attempted to weigh pt on bedscale, likely inaccurate -- 213 lb (08/10/18); 209 lb (08/17/18) Weight (Calculated Kilograms) 81.056287 kilograms Patient Weight 81.647 kg Body Mass Index 35.15 kg/m2 %IBW 182 [place]/Adjusted Body Weight IBW: 100 lb, 45 kg. Adj IBW (obesity): 120 lb, 55 kg Recent Weight Change unable to verify Weight Status Obese Gastrointestinal Symptoms None Last BM 08/23/18 x 4 loose Food Allergies unable to verify Usual Diet At Home TF at [facility] Skin Integrity Comment: Ceasar scale: 11; per Length Control Tester note 08/20/18: 1. Left sacral area: Reopened scar tissue from a wound of unknown etiology, present on admission. 2. Right sacral area: Reopened scar tissue from a wound of unknown etiology, present on admission. Appears to have resolved. 3. Right lateral hip: area of pink scar tissue, present on admission. 4. Right medial thigh fold: Moisture associated wound, present on admission. 5. Left posterior medial calf: [place] area of purple discoloration/ecchymosis, present on admission. 6. Right dorsal hand: Full thickness skin tear, present on admission. Resolved. 7. 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 8. Right buttock near issue tuberosity: Linear excoriated areas with red tissue over scar tissue, present on admission. 9. Left mons pubis: Abrasion. 10. Left lower lip: Mucosal pressure ulcer, cannot be staged secondary to the histology of mucous membrane tissue is different than that of skin. 11. Left lateral abdomen, superior to site 12: Intertriginous dermatitis. 12. Lower abdomen, inferior and anterior to site 11: Intertriginous dermatitis. Per RN notes, 2+ pitting edema of BLE and BUE. Estimated Energy Expenditure (kcals/day) 5613-3836 kcal/day (30-35 kcal/kg CBW for wound healing) Estimated Protein Required (g/day) 83-110 gm/day (1.5-2 gm/kg Adj IBW for sepsis, wound healing, ESRD/HD) Estimated Fluid Required (l/day) Per MD (CHF, ESRD) Problem/Etiology/Signs/Symptoms Inadequate enteral nutrition related to metabolic demands as evidenced by increased nutritional needs for sepsis and wound healing, and current TF meets less than 50% of estimated nutritional needs. *improved Expected Outcomes/Goals - Monitor tolerance to EN support w/ goal of pt meeting at least 85% of estimated nutritional needs, labs trending WNL, normal GI function, and skin integrity/wt maintenance Dietitian Recommendations * Recommend Pivot 1.5 at 45 ml/hr, Free Water Flush: 200 Q4hr via GT Provides: 1620 kcal/day, 101 gm protein/day, and 2020 ml free water/day Meets: 98% of estimated caloric needs and 92% of upper end of estimated protein needs Follow Up High Risk: F/U in 2-3 days
--- NOTE | 2018-08-23 14:43 | NUR ---
Dietitian Recommendations * Recommend Pivot 1.5 at 45 ml/hr, Free Water Flush: 200 Q4hr via GT Provides: 1620 kcal/day, 101 gm protein/day, and 2020 ml free water/day Meets: 98% of estimated caloric needs and 92% of upper end of estimated protein needs. Please see Nutritional Assessment for details. [place], RD
--- NOTE | 2018-08-23 16:04 | NUR ---
Rounds Patient is getting dialysis.
--- NOTE | 2018-08-23 18:46 | NUR ---
Closing Note Patient is resting in bed. Family is at the bedside. Trach is to vent with the following settings: TV 400, FiO2 30%, AC 16, Peep 5. G-tube is running Pivot @45. No residuals throughout the shift. RUE PICC line is saline locked. Dumont cath is in place draining kristi urine. Will endorse care to the oncoming nurse.
--- NOTE | 2018-08-23 19:05 | NUR ---
OPENING NOTES Late entry due to patient care. Bedside report received from day shift nurse. Patient received lying in bed, eyes closed, appears to be asleep. HOB raised. No s/s of acute distress noted. Patient has trach to vent, settings at AC 16, FiO2 30%, TV 400 ml, PEEP 5. Patient tolerating well, SPO2 at 98. Dumont attached and secured. IV site shows no signs of infection or infiltration. Gtube feeding infusing well. SCDs attached and operating. Call light with patient. Bed alarm on. Will continue to monitor.
--- NOTE | 2018-08-23 21:00 | NUR ---
BED BATH Patient receiving bed bath at this time. Patient tolerating activity well. No signs of discomfort noted. Chest rise and fall even bilaterally. Will continue to monitor.
[2018-08-23] MEDS: ATORVASTATIN 10 MG TABLET GT SCH (21:20)
--- NOTE | 2018-08-23 21:30 | NUR ---
TRANSFER OF CARE Endorsed patient care to [facility] Panda. Patient in bed, eyes closed, appears to be asleep. No s/s of acute distress noted. Breathing even, trach to vent settings at AC 16, FiO2 30%, TV 400 ml, PEEP 5. SCDs attached and operating. Dumont attached and secured. HOB raised. Call light with patient. Bed alarm on. All needs met.
--- NOTE | 2018-08-23 21:30 | NUR ---
RECEIVED PT FROM AN NEAL Pt and endorsement received from AN Neal. Pt on mechanical vent and trach setting, AC:16, FiO2:30%, TV:400, PEEP:5. Pt has PICC line double lumen and on SL. Pt on nagel catheter with yellow urine noted on bag. Pt on G-Tube feeding with Pivot 1.5 at 45ml/hr. No signs of acute distress noted. Call light with pt, bed alarm on and at is lowest level. Will continue to monitor.
--- NOTE | 2018-08-24 00:10 | NUR ---
RESTING Pt is resting in bed with both eyes closed. With visible chest rise and fall noted. No signs of acute distress noted. No residual and assessed for bowel sounds and is active upon auscultation. Free water of 200ml given, pt tolerated well. Aspiration and safety precautions in place. Will continue to monitor.
[2018-08-24 01:09] VITALS: BP_SYST 107
--- NOTE | 2018-08-24 02:10 | NUR ---
RESTING Pt is resting in bed with both eyes closed. With visible chest rise and fall noted. Suctioning done as needed. No signs of acute distress noted. Safety and aspiration precautions in place and call light with pt. Will continue to monitor.
[2018-08-24] MEDS: ALBUTEROL SULFATE 0.083% 2.5 MG/3 ML VIAL.NEB INH SCH ×5 (03:00→23:36)
[2018-08-24] MEDS: IPRATROPIUM BROM 0.5 MG/2.5 ML VIAL.NEB (ATROVENT) INH SCH ×5 (03:00→23:37)
--- NOTE | 2018-08-24 04:45 | NUR ---
WOUND CARE Wound care done with the assistance of VICE PRESIDENT OF ADVERTISING. Pt tolerated well. G-tube feeding continued and free water of 200ml given. No residual and bowel sounds are active upon auscultation. PICC dressing changed. No signs of acute distress noted. Safety and aspiration precautions maintained and call light with pt. Will continue to monitor.
--- NOTE | 2018-08-24 06:46 | NUR ---
CLOSING NOTES Pt is resting in bed with both eyes closed. Pt on vent and settings maintained throughout the shift. No signs of acute distress noted. All needs attended throughout the shift. Safety, aspiration, and seizure precautions maintained and call light with pt. Will endorse to day shift nurse.
[2018-08-24 08:00] VITALS: BP_SYST 107
--- NOTE | 2018-08-24 08:00 | NUR ---
initial notes rec patient asleep with hob elevated. resp easy and unlabored with a mechanical ventilator. no acute ditress noted. picc line to the r upper arm intact. no infiltration noted. bed to the lowest position and side rails up and locked. call light within reached and close to the nurses station. will continue to monitor patient.
[2018-08-24] MEDS: DOCUSATE SODIUM 100 MG/10 ML UDC GT SCH (09:00)
[2018-08-24] MEDS: AMIODARONE HCL 200 MG TABLET GT SCH ×2 (09:23→21:06)
[2018-08-24] MEDS: CHLORHEXIDINE GLUCONATE 15 ML/DOSE, 480 ML MM SCH ×2 (09:24→21:07)
[2018-08-24] MEDS: LevETIRAcetam 500 MG/5 ML UDC ORAL LIQUID GT SCH ×2 (09:24→21:06)
[2018-08-24] MEDS: NYSTATIN 15 GM TOPICAL POWDER TP SCH ×2 (09:25→21:07)
[2018-08-24] MEDS: MENTHOL/ZINC OXIDE 113 GM OINT. TP SCH ×4 (09:25→21:08)
[2018-08-24] MEDS: BALSAM PERU/CASTOR OIL 60 GM OINT...G. TP SCH ×2 (09:26→21:07)
--- NOTE | 2018-08-24 10:00 | NUR ---
rounds turned repositioned for comfort. pt had a bowel movement loose stools ,was cleaned and kept patient dry and clean. due meds were given and janeen well. no residual noted and feeding janeen well.
[2018-08-24 12:00] VITALS: BP_SYST 103
--- NOTE | 2018-08-24 12:00 | NUR ---
rounds family at bedside, pt was turned and repositioned for comfort. pt gt was flushed and no residual noted.
--- NOTE | 2018-08-24 14:00 | NUR ---
rounds asleep at intervals.turned repositioned for comfort. call light within reached and family at bedside. resting comfortably at this time.
--- NOTE | 2018-08-24 16:00 | NUR ---
rounds suctioned prn and obtaining small amount of phelgm. turned repositioned for comfort. gt feeding janeen well. no residual noted.
[2018-08-24 16:06] VITALS: BP_SYST 130
--- NOTE | 2018-08-24 18:30 | NUR ---
closing notes gt dressing changed , noted with small amount of serous drain. cleanse with ns and covered with gauze. resp easy and unlabored. no sob noted. resting comfortably, family in the room with patient.
[2018-08-24 19:35] VITALS: BP_SYST 130
--- NOTE | 2018-08-24 19:36 | NUR ---
OPENING NOTE Received report from Brooke. Patient resting in bed with eyes closed. Breathing unlabored and even, trach to vent. No signs of distress, no needs at this time. Family at the bedside. Fall, safety, aspiration, seizure, contact precautions in place. Bed in lowest position, brake on, alarm on, call light within reach. Dumont catheter draining via gravity. IV access saline locked. G-tube feeding infusing as ordered. Pillow support in place. SCDs on. Heels floating. Will continue to monitor.
--- NOTE | 2018-08-24 20:00 | NUR ---
G-tube 0 residual noted. Free water flush of 200cc. G-tube patent.
[2018-08-24 20:25] VITALS: BP_SYST 114
[2018-08-24] MEDS: ATORVASTATIN 10 MG TABLET GT SCH (21:05)
--- NOTE | 2018-08-24 23:17 | NUR ---
Patient resting in bed with eyes closed. Breathing unlabored and even, trach to vent. No signs of distress, no needs at this time. Fall, safety, aspiration, seizure, contact precautions in place. Bed in lowest position, brake on, alarm on, call light within reach. Dumont catheter draining via gravity. G-tube feeding infusing as ordered. Pillow support in place. SCDs on. Heels floating. Will continue to monitor.
--- NOTE | 2018-08-25 | NUR ---
G-tube 0 residual noted. Free water flush of 200cc. G-tube patent.
[2018-08-25 00:05] VITALS: BP_SYST 124
[2018-08-25] MEDS: ACETAMINOPHEN 325 MG TABLET GT PRN (02:51)
--- NOTE | 2018-08-25 02:51 | NUR ---
Pt has facial grimacing. Suctioned patient, repositioned patient, with no relief. Administered PRN tylenol via g-tube for pain.
--- NOTE | 2018-08-25 04:15 | NUR ---
G-tube 0 residual noted. Free water flush of 200cc. G-tube patent.
--- NOTE | 2018-08-25 07:33 | NUR ---
CLOSING NOTE Gave report to Isela. Patient resting in bed with eyes closed. Breathing unlabored and even, trach to vent. No signs of distress, no needs at this time. Fall, safety, aspiration, seizure, contact precautions in place. Bed in lowest position, brake on, alarm on, call light within reach. Dumont catheter draining via gravity. G-tube feeding infusing as ordered. Pillow support in place. SCDs on. Heels floating. Endorsed care to day shift nurse.
[2018-08-25] MEDS: ALBUTEROL SULFATE 0.083% 2.5 MG/3 ML VIAL.NEB INH SCH ×5 (07:40→23:10)
[2018-08-25] MEDS: IPRATROPIUM BROM 0.5 MG/2.5 ML VIAL.NEB (ATROVENT) INH SCH ×5 (07:40→23:10)
[2018-08-25 08:04] VITALS: BP_SYST 119
--- NOTE | 2018-08-25 08:10 | NUR ---
OPENING NOTE PATIENT RECEIVED RESTING IN BED WITH EYES OPEN, NO SIGNS OF ACUTE DISTRESS OR PAIN IS NOTED AT THIS TIME, BREATHING IS EVEN BY MECHANICAL VENT, ASSESSMENT COMPLETED, FLEMING CATHETER DRAINING BY GRAVITY, PATIENT TOLERATING TUBE FEEDING WELL, WILL CONTINUE TO MONITOR, SAFETY PRECAUTIONS IN PLACE, CALL LIGHT WITHIN REACH.
[2018-08-25] MEDS: LevETIRAcetam 500 MG/5 ML UDC ORAL LIQUID GT SCH ×2 (08:39→20:26)
[2018-08-25] MEDS: AMIODARONE HCL 200 MG TABLET GT SCH ×2 (08:39→20:26)
[2018-08-25] MEDS: DOCUSATE SODIUM 100 MG/10 ML UDC GT SCH (08:39)
[2018-08-25] MEDS: BALSAM PERU/CASTOR OIL 60 GM OINT...G. TP SCH ×2 (08:40→20:27)
[2018-08-25] MEDS: CHLORHEXIDINE GLUCONATE 15 ML/DOSE, 480 ML MM SCH ×2 (08:40→20:27)
[2018-08-25] MEDS: MENTHOL/ZINC OXIDE 113 GM OINT. TP SCH ×4 (08:41→20:27)
[2018-08-25] MEDS: NYSTATIN 15 GM TOPICAL POWDER TP SCH ×2 (08:41→20:27)
--- NOTE | 2018-08-25 10:17 | NUR ---
notes patient is resting in bed with eyes open, patient tolerating tube feeding well, family is at bedside, no acute distress or pain is noted, breathing is even by mechanical ventilator, will continue to monitor, safety precautions in place, contact precautions in place, seizure precautions in place, call light within reach.
--- NOTE | 2018-08-25 11:42 | NUR ---
spoke to DR. Cornelius, covering for Dr. Hewitt, regarding dialysis for patient, MD ordered dialysis for today.
[2018-08-25 11:57] VITALS: BP_SYST 106
--- NOTE | 2018-08-25 12:21 | NUR ---
notes changed and cleaned patient for episode of stool incontinence, repositioned for comfort, suctioned patient, family is at bedside, no signs of acute distress or pain is noted, patient tolerating tube feeding well, will continue to monitor, safety precautions in place, contact precautions in place, seizure precautions in place, call light within reach.
--- NOTE | 2018-08-25 13:03 | NUR ---
patient receiving dialysis.
[2018-08-25] MEDS ORDERED: HEPARIN SODIUM,PORCINE 5000 UNITS/ML VIAL IVP ONE (15:30)
--- NOTE | 2018-08-25 15:30 | NUR ---
Notes patient is resting in bed with eyes open, receiving dialysis, no acute distress is noted, patient tolerating tube feeding well, will continue to monitor, safety precautions in place, seizure precautions in place, contact precautions in place, call light within reach.
[2018-08-25 16:14] VITALS: BP_SYST 107
--- NOTE | 2018-08-25 17:00 | NUR ---
NOTES PATIENT RESTING IN BED WITH EYES OPEN, CHANGED AND CLEANED PATIENT FOR EPISODE OF STOOL INCONTINENCE, PATIENT REPOSITIONED, PATIENT TOLERATING TUBE FEEDING WELL, NO SIGNS OF ACUTE DISTRESS OR PAIN IS NOTED, WILL CONTINUE TO MONITOR, SAFETY PRECAUTIONS IN PLACE, SEIZURE PRECAUTIONS IN PLACE, CONTACT PRECAUTIONS IN PLACE, CALL LIGHT WITHIN REACH.
--- NOTE | 2018-08-25 18:39 | NUR ---
CLOSING NOTE PATIENT IS RESTING IN BED WITH EYES OPEN, PATIENT TOLERATING TUBE FEEDING WELL, FAMILY IS AT BEDSIDE, BREATHING IS EVEN BY MECHANICAL VENTILATOR, PATIENT CLEANED, TURNED AND REPOSITIONED, NO ACUTE DISTRESS OR PAIN IS NOTED, ALL NEEDS WERE MET THROUGHOUT SHIFT, WILL ENDORSE REPORT TO ONCOMING NURSE, SAFETY PRECAUTIONS IN PLACE, SEIZURE PRECAUTIONS IN PLACE, CONTACT PRECAUTIONS IN PLACE, CALL LIGHT WITHIN REACH.
--- NOTE | 2018-08-25 19:05 | NUR ---
OPENING NOTE Received report from Isela. Patient resting in bed with eyes closed. Breathing unlabored and even, trach to vent. No signs of distress, no needs at this time. Fall, safety, aspiration, seizure, contact precautions in place. Bed in lowest position, brake on, alarm on, call light within reach. Dumont catheter draining via gravity. G-tube feeding infusing as ordered. Pillow support in place. SCDs on. Heels floating. Family at the bedside. Will continue to monitor.
--- NOTE | 2018-08-25 20:00 | NUR ---
G-tube 0 residual noted. Free water flush of 200cc. G-tube patent.
[2018-08-25] MEDS: ATORVASTATIN 10 MG TABLET GT SCH (20:25)
[2018-08-25 20:35] VITALS: BP_SYST 101
--- NOTE | 2018-08-25 21:04 | NUR ---
Med pass. Zero residual noted from g-tube. G-tube flushed with 200cc water. G-tube patent. Hung new g-tube feeding with new tubing.
--- NOTE | 2018-08-25 22:34 | NUR ---
Trach suctioning and oral care provided
--- NOTE | 2018-08-26 | NUR ---
G-tube 0 residual noted. Free water flush of 200cc. G-tube patent.
[2018-08-26 00:52] VITALS: BP_SYST 116
--- NOTE | 2018-08-26 02:45 | NUR ---
Trach suctioning and oral care provided
[2018-08-26] MEDS: ALBUTEROL SULFATE 0.083% 2.5 MG/3 ML VIAL.NEB INH SCH ×5 (03:00→19:24)
[2018-08-26] MEDS: IPRATROPIUM BROM 0.5 MG/2.5 ML VIAL.NEB (ATROVENT) INH SCH ×5 (03:00→19:24)
--- NOTE | 2018-08-26 04:00 | NUR ---
G-tube 0 residual noted. Free water flush of 200cc. G-tube patent.
--- NOTE | 2018-08-26 06:20 | NUR ---
Oral care provided.
--- NOTE | 2018-08-26 08:00 | NUR ---
OPENING NOTE: RECEIVED REPORT FROM NIGHT NURSE. PATIENT IS RESTING COMFORTABLY IN BED. NO S/S OF DISTRESS OR SOB. PATIENT SLEEPING, NOT ALERT, NON SPEAKING. VITAL SIGNS WNL. SCD' IN PLACE. PICC LINE DRESSING CDI. TRACH SETTINGS AT AC 16, TV 400, FIO2 30, PEEP 5. TUBE-FEEDING ON, SET AT RATE OF 45 ML/HR. SEIZURE PRECAUTIONS IN PLACE, SIDE RAILS ARE PADDED. CONTACT ISOLATION PLACE. CALL LIGHT IN REACH, BED IN LOWEST POSITION, AND WILL CONTINUE TO MONITOR.
[2018-08-26 08:34] VITALS: BP_SYST 110
[2018-08-26] MEDS: DOCUSATE SODIUM 100 MG/10 ML UDC GT SCH (09:00)
[2018-08-26] MEDS: AMIODARONE HCL 200 MG TABLET GT SCH ×2 (09:17→21:54)
[2018-08-26] MEDS: LevETIRAcetam 500 MG/5 ML UDC ORAL LIQUID GT SCH ×2 (09:17→21:52)
[2018-08-26] MEDS: BALSAM PERU/CASTOR OIL 60 GM OINT...G. TP SCH ×2 (09:18→21:55)
[2018-08-26] MEDS: CHLORHEXIDINE GLUCONATE 15 ML/DOSE, 480 ML MM SCH ×2 (09:19→21:54)
[2018-08-26] MEDS: MENTHOL/ZINC OXIDE 113 GM OINT. TP SCH ×4 (09:20→21:56)
[2018-08-26] MEDS: NYSTATIN 15 GM TOPICAL POWDER TP SCH ×2 (09:20→21:55)
--- NOTE | 2018-08-26 10:00 | NUR ---
RN ROUNDS PATIENT IS RESTING COMFORTABLY IN BED. NO S/S OF DISTRESS OR SOB. PATIENT WAS CLEANED AND WOUND CARE DONE, ASSISTED BY NIGHTMAN. PATIENT TOLERATED WELL. PATIENT REPOSITIONED. CALL LIGHT IN REACH, BED IN LOWEST POSITION, AND WILL CONTINUE TO MONITOR.
[2018-08-26 11:16] VITALS: BP_SYST 110
[2018-08-26 12:00] VITALS: BP_SYST 111
--- NOTE | 2018-08-26 12:00 | NUR ---
RN ROUNDS PATIENT IS RESTING COMFORTABLY IN BED. NO S/S OF DISTRESS OR SOB. NO CHANGED TO VENT SETTINGS. ORAL CARE DONE WELL FREE WATER FLUSH. PATIENT TOLERATED WELL. FAMILY AT BEDSIDE. NO OTHER NEEDS. CALL LIGHT IN REACH, BED IN LOWEST POSITION, AND WILL CONTINUE TO MONITOR.
--- NOTE | 2018-08-26 12:00 | NUR ---
RN ROUNDS PATIENT IS RESTING COMFORTABLY IN BED. NO S/S OF DISTRESS OR SOB. PATIENT WAS CLEANED AND WOUND CARE DONE, ASSISTED BY MENTAL HEALTH COUNSELOR. PATIENT TOLERATED WELL. PATIENT REPOSITIONED. CALL LIGHT IN REACH, BED IN LOWEST POSITION, AND WILL CONTINUE TO MONITOR.
--- NOTE | 2018-08-26 14:00 | NUR ---
RN ROUNDS PATIENT IS RESTING COMFORTABLY IN BED. NO S/S OF DISTRESS OR SOB. PATIENT REPOSITIONED. CALL LIGHT IN REACH, BED IN LOWEST POSITION ,AND WILL CONTINUE TO MONITOR.
--- NOTE | 2018-08-26 15:50 | NUR ---
WOUND RE-EVALUATION: Late note for 1549 secondary to patient care. Patient received in a [facility] Bed with a [place] XPRT mattress, awake, nonverbal, nonresponsive to verbal commands. Patient is unable to turn in bed independently. Ceasar Score is a 10. Intrinsic factors that delay wound healing:CVA. Extrinsic factors that delay wound healing: Immobility. Bilateral upper extremities have multiple areas of ecchymosis. Wound Assessment: Wound care performed by day shift nurse. Dressing not removed for assessment secondary to doing so would decrease wound temperature and retard wound healing rate. Wound assessments provided by [facility] Garcia. 1. Left sacral area: Reopened scar tissue from a wound of unknown etiology, present on admission. Wound bed has 100% pink scar tissue. No odor, no drainage. Periwound and surrounding tissue has scar tissue. Wound appears to have resolved. Large area of moisture associated skin damage with dull red erythema and dry, flaky skin surrounding wound and extending up into lower back area. 2. Right sacral area: Reopened scar tissue from a wound of unknown etiology, present on admission. Wound bed has 100% pink scar tissue. No odor, no drainage. Periwound and surrounding tissue has scar tissue. Wound appears to have resolved. Large area of moisture associated skin damage with dull red erythema and dry, flaky skin surrounding wound and extending up into lower back area. Recommend: Cleanse sites with normal saline. Pat dry. Apply moisture barrier cream to involved areas. Cover sites with Sacral foam dressing. Perform site care daily, and as needed for dressing soiling or dislodgment. 3. Right lateral hip: Area of pink scar tissue, present on admission. No odor, no drainage. Recommend continue: Cleanse involved area with mild soap and water. Pat dry. Apply moisture barrier cream to involved area. Perform site care 4 times a day, and as needed for soiling. 4. Right medial thigh fold: Moisture associated wound, present on admission. Appears to have resolved. Recommend: Cleanse wound with normal saline. Apply moisture barrier cream to involved area. Perform site 4 times a day, and as needed for dressing soiling or dislodgment. 5. Left posterior medial calf: [place] area of purple discoloration/ecchymosis, present on admission. Recommend continue: No dressing needed. Continue to monitor site for worsening condition. Float involved areas with pillows and towel rolls at all times. 6. Right dorsal hand: Full thickness skin tear, present on admission. Resolved. Recommend continue: No dressing needed. Continue to monitor. 7. 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 Skin is intact, now red in color, no drainage or weeping. Improved. Recommend: Cleanse involved areas with mild soap and water. Pat dry. Apply Calmoseptine cream to involved areas. Perform site care 4 times a day, and as needed for soiling. 8. Right buttock near ischial tuberosity: Linear excoriated areas with red tissue over scar tissue, present on admission. Brown discolored area present, inferior to the excoriated areas (which have resolved). Recommend: Cleanse involved area with mild soap and water. Pat dry. Apply Calmoseptine cream to involved area. Perform site care 4 times a day, and as needed for soiling. Also recommend: Recommend reposition patient side to side only every 2 hours with pillow support. Offload, elevate and float bilateral heels with one pillow lengthwise under each extremity at all times. Perform skin care and monitor skin integrity Q shift. Use Calmoseptine cream on moisture susceptible areas QID and PRN for soiling. Maintain patient on a low air-loss mattress. Addendum: 08/26/18 at 1857 by Vivek Arevalo RN Abdominal folds have erythema. Apply antifungal powder to involved areas twice a day, and as needed for soiling.
[2018-08-26 16:00] VITALS: BP_SYST 119
--- NOTE | 2018-08-26 16:03 | NUR ---
RN ROUNDS PATIENT IS RESTING COMFORTABLY IN BED. NO S/S OF DISTRESS OR SOB. EQUAL CHEST RISE NOTED. AT BEDSIDE. PATIENT REPOSITIONED. NO OTHER NEEDS AT THIS TIME. CALL LIGHT IN REACH, BED IN LOWEST POSITION, AND WILL CONTINUE TO MONITOR.
--- NOTE | 2018-08-26 18:44 | NUR ---
CLOSING NOTE: PATIENT IS RESTING COMFORTABLY IN BED. NO S/S OF DISTRESS OR SOB. PATIENT IS AWAKE, NON VERBAL, NON ALERT. SCD'S IN PLACE. ALL NEEDS MET DURING SHIFT. TUBE-FEEDING IN PLACE. CALL LIGHT IN REACH, BED IN LOWEST POSITION, AND WILL GIVE REPORT TO NIGHT NURSE.
--- NOTE | 2018-08-26 18:45 | NUR ---
Nutrition F/U Nutrition F/U Admitting Diagnosis Tracheostomy bleed, UTI Reviewed Pertinent Medical/Surgical Hx Medical Record Patient Primary RN Medical History Comment: PMH: CVA, respiratory failure, trach, PEG per MD notes Pt also found w/ sepsis, vent-associated pneumonia, complicated UTI, acute on chronic respiratory, CHF, anasarca per MD notes 08/26/18 Attending MD notes: sepsis, vent-associated pneumonia, present on admission, complicated UTI, Hx of CVA, acute on chronic respiratory failure Subjective Information Pt seen resting in bed, +intubated, +non-verbal, w/ TF infusing as per MD orders. Per Rn, pt dimitrios been tolerating TF well, no residuals. Per EMR, TF Intakes: 540 ml 08/26/18. Residuals: 0 ml 08/26/18. Abd is soft and non-distended w/ active bowel sounds. Current TF regimen remains appropriate and adequate. Current Diet Order/Nutrition Support Pivot 1.5 at 45 ml/hr, Free Water Flush: 200 Q4h via GT x22 days Patient/Significant Other Unable To Verbalize Education Provided Not Indicated Pertinent Medications amiodarone, keppra Pertinent Labs 08/22/18: H/H 8.4 L/25.9 L, RBC 2.73 L, BUN 74 H, CRE 2.37 H, BG 121 H, AST 66 H, ALP 222 H, ALB 1 L Height (Feet) 5 feet Height (Inches) 0.00 inches Weight (Pounds) 180 pounds (07/28/18) -- RD attempted to weigh pt on bedscale, likely inaccurate -- 213 lb (08/10/18); 209 lb (08/17/18) Weight (Calculated Kilograms) 81.536100 kilograms Patient Weight 81.647 kg Body Mass Index 35.15 kg/m2 %IBW 182 [place]/Adjusted Body Weight IBW: 100 lb, 45 kg. Adj IBW (obesity): 120 lb, 55 kg Recent Weight Change unable to verify Weight Status Obese Gastrointestinal Symptoms None Last BM 08/23/18 x 4 loose Food Allergies unable to verify Usual Diet At Home TF at [facility] Skin Integrity Comment: Ceasar scale: 10; per Certified Physician'S Assistant note 08/20/18: 1. Left sacral area: Reopened scar tissue from a wound of unknown etiology, present on admission. 2. Right sacral area: Reopened scar tissue from a wound of unknown etiology, present on admission. Appears to have resolved. 3. Right lateral hip: area of pink scar tissue, present on admission. 4. Right medial thigh fold: Moisture associated wound, present on admission. 5. Left posterior medial calf: [place] area of purple discoloration/ecchymosis, present on admission. 6. Right dorsal hand: Full thickness skin tear, present on admission. Resolved. 7. 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 8. Right buttock near issue tuberosity: Linear excoriated areas with red tissue over scar tissue, present on admission. 9. Left mons pubis: Abrasion. 10. Left lower lip: Mucosal pressure ulcer, cannot be staged secondary to the histology of mucous membrane tissue is different than that of skin. 11. Left lateral abdomen, superior to site 12: Intertriginous dermatitis. 12. Lower abdomen, inferior and anterior to site 11: Intertriginous dermatitis. BLE w/ 3+ pitting edema and BUE w/ 3+ pitting edema Estimated Energy Expenditure (kcals/day) 3259-1854 kcal/day (30-35 kcal/kg CBW for wound healing) Estimated Protein Required (g/day) 83-110 gm/day (1.5-2 gm/kg Adj IBW for sepsis, wound healing, ESRD/HD) Estimated Fluid Required (l/day) Per MD (CHF, ESRD) Problem/Etiology/Signs/Symptoms Inadequate enteral nutrition related to metabolic demands as evidenced by increased nutritional needs for sepsis and wound healing, and current TF meets less than 50% of estimated nutritional needs. *improved Expected Outcomes/Goals - Monitor tolerance to EN support w/ goal of pt meeting at least 85% of estimated nutritional needs, labs trending WNL, normal GI function, and skin integrity/wt maintenance Dietitian Recommendations * Recommend Pivot 1.5 at 45 ml/hr, Free Water Flush: 200 Q4hr via GT Provides: 1620 kcal/day, 101 gm protein/day, and 2020 ml free water/day Meets: 98% of estimated caloric needs and 92% of upper end of estimated protein needs Follow Up Moderate Risk: F/U in 3-5 days
--- NOTE | 2018-08-26 20:00 | NUR ---
G-tube 0 residual noted. Free water flush of 200cc. G-tube patent.
[2018-08-26] MEDS: ATORVASTATIN 10 MG TABLET GT SCH (21:52)
--- NOTE | 2018-08-27 | NUR ---
G-tube 0 residual noted. Free water flush of 200cc. G-tube patent. Oral care provided.
[2018-08-27 00:37] VITALS: BP_SYST 108
--- NOTE | 2018-08-27 04:00 | NUR ---
G-tube 0 residual noted. Free water flush of 200cc. G-tube patent. Oral care provided.
--- NOTE | 2018-08-27 06:15 | NUR ---
RT at the bedside.
--- NOTE | 2018-08-27 06:24 | NUR ---
New nagel catheter placed 16# liberian. Patient cleaned up and repositioned.
[2018-08-27] MEDS: ALBUTEROL SULFATE 0.083% 2.5 MG/3 ML VIAL.NEB INH SCH ×5 (07:33→23:00)
[2018-08-27] MEDS: IPRATROPIUM BROM 0.5 MG/2.5 ML VIAL.NEB (ATROVENT) INH SCH ×5 (07:33→23:00)
--- NOTE | 2018-08-27 07:36 | NUR ---
CLOSING NOTE Gave report to Esme Paredes. Patient resting in bed with eyes closed. Breathing unlabored and even, trach to vent. No signs of distress, no needs at this time. Fall, safety, aspiration, seizure, contact precautions in place. Bed in lowest position, brake on, alarm on, call light within reach. Dumont catheter draining via gravity. G-tube feeding infusing as ordered. Pillow support in place. SCDs on. Heels floating. Endorsed care to day shift nurse.
[2018-08-27 08:00] VITALS: BP_SYST 126
--- NOTE | 2018-08-27 08:15 | NUR ---
AM NOTES IN BED, NO ACUTE DISTRESS NOTED. TOLERATING VENT SETTINGS AND FEEDING WELL. REPOSITIONED. DRESSING ON THE BUTTOCKS DRY AND INTACT, WAS CHANGED BY NIGHT NURSE. WILL CONTINUE TO MONITOR.
[2018-08-27] MEDS: LevETIRAcetam 500 MG/5 ML UDC ORAL LIQUID GT SCH ×2 (08:32→23:02)
[2018-08-27] MEDS: DOCUSATE SODIUM 100 MG/10 ML UDC GT SCH (08:32)
[2018-08-27] MEDS: AMIODARONE HCL 200 MG TABLET GT SCH ×2 (08:33→23:01)
[2018-08-27] MEDS: NYSTATIN 15 GM TOPICAL POWDER TP SCH ×2 (08:34→21:00)
[2018-08-27] MEDS: MENTHOL/ZINC OXIDE 113 GM OINT. TP SCH ×4 (08:34→23:02)
[2018-08-27] MEDS: BALSAM PERU/CASTOR OIL 60 GM OINT...G. TP SCH ×2 (08:34→21:00)
[2018-08-27] MEDS: CHLORHEXIDINE GLUCONATE 15 ML/DOSE, 480 ML MM SCH ×2 (08:36→21:00)
--- NOTE | 2018-08-27 08:45 | NUR ---
Notes Seen by Dr. Graves at bedside. In bed, no distress noted. mouth care done and patient does open her eyes. Pt tolerated feeding, only 5 residual. will continue to monitor.
--- NOTE | 2018-08-27 10:39 | NUR ---
NOTES- IN BED, TURNED AND REPOSITIONED, NO DISTRESS NOTED. FAMILY AT BEDSIDE.
--- NOTE | 2018-08-27 11:11 | NUR ---
HD- HD NURSE AT BEDSIDE AT THIS TIME TO DO DIALYSIS.
[2018-08-27 12:28] VITALS: BP_SYST 100
--- NOTE | 2018-08-27 12:30 | NUR ---
EBONY DC PLANNING: SPOKE WITH [facility] TO UPDATE ON CURRENT STATUS. INFORMED THAT [facility] IN [place] HAS A SUBACUTE UNIT AND IS ABLE TO PER HD ONSITE. PER [facility], THEY WERE AWARE OF THIS LOCATION, BUT, ADMISSION TO THIS SUBACUTE UNIT IS ON A SHORT TERM BASIS ONLY. [facility] ALSO STATED THAT [facility] ON S[facility]. THE ISSUE WITH [facility] SUBACUTE UNITS IS [facility] WOULD NEED TO PROVIDE TRANSPORTATION TO HD WHICH WOULD LIKELY BE SET UP AT [facility] [place] WHEN THEY PERFORM HD ON VENT DEPENDENT TRACHED Pts. PER [facility], THEY ARE STILL IN PROCESS OF LOOKING FOR SUBACUTE PLACEMENT. SPOKE WITH LAWANDA/LAKHWINDER IN BED HUDDLE AND AT 1620 REGARDING F/UP WITH HOSPITALIST TO RE-CULTURE SPUTUM, URINE, AND BLOOD TO CLEAR ISOLATION FOR FUTURE PLACEMENT Pt HAS BEEN OFF ABX AND WAS LAST SEEN BY ID/DR. GALVAN ON 08/22/18.
--- NOTE | 2018-08-27 14:59 | NUR ---
Notes- HD done with 1.6 liters. v/s stable.
[2018-08-27 16:15] VITALS: BP_SYST 108
[2018-08-27 20:18] VITALS: BP_SYST 114
--- NOTE | 2018-08-27 20:49 | NUR ---
TRACH TO VENTILATOR PATENT SUCTION UPRIGHT POSITION MODERATE AMOUNT OF THICK WHITE SPUTUM FAMILY IS @ THE BEDSIDE CHEST MOVEMENT SHALLOW ALSO SYMMETRICAL NO SOB PROCEDURE TOLERATED .
--- NOTE | 2018-08-27 20:50 | NUR ---
GASTRIC TUBE FEEDING PIVIT @ 45 ML HOUR TUBE RESIDUAL 15 ML PATENT PLACEMENT VERIFIED VIA AUSCULTATION NO S/SX OF ASPIRATION .
[2018-08-27] MEDS: ATORVASTATIN 10 MG TABLET GT SCH (23:00)
--- NOTE | 2018-08-27 23:34 | NUR ---
Reposition & Turning off loading with pillows HOB kept elevated Trach to Vent minimal alarming noted kept clean also dry as needed family at the bedside .
--- NOTE | 2018-08-28 02:29 | NUR ---
Gastric Tube site DSD applied , tube Residual 10 ml free water flush 200 ML on schedule patient tolerating .
[2018-08-28] MEDS: IPRATROPIUM BROM 0.5 MG/2.5 ML VIAL.NEB (ATROVENT) INH SCH ×5 (03:00→19:09)
[2018-08-28] MEDS: ALBUTEROL SULFATE 0.083% 2.5 MG/3 ML VIAL.NEB INH SCH ×5 (03:00→19:10)
[2018-08-28 04:43] VITALS: BP_SYST 98
--- NOTE | 2018-08-28 05:58 | NUR ---
WOUND CARE implemented to left & right buttocks and SACRAL AREAS as ordered skin break down is noted with discoloration position change also tolerated .
[2018-08-28 07:25] VITALS: BP_SYST 108
[2018-08-28 08:00] VITALS: BP_SYST 108
--- NOTE | 2018-08-28 08:00 | NUR ---
Note Pt resting in bed with Mechanical ventilator - ventilating pt well. IVF's infusing well through PARKER PICC. No SOB/resp distress or pain/discomfort noted at this time. Tele unit attached and intact at this time. Pt was given hygiene care and bed bath at this time with 2 person assist. Pt near the nurses' station for close observation. Call light within reach. No needs noted at this time.
[2018-08-28] MEDS: LevETIRAcetam 500 MG/5 ML UDC ORAL LIQUID GT SCH ×2 (08:22→22:13)
[2018-08-28] MEDS: DOCUSATE SODIUM 100 MG/10 ML UDC GT SCH (08:23)
[2018-08-28] MEDS: AMIODARONE HCL 200 MG TABLET GT SCH ×2 (08:23→22:13)
[2018-08-28] MEDS: NYSTATIN 15 GM TOPICAL POWDER TP SCH ×2 (08:24→21:00)
[2018-08-28] MEDS: MENTHOL/ZINC OXIDE 113 GM OINT. TP SCH ×4 (08:24→22:14)
[2018-08-28] MEDS: BALSAM PERU/CASTOR OIL 60 GM OINT...G. TP SCH ×2 (08:25→22:15)
[2018-08-28] MEDS: CHLORHEXIDINE GLUCONATE 15 ML/DOSE, 480 ML MM SCH ×2 (08:26→22:14)
--- NOTE | 2018-08-28 10:40 | NUR ---
Note Pt resting on air mattress and turned q2' for comfort and promotion of circulation. Mechanical ventilator, ventilating pt well at this time. IV in PARKER PICC intact and patent infusing IVF's well at this time. Tele unit intact and patent at this time. Call light within reach.
--- NOTE | 2018-08-28 12:15 | NUR ---
Note Pt resting in bed, no needs noted. Pt receiving her breathing treatments from resp therapist as scheduled at this time. Pt checked on q1' and PRN all shift for needs and care.
[2018-08-28 12:20] VITALS: BP_SYST 105
--- NOTE | 2018-08-28 12:35 | NUR ---
PT HAS OPEN AREA ON LIPS DUE TO BITTING CHARGE NURSE AND RN ARE AWARE
--- NOTE | 2018-08-28 14:20 | NUR ---
Note Pt resting in bed with her and another family member at bedside at this time. No needs noted at this time. Pt stable at this time. Call light within reach.
[2018-08-28 16:45] VITALS: BP_SYST 100
--- NOTE | 2018-08-28 18:00 | NUR ---
Note Pt resting in bed. Pt was checked on q1' and PRN all shift for needs and care. Pt's family at bedside at this time. No SOB/resp distress or pain/discomfort noted at this time. PARKER PICC intact and patent all shift. Mechanical ventilator ventilating pt well all shift. No needs noted. Call light within reach. GT site clean and intact infusing feedings well all shift. Minimal residue remaining.
--- NOTE | 2018-08-28 18:01 | NUR ---
Note 1800 note was written by Ayden OSBORNE under Viviana OSBORNE's name in error.
--- NOTE | 2018-08-28 19:20 | NUR ---
OPENING NOTES: BEDSIDE REPORT DONE FROM AM RN. FAMILIES AT BEDSIDE, REQUESTING TO CLEAN PATIENT. ON A VENT VIA TRACHEA #PORTEX 7,TV 400 FI02 30 % PEEP 5 AC A6. SAT 99%, ON SEMI HIGH FOWLERS POSITION. FEEDING TUBE AT 45 ML HR VIA G TUBE. FLEMING CATH DRAINING RONALD HAZY URINE.SCD ALARM AND SCD ON. SON APPLYING LOTION TO BOTH LEGS. PICC LINE TO TIGHT UPPER ARM SALINE LOCK.
[2018-08-28 19:50] VITALS: BP_SYST 113
--- NOTE | 2018-08-28 20:05 | NUR ---
HYGIENE/BOWEL MOVEMENT: FAMILY REQUESTED TO CLEAN PATIENT NOW. INCONTINENT OF LOOSE STOOL. BED BATH AND SKIN WOUND ORAL CARE CARE DONE. PIVOT FEEDING INFUSING AT 45ML/HR. DRESSING DRY AND INTACT OF PICC LINE AND G TUBE. FAMILY PLACED DRESSING TP LEFT LOWER LIP, NO BLEEDING SEEN. CONTROLLED WITH BBB ON TELEMONITOR.CALL LIGHT WITHIN REACH. BED IN LOW POSITION.
--- NOTE | 2018-08-28 20:45 | NUR ---
FAMILIES TALKING TO PATIENT,SHE WAVES HANDS ,SMILES BUT APPEARS TEARFUL.
--- NOTE | 2018-08-28 22:10 | NUR ---
MEDS ADMIN/WATER FLUSH: ALL DUE MEDS GIVEN AND CREAM APPLIED. 5 ML RESIDUAL.
[2018-08-28] MEDS: ATORVASTATIN 10 MG TABLET GT SCH (22:13)
[2018-08-29] VITALS (7 sets, daily range): BP systolic 92–118
--- NOTE | 2018-08-29 02:00 | NUR ---
WATER FLUSH /STOOL INCONTINENT: HYGIENE AND SKIN CARE DONE. REPOSITIONED. FLUSHED G TUBE EASILY.
--- NOTE | 2018-08-29 05:05 | NUR ---
HYGEINE/WOUND CARE: WOUND CARE DONE TO SACRAL /PERINEAL AREAS/ BUTTOCKS. LESS REDNESS TO SACRAL / BUTTOCKS.ORAL CARE DONE.
--- NOTE | 2018-08-29 06:45 | NUR ---
CLOSING: ALL NEEDS WERE ATTENDED. SAME ON VENT SETTINGS VIA TRACHE. SUCTIONED WITH ORAL CARE.NO ACUTE CARDIOPULMONARY DISTRESS. REPOSITIONED. FLEMING PATENT. CALL LIGHT NEAR BY.WILL ENDORSED TO AM RN FOR CONTINUITY OF CARE.
[2018-08-29] MEDS: ALBUTEROL SULFATE 0.083% 2.5 MG/3 ML VIAL.NEB INH SCH ×5 (07:45→23:10)
[2018-08-29] MEDS: IPRATROPIUM BROM 0.5 MG/2.5 ML VIAL.NEB (ATROVENT) INH SCH ×5 (07:45→23:10)
--- NOTE | 2018-08-29 08:00 | NUR ---
Note Pt resting in bed and being ventilated by mechanical ventilator at this time. Tele unit attached and intact. Dumont catheter intact and draining well. No SOB/resp distress or pain/discomfort noted at this time. GT site intact and dressing CDI at this time, feedings being well absorbed at this time. No needs noted. Call light within reach.
[2018-08-29 08:08] LABS: BASOPHILS % (AUTO) 0.4 % (0.0-2.0); EOSINOPHILS # (AUTO) 1.9 K/uL (0.0-0.4); EOSINOPHILS % (AUTO) 21.5 % (0.0-4.0); HEMATOCRIT 25.8 % (36-48); HEMOGLOBIN 8.5 g/dL (12.0-16.0); LYMPHOCYTES # (AUTO) 0.7 K/uL (1.0-5.5); MEAN CORPUSCULAR HEMOGLOBIN 31 pg (27-31); MEAN CORPUSCULAR HGB CONC 33 % (32-36); MEAN CORPUSCULAR VOLUME 95 fL (79.0-98.0); MONOCYTES # (AUTO) 0.8 K/uL (0.0-1.0); NEUTROPHILS # (AUTO) 5.4 K/uL (1.8-7.7); PLATELET COUNT (AUTO) 210 K/uL (130-430); RED BLOOD CELL COUNT(AUTO) 2.73 MIL/uL (4.2-6.2); RED CELL DISTRIBUTION WIDTH 16.7 % (9.0-15.0); WHITE BLOOD COUNT (AUTO) 8.8 K/uL (4.8-10.8)
[2018-08-29 08:19] LABS: ALANINE AMINOTRANSFERASE 25 U/L (12-78); ALBUMIN 1.1 g/dL (3.4-4.8); ANION GAP 5 (5-15); ASPARTATE AMINOTRANSFERASE 54 U/L (10-37); CHLORIDE 102 mmol/L (98-107); CREATININE 1.97 mg/dL (0.55-1.30); GLUCOSE 108 mg/dL (70-99); POTASSIUM 3.9 mmol/L (3.5-5.1); SODIUM SERUM 134 mmol/L (136-145); TOTAL BILIRUBIN 0.9 mg/dL (0.0-1.0); UREA NITROGEN, BLOOD 68 mg/dL (8-21)
[2018-08-29] MEDS: LevETIRAcetam 500 MG/5 ML UDC ORAL LIQUID GT SCH ×2 (08:36→21:25)
[2018-08-29] MEDS: AMIODARONE HCL 200 MG TABLET GT SCH ×2 (08:36→21:24)
[2018-08-29] MEDS: NYSTATIN 15 GM TOPICAL POWDER TP SCH ×2 (08:37→21:27)
[2018-08-29] MEDS: CHLORHEXIDINE GLUCONATE 15 ML/DOSE, 480 ML MM SCH ×2 (08:37→21:25)
[2018-08-29] MEDS: DOCUSATE SODIUM 100 MG/10 ML UDC GT SCH (08:37)
[2018-08-29] MEDS: MENTHOL/ZINC OXIDE 113 GM OINT. TP SCH ×4 (08:38→21:26)
[2018-08-29] MEDS: BALSAM PERU/CASTOR OIL 60 GM OINT...G. TP SCH ×2 (08:38→21:27)
--- NOTE | 2018-08-29 11:10 | NUR ---
Note Pt turned q2' and PRN for comfort and promotion of circulation. Pt's family at bedside at this time visiting. No needs noted. Resp therapist giving breathing treatments as scheduled. No needs noted. Call light within reach.
[2018-08-29 12:36] LABS: NEUTROPHILS % (AUTO) 61.1 % (40.0-70.0)
--- NOTE | 2018-08-29 14:35 | NUR ---
Note Pt has been turned q2' and PRN for comfort. Hygiene care and bathing completed throughout the shift as needed. Dumont catheter intact and draining. PARKER PICC intact and patent. Dressing clean and dry all shift. No needs noted. GT feedings infusing well and tolerated at this time. Call light within reach. Pt checked on q1' and PRN for needs and care. Pt's son and family member at bedside at this time.
[2018-08-29] MEDS: ACETAMINOPHEN 325 MG TABLET GT PRN (18:07)
--- NOTE | 2018-08-29 18:40 | NUR ---
Note Pt resting in bed with 3 family members at bedside. No SOB/resp distress or abdominal pain/discomfort noted. Pt was given Tylenol PO through GT for pain, as family states pt's expresses pain/discomfort when being turned for hygiene and bed bath. GT feedings infusing well. PARKER PICC intact and patent at this time. Pt was checked on q1' and PRN for comfort and promotion of circulation. No needs noted at this time. Dumont catheter intact and draining well. Call light within reach. Mechanical ventilator ventilating pt well all shift.
--- NOTE | 2018-08-29 20:00 | NUR ---
INITIAL NOTES: UPDATE REPORT RECEIVED FROM INDIA CRONIN AT 1900 HR.SEEN PATIENT ,FAMILIES AT BEDSIDE REQUESTING TO PLACED BACK SCD. PATIENT ON A VENTILATOR VIA TRACHE SIZE 7 PORTEX. SETTINGS ARE AC 16 TV 400 FIO2 30 % PEEP OF 5 SAT 98%,,RECEIVING PIVOT FEEDING VIA G TUBE AT 45ML/HR, DRESSING DRY AND INTACT. PICC LINE TO RIGHT UPPER CHEST ,SALINE LOCKED. DRESSING DRY AND INTACT. LEFT LIP WITH SCANT BLEEDING. ON HIGH FOWLERS POSITION ,PROPPED WITH ALL PILLOWS REQUESTS OF FAMILIES. FLEMING CATHETER WITH LIGHT DARK RONALD URINE. BREATHING TX BEING GIVEN BY RT. CONTROLLED AFIB WITH BBB. WILL MONITOR CLOSELY.
[2018-08-29] MEDS: ATORVASTATIN 10 MG TABLET GT SCH (21:24)
--- NOTE | 2018-08-29 22:00 | NUR ---
STOOL INCONTINENT: PARTIAL BATH WITH SKIN CARE TO ALL WOUNDS ON HER SACRAL/ BUTTOCKS AND PERINEAL AREAS, HAS LIGHT WATERY,VERY FOUL SMELL, DARK BROWNISH STOOL.BUTTOCKS WOUNDS RAW DUE TO STOOL.TURNED TO SIDES.STILL WITH LIGHT REDNESS TO ABDOMEN. GENERALIZED EDEMA.
[2018-08-30] VITALS (7 sets, daily range): BP systolic 101–131
--- NOTE | 2018-08-30 | NUR ---
LIP DRESSINGS: FAMILIES PLACED LIP DRESSINGS WITH LIGHT PINKISH DRAINAGE.FEEDING INFUSING WELL.
--- NOTE | 2018-08-30 01:45 | NUR ---
WATER FLUSH TO G TUBE DONE FOR HYDRATION AND PATENCY.TURNED TO SIDE.
[2018-08-30] MEDS: IPRATROPIUM BROM 0.5 MG/2.5 ML VIAL.NEB (ATROVENT) INH SCH ×6 (02:50→23:29)
[2018-08-30] MEDS: ALBUTEROL SULFATE 0.083% 2.5 MG/3 ML VIAL.NEB INH SCH ×6 (02:50→23:29)
--- NOTE | 2018-08-30 04:30 | NUR ---
STOOL INCONTINENT. WOUND CARE PER PROTOCOL,ORAL ,FLEMING CARE WERE DONE. DRESSING TO G TUBE CHANGED,SITE REDDISH Z GAURD APPLIED.ORAL AND TRACHE SUCTIONING DONE. LIP WITH SLIGHT PINKISH BLEEDING. WOUND OPEN TO AIR.
--- NOTE | 2018-08-30 05:31 | NUR ---
WATER FLUSH TO G TUBE DONE ,NO DIFFICULTY.
--- NOTE | 2018-08-30 07:32 | NUR ---
opening note pt in bed eyes open, no distress noted, visible chest rise, g-tube infusing @ 45ml/hr noted, trach to vent noted. nagel cath in place, scd in place. bed alarm on , with bed in the lowest position.
[2018-08-30] MEDS ORDERED: HEPARIN SODIUM,PORCINE 5000 UNITS/ML VIAL IVP ONE ×2 (08:00)
[2018-08-30] MEDS: DOCUSATE SODIUM 100 MG/10 ML UDC GT SCH ×2 (09:00→09:23)
[2018-08-30] MEDS: AMIODARONE HCL 200 MG TABLET GT SCH ×2 (09:00→20:35)
[2018-08-30] MEDS: LevETIRAcetam 500 MG/5 ML UDC ORAL LIQUID GT SCH ×2 (09:23→20:36)
[2018-08-30] MEDS: CHLORHEXIDINE GLUCONATE 15 ML/DOSE, 480 ML MM SCH ×2 (09:24→20:37)
--- NOTE | 2018-08-30 10:53 | NUR ---
DIALYSIS FINISHED AT THIS TIME.
[2018-08-30] MEDS: BALSAM PERU/CASTOR OIL 60 GM OINT...G. TP SCH ×2 (12:00→21:07)
[2018-08-30] MEDS: MENTHOL/ZINC OXIDE 113 GM OINT. TP SCH ×4 (12:00→20:38)
[2018-08-30] MEDS: NYSTATIN 15 GM TOPICAL POWDER TP SCH ×2 (12:00→21:00)
--- NOTE | 2018-08-30 13:19 | NUR ---
PATIENT RESTING: Patient resting quietly. No acute distress noted. Vital signs within normal range.
--- NOTE | 2018-08-30 15:22 | NUR ---
DC Planning: late entry: per [facility]: [facility] bed for [facility] pt today. Updated info sent to [facility] per request. Pt's dtr/Tracey made aware and agreed with the transfer today-- pending bed assignment from [facility]. [facility] will call nursing station with bed assignment and [facility] ambulance set up /transfer time. -- INDIA Cárdenas, and HEATHER Miguel made aware.
--- NOTE | 2018-08-30 16:23 | NUR ---
Glucotrol and gabapentin given at this time. eye drop also administered to right eye. family at bedside, safety maintained. Addendum: 08/30/18 at 1624 by Radha Chan RN WRONG PATIENT NOTE
[2018-08-30] MEDS: ACETAMINOPHEN 325 MG TABLET GT PRN (16:30)
--- NOTE | 2018-08-30 19:16 | NUR ---
CLOSING NOTE ALL NEEDS MET THROUGH SHIFT, SAFETY MAINTAINED, CARE ENDORSED TO BARREL COOPER.
[2018-08-30] MEDS: ATORVASTATIN 10 MG TABLET GT SCH (20:36)
--- NOTE | 2018-08-30 23:41 | NUR ---
PAGED MD PAGED AVIATION PROJECT MANAGER PHYSICIAN, DR. JENSEN @ ([phone]).
--- NOTE | 2018-08-30 23:45 | NUR ---
CARROLL BECK CALLED : CALLED AND TALKED WITH NISHA Donovan , CAROLYN Donovan THAT UNABLE TO TRANSFER PT BECAUSE AMBULANCE REFUSED TO TAKE THE PT WITH THE VITALS SIGNS OF 101/53, 103/53, 103/47, 104/43 ETC . ZAKDANY STATED SHE WILL TRY TO TRANSFER PT TONIGHT SINCE ITS HER TREND AND ITS NOT TOO LOW ,BUT MOST PROBABLY THE DISCHARGE WILL BE TOMORROW Addendum: 08/31/18 at 0018 by Rinku Porras RN NISHA NO - [phone]
[2018-08-31] VITALS (9 sets, daily range): BP systolic 13–133
--- NOTE | 2018-08-31 00:02 | NUR ---
DR JENSEN CALLED : DR JENSEN CALLED BACK , INFORMED MD THAT PTS BP WAS ON THE LOW , 101/53,103/51,103/47,104 /43,WHEN THE AMBULANCE WAS HERE AMBULANCE REFUSED TO TRANSFER THE PT . SO PT IS STILL HERE UNABLE TO TRANSFER THE PT, MD STATED OK TO TRANSFER ONCE THEY FIND THE TRANSPORTATION . AND NO ORDERS FOR THE LOW BP , MONITOR BP FOR NOW .
--- NOTE | 2018-08-31 01:15 | NUR ---
Opening notes Received report. Patient resting in bed. No signs of distress noted. Trach is intact. G tube in place running Pivot @ 45 ml/hr. PARKER PICC is patent and intact. Dumont is in place and secured. Safety precautions are in place. Family are at the bedside. Addendum: 08/31/18 at 0118 by Tata Faye RN NOTE DONE AT 08/30/18 AT 1920.
--- NOTE | 2018-08-31 01:19 | NUR ---
RN rounds Patient is resting comfortably in bed. No signs of distress noted. Safety precautions in place. Family at bedside.
--- NOTE | 2018-08-31 03:30 | NUR ---
RN rounds Patient is sleeping in bed. No signs of distress noted. Safety precautions in place.
[2018-08-31] MEDS: ALBUTEROL SULFATE 0.083% 2.5 MG/3 ML VIAL.NEB INH SCH ×6 (04:06→23:08)
[2018-08-31] MEDS: IPRATROPIUM BROM 0.5 MG/2.5 ML VIAL.NEB (ATROVENT) INH SCH ×6 (04:06→23:08)
--- NOTE | 2018-08-31 05:01 | NUR ---
R PICC line dressing change Changed PARKER PICC line dressing using sterile technique. Patient tolerated well.
--- NOTE | 2018-08-31 06:46 | NUR ---
Closing notes Patient resting comfortably in bed. No signs of distress noted. R PICC line is patent and intact, saline locked. Dumont is in place and secured. Trach is intact. G tube is in place running Pivot @ 45 ml/hr. All needs met. Practice guidelines met throughout the shift. Safety precautions in place. Will endorse to day shift RN.
--- NOTE | 2018-08-31 07:15 | NUR ---
Opening Note patient resting in bed, awake and alert, HOB elevated, positioned with pillow support, breathing unlabored and symmetrical, G-tube running at this time, SCDs on for DVT prophylaxis, safety, isolation and aspiration precautions in place, educated patient on use of call light for assistance, verbalized understanding, call light and bedside table left within reach, will continue to monitor patient Addendum: 08/31/18 at 0734 by Fanny Sage RN Amend, patient unable to verbalized understanding, safety precautions remain in place.
--- NOTE | 2018-08-31 07:57 | NUR ---
Dr. Radha Almonte at this time, will follow through with MD orders Addendum: 08/31/18 at 0759 by Fanny Sage RN Amend, wrong patient disregard
[2018-08-31] MEDS: LevETIRAcetam 500 MG/5 ML UDC ORAL LIQUID GT SCH ×2 (08:55→21:48)
[2018-08-31] MEDS: AMIODARONE HCL 200 MG TABLET GT SCH ×2 (08:56→21:46)
[2018-08-31] MEDS: DOCUSATE SODIUM 100 MG/10 ML UDC GT SCH (08:56)
[2018-08-31] MEDS: NYSTATIN 15 GM TOPICAL POWDER TP SCH ×2 (08:57→21:46)
[2018-08-31] MEDS: CHLORHEXIDINE GLUCONATE 15 ML/DOSE, 480 ML MM SCH ×2 (08:57→21:45)
[2018-08-31] MEDS: MENTHOL/ZINC OXIDE 113 GM OINT. TP SCH ×4 (08:57→21:47)
[2018-08-31] MEDS: BALSAM PERU/CASTOR OIL 60 GM OINT...G. TP SCH ×2 (08:58→21:48)
--- NOTE | 2018-08-31 09:18 | NUR ---
Medication administered, g-tube had 0 residual, flushed well, patient positioned in bed, HOB remains elevated, SCDs on for DVT prophylaxis, safety and isolation precautions in place, will continue to monitor patient
--- NOTE | 2018-08-31 10:53 | NUR ---
Follow-up with [facility]/Family at Bedside Ivonne RN called [facility] to follow-up with transfer for patient today, will await call back, patient resting in bed at this time, eyes closed, breathing unlabored and symmetrical, HOB remains elevated, son at bedside, safety, isolation and aspiration precautions remain in place, will continue to monitor
--- NOTE | 2018-08-31 12:50 | NUR ---
Patient Cleansed and Repositioned in Bed had small amount of liquid BM, ointment applied, patient tolerated well, family at bedside, safety, isolation and aspiration precautions in place, will continue to monitor patient
--- NOTE | 2018-08-31 13:07 | NUR ---
Spoke with [facility] informed them that patient's BP was low earlier and increased after activity, case resource manager asked if patient OK to DC, informed her that BP fluctuates and that patient maintains low BP, verbalized understanding and stated will keep me updated
--- NOTE | 2018-08-31 14:09 | NUR ---
Nutrition F/U Admitting Diagnosis Tracheostomy bleed, UTI Reviewed Pertinent Medical/Surgical Hx Medical Record Patient Primary RN Medical History Comment: PMH: CVA, respiratory failure, trach, PEG per MD notes Pt also found w/ sepsis, vent-associated pneumonia, complicated UTI, acute on chronic respiratory, CHF, anasarca per MD notes 08/26/18 Attending MD notes: sepsis, vent-associated pneumonia, present on admission, complicated UTI, Hx of CVA, acute on chronic respiratory failure Subjective Information Pt seen resting in bed, +intubated, +non-verbal, w/ TF infusing as per MD orders. Per RN, pt has been tolerating TF well, no residuals noted this morning. RN also reported that pt w/ no episode of loose BM today so far. Last BM was reported yesterday. Per EMR, abd is soft and non-distended w/ active bowel sounds. I/O; 1035/150 +885ml per 12 hrs. TF intake 1060ml per 24 hrs (08/30). Current TF regimen remains appropriate and adequate. Current Diet Order/Nutrition Support Pivot 1.5 at 45 ml/hr, Free Water Flush: 200 Q4h via GT x27 days Patient/Significant Other Unable To Verbalize Education Provided Not Indicated Pertinent Medications amiodarone, keppra Pertinent Labs 08/29/18: H/H 8.5 L/25.8 L, RBC 2.73 L, BUN 68 H, CRE 1.97 H, Na 134 L, BG 108 H, AST 54 H, ALP 165 H, ALB 1.1 L Height (Feet) 5 feet Height (Inches) 0.00 inches Weight (Pounds) 216 pounds BED SCALE Weight (Pounds) 180 pounds (07/28/18) -- RD attempted to weigh pt on bedscale, likely inaccurate -- 213 lb (08/10/18); 209 lb (08/17/18) Weight (Calculated Kilograms) 98.231 kilograms Patient Weight 98.231 kg Body Mass Index 42.3 kg/m2 %IBW 182 [place]/Adjusted Body Weight IBW: 100 lb, 45 kg. Adj IBW (obesity): 120 lb, 55 kg Recent Weight Change unable to verify Weight Status Obese Gastrointestinal Symptoms None Last BM 08/30/18 Food Allergies unable to verify Usual Diet At Home TF at [place] [facility] Skin Integrity Comment: Ceasar scale: 12; per Human Resources Generalist note 08/26/18: 1. Left sacral area: Reopened scar tissue from a wound of unknown etiology, present on admission. 2. Right sacral area: Reopened scar tissue from a wound of unknown etiology, present on admission. 3. Right lateral hip: Area of pink scar tissue, present on admission. 4. Right medial thigh fold: Moisture associated wound, present on admission. Appears to have resolved. 5. Left posterior medial calf: [place] area of purple discoloration/ecchymosis, present on admission. 6. Right dorsal hand: Full thickness skin tear, present on admission. Resolved. 7. 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 Skin is intact, now red in color, no drainage or weeping. Improved. 8. Right buttock near ischial tuberosity: Linear excoriated areas with red tissue over scar tissue, present on admission. BLE w/ non-pitting edema and BUE w/ non-pitting edema. Estimated Energy Expenditure (kcals/day) 0075-1753 kcal/day (30-35 kcal/kg CBW for wound healing) Estimated Protein Required (g/day) 83-110 gm/day (1.5-2 gm/kg Adj IBW for sepsis, wound healing, ESRD/HD) Estimated Fluid Required (l/day) Per MD (CHF, ESRD) Problem/Etiology/Signs/Symptoms Inadequate enteral nutrition related to metabolic demands as evidenced by increased nutritional needs for sepsis and wound healing, and current TF meets less than 50% of estimated nutritional needs. *improved Expected Outcomes/Goals - Monitor tolerance to EN support w/ goal of pt meeting at least 85% of estimated nutritional needs, labs trending WNL, normal GI function, and skin integrity/wt maintenance Dietitian Recommendations * Recommend Pivot 1.5 at 45 ml/hr, Free Water Flush: 200 Q4hr via GT Provides: 1620 kcal/day, 101 gm protein/day, and 2020 ml free water/day Meets: 98% of estimated caloric needs and 92% of upper end of estimated protein needs Follow Up Moderate Risk: F/U in 3-5 days
--- NOTE | 2018-08-31 14:18 | NUR ---
Dietitian Recommendations * Recommend Pivot 1.5 at 45 ml/hr, Free Water Flush: 200 Q4hr via GT Provides: 1620 kcal/day, 101 gm protein/day, and 2020 ml free water/day Meets: 98% of estimated caloric needs and 92% of upper end of estimated protein needs. Please see Nutrition F/U note for details. ALF, RD
--- NOTE | 2018-08-31 15:05 | NUR ---
Patient Transfer on Hold at this time. [facility] , during middle of report stated that patient cannot be transferred to facility because unable to do dialysis at their facility tomorrow for Thursday session because dialysis room is unavailable. Transfer is put on hold at this time, family made aware at bedside. Patient resting in bed, awake and alert, safety aspiration and isolation precautions remain in place, will continue to monitor patient
--- NOTE | 2018-08-31 15:20 | NUR ---
Left Voicemail for Jet from [facility] , informed her that [facility] [phone] stated they are not accepting patient today due to issues with room, asked if she could call me back for clarification. Addendum: 08/31/18 at 1554 by Fanny Sage RN Spoke with Jet over the phone, informed her about situation and that [facility] is unaccepting patient today, she stated will make some phone calls and get back to me. Ambulance arrived, informed them that patient's transfer is on hold
[2018-08-31] MEDS: ACETAMINOPHEN 325 MG TABLET GT PRN (17:09)
--- NOTE | 2018-08-31 17:21 | NUR ---
Patient Cleansed/Tylenol family requested tylenol for pain for patient, educated patient and fam regarding med, family verbalized understanding, g-tube had 0 residual, was flushed before and after, she was cleansed and repositioned in bed, had liquid BM, safety, isolation and aspiration precautions remain in place, will continue to monitor patient
--- NOTE | 2018-08-31 18:47 | NUR ---
Closing Note patient resting in bed, eyes closed, breathing unlabored on ventilator, symmetrical chest expansion, HOB elevated, g-tube infusing, nagel draining via gravity, SCDs on for DVT prophylaxis, safety, isolation and aspiration precautions in place, will endorse to retail shift supervisor nurse
--- NOTE | 2018-08-31 19:31 | NUR ---
OPENING NOTE Patient resting in the bed. No acute distress. Respiration even and unlabored. Trach intact to vent. HOB elevated. GT intact, patent, on GT feeding of Pivot 1.5 at 45ml/hr. Skin warm and dry to touch. PICC line intact to PARKER, no redness, no swelling, covered with clean and dry dressing. Garrett cath intact to RUTH, no bleeding, covered with clean and dry dressing. F/C intact, drain gravity with kristi urine. On contact isolation. SCD in placed. ALLIE mattress in placed. Safety measure maintained. Call light within reached. Bed locked in low position, padded side rails up, bed alarm on. Will continue to monitor.
[2018-08-31] MEDS: ATORVASTATIN 10 MG TABLET GT SCH (21:45)
--- NOTE | 2018-08-31 22:00 | NUR ---
TURNED AND REPOSITIONED Patient resting in the bed comfortable. No acute distress. Respiration even and unlabored. Trach intact to vent. HOB elevated. Turned and repositioned. Safety measure maintained. F/C intact, drain gravity. Bed locked in low position, padded side rails up, bed alarm on. Call light within reached. Continue to monitor.
--- NOTE | 2018-08-31 23:55 | NUR ---
ORAL CARE Patient resting in the bed. No acute distress. Trach intact to vent. Oral care done, tolerated well. Suctioned with small amount of white thin secretion. Turned and repositioned. Skin warm and dry to touch. F/c intact, drain gravity. Safety measure maintained. Call light within reached. Bed locked in low position, padded side rails up, bed alarm on. Continue to monitor.
[2018-09-01] VITALS: BP_SYST 121
--- NOTE | 2018-09-01 01:28 | NUR ---
ROUND Patient resting in the bed with eyes closed. No acute distress. Respiration even and unlabored. Trach intact to vent. HOB elevated. Continue on GT feeding, tolerated well. F/C intact, drain gravity. Continue on contact isolation. Safety measure maintained. Bed locked in low position, side rails up, bed alarm on. Call light within reached. Continue to monitor.
--- NOTE | 2018-09-01 03:07 | NUR ---
ROUND Patient resting in the bed with eyes closed. No acute distress. Respiration even and unlabored. Trach intact to vent setting as ordered. HOB elevated. Continue on GT feeding, tolerated well. F/C intact, drain gravity. Continue on contact isolation. Safety measure maintained. Bed locked in low position, side rails up, bed alarm on. Call light within reached. Continue to monitor.
--- NOTE | 2018-09-01 04:38 | NUR ---
ROUND Patient resting in the bed with eyes closed. No acute distress. Respiration even and unlabored. Trach intact to vent. Continue on GT feeding, tolerated well. HOB elevated all the time. F/C intact, drain gravity. Continue on contact isolation. Safety measure maintained. Bed locked in low position, side rails up, bed alarm on. Call light within reached. Continue to monitor.
[2018-09-01 06:47] LABS: HEMATOCRIT 27.1 % (36-48); HEMOGLOBIN 8.8 g/dL (12.0-16.0); MEAN CORPUSCULAR HEMOGLOBIN 31 pg (27-31); MEAN CORPUSCULAR HGB CONC 33 % (32-36); MEAN CORPUSCULAR VOLUME 94 fL (79.0-98.0); PLATELET COUNT (AUTO) 219 K/uL (130-430); RED BLOOD CELL COUNT(AUTO) 2.88 MIL/uL (4.2-6.2); RED CELL DISTRIBUTION WIDTH 16.4 % (9.0-15.0); WHITE BLOOD COUNT (AUTO) 10.2 K/uL (4.8-10.8)
--- NOTE | 2018-09-01 06:57 | NUR ---
CLOSING NOTE Patient resting in the bed. No acute distress. Respiration even and unlabored. Trach intact to vent. HOB elevated. GT intact, patent, on GT feeding of Pivot 1.5 at 45ml/hr, tolerated well. No N/V or s/s of aspiration noted. Skin warm and dry to touch. PICC line intact to PARKER, no redness, no swelling, covered with clean and dry dressing. Garrett cath intact to RUTH, no bleeding, covered with clean and dry dressing. F/C intact, drain gravity with kristi urine. Continue on contact isolation. SCD in placed. ALLIE mattress in placed. All needs met. Hourly rounding during shift. Safety measure maintained. Call light within reached. Bed locked in low position, padded side rails up, bed alarm on. Will endorse to morning shift nurse.
[2018-09-01] MEDS: ALBUTEROL SULFATE 0.083% 2.5 MG/3 ML VIAL.NEB INH SCH ×3 (07:14→15:32)
[2018-09-01] MEDS: IPRATROPIUM BROM 0.5 MG/2.5 ML VIAL.NEB (ATROVENT) INH SCH ×3 (07:15→15:32)
[2018-09-01 07:24] LABS: ANION GAP 4 (5-15); CALCIUM 7.2 mg/dL (8.4-11.0); CHLORIDE 103 mmol/L (98-107); CREATININE 1.95 mg/dL (0.55-1.30); GLUCOSE 125 mg/dL (70-99); POTASSIUM 4.2 mmol/L (3.5-5.1); SODIUM SERUM 134 mmol/L (136-145); UREA NITROGEN, BLOOD 73 mg/dL (8-21)
[2018-09-01 07:34] LABS: ALANINE AMINOTRANSFERASE 26 U/L (12-78); ALBUMIN 1.3 g/dL (3.4-4.8); ASPARTATE AMINOTRANSFERASE 53 U/L (10-37); TOTAL BILIRUBIN 0.9 mg/dL (0.0-1.0)
--- NOTE | 2018-09-01 07:45 | NUR ---
INITIAL NOTE RECEIVED PATIENT FROM CONTINUOUS WASHER OPERATOR. PATIENT IS AWAKE IN BED. HOB UP. UNABLE TO MAKE NEEDS KNOWN. TRACH INTACT AND PATENT AND SECURED WITH TRACH TIE; TRACH TO VENT AND SPENCER VENT SETTINGS ORDERED. NO ACUTE DISTRESS. NO SOB NOTED. SKIN WARM AND DRY TO TOUCH. GTUBE INTACT AND PATENT WITH NOTED 10CC RESIDUAL. PATIENT SPENCER GTUBE FEEDING. PICC LINE TO RIGHT UPPER ARM; NO REDNESS OR SWELLING NOTED WITH DRESSING C/D/I. DEBBIE CATH TO AMAURY WITH NO BLEEDING NOTED. FLEMING INTACT AND PATENT DRAINING RONALD URINE. SPENCER BILAT SCDs AND ALLIE MATTRESS. BED IN LOW AND LOCKED POSITION. PADDED SIDERAIL UP X3. BED ALARM ON. CONT ON FALL/SAFETY/ASPIRATION/SEIZURE/CONTACT PRECAUTIONS. CONT TO MONITOR. CALL LIGHT IN REACH
[2018-09-01 08:00] VITALS: BP_SYST 116
[2018-09-01 08:41] LABS: ATYPICAL LYMPHOCYTES % 0 % (0-0); BAND % (MANUAL) 0 % (0-6); BASOPHILS % (MANUAL) 0 % (0-2); EOSINOPHILS % (MANUAL) 28 % (0-7); LYMPHOCYTES % (MANUAL) 15 % (20-46); MONOCYTES % (MANUAL) 11 % (0-11)
[2018-09-01] MEDS: DOCUSATE SODIUM 100 MG/10 ML UDC GT SCH (09:22)
[2018-09-01] MEDS: LevETIRAcetam 500 MG/5 ML UDC ORAL LIQUID GT SCH (09:23)
[2018-09-01] MEDS: AMIODARONE HCL 200 MG TABLET GT SCH (09:23)
[2018-09-01] MEDS: BALSAM PERU/CASTOR OIL 60 GM OINT...G. TP SCH (09:25)
[2018-09-01] MEDS: MENTHOL/ZINC OXIDE 113 GM OINT. TP SCH ×3 (09:25→17:28)
[2018-09-01] MEDS: CHLORHEXIDINE GLUCONATE 15 ML/DOSE, 480 ML MM SCH (09:25)
[2018-09-01] MEDS: NYSTATIN 15 GM TOPICAL POWDER TP SCH (09:26)
--- NOTE | 2018-09-01 09:30 | NUR ---
MEDS ORAL CARE PROVIDED. PATIENT SPENCER ORAL SUCTIONING. GTUBE DRESSING CHANGED WITH SCANT DISCHARGE NOTED. GTUBE INTACT AND PATENT. ALL DUE MEDS ADMINISTERED ORDERED, SPENCER WELL. CONT TO MONITOR
[2018-09-01 10:20] VITALS: BP_SYST 121
--- NOTE | 2018-09-01 10:48 | NUR ---
Dc Planning:Per [facility] has bed for the pt. today , given room # 219A, [facility] ambulance will be arranged by [facility] tentatively by 6 pm today.
--- NOTE | 2018-09-01 11:09 | NUR ---
/RINA BECK SPOKE TO TO CONFIRM CANCELLATION OF DIALYSIS TODAY. PER PATIENT SEEMS TO BE RECOVERING AND DIALYSIS WAS CANCELED TODAY BUT IT IS OKAY TO TRANSFER PATIENT TODAY TO ANOTHER FACILITY LONG THERE'S A DEBRANDER TO REASSESS AND FOLLOW UP. SPOKE TO RINA BECK AND INFORMED ABOVE.
--- NOTE | 2018-09-01 11:21 | NUR ---
DC Planning: per INDIA Garcia, she confirmed with dr. Cornelius " no HD , the pt. may transfer to sub acute today".
--- NOTE | 2018-09-01 11:40 | NUR ---
WOUND CARE/CONSULT WOUND CONSULT DONE BY SANTIAGO OSBORNE WITH PHOTOS TAKEN AND WOUND CARE DONE; PATIENT SPENCER WELL. KEPT CLEAN AND DRY. REPOSITIONED FOR COMFORT. ALL NEEDS MET. CONT TO MONITOR
[2018-09-01 12:00] VITALS: BP_SYST 122
--- NOTE | 2018-09-01 12:05 | NUR ---
Discharge Planning: DCP updated patient packet and took to nurse station, explained to Efra CM spoke to [facility] [facility] which set up transportation.
--- NOTE | 2018-09-01 12:10 | NUR ---
WOUND RE-EVALUATION: Late note for 1210 secondary to patient care. Patient received in a [facility] Bed with a Remy XPRT mattress, awake, nonverbal, nonresponsive to verbal commands. Patient is unable to turn in bed independently. Ceasar Score is an 11. Intrinsic factors that delay wound healing:CVA. Extrinsic factors that delay wound healing: Immobility. Bilateral upper extremities have multiple areas of ecchymosis. Wound Assessment: 1. Left sacral area: Reopened scar tissue from a wound of unknown etiology, present on admission. Wound bed has 100% pink tissue, and appears to have resolved. 2. Right sacral area: Reopened scar tissue from a wound of unknown etiology, present on admission. Wound bed has 100% pink tissue, and appears to have resolved. Recommend continue: Cleanse sites with normal saline. Pat dry. Apply moisture barrier cream to involved areas. Cover sites with Sacral foam dressing. Perform site care daily, and as needed for dressing soiling or dislodgment. 3. Right lateral hip: Area of pink scar tissue, present on admission. No odor, no drainage. Recommend continue: Cleanse involved area with mild soap and water. Pat dry. Apply moisture barrier cream to involved area. Perform site care 4 times a day, and as needed for soiling. 4. Right medial thigh fold: Moisture associated wound, present on admission. Appears to have resolved. Recommend continue: Cleanse wound with normal saline. Apply moisture barrier cream to involved area. Perform site 4 times a day, and as needed for dressing soiling or dislodgment. 5. Left posterior medial calf: Wiley area of purple discoloration/ecchymosis, present on admission. Recommend continue: No dressing needed. Continue to monitor site for worsening condition. Float involved areas with pillows and towel rolls at all times. 6. Right dorsal hand: Full thickness skin tear, present on admission. Resolved. Recommend continue: No dressing needed. Continue to monitor. 7. 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 Site has moisture associated non-intact skin around perineal, left posterior thigh, and left buttocks areas, now tissue is red in color, with scant sanguineous drainage. Recommend continue: Cleanse involved areas with mild soap and water. Pat dry. Apply Calmoseptine cream to involved areas. Perform site care 4 times a day, and as needed for soiling. 8. Right buttock near ischial tuberosity: Linear excoriated areas with red tissue over scar tissue, present on admission. Brown discolored area present, inferior to the excoriated areas (which have resolved). Recommend continue: Cleanse involved area with mild soap and water. Pat dry. Apply Calmoseptine cream to involved area. Perform site care 4 times a day, and as needed for soiling. 9. Left Abdominal fold: Intertrigo with erythema and nonintact skin that is 100% pink in color. No odor, no drainage. Maira-site intact. Measures 1.0 cm x 5.0 cm. 10. Left lateral abdominal fold: Intertrigo with erythema and nonintact skin that is 100% pink in color. No odor, no drainage. Maira-site intact. Light measures 0.5 cm x 6.0 cm. Recommend: Cleanse involved areas with mild soap and water. Pat dry. Apply antifungal powder to involved areas twice a day, and as needed for soiling. Insert inter-dry AG cloth into fold area, and replaced every 5 days, and as needed for soiling. 11. Left lower lip: Mucosal wound from patient biting down on her own lip. Site has 70% yellow coagulum, 30% pink tissue. No odor, no drainage. Maira-wound intact. Wound measures 0.7 cm x 3.2 cm. Recommend continue: Cleanse site with normal saline. Pat dry. Apply SurePrep to maira-site. Apply Venelex ointment to site. Cover with foam dressing (cut dressing so adhesive sticks to chin area and covers site. Perform site care daily, and as needed for dressing soiling or dislodgment. 12. Left mons pubis: Abrasion. Site has 100% pink tissue. No odor, no drainage. Periwound intact. Recommend: Cleanse abrasion with normal saline. Pat dry. Apply moisture barrier cream to abrasion and periabrasion. Apply Venelex ointment to any portions of abrasion not covered by moisture barrier cream. Cover with foam dressing. Perform site care daily, and as needed for dressing soiling or dislodgment. 13. Left proximal medial thigh: Skin tear. Tear site has 100% red tissue. No odor, no drainage. Periwound intact. Tear measures 1.0 cm x 1.0 cm. Recommend: Cleanse skin tear with normal saline. Pat dry. Cover tear with moisture barrier cream, then foam dressing. Perform skin tear care daily, and as needed for dressing soiling or dislodgment. 14. Left lateral upper extremity: Skin tear. Tear site has 100% red tissue, with purple ecchymosis present No odor, no drainage. Periwound intact. Tear measures 1.0 cm x 1.0 cm. Recommend: Cleanse skin tear with normal saline. Pat dry. Cover tear with oil emulsion dressing, then nonadherent pad, and wrap with Eugene wrap. Perform skin tear care daily, and as needed for dressing soiling or dislodgment. Also recommend: Recommend reposition patient side to side only every 2 hours with pillow support. Offload, elevate and float bilateral heels with one pillow lengthwise under each extremity at all times. Perform skin care and monitor skin integrity Q shift. Use Calmoseptine cream on moisture susceptible areas QID and PRN for soiling. Maintain patient on a low air-loss mattress.
--- NOTE | 2018-09-01 13:30 | NUR ---
NOTE FAMILY AT BEDSIDE. INCONTINENCE CARE PROVIDED; REPOSITIONED FOR COMFORT, SPENCER WELL. HOB UP. CONT TO MONITOR
--- NOTE | 2018-09-01 13:58 | NUR ---
DC PLanning: [facility] # [phone], CCT transfer set up by [facility] for 6 pm picker machine operator to Mao gonzalez, [place] to report # [phone]. Please call [facility] # [phone] or [facility] after hours # [phone] if needs further assistance.-- Radha OSBORNE made aware.
[2018-09-01 14:38] VITALS: BP_SYST 124
--- NOTE | 2018-09-01 14:55 | NUR ---
REPORT CALLED [facility] [phone] AND SPOKE TO FABIÁN PEDERSON AND REPORT WAS GIVEN. INFORMED FABIÁN OF PATIENT'S HISTORY, ISOLATION AND DIALYSIS STATUS ( PER NO DIALYSIS TODAY AND FOR MD AT [facility] TO FOLLOW UP PATIENT'S DIALYSIS NEEDS). PER FABIÁN WOMACK TO CONT TRANSFER AT THIS TIME WITH P/U TIME AT 1630
--- NOTE | 2018-09-01 15:30 | NUR ---
NOTE EMPTIED FLEMING CATH. PATIENT HOB UP. SPENCER GTUBE FEEDING. SPENCER VENT SETTINGS. SKIN WARM AND DRY TO TOUCH. ALL NEEDS MET. FAMILY AT BEDSIDE. CONT TO MONITOR
[2018-09-01 16:00] VITALS: BP_SYST 124
--- NOTE | 2018-09-01 16:28 | NUR ---
PULMO CLEARANCE SPOKE TO AND REPORTED THAT PATIENT HAS A BED AT [facility] AND NEEDS CLEARANCE TO BE DISCHARGED. OKAY TO CLEAR PATIENT FOR DISCHARGE
--- NOTE | 2018-09-01 16:42 | NUR ---
SPOKE TO . PATIENT OKAY TO BE DISCHARGED TO SNF
[2018-09-01] MEDS: ACETAMINOPHEN 325 MG TABLET GT PRN (17:28)
--- NOTE | 2018-09-01 18:10 | NUR ---
PT TRANSFERRED Report given to KEVIN PEDERSON at [facility]. Transfer packet with Transfer Orders and Medication Reconciliation form given to EMT with report. Exitcare provided. [facility] ID band removed, replaced with ID band with pt's name and . Patient transferred with PICC line,dressing C/D/I; Garrett Cath, no bleeding noted with dressing C/D/I; Gtube intact and patent with zero residual noted and Dumont cath intact and patent draining yellow urine by gravity. All belongings sent with patient. Patient left floor via gurney escorted by EMT in no distress.
== END 2018-09-01 18:10 | DRG 720 ==
LOC: SED 02:15 → SIC 05:06 → STU 08-13 15:11
PROVIDERS: ADMIT Internal Medicine Hospice and Palliative Medicine; ATTEND Internal Medicine Hospice and Palliative Medicine
PROC: 5A1955Z Respiratory Ventilation, Greater than 96 Consecutive Hours (ICD-10-PCS; principal; 2018-07-27)
PROC: 02HV33Z Insertion of Infusion Device into Superior Vena Cava, Percutaneous Approach (ICD-10-PCS; 2018-07-27)
PROC: 30233N1 Transfusion of Nonautologous Red Blood Cells into Peripheral Vein, Percutaneous Approach (ICD-10-PCS; 2018-07-27)
PROC: 0BB18ZX Excision of Trachea, Via Natural or Artificial Opening Endoscopic, Diagnostic (ICD-10-PCS; 2018-07-28)
PROC: 5A1D70Z Performance of Urinary Filtration, Intermittent, Less than 6 Hours Per Day (ICD-10-PCS; 2018-07-31)
PROC: 5A1D70Z Performance of Urinary Filtration, Intermittent, Less than 6 Hours Per Day (ICD-10-PCS; 2018-08-06)
PROC: 05H633Z Insertion of Infusion Device into Left Subclavian Vein, Percutaneous Approach (ICD-10-PCS; 2018-08-06)
PROC: B547ZZA Ultrasonography of Left Subclavian Vein, Guidance (ICD-10-PCS; 2018-08-06)
PROC: 5A1D70Z Performance of Urinary Filtration, Intermittent, Less than 6 Hours Per Day (ICD-10-PCS; 2018-08-08)
PROC: 5A1D70Z Performance of Urinary Filtration, Intermittent, Less than 6 Hours Per Day (ICD-10-PCS; 2018-08-11)
PROC: 5A1D70Z Performance of Urinary Filtration, Intermittent, Less than 6 Hours Per Day (ICD-10-PCS; 2018-08-13)
PROC: 5A1D70Z Performance of Urinary Filtration, Intermittent, Less than 6 Hours Per Day (ICD-10-PCS; 2018-08-16)
PROC: 5A1D70Z Performance of Urinary Filtration, Intermittent, Less than 6 Hours Per Day (ICD-10-PCS; 2018-08-20)
PROC: 5A1D70Z Performance of Urinary Filtration, Intermittent, Less than 6 Hours Per Day (ICD-10-PCS; 2018-08-23)
PROC: 5A1D70Z Performance of Urinary Filtration, Intermittent, Less than 6 Hours Per Day (ICD-10-PCS; 2018-08-25)
PROC: 02HV33Z Insertion of Infusion Device into Superior Vena Cava, Percutaneous Approach (ICD-10-PCS; 2018-08-27)
PROC: B548ZZA Ultrasonography of Superior Vena Cava, Guidance (ICD-10-PCS; 2018-08-27)
PROC: 5A1D70Z Performance of Urinary Filtration, Intermittent, Less than 6 Hours Per Day (ICD-10-PCS; 2018-08-27)
DX: A41.01 Sepsis due to Methicillin susceptible Staphylococcus aureus (principal); J69.0 Pneumonitis due to inhalation of food and vomit; J96.20 Acute and chronic respiratory failure, unspecified whether with hypoxia or hypercapnia; J95.851 Ventilator associated pneumonia; E43 Unspecified severe protein-calorie malnutrition; N17.0 Acute kidney failure with tubular necrosis; R40.20 Unspecified coma; R65.21 Severe sepsis with septic shock; Z99.11 Dependence on respirator [ventilator] status; D69.6 Thrombocytopenia, unspecified; E88.09 Other disorders of plasma-protein metabolism, not elsewhere classified; I08.1 Rheumatic disorders of both mitral and tricuspid valves; J95.01 Hemorrhage from tracheostomy stoma; I13.2 Hypertensive heart and chronic kidney disease with heart failure and with stage 5 chronic kidney disease, or end stage renal disease; I27.20 Pulmonary hypertension, unspecified; I48.0 Paroxysmal atrial fibrillation; D64.9 Anemia, unspecified; B96.20 Unspecified Escherichia coli [E. coli] as the cause of diseases classified elsewhere; B96.4 Proteus (mirabilis) (morganii) as the cause of diseases classified elsewhere; I25.10 Atherosclerotic heart disease of native coronary artery without angina pectoris; I48.2 Chronic atrial fibrillation; I50.9 Heart failure, unspecified; N18.6 End stage renal disease; N39.0 Urinary tract infection, site not specified; R13.10 Dysphagia, unspecified; K13.0 Diseases of lips; J39.8 Other specified diseases of upper respiratory tract; R74.0 Nonspecific elevation of levels of transaminase and lactic acid dehydrogenase [LDH]; Y83.8 Other surgical procedures as the cause of abnormal reaction of the patient, or of later complication, without mention of misadventure at the time of the procedure; Y82.8 Other medical devices associated with adverse incidents; K05.10 Chronic gingivitis, plaque induced; K02.9 Dental caries, unspecified; B96.1 Klebsiella pneumoniae [K. pneumoniae] as the cause of diseases classified elsewhere; Z66 Do not resuscitate; Z51.5 Encounter for palliative care; Z16.24 Resistance to multiple antibiotics; F32.9 Major depressive disorder, single episode, unspecified; I69.354 Hemiplegia and hemiparesis following cerebral infarction affecting left non-dominant side; Z87.81 Personal history of (healed) traumatic fracture; Z68.41 Body mass index [BMI] 40.0-44.9, adult; Z99.2 Dependence on renal dialysis; Z74.01 Bed confinement status; Z88.1 Allergy status to other antibiotic agents; Z88.0 Allergy status to penicillin; Z79.899 Other long term (current) drug therapy
CPT/HCPCS: 31625; 36415; 36600; 71045; 80048; 80053; 80074; 81000-TC; 82803-TC; 83605; 83880; 84484; 85007; 85025; 85027; 85610-TC; 85730-TC; 86886; 86900; 86901; 86920; 87040-TC; 87070-TC; 87081; 87086; 87186-TC; 87205-TC; 87230-TC; 88305; 90935; 90937; 93005; 93971; 94002; 94003; 94640; 94760; 96361; 96365; 99285; C1751; G0378; J0692; J0770; J0878; J1160; J1644; J1940; J1956; J2001; J2060; J2185; J2250; J3010; J7030; J7050; J7060; J7613; P9021; P9041; P9046